=== PATIENT | male | born 1940 | race Caucasian/White ===

== ENCOUNTER → 2018-01-02 12:02 | Outpatient (CLI) | payer MEDICARE, SELFPAY ==
[2018-01-05 14:07] LABS: PROELU- Albumin, Urine 28.1 % (.); PROELU- Alpha-1-Globulin,Ur 6.3 % (.); PROELU- Alpha-2-Globulin,Ur 13.9 % (.); PROELU- Beta Globulin, Ur 27.5 % (.); PROELU- Gamma Globulin, Ur 24.2 % (.); Total Protein, Ur 9.2 mg/dL (Not Estab.)
== END ==
PROVIDERS: Visit Provider Family Medicine Geriatric Medicine
DX: E83.52 Hypercalcemia (principal)
CPT/HCPCS: 84166

== ENCOUNTER → 2018-02-15 07:05 | Outpatient (CLI) | payer MEDICARE, SELFPAY ==
[2016-12-22 06:14] VITALS: BMI 24.5
--- NOTE | 2018-02-15 07:27 | US_ITS ---
STUDY: RENAL ULTRASOUND - COMPLETE REASON FOR EXAM: Male, 77 years old. Stage III chronic kidney disease TECHNIQUE: Ultrasound evaluation of the kidneys was performed with real-time and static bergamn-scale imaging. COMPARISON: None. FINDINGS: RIGHT KIDNEY: Normal location of the right kidney, which is normal in size. The right kidney measures 9.2 x 4.8 x 1.4 cm. There is diffuse thinning of the renal cortex. The renal cortex measures 1.1 cm. There are multiple anechoic cysts of the right kidney measure up to 2.2 cm. There are no right renal calculi. There is no right hydronephrosis. DISTAL RIGHT URETER: There is non-visualization of the distal right ureter. There is no demonstrated right ureterovesical junction calculus. There is a visualized right ureteral jet. LEFT KIDNEY: Normal location of the left kidney, which is normal in size. The left kidney measures 9.8 x 5.1 x 5.0 cm. There is diffuse thinning of the renal cortex. The renal cortex measures 1.4 cm. There are multiple anechoic renal cysts measuring up to 2.7 cm. There are no left renal calculi. There is no left hydronephrosis. DISTAL LEFT URETER: There is non-visualization of the distal left ureter. There is no demonstrated left ureterovesical junction calculus. There is no demonstrated left ureteral jet. BLADDER: The distended urinary bladder has a volume of 121 ml. There is a normal wall thickness of the distended urinary bladder. There is no demonstrated mass within the urinary bladder. There are no demonstrated bladder calculi. US/Kidney and Bladder IMPRESSION: 1. Bilateral renal cortical atrophy compatible with history provided of chronic medical renal disease. 2. Simple bilateral renal cysts. Electronically Signed: Alon Mackay MD at 11:04 EST , Service support ,
[2018-02-15 08:18] LABS: Hematocrit 47.2 % (40-54); Hemoglobin 15.7 g/dl (13.0-16.5); Mean Corp Hgb Conc 33.3 g/gl (32-36); Mean Corpuscular Hgb 31.2 pg (27.0-32.0); Mean Corpuscular Volume 93.8 fL (80-94); Mean Platelet Vol. 11.6 fl (6.2-12.0); Platelet Count 269 K/mm3 (150-450); RBC Distribution Width CV 13.6 % (11.6-14.6); RBC Distribution Width SD 45.1 fl (35.1-43.9); Red Blood Count 5.03 M/mm3 (4.6-6.2); White Blood Count 9.2 K/mm3 (4.4-11.0)
[2018-02-15 08:21] LABS: Scan Indicated on CBC? Y/N NO
[2018-02-15 08:43] LABS: BUN 43 mg/dL (7-18); BUN/Creat Ratio 17.3 RATIO (10-20); Calcium,Total 10.3 mg/dL (8.5-10.1); Chloride 106 mmol/L (98-107); Creatinine, Serum 2.49 mg/dL (0.70-1.30); EST Glomerular Filtration Rate 27 mL/min (>60); Est Glom Filt Rate - Afr Amer 32 mL/min (>60); Glucose 109 mg/dL (74-106); Phosphorus 2.7 mg/dL (2.5-4.9); Sodium Level 141 mmol/L (136-145)
[2018-02-15 09:03] LABS: Vitamin D,25 Hydroxy 19.2 ng/mL (29.95-100.01)
[2018-02-15 09:06] LABS: PTHIN 34.3 pg/mL (18.4-80.1)
[2018-02-18 03:04] LABS: Immunoglobulin A 488 mg/dL (61-437); Immunoglobulin G 999 mg/dL (700-1600); PROEL- A/G Ratio 0.9 (0.7-1.7); PROEL- Albumin 3.6 g/dL (2.9-4.4); PROEL- Alpha-1 Globulin 0.3 g/dL (0.0-0.4); PROEL- Alpha-2 Globulin 1.1 g/dL (0.4-1.0); PROEL- Beta Globulin 1.6 g/dL (0.7-1.3); PROEL- Globulin, Total 3.9 g/dL (2.2-3.9); PROEL- TOTAL PROTEIN 7.5 g/dL (6.0-8.5)
[2018-02-19 08:18] LABS: Immunoglobulin E 450 IU/mL (0-100); Immunoglobulin M 24 mg/dL (15-143)
[2018-02-21 11:14] LABS: Vitamin D 1,25-Dihydroxy <5.0 pg/mL (19.9-79.3)
== END ==
PROVIDERS: Family Provider Family Medicine; PCP Family Medicine; Referring Provider Internal Medicine Nephrology; Visit Provider Internal Medicine Nephrology
DX: N18.3 Chronic kidney disease, stage 3 (moderate) (principal); E83.52 Hypercalcemia
CPT/HCPCS: 36415; 76770; 80069; 82306; 82652; 82784; 82785; 83970; 84165; 85027

== ENCOUNTER 2022-05-31 17:28 | Inpatient (IN) | payer MEDICARE, SELFPAY ==
[2022-05-31] VITALS (11 sets, daily range): BP systolic 77–202; BP diastolic 56–179; PULSE 81–143; RESP 20–30; TEMP 35.5–37.2; O2SAT 84–100; BMI 21.2; BMI 19.4
--- NOTE | 2022-05-31 17:39 | CT_ITS ---
STUDY: CT BRAIN WITHOUT CONTRAST REASON FOR EXAM: Male, 82 years old. AMS RADIATION DOSAGE (If Supplied By Facility): CTDIvol = ( 44.99 ) mGy, DLP = ( 796.11 ) mGycm TECHNIQUE: Transaxial CT imaging of the brain was performed without administration of intravenous contrast material. Individualized dose optimization techniques were used for this CT. COMPARISON: No relevant priors. FINDINGS: Normal soft tissue structures. Normal calvarium. Calcific plaquing of the cavernous carotids Moderate atrophy and periventricular white matter ischemic changes.. Normal basal ganglia and thalami. Normal brainstem. Normal cerebellum. There is no intracranial hemorrhage. There are no findings of an acute ischemic infarction. Postsurgical changes of the orbits Mild mucosal thickening left maxillary and bilateral ethmoid sinuses. CT/Brain/Head without Contrast IMPRESSION: Atrophy and moderate periventricular white matter ischemic changes. No evidence for acute intracranial bleed.. Electronically Signed: Rodney Staples MD at 18:34 EDT ,
--- NOTE | 2022-05-31 17:40 | EKG12_ITS ---
Test Reason : TACHY Blood Pressure : / mmHG Vent. Rate : 087 BPM Atrial Rate : 087 BPM P-R Int : 158 ms QRS Dur : 098 ms QT Int : 368 ms P-R-T Axes : 055 -64 072 degrees QTc Int : 442 ms Normal sinus rhythm Left axis deviation Abnormal ECG When compared with ECG of 31-MAY-2022 17:45, MANUAL COMPARISON REQUIRED, DATA IS UNCONFIRMED Confirmed by GILMER HAYWOOD, GLORIA ([id number]), editor greeting card LALA MURRAY ([id number]) on 06/06/2022 1:50:29 PM Referred By: Confirmed By:GLORIA SCHERER MD
--- NOTE | 2022-05-31 17:45 | EX.ED.DYSGE1 ---
HPI History of Present Illness Chief Complaint: Confusion Informant: patient Narrative Narrative: Patient is an 82-year-old male with history of hypertension and hyperlipidemia presenting via EMS from home. Apparently patient was found on the ground by his landlord. Patient states he had fallen to the ground and could not get himself back up. He was able to try to crawl around. He thinks he was on the ground for couple hours. Patient does seem slightly confused and smells of urine. The landlord stated last time he saw him was about a week ago when he was driving and the landlord at that time and asked him if he had a stroke and if he was okay. The patient said he was fine. Patient has no complaints at this time. Cannot really tell me what day or how he fell. [facility] Medical History (Updated 05/31/22 @ 19:[address] Yusra Sadler, DO) BPH (benign prostatic hyperplasia) Chronic bronchitis CKD (chronic kidney disease), stage III Former tobacco use HLD (hyperlipidemia) HTN (hypertension) Hx of urethral stricture Home Medications Prinzide 10 mg PO DAILY 11/12/12 [History Last Taken 11/30/12 06:30 10 MG] albuterol sulfate 90 mcg/actuation aerosol inhaler (ProAir HFA) 1 - 2 puff inhalation Q4H PRN PRN Asthma 11/12/12 [History Last Taken 11/30/12 06:30 1 - 2 PUFF] amlodipine 10 mg tablet 10 mg PO DAILY 11/12/12 [History Last Taken 11/30/12 06:30 10 MG] aspirin 81 mg chewable tablet 81 mg PO DAILY@0800 11/12/12 [History Last Taken 11/30/12 06:30 81 MG] pravastatin 20 mg tablet 20 mg PO QHS 11/12/12 [History Last Taken 11/30/12 06:30 20 MG] hydrocodone 5 mg-acetaminophen 300 mg tablet (Vicodin) 1 tab PO Q4H PRN PRN Pain #10 tabs 11/30/12 [Rx Last Taken Unknown] lisinopril 10 mg-hydrochlorothiazide 12.5 mg tablet (Zestoretic) 1 tab PO DAILY 12/22/16 [History Last Taken Unknown] Allergy/AdvReac Type Severity Reaction Status Date / Time No Known Allergies Allergy Verified 05/31/22 17:29 Family History (Updated 05/31/22 @ 19:[address] Brianna Felix MD) Sister Cancer Surgical History (Updated 05/31/22 @ 19:[address] Brianna Felix MD) H/O cystoscopy S/P colonoscopic polypectomy S/P partial colectomy Social History (Updated 05/31/22 @ 19:[address] Brianna Felix MD) household members: none Smoking Status: Former smoker quit date: 07/17/09 pack-years: 60 alcohol intake: current alcohol intake frequency: 0-2 drinks per day details: Per prior records max 1 drink daily. substance use type: does not use ROS ROS ED Review of Systems ROS Unobtainable: due to mental status EXAM Physical Exam Const Vital Signs: 05/31/22 17:29 05/31/22 17:40 05/31/22 17:43 Temperature 96 F L Temperature Source Temporal Pulse Rate 140 H 143 H Respiratory Rate 28 H 30 H Respiratory Effort Short of Breath Labored Respiratory Pattern Tachypnea Blood Pressure 139/115 H Blood Pressure Mean 123 Pulse Ox 84 96 Oxygen Delivery Method Room Air Nasal Cannula Oxygen Flow Rate (L/min) 2 05/31/22 19:00 Temperature Temperature Source Pulse Rate 81 Respiratory Rate 22 H Respiratory Effort Respiratory Pattern Blood Pressure 202/179 H Blood Pressure Mean 186 Pulse Ox 99 Oxygen Delivery Method Nasal Cannula Oxygen Flow Rate (L/min) 2 Constitutional Narrative: Well-developed, toxic-appearing HEENT Reports TM's clear and dry mucous membranes HEENT Narrative: No signs of facial trauma Negative for trauma Tympanic Membrane ED: Yes TM's clear Mouth ED: Yes dry mucous membranes Mouth: dry mucous membranes Eyes PERRL and EOMs intact bilaterally Neck supple General: Negative for tenderness Chest Wall inspection of chest normal and palpation of chest normal Resp Resp Narrative: Tachypneic Auscultation: Negative for rales, rhonchi or wheezes Cardio no murmurs Rate: tachycardic GI normal to inspection, nondistended, normoactive bowel sounds Narrative: Normal external genitalia Extremity normal to inspection General Extremety ED: Negative for edema or tenderness General Extremity: Negative for edema Neuro oriented x3 Neuro Narrative: Patient does seem slightly confused and is a poor historian. Slight left facial droop however this is chronic per family members that are at the bedside. They state he has had prior injuries/trauma and surgery to that side of his face. No focal deficits appreciated. No drift of the extremities. Sensorium / Orientation: alert Motor Exam: general weakness Psych mental status grossly normal Skin no rashes or lesions noted and no wounds Skin Narrative: Tenting of the skin MDM MDM MDM Narrative Medical decision making narrative: Patient is evaluated for generalized weakness and concern for prolonged downtime on the floor. He is very weak and clinically appears dehydrated with significant tachycardia and tachypnea which I suspect is from her underlying metabolic process. No obvious signs of trauma. CT of the brain obtained does not show any acute intracranial process. He is not have any focal neurologic deficits. Patient is bolused IV fluids with improvement of his mentation and heart rate. ABG shows compensated metabolic acidosis. Patient has significant elevation of his BUN and creatinine however his potassium is normal. I do not think he requires emergent dialysis. His anion gap is normal. His bicarb is 13 which is again consistent with significant dehydration. Patient does have an elevation of his CK and I suspect the uptrend. I suspect this is early rhabdomyolysis. There is no obvious source of infection at this time however he does have a leukocytosis with a white blood cell count of 13. Patient's lactate is elevated at 5.0. Cultures are sent. There is no obvious source of infection we will refrain from antibiotics at this time and I suspect his lactic acidosis is due to dehydration. Case is discussed with admitting physician, Dr. Felix, who accepts him to the PCU. Patient's mentation does improve slightly while in the emergency room. History & Record Review Discussion w/independent historian: EMS personnel and Patient Lab Data Attestation: I reviewed the patient's lab results. Labs: Laboratory Results - last 24 hr 05/31/22 05/31/22 05/31/22 17:48 17:49 17:49 WBC RBC Hgb Hct MCV MCH MCHC RDW Std Deviation RDW Coeff of Fidelia Plt Count MPV Immature Gran % (Auto) Neut % (Auto) Lymph % (Auto) [place] % (Auto) Eos % (Auto) Baso % (Auto) Absolute Neuts (auto) Absolute Lymphs (auto) Nucleated RBC % Differential Comment PT INR APTT Sodium 144 Potassium 3.9 Chloride 118 H Carbon Dioxide 13.0 L Anion Gap 13 BUN 154 H* Creatinine 6.37 H Estim Creat Clear Calc 8.00 Est GFR (MDRD) Af Amer 11 L Est GFR (MDRD) Non-Af 9 L BUN/Creatinine Ratio 24.2 H Glucose 225 H Lactic Acid Calcium 8.6 Magnesium 2.2 Total Bilirubin 0.40 AST 22 ALT 21 Alkaline Phosphatase 59 Total Creatine Kinase 317 H Troponin I High Sens 24 Total Protein 5.7 L Albumin 2.1 L Globulin 3.6 Albumin/Globulin Ratio 0.6 L Urine Color Yellow Urine Clarity Clear Urine pH 5.0 Ur Specific Wolsey 1.020 Urine Protein 15 H Urine Glucose (UA) Normal Urine Ketones 5 H Urine Occult Blood Negative Urine Nitrite Negative Urine Bilirubin 1 H Urine Urobilinogen Normal Ur Leukocyte Esterase 25 H Urine RBC 0 SEEN Urine WBC 0-5 SEEN Ur Squamous Epith Cells 0 SEEN Urine Bacteria 0 SEEN Urine Mucus 0 SEEN POC Glucose 183 H 05/31/22 05/31/22 05/31/22 17:55 17:55 17:57 WBC 13.0 H RBC 4.59 L Hgb 14.2 Hct 44.0 MCV 95.9 H MCH 30.9 MCHC 32.3 RDW Std Deviation 49.1 H RDW Coeff of Fidelia 13.8 Plt Count 223 MPV 11.8 Immature Gran % (Auto) 2.500 H Neut % (Auto) 83.9 H Lymph % (Auto) 6.5 L [place] % (Auto) 6.5 Eos % (Auto) 0.5 Baso % (Auto) 0.1 Absolute Neuts (auto) 10.9 H Absolute Lymphs (auto) 0.85 Nucleated RBC % 0 Differential Comment SCANNED PT 16.7 H INR 1.4 APTT 26.0 Sodium Potassium Chloride Carbon Dioxide Anion Gap BUN Creatinine Estim Creat Clear Calc Est GFR (MDRD) Af Amer Est GFR (MDRD) Non-Af BUN/Creatinine Ratio Glucose Lactic Acid 5.0 H* Calcium Magnesium Total Bilirubin AST ALT Alkaline Phosphatase Total Creatine Kinase Troponin I High Sens Total Protein Albumin Globulin Albumin/Globulin Ratio Urine Color Urine Clarity Urine pH Ur Specific Wolsey Urine Protein Urine Glucose (UA) Urine Ketones Urine Occult Blood Urine Nitrite Urine Bilirubin Urine Urobilinogen Ur Leukocyte Esterase Urine RBC Urine WBC Ur Squamous Epith Cells Urine Bacteria Urine Mucus POC Glucose ABG Data ABG results: ABG 05/31/22 18:01 Specimen Type ART Sample Site L Radial pH 7.35 Bicarbonate Actual 12.0 L Total CO2 13 Base Excess -14 L O2 Saturation 98 ABG pCO2 21.9 L ABG pO2 114 H Geo Test Positive O2 Delivery Device Cannula Liter Flow 2.0 Radiography Chest X-Ray - ED: 1 View, Read by ED Physician and No Acute Disease Diagnostic Testing: Clinical Impression(s) from Imaging Studies Brain CT 05/31/22 17:39 IMPRESSION: Atrophy and moderate periventricular white matter ischemic changes. No evidence for acute intracranial bleed.. Electronically Signed: Rodney Staples MD at 18:34 EDT , Cervical Spine CT 05/31/22 17:47 IMPRESSION: Moderate to severe degenerative change. No acute fracture or subluxation. Electronically Signed: Rodney Staples MD at 18:37 EDT , Chest X-Ray 05/31/22 18:20 IMPRESSION: COPD. No acute cardiopulmonary pathology Electronically Signed: Rodney Staples MD at 18:39 EDT , Rhythm Strip Rhythm Strip: Sinus Tach Rate: 150 Ectopy: None EKG Initial EKG: Attestation: I personally reviewed and interpreted this EKG as follows: Interpretation: Sinus Tachycardia Comments: Sinus tachycardia rate of [address] changes, likely strain related Poor baseline so difficult to interpret Compared to prior EKG, patient is now tachycardic with new strain pattern Discharge Plan Triage Chief Complaint: Confusion Other Complaint: Fall General Illness ED Provider: Yusra Sadler Dx/Rx/DC Orders Clinical Impression: YUE (acute kidney injury), Rhabdomyolysis, SIRS (systemic inflammatory response syndrome), Hypoxia Prescriptions: No Action amlodipine 10 MG tablet 10 mg PO DAILY aspirin 81 MG tablet,chewable 81 mg PO DAILY@0800 pravastatin 20 MG tablet 20 mg PO QHS albuterol sulfate [ProAir HFA] 1 PUFF inhaler 1 - 2 puff inhalation Q4H PRN PRN (Reason: Asthma) Prinzide 10 mg PO DAILY Label Comments: PRINZIDE 10/12.5 hydrocodone-acetaminophen [Vicodin] 1 EACH tablet 1 tab PO Q4H PRN PRN (Reason: Pain) Qty: 10 0RF lisinopril-hydrochlorothiazide [Zestoretic] 1 TABLET tablet 1 tab PO DAILY Primary Care Provider: Rodney Shah Referrals: Rodney Shah MD [Primary Care Provider] - Disposition Disposition: Acute Care Hospital [facility]
--- NOTE | 2022-05-31 17:47 | CT_ITS ---
STUDY: CT CERVICAL SPINE WITHOUT CONTRAST REASON FOR EXAM: Male, 82 years old. trauma RADIATION DOSAGE (If Supplied By Facility): CTDIvol = ( 18.41 ) mGy, DLP = ( 355.12 ) mGycm TECHNIQUE: High resolution transaxial imaging was performed without contrast material. Sagittal and coronal images were reconstructed. Individualized dose optimization techniques were used for this CT. COMPARISON: None FINDINGS: Normal craniovertebral junction. Normal anterior atlantoaxial articulation. Normal odontoid process. Decreased cervical lordosis. Normal vertebral bodies and posterior osseous elements. C2-3: Normal endplates. Normal disc height and morphology. Normal central canal and intervertebral neuroforamina. C3-4: Grade 1 spondylolisthesis Normal endplates. Normal disc height and minor bulging disc osteophyte complex.. Normal central canal and intervertebral neuroforamina. C4-5: Narrowed disc space and mild endplate spurring.. Normal central canal and intervertebral neuroforamina. C5-6: Narrowed disc space and mild endplate spurring.. Normal central canal. Severe bilateral neural foraminal stenosis secondary to bony encroachment C6-7: Narrowed disc space and endplate spurring.. Normal central canal. Severe bilateral neural foraminal stenosis C7-T1: Grade 1 spondylolisthesis Normal endplates. Normal disc height and minor bulging disc osteophyte complex. Normal central canal and intervertebral neuroforamina. Normal visualized soft tissue structures. CT/Spine Cervical without Contras IMPRESSION: Moderate to severe degenerative change. No acute fracture or subluxation. Electronically Signed: Rodney Staples MD at 18:37 EDT ,
[2022-05-31] MEDS: 0.9% Normal Saline 1,000 ML 1000 ML IV (17:48)
[2022-05-31 17:57] LABS: Bacteria 0 SEEN /hpf (None Seen); Mucous, Urine 0 SEEN /hpf (<or=2+); Red Blood Cells-Urine 0 SEEN /hpf (0-5); Squamous Epithelial Cells - UA 0 SEEN /hpf (0-5)
[2022-05-31] MEDS: 0.9% Normal Saline 1,000 ML 150 ML IV (18:02)
[2022-05-31 18:10] LABS: Allen Test Positive; Base Excess -14 mmol/L (-2 to +2); Blood Gas Specimen Type ART; O2 Delivery Device Cannula; PO2 114 mmHG (75-100); SITE L Radial; SO2 98 % (95-99); Total Carbon Dioxide 13 mmol/L; pCO2 21.9 mmHg (35-45); pH 7.35 (7.35-7.45)
[2022-05-31 18:12] LABS: Absolute Lymphocyte Count 0.85 X10^3/uL (0.83-4.51); Absolute Neutrophil Count 10.9 X10^3/uL (2.0-7.7); Basophil# 0.01 X10^3/uL; Basophil% 0.1 % (0-1); Eosinophil# 0.06 X10^3/uL; Eosinophils% 0.5 % (0-5); Hemoglobin 14.2 g/dL (13.0-16.5); Lymphocyte # 0.85 X10^3/ul (0.83-4.51); Lymphocyte % 6.5 % (19-41); Mean Corp Hgb Conc 32.3 g/dL (32-36); Mean Corpuscular Hgb 30.9 pg (27.0-32.0); Mean Corpuscular Volume 95.9 fL (80-94); Mean Platelet Vol. 11.8 fl (6.2-12.0); Monocyte# 0.85 X10^3/uL; Monocyte% 6.5 % (0-10); NRBC Flagged by Analyzer 0 % (0-5); Neutrophil # 10.94 X10^3/uL (2.7-7.7); Neutrophil % 83.9 % (47-70); POSITIVE MORPHOLOGY YES; Platelet Count 223 K/mm3 (150-450); RBC Distribution Width CV 13.8 % (11.6-14.6); RBC Distribution Width SD 49.1 fl (35.1-43.9); Red Blood Count 4.59 M/mm3 (4.6-6.2)
[2022-05-31 18:17] LABS: Color, Urine Yellow (Yellow); Glucose, Dipstick Normal (Normal); Ketone-Dipstick 5 mg/dl (Negative); Leukocyte Esterase-Dipstick 25 /ul (Negative); Nitrite-Dipstick Negative (Negative); Occult Blood-Urine Negative /ul (Negative); Protein-Dipstick 15 mg/dl (Negative); Urine Clarity Clear (Clear); Urine Urobilinogen Normal (Normal)
[2022-05-31 18:19] LABS: Differential Indicated SCAN CRITERIA MET
--- NOTE | 2022-05-31 18:20 | RAD_ITS ---
STUDY: X-RAY CHEST REASON FOR EXAM: Male, 82 years old. weakness TECHNIQUE: AP portable COMPARISON: November 15, 2012 FINDINGS: Lungs are hyperinflated.. There is no demonstrated pleural abnormality. Normal size heart. Normal mediastinum and balbir. Normal visualized pulmonary arteries. Mildly calcified and tortuous aortic arch and descending thoracic aorta. Normal visualized thoracic spine. Normal visualized, clavicles, and shoulders. Old healed left rib fractures There is no demonstrated abnormality of the visualized soft tissue structures of the upper abdomen. RAD/Chest 1 View (Portable) IMPRESSION: COPD. No acute cardiopulmonary pathology Electronically Signed: Rodney Staples MD at 18:39 EDT ,
[2022-05-31 18:23] LABS: International Normalized Ratio 1.4; Prothrombin Time (Protime)PT. 16.7 SECONDS (11.7-14.9)
[2022-05-31 18:37] LABS: Urine Bilirubin Dipstick 1 mg/dL (Negative)
[2022-05-31 18:41] LABS: Differential Comment SCANNED
[2022-05-31 18:43] LABS: White Blood Cells 0-5 SEEN /hpf (0-5)
[2022-05-31 18:59] LABS: ALB/GLOB Ratio 0.6 RATIO (0.9-2.4); AST(SGOT) 22 U/L (15-37); Alanine Aminotransfer ALT/SGPT 21 U/L (16-61); Albumin, Serum 2.1 g/dL (3.2-5.0); Alkaline Phosphatase 59 U/L (45-117); Anion Gap 13 (5-15); BUN 154 mg/dL (7-18); BUN/Creat Ratio 24.2 RATIO (10-20); CPK Total, Creatine Kinase 317 U/L (39-308); Calcium,Total 8.6 mg/dL (8.5-10.1); Chloride 118 mmol/L (98-107); Creatinine, Serum 6.37 mg/dL (0.70-1.30); EST Glomerular Filtration Rate 9 mL/min (>60); Est Glom Filt Rate - Afr Amer 11 mL/min (>60); Globulin 3.6 g/dL (2.2-4.2); Glucose 225 mg/dL (74-106); Magnesium 2.2 mg/dL (1.6-2.6); Potassium 3.9 mmol/L (3.5-5.1); Protein, Total 5.7 g/dL (6.4-8.2); Sodium Level 144 mmol/L (136-145); Troponin-I HS 24 pg/mL (3.0-78.0)
--- NOTE | 2022-05-31 19:36 | PCM.HP.STD ---
HPI - General General Date of Admission: 05/31/22 Date of Service: 05/31/22 Chief Complaint: Confusion, fall, found on the ground. HPI Narrative The patient is an 82 y/o M w/ PMHx: HTN, HLD, BPH w/ Hx UTI/strictures, Chronic bronchitis, CKD stage III unclear subtype, Former tobacco use who presents to the [facility] ED on 05/31/22 found by his landlord on the ground reportedly fallen and could not get himself back up attempting to crawl potentially for hours however patient was disheveled, smells of urine and was confused with last known well approximately 1 week prior per the landlord and at that time patient was appropriate, driving without issue however given his confusion although the patient did report to the landlord he was fine prompted transition to the ED per EMS. In the emergency room patient does have some improvement following interventions and is able to identify month, place and president but gives the wrong year. He did advise his family member his niece in the room without issue. In the ED upon his evaluation he appears ill with tachypnea, occultly with upper airway secretion management and significantly tight on pulmonary examination work-up in the ED included T96, heart rate initially 140 with most recent repeat 81, BP 139/115, respiratory rate initially 28 noted to be 84% on room air with improvement to respiratory rate 22, 99% on 2 L nasal cannula, CBC with WC 13, hemoglobin 14.2, platelet 223 with left shift, coags with INR 1.4, PT 16.7, PTT 26, ABG with pH 7.35, bicarb 12, PCO2 21.9, PO2 114 on 2 L nasal cannula, CMP with chloride 118, carbon oxide 13, anion gap 13, BUN/creatinine 154/6.37, glucose 225, lactic acid 5.0, magnesium 2.2, total creatinine kinase 317, troponin 24, urinalysis with evidence of dehydration but no obvious UTI, blood culture x2 pending per ED, CT of the brain with atrophy and moderate periventricular white matter ischemic changes with no acute evidence of intracranial bleed, CT cervical spine with moderate to severe degenerative changes with no acute fracture or subluxation, chest x-ray with COPD type changes with no acute cardiopulmonary findings otherwise, EKG with significant tachycardia, difficult to significant movement, poor EKG. In the ED patient ministered 2 L normal saline in addition to maintenance IV fluid continued. [facility] Medical History (Updated 05/31/22 @ 19:[address] Yusra Sadler, DO) BPH (benign prostatic hyperplasia) Chronic bronchitis CKD (chronic kidney disease), stage III Former tobacco use HLD (hyperlipidemia) HTN (hypertension) Hx of urethral stricture Home Medications Prinzide 10 mg PO DAILY 11/12/12 [History Last Taken 11/30/12 06:30 10 MG] albuterol sulfate 90 mcg/actuation aerosol inhaler (ProAir HFA) 1 - 2 puff inhalation Q4H PRN PRN Asthma 11/12/12 [History Last Taken 11/30/12 06:30 1 - 2 PUFF] amlodipine 10 mg tablet 10 mg PO DAILY 11/12/12 [History Last Taken 11/30/12 06:30 10 MG] aspirin 81 mg chewable tablet 81 mg PO DAILY@0800 11/12/12 [History Last Taken 11/30/12 06:30 81 MG] pravastatin 20 mg tablet 20 mg PO QHS 11/12/12 [History Last Taken 11/30/12 06:30 20 MG] hydrocodone 5 mg-acetaminophen 300 mg tablet (Vicodin) 1 tab PO Q4H PRN PRN Pain #10 tabs 11/30/12 [Rx Last Taken Unknown] lisinopril 10 mg-hydrochlorothiazide 12.5 mg tablet (Zestoretic) 1 tab PO DAILY 12/22/16 [History Last Taken Unknown] Allergy/AdvReac Type Severity Reaction Status Date / Time No Known Allergies Allergy Verified 05/31/22 17:29 Family History (Updated 05/31/22 @ 20:[address] Brianna Felix MD) Sister Cancer Mother Heart disease Diabetes Hypertension Father Heart disease Diabetes Hypertension Other COPD (chronic obstructive pulmonary disease) Surgical History (Updated 05/31/22 @ 19:[address] Brianna Felix MD) H/O cystoscopy S/P colonoscopic polypectomy S/P partial colectomy Social History (Updated 05/31/22 @ 19:[address] Brianna Felix MD) household members: none Smoking Status: Former smoker quit date: 07/17/09 pack-years: 60 alcohol intake: current alcohol intake frequency: 0-2 drinks per day details: Per prior records max 1 drink daily. substance use type: does not use ROS Review of Systems ROS Unobtainable: due to encephalopathy Vital Signs Vital Signs Vital Signs: 05/31/22 17:29 05/31/22 17:40 05/31/22 17:43 Temperature 96 F L Temperature Source Temporal Pulse Rate 140 H 143 H Respiratory Rate 28 H 30 H Respiratory Effort Short of Breath Labored Respiratory Pattern Tachypnea Blood Pressure 139/115 H Blood Pressure Mean 123 Pulse Ox 84 96 Oxygen Delivery Method Room Air Nasal Cannula Oxygen Flow Rate (L/min) 2 05/31/22 19:00 Temperature Temperature Source Pulse Rate 81 Respiratory Rate 22 H Respiratory Effort Respiratory Pattern Blood Pressure Blood Pressure Mean Pulse Ox 99 Oxygen Delivery Method Nasal Cannula Oxygen Flow Rate (L/min) 2 Weight Weight: 139 lb 8.842 oz Body Mass Index (BMI) 21.2 Physical Exam Narrative Physical Examination: General: Awake, alert, oriented to niece present, place, president, initially gives wrong month but corrects himself very quickly, unfortunately gives her all year but this is improved since initial ED presentation per ED physician and also family present, angela cooperative, seated upright in the ED bed, fatigued, ill-appearing, increased respiratory rate with accessory muscle usage is evident. Skin: Normal color, normal turgor, no icterus, no cyanosis. HEENT: AT/NC, EOMI, PERRLA, dry MM, no carotid bruits or JVD noted, some difficulty managing his upper airway secretions. Lungs: Significantly diminished, tight, increased respiratory rate with some accessory muscle usage, no rales, rhonchi or wheezing but again very minimal movement. Heart: Improved but remains tachycardic with regular rhythm; no gallop, rub audible. Abdomen: Soft, NTTP, ND, distant normal BS, no HSM. Extremities: No cyanosis, clubbing, or edema. Neurological: Patient awake, alert, oriented as noted, cognitive function improving, still not baseline intact; pupils equally reactive to light and accommodation, cranial nerves grossly normal, moving all 4 extremities, no focal deficits, strength severely global decrease secondary to acute presentation. Psychiatric: Affect appears flat, fatigued, ill-appearing, evidence of increased respiratory effort, no acute evidence of depressive or anxiety feelings. Results Lab / Micro Data Result Diagrams: 05/31/22 17:57 05/31/22 17:49 Labs: Laboratory Results - last 24 hr 05/31/22 17:49: Sodium 144, Potassium 3.9, Chloride 118 H, Carbon Dioxide 13.0 L, Anion Gap 13, BUN 154 H*, Creatinine 6.37 H, Estim Creat Clear Calc 8.00, Est GFR (MDRD) Af Amer 11 L, Est GFR (MDRD) Non-Af 9 L, BUN/Creatinine Ratio 24.2 H, Glucose 225 H, Calcium 8.6, Magnesium 2.2, Total Bilirubin 0.40, AST 22, ALT 21, Alkaline Phosphatase 59, Total Creatine Kinase 317 H, Troponin I High Sens 24, Total Protein 5.7 L, Albumin 2.1 L, Globulin 3.6, Albumin/Globulin Ratio 0.6 L 05/31/22 17:49: Urine Color Yellow, Urine Clarity Clear, Urine pH 5.0, Ur Specific Saxton 1.020, Urine Protein 15 H, Urine Glucose (UA) Normal, Urine Ketones 5 H, Urine Occult Blood Negative, Urine Nitrite Negative, Urine Bilirubin 1 H, Urine Urobilinogen Normal, Ur Leukocyte Esterase 25 H, Urine RBC 0 SEEN, Urine WBC 0-5 SEEN, Ur Squamous Epith Cells 0 SEEN, Urine Bacteria 0 SEEN, Urine Mucus 0 SEEN 05/31/22 17:55: PT 16.7 H, INR 1.4, APTT 26.0 05/31/22 17:55: Lactic Acid 5.0 H* 05/31/22 17:57: WBC 13.0 H, RBC 4.59 L, Hgb 14.2, Hct 44.0, MCV 95.9 H, MCH 30.9, MCHC 32.3, RDW Std Deviation 49.1 H, RDW Coeff of Fidelia 13.8, Plt Count 223, MPV 11.8, Immature Gran % (Auto) 2.500 H, Neut % (Auto) 83.9 H, Lymph % (Auto) 6.5 L, Emery % (Auto) 6.5, Eos % (Auto) 0.5, Baso % (Auto) 0.1, Absolute Neuts (auto) 10.9 H, Absolute Lymphs (auto) 0.85, Nucleated RBC % 0, Differential Comment SCANNED ABG Data ABG results: ABG 05/31/22 18:01 Specimen Type ART Sample Site L Radial pH 7.35 Bicarbonate Actual 12.0 L Total CO2 13 Base Excess -14 L O2 Saturation 98 ABG pCO2 21.9 L ABG pO2 114 H Geo Test Positive O2 Delivery Device Cannula Liter Flow 2.[address] 05/31/22 17:39 IMPRESSION: Atrophy and moderate periventricular white matter ischemic changes. No evidence for acute intracranial bleed.. Electronically Signed: Rodney Staples MD at 18:34 EDT , Cervical Spine CT 05/31/22 17:47 IMPRESSION: Moderate to severe degenerative change. No acute fracture or subluxation. Electronically Signed: Rodney Staples MD at 18:37 EDT , Chest X-Ray 05/31/22 18:20 IMPRESSION: COPD. No acute cardiopulmonary pathology Electronically Signed: Rodney Staples MD at 18:39 EDT , Assessment & Plan Assessment/Plan (1) SIRS (systemic inflammatory response syndrome): (2) Hypoxia: (3) YUE (acute kidney injury): (4) Rhabdomyolysis: PLAN: Plan The patient is an 82 y/o M w/ PMHx: HTN, HLD, BPH w/ Hx UTI/strictures, Chronic bronchitis, CKD stage III unclear subtype, Former tobacco use who presents to the [facility] ED on 05/31/22 found by his landlord on the ground reportedly fallen and could not get himself back up attempting to crawl potentially for hours however patient was disheveled, smells of urine and was confused with last known well approximately 1 week prior per the landlord and at that time patient was appropriate, driving without issue however given his confusion although the patient did report to the landlord he was fine prompted transition to the ED per EMS. #1. Acute Encephalopathy secondary to Acute SIRS with Acute Hypoxia with Lactic Acidosis, Unclear Exact Etiology but concerning for Clinical Pneumonia complicated by prior noted history of chronic bronchitis with also suspected Acute on Chronic COPD Exacerbation: Admission initially with significant tachycardia now improved, oxygen requirement, acute kidney injury and lactic acidosis with evidence of mild rhabdomyolysis with fall and although chest x-rays not marked appearing patient was significantly hypoxic upon presentation, will admit to PCU, maintain on oxygen with wean as tolerated to room air, continue ATC duonebs, PRN albuterol, initiate and maintain on IV solumedrol, initiate and maintain on IV Rocephin and Azithromycin, HOB, IS parameters w/ pending sputum cultures, full respiratory panel, procalcitonin and urine antigens. Bld cx x 2 obtained in the ED. PT/OT/case management consultation for discharge planning. Repeat CXR in AM following overnight hydration. #2. Acute kidney injury on CKD stage III unclear subtype: Secondary to acute presentation #1. Admission BUN/Cr 154/6.37, prior baseline creatinine noted to be primarily 1.4-1.6 however this is in 2012 in the last noted prior to this 02/15/2018 creatinine 2.49 thus unclear exact. Will hydrate, hold nephrotoxic medications and repeat chemistry in AM, additionally will obtain renal ultrasound and FeNa assessment given significant YUE presentation. #3. Hyperglycemia without diabetic history: Admission glucose 225, possibly stress response given acute presentation, will obtain hemoglobin C in the interim we will also maintain on ADA diet with Accu-Cheks with insulin sliding scale pending A1c and if consistent with prediabetes or diabetes we will request nutrition consultation for also education and teaching. Anion gap of note is 13. Urine of note also only with 5 ketones and normal glucose. #4. Lactic acidosis: Admission lactic acid 5.0, likely secondary to #1 and also #2 with associated hypoxia concurrently, continue judicious hydration, trend lactic acid per facility protocol #5. Mild acute rhabdomyolysis: Admission total creatinine kinase 317, continue judicious IV fluids as noted, trend CK and monitor urine output. #6. Hypertension: We will cautiously continue amlodipine, holding other nephrotoxic regimen given presentation, resume once appropriate, low threshold to hold given presentation,. IV hydralazine in interim. #7. Hyperlipidemia: We will continue patient on statin therapy. #8. Former tobacco use: Encourage continued tobacco cessation. #9. BPH with history frequent UTI/strictures: Previous cystoscopy with stricture with dilation, per current list not on regimen, clarify and if appropriate add. #10. DVT prophylaxis: Heparin. #11. CODE status: Patient HCPOA are his neice and nephews, niece present for discussions and living will is currently in place. Discussed CODE status at length including difference between FULL code, DNR-CCA and DNR-CC status. Following discussions about the differences in these status, requested DNR-CCA, no intubation at this time. He had not discussed these items prior with his HCPOAs but following review confirmed several times with patient and HCPOA present given his encephalopathy although improving. Advanced Care Planning Face to Face Time: 17 minutes. Admission Evaluation Time spent evaluating chart, patient history, patient evaluation, care planning and discussion with specialists: 76 minutes. Charges/Coding Visit Charges Inpatient E&M: 32576 Init Hosp L3 Procedures Hospitalists Procedures: 88823 Advncd Care Plan 30 Min
[2022-05-31] MEDS: 0.9% Normal Saline 1,000 ML 999 ML IV ×2 (19:43→23:00)
[2022-05-31 19:46] LABS: Bedside Glucose 183 mg/dL (74-106)
[2022-05-31 20:22] LABS: Urine Sodium 12 mmol/L (Not Establ.)
[2022-05-31 20:34] LABS: Procalcitonin 32.88 ng/mL (0.00-0.09)
[2022-05-31] MEDS: Ceftriaxone 1 GM/50 ML BAG IV (21:36)
[2022-05-31] MEDS: 0.9% Normal Saline 1,000 ML 125 ML IV (21:38)
[2022-05-31] MEDS: MethylPREDNISolone 125 MG/2 ML Vial IV (21:42)
[2022-05-31] MEDS: Ipratropium/Albuterol Sulfate 3 ML AMPUL.NEB INHALATION (21:45)
[2022-05-31 21:58] LABS: Reflex Lactate? Y
[2022-05-31 22:07] LABS: Troponin-I HS 29 pg/mL (3.0-78.0)
[2022-05-31] MEDS: Heparin Injection (Vial) 5,000 UNIT/ML VIAL 5000 UNIT SC (22:13)
[2022-05-31] MEDS: Pravastatin 20 MG Tablet PO (22:13)
[2022-05-31 22:36] LABS: Lactic Acid 2.5 mmol/L (0.4-1.9)
[2022-05-31 22:55] LABS: Bedside Glucose 122 mg/dL (74-106)
[2022-06-01] VITALS (21 sets, daily range): BP systolic 77–111; BP diastolic 58–81; PULSE 76–149; RESP 15–22; TEMP 36.6–37.3; O2SAT 76–100; BMI 19.4
[2022-06-01 00:47] LABS: Troponin-I HS 31 pg/mL (3.0-78.0)
--- NOTE | 2022-06-01 03:49 | NURSING ---
Weaned patient off oxygen Spo2 92% on RA while monitoring oxygen in room patient destat to 89% on RA applied 2L patient at 92%
[2022-06-01] MEDS: 0.9% Normal Saline 1,000 ML 125 ML IV ×2 (05:45→16:13)
[2022-06-01 05:51] LABS: Absolute Lymphocyte Count 0.24 X10^3/uL (0.83-4.51); Absolute Neutrophil Count 7.8 X10^3/uL (2.0-7.7); Basophil# 0.08 X10^3/uL; Hematocrit 45.5 % (40-54); Hemoglobin 14.3 g/dL (13.0-16.5); Lymphocyte # 0.24 X10^3/ul (0.83-4.51); Lymphocyte % 2.9 % (19-41); Mean Corp Hgb Conc 31.4 g/dL (32-36); Mean Corpuscular Hgb 30.8 pg (27.0-32.0); Mean Corpuscular Volume 98.1 fL (80-94); Mean Platelet Vol. 11.6 fl (6.2-12.0); Monocyte# 0.11 X10^3/uL; Monocyte% 1.3 % (0-10); NRBC Flagged by Analyzer 0 % (0-5); POSITIVE DIFFERENTIAL YES; POSITIVE MORPHOLOGY YES; Platelet Count 177 K/mm3 (150-450); RBC Distribution Width CV 13.8 % (11.6-14.6); RBC Distribution Width SD 50.7 fl (35.1-43.9); Red Blood Count 4.64 M/mm3 (4.6-6.2); White Blood Count 8.4 K/mm3 (4.4-11.0)
--- NOTE | 2022-06-01 05:55 | US_ITS ---
STUDY: RENAL ULTRASOUND - COMPLETE REASON FOR EXAM: Male, 82 years old. YUE on CKD TECHNIQUE: Ultrasound evaluation of the kidneys was performed with real-time and static bergman-scale imaging. COMPARISON: Comparison is made with prior examination dated February 15, 2018. FINDINGS: RIGHT KIDNEY: Normal location of the right kidney, which is normal in size. The right kidney measures 9.1 cm x 4.9 cm x 4.7 cm. There is a normal cortex of the right kidney. The renal cortex measures 1.4 cm. Multiple renal cysts are seen. The largest measures 3.8 cm x 3 cm x 2.3 cm. A septation is seen within it. There are no right renal calculi. There is no right hydronephrosis. DISTAL RIGHT URETER: There is non-visualization of the distal right ureter. There is no demonstrated right ureterovesical junction calculus. There is a visualized right ureteral jet. LEFT KIDNEY: Normal location of the left kidney, which is normal in size. The left kidney measures 9.2 cm x 5.1 cm x 4.8 cm. There is a normal cortex of the left kidney. The renal cortex measures 1.9 cm. Multiple cysts are seen. The largest cyst measures 4.4 cm x 2.87 x 2.8 cm. A single septation is seen within. There are no left renal calculi. There is no left hydronephrosis. DISTAL LEFT URETER: There is non-visualization of the distal left ureter. There is no demonstrated left ureterovesical junction calculus. There is a visualized left ureteral jet. BLADDER: A Rodrigues catheter is seen within the empty urinary bladder. US/Kidney and Bladder IMPRESSION: Multiple bilateral renal cysts. Electronically Signed: Jaden Melgar MD at 15:22 EDT ,
--- NOTE | 2022-06-01 05:55 | RAD_ITS ---
STUDY: X-RAY CHEST REASON FOR EXAM: Male, 82 years old patient with dyspnea and cough. TECHNIQUE: Single AP portable view of the chest. COMPARISON: May 31, 2022. FINDINGS: Cardiac monitoring leads are present. Lungs are hyperexpanded. There is patchy multifocal left-sided groundglass attenuation that may represent pneumonia. There is no demonstrated pleural abnormality. There is borderline cardiomegaly. Normal mediastinum and balbir. There is prominence of the pulmonary hilar arteries with peripheral pulmonary vascular congestion. There is atherosclerotic calcification of the aortic arch with tortuosity. Normal visualized thoracic spine. There is deformity of the left-sided seventh rib that may represent an old fracture. There is no demonstrated abnormality of the visualized soft tissue structures of the upper abdomen. RAD/Chest 1 View (Portable) IMPRESSION: Findings suggest multifocal left-sided airspace disease. This could represent pneumonia. Electronically Signed: Denise Garcia MD at 5:30 EDT ,
[2022-06-01 05:56] LABS: Differential Indicated SCAN CRITERIA MET
[2022-06-01 06:10] LABS: Bedside Glucose 140 mg/dL (74-106)
[2022-06-01] MEDS: Ipratropium/Albuterol Sulfate 3 ML AMPUL.NEB INHALATION ×3 (06:50→19:29)
[2022-06-01 06:58] LABS: ALB/GLOB Ratio 0.6 RATIO (0.9-2.4); AST(SGOT) 31 U/L (15-37); Alanine Aminotransfer ALT/SGPT 24 U/L (16-61); Albumin, Serum 2.1 g/dL (3.2-5.0); Alkaline Phosphatase 69 U/L (45-117); Anion Gap 10 (5-15); BUN 134 mg/dL (7-18); BUN/Creat Ratio 26.5 RATIO (10-20); CPK Total, Creatine Kinase 396 U/L (39-308); Calcium,Total 8.4 mg/dL (8.5-10.1); Chloride 118 mmol/L (98-107); Creatinine, Serum 5.06 mg/dL (0.70-1.30); EST Glomerular Filtration Rate 12 mL/min (>60); Est Glom Filt Rate - Afr Amer 14 mL/min (>60); Estimated Creatinine Clearance 9.52 ml/min; Globulin 3.7 g/dL (2.2-4.2); Glucose 149 mg/dL (74-106); Potassium 4.2 mmol/L (3.5-5.1); Protein, Total 5.8 g/dL (6.4-8.2); Sodium Level 141 mmol/L (136-145)
[2022-06-01] MEDS: Aspirin 81 MG TAB.CHEW PO (08:16)
[2022-06-01] MEDS: Menthol/Lanolin/Calamine/Znox 113 GM Tube 1 APPLIC TOPICAL ×2 (08:16→22:57)
[2022-06-01] MEDS: Heparin Injection (Vial) 5,000 UNIT/ML VIAL 5000 UNIT SC ×2 (08:17→22:56)
[2022-06-01 08:40] LABS: Hemoglobin A1c 6.1 % (3.8-5.6)
[2022-06-01] MEDS: Ceftriaxone 1 GM/50 ML BAG IV (09:54)
--- NOTE | 2022-06-01 10:31 | PN_ITS ---
Subjective Subjective Patient seen and examined. He said he felt much better today. He denied any fever, chills, cough, chest pain, palpitations, dizziness, nausea, vomiting or diarrhea. Review of systems is otherwise negative. Cr has trended down slightly to 5 from 6.37 on admission. He is making urine. He has remained hemodynamically stable. Objective Data Objective Data Vital Signs: Vital Signs Temp Pulse Resp BP Pulse Ox O2 Del Method O2 Flow Rate 97.8 F 76 16 100/61 100 Nasal Cannula 1 06/01/22 07:20 06/01/22 07:20 06/01/22 07:20 06/01/22 07:20 06/01/22 10:01 06/01/22 10:01 06/01/22 10:01 Oxygen Flow Rate (L/min) 1 Oxygen Delivery Method Nasal Cannula Weight: 131 lb 13.383 oz Body Mass Index (BMI) 19.4 Intake & Output: Intake and Output for Last 24 Hours 05/30/22 05/31/22 06/01/22 23:59 23:59 23:59 Intake Total 2842.35 / 2842.35 1999 / 1999 Output Total 350 / 350 Balance 2842.35 / 2842.35 1650 / 1650 Lab / Micro Data Result Diagrams: 06/01/22 05:32 06/01/22 05:32 Labs: Laboratory Results - last 24 hr 05/31/22 17:48: POC Glucose 183 H 05/31/22 17:49: Sodium 144, Potassium 3.9, Chloride 118 H, Carbon Dioxide 13.0 L , Anion Gap 13, BUN 154 H*, Creatinine 6.37 H, Estim Creat Clear Calc 8.00, Est GFR (MDRD) Af Amer 11 L, Est GFR (MDRD) Non-Af 9 L, BUN/Creatinine Ratio 24.2 H, Glucose 225 H, Calcium 8.6, Magnesium 2.2, Total Bilirubin 0.40, AST 22, ALT 21, Alkaline Phosphatase 59, Total Creatine Kinase 317 H, Troponin I High Sens 24, Total Protein 5.7 L, Albumin 2.1 L, Globulin 3.6, Albumin/Globulin Ratio 0.6 L 05/31/22 17:49: Urine Color Yellow, Urine Clarity Clear, Urine pH 5.0, Ur Specific [place]ebulon 1.020, Urine Protein 15 H, Urine Glucose (UA) Normal, Urine Ketones 5 H, Urine Occult Blood Negative, Urine Nitrite Negative, Urine Bilirubin 1 H, Urine Urobilinogen Normal, Ur Leukocyte Esterase 25 H, Urine RBC 0 SEEN, Urine WBC 0-5 SEEN, Ur Squamous Epith Cells 0 SEEN, Urine Bacteria 0 SEEN, Urine Mucus 0 SEEN 05/31/22 17:49: Procalcitonin 32.88 H 05/31/22 17:49: Ur Random Sodium 12, Urine Creatinine 187.00 05/31/22 17:55: PT 16.7 H, INR 1.4, APTT 26.0 05/31/22 17:55: Lactic Acid 5.0 H* 05/31/22 17:57: WBC 13.0 H, RBC 4.59 L, Hgb 14.2, Hct 44.0, MCV 95.9 H, MCH 30.9, MCHC 32.3, RDW Std Deviation 49.1 H, RDW Coeff of Fidelia 13.8, Plt Count 223, MPV 11.8, Immature Gran % (Auto) 2.500 H, Neut % (Auto) 83.9 H, Lymph % (Auto) 6.5 L, King % (Auto) 6.5, Eos % (Auto) 0.5, Baso % (Auto) 0.1, Absolute Neuts (auto) 10.9 H, Absolute Lymphs (auto) 0.85, Nucleated RBC % 0, Differential Comment SCANNED 05/31/22 21:40: COVID-19 (DIMITRI) Not Detected 05/31/22 21:42: Troponin I High Sens 29 05/31/22 21:42: Lactic Acid 2.5 H* 05/31/22 22:14: POC Glucose 122 H 06/01/22 00:23: Troponin I High Sens 31 06/01/22 05:32: WBC 8.4, RBC 4.64, Hgb 14.3, Hct 45.5, MCV 98.1 H, MCH 30.8, MCHC 31.4 L, RDW Std Deviation 50.7 H, RDW Coeff of Fidelia 13.8, Plt Count 177, MPV 11.6, Immature Gran % (Auto) 1.800 H, Neut % (Auto) 93.0 H, Lymph % (Auto) 2.9 L , King % (Auto) 1.3, Eos % (Auto) 0.0, Baso % (Auto) 1.0, Absolute Neuts (auto) 7.8 H, Absolute Lymphs (auto) 0.24 L, Nucleated RBC % 0 06/01/22 05:32: Sodium 141, Potassium 4.2, Chloride 118 H, Carbon Dioxide 13.0 L , Anion Gap 10, BUN 134 H*, Creatinine 5.06 H, Estim Creat Clear Calc 9.52, Est GFR (MDRD) Af Amer 14 L, Est GFR (MDRD) Non-Af 12 L, BUN/Creatinine Ratio 26.5 H , Glucose 149 H, Calcium 8.4 L, Total Bilirubin 0.40, AST 31, ALT 24, Alkaline Phosphatase 69, Total Creatine Kinase 396 H, Total Protein 5.8 L, Albumin 2.1 L, Globulin 3.7, Albumin/Globulin Ratio 0.6 L 06/01/22 05:32: Hemoglobin A1c 6.1 H 06/01/22 05:43: POC Glucose 140 H Micro: Microbiology 05/31/22 21:40 Mucosa - Nasopharyngeal Respiratory Panel (PCR) - Final 05/31/22 17:49 Urine, Random Legionella Antigen - Final 05/31/22 17:49 Urine, Random Streptococcus pneumoniae Antigen (M - Final ABG Data ABG results: ABG 05/31/22 18:01 Specimen Type ART Sample Site L Radial pH 7.35 Bicarbonate Actual 12.0 L Total CO2 13 Base Excess -14 L O2 Saturation 98 ABG pCO2 21.9 L ABG pO2 114 H Geo Test Positive O2 Delivery Device Cannula Liter Flow 2.0 Radiography Diagnostic Testing: Radiology Impression Brain CT 05/31/22 17:39 IMPRESSION: Atrophy and moderate periventricular white matter ischemic changes. No evidence for acute intracranial bleed.. Electronically Signed: Rodney Staples MD at 18:34 EDT , Cervical Spine CT 05/31/22 17:47 IMPRESSION: Moderate to severe degenerative change. No acute fracture or subluxation. Electronically Signed: Rodney Staples MD at 18:37 EDT , Chest X-Ray 05/31/22 18:20 IMPRESSION: COPD. No acute cardiopulmonary pathology Electronically Signed: Rodney Staples MD at 18:39 EDT Reading Location ID and State: [facility] / [place] , Service support , Chest X-Ray 06/01/22 05:55 IMPRESSION: Findings suggest multifocal left-sided airspace disease. This could represent pneumonia. Electronically Signed: Denise Garcia MD at 5:30 EDT Reading Location ID and State: [facility] / [place] , Service support , Rhythm Strip Rhythm Strip: Sinus Tach Rate: 150 Ectopy: None Physical Exam Const alert, oriented x3 and no apparent distress General Appearance: cooperative HEENT normocephalic, head/scalp atraumatic, moist oral mucous membranes and oropharynx normal Eyes PERRL and EOMs intact bilaterally Neck no lymphadenopathy, supple and no JVD Lymph Lymphatic: no lymphadenopathy noted and no lymphedema noted Resp Resp Narrative: mildly diminished breath sounds bibasally, no wheezes or crackles. On 1L of oxygen Cardio regular rate, regular rhythm, S1 normal heart sound, S2 normal heart sound and no murmurs GI normal to inspection, nondistended, normoactive bowel sounds, soft to palpation, non-tender and non-distended Extremity normal capillary refill and no clubbing, cyanosis or edema General Extremity: no tenderness to palpation of joints or extremities Skin General Skin Exam: no breakdown Neuro CN's II-XII intact bilaterally, no focal motor deficits and no sensory deficits noted Coordination / Balance: [id number] test normal Psych thought process normal, cooperative and affect normal Appearance: appropriate Assessment & Plan Assessment/Plan (1) YUE (acute kidney injury): (2) Rhabdomyolysis: (3) Hypoxia: PLAN: Plan #Yue on CKD 3 * Cr was >6 on admission, now down to 5.06 today * renal USG ordered * likely pre-renal due to decreased intake * continue hydration with iVF * nephrology consulted. * continue trending Cr * #SIRS criteria * was tachypneic, tachycardic and had elevated lactic acid. * was also hypoxic. * CXR showed no acute cardiopulmonary process * he was started on treatment for presumptive pneumonia with ceftriaxone and azithromycin * sputum and blood cultures pending. Urinalysis showed no evidence of UTI * on 1L of oxygen. Titrate to maintain sats >90% * procalcitonin is markedly elevated at 32.88 * urine for strep and legionella are negative * #Hyperglycemia: Not a known diabetic. A1c was 6.1. Insulin sliding scale. Based on A1c, meets the criteria for impaired glucose tolerance. consult nutrition to travel counselor [employer] about diet. #Non-anion gap metabolic acidosis: * Likely due to YUE on CKD. Lactic acidosis may also have played a role. Bicarb remains 13. * nephrology consulted. Will benefit from bicarb * #Hypertension; on amlodipine. Other BP meds held due to concerns about nephrotoxicity #BPH: s/p cystoscopy in the past with dilation of strictures. DVT prophylaxis; heparin * * Total time spent on evaluation and management of patient, reviewing chart, discussing plan with patient, discussion with nursing and ancillary staff as well as documentation: 45 mins Charges/Coding Visit Charges Inpatient E&M: 43896 Subs Hosp L2
--- NOTE | 2022-06-01 11:09 | PCM.CONS.R ---
Assessment & Plan Assessment/Plan (1) YUE (acute kidney injury): (2) Fall: PLAN: Plan This is a pleasant 82-year-old male who was brought to the emergency room after he was found laying on the floor in his apartment by his landlord. Nephrology consulted for acute kidney injury. Yesterday in the emergency room patient's creatinine was 6.37 and today his creatinine is 5.06. Lactic acid was 5.0 and improved to 2.5. Total creatinine kinase 317 on admission. Blood pressures have been marginally low since admission. Quite possibly YUE from volume depletion and hypotension leading to ischemic ATN. Renal function has improved today. Patient is nonoliguric. He does appear to be mildly hypovolemic and recommend to continue with IV fluids for volume expansion. Baseline creatinine is unknown. Patient did have lab work on February 15, 2018 creatinine 2.49 mg/dL then. In 2012 baseline creatinine ranging around 1.4 to 1.6 mg/dL. Baseline Creatinine unknown as there is a gap in lab work from 2019 to present time. We will obtain renal ultrasound. UA showed 15 of protein, negative for occult blood or RBCs, leukocyte Estrace 25. Urine sodium was 12. Patient is on IV antibiotics for presumed pneumonia. Blood pressures are low and we will stop amlodipine. At this time there is no acute indication for [employer], potassium and volume status acceptable. We will start oral sodium bicarbonate. Metabolic acidosis possibly from YUE. Patient denies any recent diarrhea. Reviewed patient's home medication list which includes lisinopril/hydrochlorothiazide, recommend continue holding this medication for now. Lab work ordered for the morning including CPK. Further orders forthcoming as hospitalization evolves, thank you for allowing us to participate in the care of Mr. Pham. HPI Consult Data Date of Consult: 06/01/22 HPI Narrative HPI Narrative: AVRIL PHAM, is a 82 M with past medical history significant for pretension, BPH with history of UTI and strictures, hyperlipidemia, who was brought to the emergency room after patient's landlord had found him lying on the floor in his apartment. Work-up in the emergency room included CT of brain which did not show any acute intracranial bleed, CT spine which did not show any acute fracture, chest x-ray concerning for COPD with no acute cardiopulmonary findings, serum creatinine 6.37, total creatinine kinase 317. Patient was started on IV fluids and admitted for further evaluation and treatment. Nephrology consulted for acute kidney injury. 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 Patient reports he thinks he was lying on the floor in his apartment for about 3 days. He denies any nausea or vomiting before falling. Denies any recent diarrhea. Patient denies NSAID use. States he feels thirsty and he is hungry. Denies any nausea or vomiting in the hospital. Denies any recent hematuria or dysuria. [facility] Medical History (Updated 06/01/22 @ 11:15 by Jael Meyers NP-C) BPH (benign prostatic hyperplasia) Chronic bronchitis CKD (chronic kidney disease), stage III Former tobacco use HLD (hyperlipidemia) HTN (hypertension) Hx of urethral stricture Home Medications Prinzide 10 mg PO DAILY 11/12/12 [History Last Taken 11/30/12 06:30 10 MG] albuterol sulfate 90 mcg/actuation aerosol inhaler (ProAir HFA) 1 - 2 puff inhalation Q4H PRN PRN Asthma 11/12/12 [History Last Taken 11/30/12 06:30 1 - 2 PUFF] amlodipine 10 mg tablet 10 mg PO DAILY high blood pressure 11/12/12 [History Last Taken 11/30/12 06:30 10 MG] aspirin 81 mg chewable tablet 81 mg PO DAILY@0800 heart health 11/12/12 [History Last Taken 11/30/12 06:30 81 MG] pravastatin 20 mg tablet 20 mg PO QHS high cholesterol 11/12/12 [History Last Taken 11/30/12 06:30 20 MG] lisinopril 10 mg-hydrochlorothiazide 12.5 mg tablet (Zestoretic) 1 tab PO DAILY high blood pressure 12/22/16 [History Last Taken Unknown] cholecalciferol (vitamin D3) 50 mcg (2,000 unit) tablet (Vitamin D3) 50 mcg PO DAILY general health 05/31/22 [History Last Taken Unknown] ergocalciferol (vitamin D2) 1,000 unit capsule 1,000 unit PO DAILY health 05/31/22 [History Last Taken Unknown] Allergy/AdvReac Type Severity Reaction Status Date / Time No Known Allergies Allergy Verified 05/31/22 17:29 Family History (Updated 05/31/22 @ 20:[address] Brianna Felix MD) Sister Cancer Mother Heart disease Diabetes Hypertension Father Heart disease Diabetes Hypertension Other COPD (chronic obstructive pulmonary disease) Surgical History (Updated 05/31/22 @ 19:[address] Brianna Felix MD) H/O cystoscopy S/P colonoscopic polypectomy S/P partial colectomy Social History (Updated 05/31/22 @ 19:[address] Brianna Felix MD) household members: none Smoking Status: Former smoker quit date: 07/17/09 pack-years: 60 alcohol intake: current alcohol intake frequency: 0-2 drinks per day details: Per prior records max 1 drink daily. substance use type: does not use ROS ROS Narrative As in HPI Physical Exam Narrative Alert and oriented x3, no apparent distress S1, S2, RRR Lung sounds clear anteriorly, no rhonchi or rales noted. No expiratory wheezing noted Abdomen soft, nontender, positive bowel sounds No edema Indwelling Rodrigues catheter with clear yellow urine in bag Lab / Micro Data Result Diagrams: 06/01/22 05:32 06/01/22 05:32 Labs: Laboratory Results - last 24 hr 05/31/22 17:48: POC Glucose 183 H 05/31/22 17:49: Sodium 144, Potassium 3.9, Chloride 118 H, Carbon Dioxide 13.0 L, Anion Gap 13, BUN 154 H*, Creatinine 6.37 H, Estim Creat Clear Calc 8.00, Est GFR (MDRD) Af Amer 11 L, Est GFR (MDRD) Non-Af 9 L, BUN/Creatinine Ratio 24.2 H, Glucose 225 H, Calcium 8.6, Magnesium 2.2, Total Bilirubin 0.40, AST 22, ALT 21, Alkaline Phosphatase 59, Total Creatine Kinase 317 H, Troponin I High Sens 24, Total Protein 5.7 L, Albumin 2.1 L, Globulin 3.6, Albumin/Globulin Ratio 0.6 L 05/31/22 17:49: Urine Color Yellow, Urine Clarity Clear, Urine pH 5.0, Ur Specific Belcher 1.020, Urine Protein 15 H, Urine Glucose (UA) Normal, Urine Ketones 5 H, Urine Occult Blood Negative, Urine Nitrite Negative, Urine Bilirubin 1 H, Urine Urobilinogen Normal, Ur Leukocyte Esterase 25 H, Urine RBC 0 SEEN, Urine WBC 0-5 SEEN, Ur Squamous Epith Cells 0 SEEN, Urine Bacteria 0 SEEN, Urine Mucus 0 SEEN 05/31/22 17:49: Procalcitonin 32.88 H 05/31/22 17:49: Ur Random Sodium 12, Urine Creatinine 187.00 05/31/22 17:55: PT 16.7 H, INR 1.4, APTT 26.0 05/31/22 17:55: Lactic Acid 5.0 H* 05/31/22 17:57: WBC 13.0 H, RBC 4.59 L, Hgb 14.2, Hct 44.0, MCV 95.9 H, MCH 30.9, MCHC 32.3, RDW Std Deviation 49.1 H, RDW Coeff of Fidelia 13.8, Plt Count 223, MPV 11.8, Immature Gran % (Auto) 2.500 H, Neut % (Auto) 83.9 H, Lymph % (Auto) 6.5 L, [place] % (Auto) 6.5, Eos % (Auto) 0.5, Baso % (Auto) 0.1, Absolute Neuts (auto) 10.9 H, Absolute Lymphs (auto) 0.85, Nucleated RBC % 0, Differential Comment SCANNED 05/31/22 21:40: COVID-19 (DIMITRI) Not Detected 05/31/22 21:42: Troponin I High Sens 29 05/31/22 21:42: Lactic Acid 2.5 H* 05/31/22 22:14: POC Glucose 122 H 06/01/22 00:23: Troponin I High Sens 31 06/01/22 05:32: WBC 8.4, RBC 4.64, Hgb 14.3, Hct 45.5, MCV 98.1 H, MCH 30.8, MCHC 31.4 L, RDW Std Deviation 50.7 H, RDW Coeff of Fidelia 13.8, Plt Count 177, MPV 11.6, Immature Gran % (Auto) 1.800 H, Neut % (Auto) 93.0 H, Lymph % (Auto) 2.9 L, [place] % (Auto) 1.3, Eos % (Auto) 0.0, Baso % (Auto) 1.0, Absolute Neuts (auto) 7.8 H, Absolute Lymphs (auto) 0.24 L, Nucleated RBC % 0 06/01/22 05:32: Sodium 141, Potassium 4.2, Chloride 118 H, Carbon Dioxide 13.0 L, Anion Gap 10, BUN 134 H*, Creatinine 5.06 H, Estim Creat Clear Calc 9.52, Est GFR (MDRD) Af Amer 14 L, Est GFR (MDRD) Non-Af 12 L, BUN/Creatinine Ratio 26.5 H, Glucose 149 H, Calcium 8.4 L, Total Bilirubin 0.40, AST 31, ALT 24, Alkaline Phosphatase 69, Total Creatine Kinase 396 H, Total Protein 5.8 L, Albumin 2.1 L, Globulin 3.7, Albumin/Globulin Ratio 0.6 L 06/01/22 05:32: Hemoglobin A1c 6.1 H 06/01/22 05:43: POC Glucose 140 H Micro: Microbiology 05/31/22 21:40 Mucosa - Nasopharyngeal Respiratory Panel (PCR) - Final 05/31/22 17:49 Urine, Random Legionella Antigen - Final 05/31/22 17:49 Urine, Random Streptococcus pneumoniae Antigen (M - Final ABG Data ABG results: ABG 05/31/22 18:01 Specimen Type ART Sample Site L Radial pH 7.35 Bicarbonate Actual 12.0 L Total CO2 13 Base Excess -14 L O2 Saturation 98 ABG pCO2 21.9 L ABG pO2 114 H Geo Test Positive O2 Delivery Device Cannula Liter Flow 2.0 Rhythm Strip Rhythm Strip: Sinus Tach Rate: 150 Ectopy: None Radiology Impression Brain CT 05/31/22 17:39 IMPRESSION: Atrophy and moderate periventricular white matter ischemic changes. No evidence for acute intracranial bleed.. Electronically Signed: Rodney Staples MD at 18:34 EDT , Cervical Spine CT 05/31/22 17:47 IMPRESSION: Moderate to severe degenerative change. No acute fracture or subluxation. Electronically Signed: Rodney Staples MD at 18:37 EDT , Chest X-Ray 05/31/22 18:20 IMPRESSION: COPD. No acute cardiopulmonary pathology Electronically Signed: Rodney Staples MD at 18:39 EDT , Chest X-Ray 06/01/22 05:55 IMPRESSION: Findings suggest multifocal left-sided airspace disease. This could represent pneumonia. Electronically Signed: Denise Garcia MD at 5:30 EDT ,
--- NOTE | 2022-06-01 11:11 | ECHOD_ITS ---
Reason For Study: Arrhythmia Procedure This was a 2D Doppler, Color Flow transthoracic echocardiogram. Exam performed portable in patient room. Left Ventricle Normal left ventricle. Hyperdynamic left ventricle. Right Ventricle Normal right ventricle. Normal systolic function. Atria Normal left atrium. Normal right atrium. Mitral Valve The mitral valve is structurally normal. No prolapse or stenosis seen. Tricuspid Valve The tricuspid valve is not well visualized. Aortic Valve Moderate focal aortic valve calcification. Pulmonic Valve The pulmonic valve is not well visualized. Great Vessels Normal aortic root. Pericardium/Pleural No pericardial effusion. MMode/2D Measurements & Calculations LVIDd: 3.5 cm IVSd: 0.93 cm Ao root diam: 3.1 cm LVIDs: 2.7 cm LVPWd: 0.85 cm RVDd: 2.4 cm FS: 21.7 % LAV(MOD-bp): 22.4 ml LA A4 area: 10.7 cm2 LA dimension(2D): 3.0 cm LAV(MOD-bp) Indexed: 13.0 ml/m2 LAV(MOD-sp2): 22.2 ml LAV(MOD-sp4): 20.5 ml RA A4 area: 10.0 cm2 Time Measurements MV dec time: 0.09 sec Doppler Measurements & Calculations MV E max jessee: 82.3 cm/sec Lat Peak E' [place]: 16.7 cm/sec Med Peak E' [place]: 6.3 cm/sec MV A max j[place]: 91.6 cm/sec E/E' lat: 4.9 E/E' med: 13.2 MV E/A: 0.90 MV dec slope: 958.5 cm/sec2 Ao V2 max: 151.8 cm/sec LV V1 max: 120.7 cm/sec Ao max P.2 mmHg LV V1 max P.8 mmHg Ao V2 mean: 98.0 cm/sec Ao mean P.3 mmHg Ao V2 VTI: 14.0 cm PA V2 max: 76.5 cm/sec TR max j[place]: 313.6 cm/sec TR max P.3 mmHg ECHO/Echo Complete Interpretation Summary Limited study Hyperdynamic left ventricle Focal aortic valve calcification. With trivial AI No prior study to compare Ordering Physician: Tonja Vu Referring Physician: Rodney Shah Performed By: Lara Robles, DALTONCS, RVT
--- NOTE | 2022-06-01 11:24 | NURSING ---
Updated CM of concerns regarding patient's safety at home expressed by patient's niece, Yara. CM to speak with Yara, patient's niece.
--- NOTE | 2022-06-01 11:31 | EKG12_ITS ---
Test Reason : GENERAL Blood Pressure : / mmHG Vent. Rate : 150 BPM Atrial Rate : 039 BPM P-R Int : 136 ms QRS Dur : 074 ms QT Int : 284 ms P-R-T Axes : 000 -88 088 degrees QTc Int : 448 ms Poor data quality, interpretation may be adversely affected Atrial fibrillation Confirmed by GILMER HAYWOOD, GLORIA ([id number]), brands editor LALA MURRAY ([id number]) on 06/06/2022 9:53:56 AM Referred By: ROSSI Confirmed By:GLORIA SCHERER MD
[2022-06-01 11:33] LABS: Magnesium 2.1 mg/dL (1.6-2.6)
[2022-06-01] MEDS: 0.9% Saline Lock 10 ML Syringe IV ×2 (11:45→16:22)
--- NOTE | 2022-06-01 11:45 | CASEMGMT ---
RN CM Face to Face with patient for initial transition planning/care coordination assessment. RN CM introduced self and role at [facility]. Patient lying in bed, alert and oriented, niece at bedside. Patient willing to participate in assessment and is able to answer all questions appropriately. Care providers, pharmacy, and demographics verified. Patient wishes to discharge home, but is willing to go to SNF at discharge if recommended. Patient states he has no further needs or concerns at this time. SW updated regarding potential SNF referral pending progress with therapy. CM to follow for discharge planning needs that may arise. PCP: Pablo Specialists: Brittany nephfatou [facility]erred [facility]acy: [facility] Insurance: [employer] Prescription Benefit: yes Living Will/HPOA: yes, niece Yara Kwong LNOK: niece, nephew Living Arrangements: Patient lives alone in a 1.5 story home with bed and bath on first floor, no steps to enter. Patient states he is independent at home but has been slipping and lowering himself to the ground more frequently. Transportation: self, niece DME/HHC: Patient denies DME In the home. No previous HHC or SNF. Disposition Plan: TBD, anticipate SNF at discharge for additional therapy. Karlene ACOSTA, RN, CM
--- NOTE | 2022-06-01 14:04 | PCM.CONS.C ---
Documented by User: Shae DAVILA PA 06/01/22 16:15 Assessment & Plan Assessment/Plan (1) Rhabdomyolysis: (2) YUE (acute kidney injury): (3) SVT (supraventricular tachycardia): PLAN: Plan Pt is having periods of SVT, this could be related to his metabolic acidosis. There is a possibility that this is related to his fall. His most recent episode of SVT seems to be longer lasting. Will give him 5mg IV lopressor. Will then start on Metoprolol 25 mg BID. Hesitant to start on Cardizem d/t his low BP readings. Considered adenosine, but his previous episodes have note lasted long and he is no symptomatic. Echocardiogram is pending. HPI Consult Data Date of Consult: 06/01/22 HPI Narrative HPI Narrative: AVRIL POLO, is a 82 M who presented to the ER with confusion. He was found by his landlord, Patient had noted that he had fallen to the ground and could not get himself back up. Patient was noted to have a significantly elevated BUN and creatinine. He was admitted for acute encephalopathy secondary to systemic inflammatory response syndrome with acute hypoxic and lactic acidosis, acute kidney injury, mild acute rhabdomyolysis. He does have a history of hypertension, hyperlipidemia, chronic kidney disease. We were consulted for concerns over SVT that was noted this morning on his on his quality assurance monitor. This was following a breathing treatment. He then had a breathing treatment again after lunch and had some further SVT. While patient was undergoing his echocardiogram he again had SVT. His baseline heart rate seem to be about 80 bpm. During his SVT can go as high as 170. Patient does not seem to be aware of this arrhythmia. He is somewhat alert but not able to answer all of questions appropriately. [facility] Medical History (Updated 06/01/22 @ 16:07 by Shae DAVILA PA) BPH (benign prostatic hyperplasia) Chronic bronchitis CKD (chronic kidney disease), stage III Former tobacco use HLD (hyperlipidemia) HTN (hypertension) Hx of urethral stricture SVT (supraventricular tachycardia) Home Medications Prinzide 10 mg PO DAILY 11/12/12 [History Last Taken 11/30/12 06:30 10 MG] albuterol sulfate 90 mcg/actuation aerosol inhaler (ProAir HFA) 1 - 2 puff inhalation Q4H PRN PRN Asthma 11/12/12 [History Last Taken 11/30/12 06:30 1 - 2 PUFF] amlodipine 10 mg tablet 10 mg PO DAILY high blood pressure 11/12/12 [History Last Taken 11/30/12 06:30 10 MG] aspirin 81 mg chewable tablet 81 mg PO DAILY@0800 heart health 11/12/12 [History Last Taken 11/30/12 06:30 81 MG] pravastatin 20 mg tablet 20 mg PO QHS high cholesterol 11/12/12 [History Last Taken 11/30/12 06:30 20 MG] lisinopril 10 mg-hydrochlorothiazide 12.5 mg tablet (Zestoretic) 1 tab PO DAILY high blood pressure 12/22/16 [History Last Taken Unknown] cholecalciferol (vitamin D3) 50 mcg (2,000 unit) tablet (Vitamin D3) 50 mcg PO DAILY general health 05/31/22 [History Last Taken Unknown] ergocalciferol (vitamin D2) 1,000 unit capsule 1,000 unit PO DAILY health 05/31/22 [History Last Taken Unknown] Allergy/AdvReac Type Severity Reaction Status Date / Time No Known Allergies Allergy Verified 05/31/22 17:29 Family History (Updated 05/31/22 @ 20:[address] Brianna eFlix MD) Sister Cancer Mother Heart disease Diabetes Hypertension Father Heart disease Diabetes Hypertension Other COPD (chronic obstructive pulmonary disease) Surgical History (Updated 05/31/22 @ 19:[address] Brianna Felix MD) H/O cystoscopy S/P colonoscopic polypectomy S/P partial colectomy Social History (Updated 05/31/22 @ 19:[address] Brianna Felix MD) household members: none Smoking Status: Former smoker quit date: 07/17/09 pack-years: 60 alcohol intake: current alcohol intake frequency: 0-2 drinks per day details: Per prior records max 1 drink daily. substance use type: does not use Physical Exam Const alert and no apparent distress General Appearance: frail Orientation / Consciousness: oriented to person and oriented to place HEENT normocephalic, head/scalp atraumatic, hearing grossly normal bilaterally, external ears normal, external nose normal and moist oral mucous membranes Eyes PERRL, EOMs intact bilaterally, conjunctivae normal and no scleral icterus Neck no lymphadenopathy, supple and no JVD Resp Auscultation: diminished lung sounds bilateral Cardio Rate: tachycardic Rhythm: regular rhythm Heart Sounds: S1 normal and S2 normal; Negative for click, gallop, murmur or rub GI normal to inspection, nondistended, normoactive bowel sounds, soft to palpation, non-tender and non-distended Extremity normal to inspection, normal capillary refill, no clubbing, cyanosis or edema and no pedal edema Neuro oriented x3, CN's II-XII intact bilaterally, moves all extremities and no focal motor deficits Psych cooperative and affect normal Risk Stratification Risk Stratification Applicable: Yes Age >/= 65: Yes >/= 3 CAD Risk Factors (HTN, HLD, DM, family hx of CAD, or current smoker): Yes Aspirin Use in the Past 7 Days: No Severe Angina (>/= episodes in 24 hours): No EKG ST Changes >/= 0.5mm: No Positive Cardiac Marker: No YOLANDA Risk Stratification Score: 2 YOLANDA % Risk: 8% Risk Charges/Coding Visit Charges Office Visits / Consults: 19694 IP Consult L3 Objective Data Vital Signs: Vital Signs Temp Pulse Resp BP Pulse Ox O2 Del Method O2 Flow Rate 97.8 F 88 18 100/61 76 Room Air 4 06/01/22 07:20 06/01/22 11:02 06/01/22 11:02 06/01/22 07:20 06/01/22 11:55 06/01/22 11:02 06/01/22 11:55 Oxygen Flow Rate (L/min) 4 Oxygen Delivery Method Room Air Weight: 131 lb 13.383 oz Body Mass Index (BMI) 19.4 Intake & Output: Intake and Output for Last 24 Hours 05/30/22 05/31/22 06/01/22 23:59 23:59 23:59 Intake Total 2842.35 / 2842.35 2795 / 2795 Output Total 700 / 700 Balance 2842.35 / 2842.35 2095 / 2095 Lab / Micro Data Result Diagrams: 06/01/22 05:32 06/01/22 05:32 Labs: Laboratory Results - last 24 hr 05/31/22 17:48: POC Glucose 183 H 05/31/22 17:49: Sodium 144, Potassium 3.9, Chloride 118 H, Carbon Dioxide 13.0 L, Anion Gap 13, BUN 154 H*, Creatinine 6.37 H, Estim Creat Clear Calc 8.00, Est GFR (MDRD) Af Amer 11 L, Est GFR (MDRD) Non-Af 9 L, BUN/Creatinine Ratio 24.2 H, Glucose 225 H, Calcium 8.6, Magnesium 2.2, Total Bilirubin 0.40, AST 22, ALT 21, Alkaline Phosphatase 59, Total Creatine Kinase 317 H, Troponin I High Sens 24, Total Protein 5.7 L, Albumin 2.1 L, Globulin 3.6, Albumin/Globulin Ratio 0.6 L 05/31/22 17:49: Urine Color Yellow, Urine Clarity Clear, Urine pH 5.0, Ur Specific [facility] 1.020, Urine Protein 15 H, Urine Glucose (UA) Normal, Urine Ketones 5 H, Urine Occult Blood Negative, Urine Nitrite Negative, Urine Bilirubin 1 H, Urine Urobilinogen Normal, Ur Leukocyte Esterase 25 H, Urine RBC 0 SEEN, Urine WBC 0-5 SEEN, Ur Squamous Epith Cells 0 SEEN, Urine Bacteria 0 SEEN, Urine Mucus 0 SEEN 05/31/22 17:49: Procalcitonin 32.88 H 05/31/22 17:49: Ur Random Sodium 12, Urine Creatinine 187.00 05/31/22 17:55: PT 16.7 H, INR 1.4, APTT 26.0 05/31/22 17:55: Lactic Acid 5.0 H* 05/31/22 17:57: WBC 13.0 H, RBC 4.59 L, Hgb 14.2, Hct 44.0, MCV 95.9 H, MCH 30.9, MCHC 32.3, RDW Std Deviation 49.1 H, RDW Coeff of Fidelia 13.8, Plt Count 223, MPV 11.8, Immature Gran % (Auto) 2.500 H, Neut % (Auto) 83.9 H, Lymph % (Auto) 6.5 L, Hughes % (Auto) 6.5, Eos % (Auto) 0.5, Baso % (Auto) 0.1, Absolute Neuts (auto) 10.9 H, Absolute Lymphs (auto) 0.85, Nucleated RBC % 0, Differential Comment SCANNED 05/31/22 21:40: COVID-19 (DIMITRI) Not Detected 05/31/22 21:42: Troponin I High Sens 29 05/31/22 21:42: Lactic Acid 2.5 H* 05/31/22 22:14: POC Glucose 122 H 06/01/22 00:23: Troponin I High Sens 31 06/01/22 00:23: Magnesium 2.1 06/01/22 05:32: WBC 8.4, RBC 4.64, Hgb 14.3, Hct 45.5, MCV 98.1 H, MCH 30.8, MCHC 31.4 L, RDW Std Deviation 50.7 H, RDW Coeff of Fidelia 13.8, Plt Count 177, MPV 11.6, Immature Gran % (Auto) 1.800 H, Neut % (Auto) 93.0 H, Lymph % (Auto) 2.9 L, Hughes % (Auto) 1.3, Eos % (Auto) 0.0, Baso % (Auto) 1.0, Absolute Neuts (auto) 7.8 H, Absolute Lymphs (auto) 0.24 L, Nucleated RBC % 0 06/01/22 05:32: Sodium 141, Potassium 4.2, Chloride 118 H, Carbon Dioxide 13.0 L, Anion Gap 10, BUN 134 H*, Creatinine 5.06 H, Estim Creat Clear Calc 9.52, Est GFR (MDRD) Af Amer 14 L, Est GFR (MDRD) Non-Af 12 L, BUN/Creatinine Ratio 26.5 H, Glucose 149 H, Calcium 8.4 L, Total Bilirubin 0.40, AST 31, ALT 24, Alkaline Phosphatase 69, Total Creatine Kinase 396 H, Total Protein 5.8 L, Albumin 2.1 L, Globulin 3.7, Albumin/Globulin Ratio 0.6 L 06/01/22 05:32: Hemoglobin A1c 6.1 H 06/01/22 05:43: POC Glucose 140 H Micro: Microbiology 05/31/22 21:40 Mucosa - Nasopharyngeal Respiratory Panel (PCR) - Final 05/31/22 17:49 Urine, Random Legionella Antigen - Final 05/31/22 17:49 Urine, Random Streptococcus pneumoniae Antigen (M - Final ABG Data ABG results: ABG 05/31/22 18:01 Specimen Type ART Sample Site L Radial pH 7.35 Bicarbonate Actual 12.0 L Total CO2 13 Base Excess -14 L O2 Saturation 98 ABG pCO2 21.9 L ABG pO2 114 H Geo Test Positive O2 Delivery Device Cannula Liter Flow 2.0 Rhythm Strip Rhythm Strip: Sinus Tach Rate: 150 Ectopy: None Cardiology Labs/Tests 05/31/22 17:49: Sodium 144, Potassium 3.9, Chloride 118 H, Carbon Dioxide 13.0 L, Anion Gap 13, BUN 154 H*, Creatinine 6.37 H, Est GFR (MDRD) Af Amer 11 L, Est GFR (MDRD) Non-Af 9 L, BUN/Creatinine Ratio 24.2 H, Glucose 225 H, Calcium 8.6, Magnesium 2.2, Total Bilirubin 0.40 05/31/22 17:49: Urine Color Yellow, Urine Clarity Clear, Urine pH 5.0, Ur Specific [facility] 1.020, Urine Protein 15 H, Urine Glucose (UA) Normal, Urine Ketones 5 H, Urine Occult Blood Negative, Urine Nitrite Negative, Urine Bilirubin 1 H, Urine Urobilinogen Normal, Ur Leukocyte Esterase 25 H, Urine RBC 0 SEEN, Urine WBC 0-5 SEEN 05/31/22 17:55: PT 16.7 H, INR 1.4, APTT 26.0 05/31/22 17:55: Lactic Acid 5.0 H* 05/31/22 17:57: WBC 13.0 H, RBC 4.59 L, Hgb 14.2, Hct 44.0, MCV 95.9 H, MCH 30.9, MCHC 32.3, Plt Count 223, MPV 11.8, Immature Gran % (Auto) 2.500 H, Neut % (Auto) 83.9 H, Lymph % (Auto) 6.5 L, Hughes % (Auto) 6.5, Eos % (Auto) 0.5, Baso % (Auto) 0.1, Absolute Neuts (auto) 10.9 H, Nucleated RBC % 0 05/31/22 18:01: pH 7.35, Bicarbonate Actual 12.0 L, Base Excess -14 L, O2 Saturation 98, ABG pCO2 21.9 L, ABG pO2 114 H, Geo Test Positive 05/31/22 21:42: Lactic Acid 2.5 H* 06/01/22 00:23: Magnesium 2.1 06/01/22 05:32: WBC 8.4, RBC 4.64, Hgb 14.3, Hct 45.5, MCV 98.1 H, MCH 30.8, MCHC 31.4 L, Plt Count 177, MPV 11.6, Immature Gran % (Auto) 1.800 H, Neut % (Auto) 93.0 H, Lymph % (Auto) 2.9 L, Hughes % (Auto) 1.3, Eos % (Auto) 0.0, Baso % (Auto) 1.0, Absolute Neuts (auto) 7.8 H, Nucleated RBC % 0 06/01/22 05:32: Sodium 141, Potassium 4.2, Chloride 118 H, Carbon Dioxide 13.0 L, Anion Gap 10, BUN 134 H*, Creatinine 5.06 H, Est GFR (MDRD) Af Amer 14 L, Est GFR (MDRD) Non-Af 12 L, BUN/Creatinine Ratio 26.5 H, Glucose 149 H, Calcium 8.4 L, Total Bilirubin 0.40 06/01/22 05:32: Hemoglobin A1c 6.1 H Rhythm: periods of SVT ECHO: pending Radiography Diagnostic Testing: Radiology Impression Brain CT 05/31/22 17:39 IMPRESSION: Atrophy and moderate periventricular white matter ischemic changes. No evidence for acute intracranial bleed.. Electronically Signed: Rodney Staples MD at 18:34 EDT , Cervical Spine CT 05/31/22 17:47 IMPRESSION: Moderate to severe degenerative change. No acute fracture or subluxation. Electronically Signed: Rodney Staples MD at 18:37 EDT , Chest X-Ray 05/31/22 18:20 IMPRESSION: COPD. No acute cardiopulmonary pathology Electronically Signed: Rodney Staples MD at 18:39 EDT , Chest X-Ray 06/01/22 05:55 IMPRESSION: Findings suggest multifocal left-sided airspace disease. This could represent pneumonia. Electronically Signed: Denise Garcia MD at 5:30 EDT , Documented by User: Dr. Lin Villanueva MD 06/01/22 17:54 Assessment & Plan Assessment/Plan (1) Rhabdomyolysis: (2) YUE (acute kidney injury): (3) SVT (supraventricular tachycardia): PLAN: Plan Pt is having periods of SVT, this could be related to his metabolic acidosis. There is a possibility that this is related to his fall. His most recent episode of SVT seems to be longer lasting. Will give him 5mg IV lopressor. Will then start on Metoprolol 25 mg BID. Hesitant to start on Cardizem d/t his low BP readings. Considered adenosine, but his previous episodes have note lasted long and he is no symptomatic. I reviewed the echocardiogram which showed LV function is preserved RV size and RV systolic function is within normal. We will continue medical treatment beta-kristina to current treatment. HPI Consult Data Date of Consult: 06/01/22 [facility] Medical History (Updated 06/01/22 @ 16:07 by Shae DAVILA, PA) BPH (benign prostatic hyperplasia) Chronic bronchitis CKD (chronic kidney disease), stage III Former tobacco use HLD (hyperlipidemia) HTN (hypertension) Hx of urethral stricture SVT (supraventricular tachycardia) Home Medications Prinzide 10 mg PO DAILY 11/12/12 [History Last Taken 11/30/12 06:30 10 MG] albuterol sulfate 90 mcg/actuation aerosol inhaler (ProAir HFA) 1 - 2 puff inhalation Q4H PRN PRN Asthma 11/12/12 [History Last Taken 11/30/12 06:30 1 - 2 PUFF] amlodipine 10 mg tablet 10 mg PO DAILY high blood pressure 11/12/12 [History Last Taken 11/30/12 06:30 10 MG] aspirin 81 mg chewable tablet 81 mg PO DAILY@0800 heart health 11/12/12 [History Last Taken 11/30/12 06:30 81 MG] pravastatin 20 mg tablet 20 mg PO QHS high cholesterol 11/12/12 [History Last Taken 11/30/12 06:30 20 MG] lisinopril 10 mg-hydrochlorothiazide 12.5 mg tablet (Zestoretic) 1 tab PO DAILY high blood pressure 12/22/16 [History Last Taken Unknown] cholecalciferol (vitamin D3) 50 mcg (2,000 unit) tablet (Vitamin D3) 50 mcg PO DAILY general health 05/31/22 [History Last Taken Unknown] ergocalciferol (vitamin D2) 1,000 unit capsule 1,000 unit PO DAILY health 05/31/22 [History Last Taken Unknown] Allergy/AdvReac Type Severity Reaction Status Date / Time No Known Allergies Allergy Verified 05/31/22 17:29 Family History (Updated 05/31/22 @ 20:[address] Brianna Felix MD) Sister Cancer Mother Heart disease Diabetes Hypertension Father Heart disease Diabetes Hypertension Other COPD (chronic obstructive pulmonary disease) Surgical History (Updated 05/31/22 @ 19:[address] Brianna Felix MD) H/O cystoscopy S/P colonoscopic polypectomy S/P partial colectomy Social History (Updated 05/31/22 @ 19:[address] Brianna Felix MD) household members: none Smoking Status: Former smoker quit date: 07/17/09 pack-years: 60 alcohol intake: current alcohol intake frequency: 0-2 drinks per day details: Per prior records max 1 drink daily. substance use type: does not use Risk Stratification Age >/= 65: Yes YOLANDA Risk Stratification Score: 2 YOLANDA % Risk: 8% Risk Lab / Micro Data Result Diagrams: 06/01/22 05:32 06/01/22 05:32
[2022-06-01 14:11] LABS: Bedside Glucose 168 mg/dL (74-106)
--- NOTE | 2022-06-01 14:34 | CASEMGMT ---
Therapy is recommending patient go somewhere for rehab at discharge. SW met with patient and his niece Yara. SW explained therapy is recommending patient go somewhere for rehab. SW provided patient and his niece with a list of assisted facility providers including quality and resource use data and consistent with patient?s preferred geographic region, medical needs, and insurance network were provided from the [facility] Guide. SW asked that they pick 2-3 facilities and SW will make the referrals. Rain ABAD
--- NOTE | 2022-06-01 14:40 | CASEMGMT ---
Patient's niece Yara told [facility] patient's two choices are [facility] and [facility]. SW will work on referrals. Rain ABAD
--- NOTE | 2022-06-01 14:48 | CASEMGMT ---
[facility] sent referrals to [facility] and [facility] Rain Steen [employer]
[2022-06-01] MEDS: Glucerna Shake 120 ML LIQUID PO (16:04)
[2022-06-01] MEDS: Sodium Bicarbonate 650 MG Tablet 1300 MG PO ×2 (16:05→22:56)
[2022-06-01] MEDS: Metoprolol Tartrate 5 MG/5 ML Vial IV (16:15)
[2022-06-01] MEDS: Ensure Plus High Protein 120 ML LIQUID PO (18:32)
[2022-06-01 18:50] LABS: Bedside Glucose 141 mg/dL (74-106)
[2022-06-01] MEDS: Metoprolol Tartrate 25 MG Tablet PO (22:56)
[2022-06-01] MEDS: Pravastatin 20 MG Tablet PO (22:56)
[2022-06-01] MEDS: Insulin Lispro 100 UNIT/ML INSULN.PEN SC (23:00)
[2022-06-01 23:36] LABS: Bedside Glucose 181 mg/dL (74-106)
[2022-06-02] VITALS (12 sets, daily range): BP systolic 98–119; BP diastolic 73–87; PULSE 81–160; RESP 18–20; TEMP 36.3–37.2; O2SAT 93–98; BMI 20.2
[2022-06-02] MEDS: 0.9% Normal Saline 1,000 ML 125 ML IV (04:57)
[2022-06-02] MEDS: 0.9% Saline Lock 10 ML Syringe IV (04:58)
[2022-06-02] MEDS: Sodium Bicarbonate 650 MG Tablet 1300 MG PO ×3 (04:58→20:30)
[2022-06-02] MEDS: Insulin Lispro 100 UNIT/ML INSULN.PEN SC ×4 (06:50→20:28)
[2022-06-02 07:10] LABS: Bedside Glucose 166 mg/dL (74-106)
[2022-06-02 07:14] LABS: ALB/GLOB Ratio 0.7 RATIO (0.9-2.4); AST(SGOT) 43 U/L (15-37); Alanine Aminotransfer ALT/SGPT 34 U/L (16-61); Albumin, Serum 2.2 g/dL (3.2-5.0); Alkaline Phosphatase 73 U/L (45-117); Anion Gap 8 (5-15); BUN 125 mg/dL (7-18); BUN/Creat Ratio 31.7 RATIO (10-20); CPK Total, Creatine Kinase 291 U/L (39-308); Calcium,Total 8.4 mg/dL (8.5-10.1); Chloride 117 mmol/L (98-107); Creatinine, Serum 3.94 mg/dL (0.70-1.30); EST Glomerular Filtration Rate 16 mL/min (>60); Est Glom Filt Rate - Afr Amer 19 mL/min (>60); Estimated Creatinine Clearance 12.74 ml/min; Globulin 3.3 g/dL (2.2-4.2); Glucose 165 mg/dL (74-106); Protein, Total 5.5 g/dL (6.4-8.2); Sodium Level 143 mmol/L (136-145)
[2022-06-02] MEDS: Aspirin 81 MG TAB.CHEW PO (09:22)
[2022-06-02] MEDS: Metoprolol Tartrate 25 MG Tablet PO ×2 (09:22→19:56)
[2022-06-02] MEDS: Heparin Injection (Vial) 5,000 UNIT/ML VIAL 5000 UNIT SC ×2 (09:23→20:23)
[2022-06-02] MEDS: Menthol/Lanolin/Calamine/Znox 113 GM Tube 1 APPLIC TOPICAL ×2 (09:24→20:24)
[2022-06-02] MEDS: Ceftriaxone 1 GM/50 ML BAG IV (09:28)
[2022-06-02] MEDS: Ensure Plus High Protein 120 ML LIQUID PO ×4 (09:40→20:23)
--- NOTE | 2022-06-02 10:33 | PCM.PN.REN ---
Subjective Subjective Sitting up in bed. Niece at bedside. No overnight events. Denies any complaints today. Objective Data Objective Data Vital Signs: Vital Signs Temp Pulse Resp BP Pulse Ox O2 Del Method O2 Flow Rate 97.9 F 82 18 115/76 95 Room Air 2 06/02/22 10:00 06/02/22 10:00 06/02/22 10:00 06/02/22 10:00 06/02/22 10:00 06/02/22 10:00 06/01/22 14:40 Oxygen Flow Rate (L/min) 2 Oxygen Delivery Method Room Air Weight: 62.3 kg Body Mass Index (BMI) 20.2 Intake & Output: Intake and Output for Last 24 Hours 05/31/22 06/01/22 06/02/22 23:59 23:59 23:59 Intake Total 2842.35 / 2842.35 4285 / 4285 1050 / 1050 Output Total 1100 / 1500 400 / 400 Balance 2842.35 / 2842.35 3185 / 2785 650 / 650 Medical Nutrition Assessment Dietitian: Malnutrition Criteria Met Start: 06/01/22 16:15 Freq: Status: Active Protocol: Document 06/01/22 16:16 AG (Rec: 06/01/22 16:16 [id number]) Nutrition Malnutrition Evidence of Malnutrition Exists Yes Malnutrition (moderate): Chronic Evidenced By Suboptimal Energy Intake ( Moderate),Weight Loss (Severe) ,Physical Changes (Moderate) Clinical Problem Chronic Disease or Condition Related Malnutrition Etiology chronic, moderate malnutrition related to inadequate oral intake Signs/Symptoms as evidenced by moderate muscle wasting/fat loss evident per physical exam in orbital, clavicle, acromion, and temporal areas; estimated PO intake meeting <75% of estimated energy needs > 1 month; reported wt loss of 28. 2#/18% x 3 months; BMI 19.5 Status Active Problem Recommendation Dietitian Recommendations/Changes will adjust diet to regular/no added salt given evidence of malnutrition; will adjust ONS to Ensure Plus High Protein 120mL 4x/day w/ medpass given malnutrition, need for increased protein. Will monitor labs, PO intake and adjust diet/ONS as indicated. Lab / Micro Data Result Diagrams: 06/01/22 05:32 06/02/22 06:30 Labs: Laboratory Results - last 24 hr 06/01/22 00:23: Magnesium 2.1 06/01/22 11:37: POC Glucose 168 H 06/01/22 16:20: POC Glucose 141 H 06/01/22 23:00: POC Glucose 181 H 06/02/22 06:30: Sodium 143, Potassium 4.0, Chloride 117 H, Carbon Dioxide 18.0 L, Anion Gap 8, BUN 125 H*, Creatinine 3.94 H, Estim Creat Clear Calc 12.74, Est GFR (MDRD) Af Amer 19 L, Est GFR (MDRD) Non-Af 16 L, BUN/Creatinine Ratio 31.7 H, Glucose 165 H, Calcium 8.4 L, Total Bilirubin 0.30, AST 43 H, ALT 34, Alkaline Phosphatase 73, Total Creatine Kinase 291, Total Protein 5.5 L, Albumin 2.2 L, Globulin 3.3, Albumin/Globulin Ratio 0.7 L 06/02/22 06:48: POC Glucose 166 H Micro: Microbiology 05/31/22 18:00 Blood Culture (Wb) - Anticubital Right Blood Culture - Preliminary 05/31/22 21:40 Mucosa - Nasopharyngeal Respiratory Panel (PCR) - Final 05/31/22 17:49 Urine, Random Legionella Antigen - Final 05/31/22 17:49 Urine, Random Streptococcus pneumoniae Antigen (M - Final Radiography Diagnostic Testing: Radiology Impression Renal Ultrasound 06/01/22 05:55 IMPRESSION: Multiple bilateral renal cysts. Electronically Signed: Jaden Melgar MD at 15:22 EDT Reading Location ID and State: [address] [place] [address] , Service support , Echocardiogram 06/01/22 11:11 Interpretation Summary Limited study Hyperdynamic left ventricle Focal aortic valve calcification. With trivial AI No prior study to compare Ordering Physician: Tonja Vu Referring Physician: Rodney Shah Performed By: Lara Robles, RDCS, RVT Rhythm Strip Rhythm Strip: Sinus Tach Rate: 150 Ectopy: None Physical Exam Narrative Alert and oriented x3, no apparent distress S1, S2, RRR Lung sounds clear anteriorly, no rhonchi or rales noted. No expiratory wheezing noted Abdomen soft, nontender, positive bowel sounds No edema Indwelling Rodrigues catheter with clear yellow urine in bag Assessment & Plan Assessment/Plan (1) YUE (acute kidney injury): (2) Fall: PLAN: Plan This is a pleasant 82-year-old male who was brought to the emergency room after he was found laying on the floor in his apartment by his landlord. Nephrology consulted for acute kidney injury. -YUE superimposed on CKD stage IV. YUE likely secondary to volume depletion and hypotension leading to ischemic ATN. In the emergency room patient's creatinine was 6.37 --> 5.06--> today serum creatinine 3.94. Overall renal function is improving. Patient is nonoliguric, potassium and bicarb acceptable. 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 Patient is mildly hypovolemic and is on IV fluids. Continue IV fluids for volume expansion but will decrease rate today. Lactic acid was 5.0 and improved to 2.5. Total creatinine kinase 317 on admission and today 291. UA showed 15 of protein, negative for occult blood or RBCs, leukocyte Estrace 25. Urine sodium was 12. Renal ultrasound no hydronephrosis. - CKD stage 4 with minimal proteinuria, baseline creatinine around 2.7 to 3 mg/dL; followed by Dr. Soto. Last seen in April 2022. - Metabolic acidosis from YUE on CKD, improving on oral sodium bicarbonate. - Blood pressures had been marginally low since admission therefore we stopped amlodipine. Patient had a run of SVT, cardiology consulted and now is on metoprolol. - on IV antibiotics for presumed pneumonia.
[2022-06-02] MEDS: Ipratropium/Albuterol Sulfate 3 ML AMPUL.NEB INHALATION ×2 (10:41→15:10)
[2022-06-02 11:46] LABS: Bedside Glucose 257 mg/dL (74-106)
--- NOTE | 2022-06-02 13:02 | PN_ITS ---
Subjective Subjective Patient seen and examined. His niece was by his bedside today. Patient had no active complaints and had an uneventful night. He did appear to be a bit confused today, though he was answering questions. Review of systems is otherwise negative. He has remained hemodynamically stable. BLood cultures are growing gram positive cocci in clusters Objective Data Objective Data Vital Signs: Vital Signs Temp Pulse Resp BP Pulse Ox O2 Del Method O2 Flow Rate 97.9 F 85 20 H 115/76 95 Room Air 2 06/02/22 10:00 06/02/22 10:41 06/02/22 10:41 06/02/22 10:00 06/02/22 10:00 06/02/22 10:00 06/01/22 14:40 Oxygen Flow Rate (L/min) 2 Oxygen Delivery Method Room Air Weight: 137 lb 5.568 oz Body Mass Index (BMI) 20.2 Intake & Output: Intake and Output for Last 24 Hours 05/31/22 06/01/22 06/02/22 23:59 23:59 23:59 Intake Total 2842.35 / 2842.35 4285 / 4285 2587.08 / 2587.08 Output Total 1100 / 1500 550 / 550 Balance 2842.35 / 2842.35 3185 / 2785 2037.08 / 2037.08 Medical Nutrition Assessment Dietitian: Malnutrition Criteria Met Start: 06/01/22 16:15 Freq: Status: Active Protocol: Document 06/01/22 16:16 (Rec: 06/01/22 16:16 [id number]) Nutrition Malnutrition Evidence of Malnutrition Exists Yes Malnutrition (moderate): Chronic Evidenced By Suboptimal Energy Intake ( Moderate),Weight Loss (Severe) ,Physical Changes (Moderate) Clinical Problem Chronic Disease or Condition Related Malnutrition Etiology chronic, moderate malnutrition related to inadequate oral intake Signs/Symptoms as evidenced by moderate muscle wasting/fat loss evident per physical exam in orbital, clavicle, acromion, and temporal areas; estimated PO intake meeting <75% of estimated energy needs > 1 month; reported wt loss of 28. 2#/18% x 3 months; BMI 19.5 Status Active Problem Recommendation Dietitian Recommendations/Changes will adjust diet to regular/no added salt given evidence of malnutrition; will adjust ONS to Ensure Plus High Protein 120mL 4x/day w/ medpass given malnutrition, need for increased protein. Will monitor labs, PO intake and adjust diet/ONS as indicated. Lab / Micro Data Result Diagrams: 06/01/22 05:32 06/02/22 06:30 Labs: Laboratory Results - last 24 hr 06/01/22 11:37: POC Glucose 168 H 06/01/22 16:20: POC Glucose 141 H 06/01/22 23:00: POC Glucose 181 H 06/02/22 06:30: Sodium 143, Potassium 4.0, Chloride 117 H, Carbon Dioxide 18.0 L , Anion Gap 8, BUN 125 H*, Creatinine 3.94 H, Estim Creat Clear Calc 12.74, Est GFR (MDRD) Af Amer 19 L, Est GFR (MDRD) Non-Af 16 L, BUN/Creatinine Ratio 31.7 H , Glucose 165 H, Calcium 8.4 L, Total Bilirubin 0.30, AST 43 H, ALT 34, Alkaline Phosphatase 73, Total Creatine Kinase 291, Total Protein 5.5 L, Albumin 2.2 L, Globulin 3.3, Albumin/Globulin Ratio 0.7 L 06/02/22 06:48: POC Glucose 166 H 06/02/22 11:20: POC Glucose 257 H Micro: Microbiology 05/31/22 18:00 Blood Culture (Wb) - Anticubital Right Blood Culture - Preliminary 05/31/22 21:40 Mucosa - Nasopharyngeal Respiratory Panel (PCR) - Final 05/31/22 17:49 Urine, Random Legionella Antigen - Final 05/31/22 17:49 Urine, Random Streptococcus pneumoniae Antigen (M - Final Radiography Diagnostic Testing: Radiology Impression Renal Ultrasound 06/01/22 05:55 IMPRESSION: Multiple bilateral renal cysts. Electronically Signed: Jaden Melgar MD at 15:22 EDT , Echocardiogram 06/01/22 11:11 Interpretation Summary Limited study Hyperdynamic left ventricle Focal aortic valve calcification. With trivial AI No prior study to compare Ordering Physician: Tonja Vu Referring Physician: Rodney Shah Performed By: Lara Robles, ALTON, RVT Rhythm Strip Rhythm Strip: Sinus Tach Rate: 150 Ectopy: None Physical Exam Const alert and no apparent distress Constitutional Narrative: confused General Appearance: cooperative HEENT normocephalic, head/scalp atraumatic, moist oral mucous membranes and oropharynx normal Eyes PERRL and EOMs intact bilaterally Neck no lymphadenopathy, supple and no JVD Lymph Lymphatic: no lymphadenopathy noted and no lymphedema noted Resp Resp Narrative: mildly diminished breath sounds bibasally, no wheezes or crackles. On 1L of oxygen Cardio regular rate, regular rhythm, S1 normal heart sound, S2 normal heart sound and no murmurs GI normal to inspection, nondistended, normoactive bowel sounds, soft to palpation, non-tender and non-distended Extremity normal capillary refill and no clubbing, cyanosis or edema General Extremity: no tenderness to palpation of joints or extremities Skin General Skin Exam: no breakdown Neuro CN's II-XII intact bilaterally, no focal motor deficits and no sensory deficits noted Coordination / Balance: [id number] test normal Psych Psych Narrative: episodic confusion Assessment & Plan Assessment/Plan (1) YUE (acute kidney injury): (2) Rhabdomyolysis: (3) Hypoxia: PLAN: Plan #Yue on CKD 3 * Cr was >6 on admission, now down to 5.06 today * likely pre-renal due to decreased intake * continue hydration with iVF * Cr now down to 3.94 * nephro on board * renal USG showed bilateral renal cysts * continue gentle hydration with IVF * #Bacteremia * was tachypneic, tachycardic and had elevated lactic acid on admission * was also hypoxic. * CXR showed no acute cardiopulmonary process * he was started on treatment for presumptive pneumonia with ceftriaxone and azithromycin * sputum and blood cultures pending. Urinalysis showed no evidence of UTI * on 1L of oxygen. Titrate to maintain sats >90% * procalcitonin is markedly elevated at 32.88 * urine for strep and legionella are negative * blood cultures growing gram positive cocci in chains * consult ID * on IV ceftriaxone and azithromycin for presumptive pneumonia. Will continue * #Hyperglycemia: Not a known diabetic. A1c was 6.1. Insulin sliding scale. Based on A1c, meets the criteria for impaired glucose tolerance. consult [place] to mortgage loan counselor about diet. #Non-anion gap metabolic acidosis: * Likely due to YUE on CKD. Lactic acidosis may also have played a role. Bicarb remains 13. * nephrology consulted. Will benefit from bicarb * #Hypertension; on amlodipine. Other BP meds held due to concerns about nephrotoxicity #BPH: s/p cystoscopy in the past with dilation of strictures. DVT prophylaxis; heparin * * Total time spent on evaluation and management of patient, reviewing chart, discussing plan with patient, discussion with nursing and ancillary staff as well as documentation: 40 mins Charges/Coding Visit Charges Inpatient E&M: 89174 Subs Hosp L2
[2022-06-02] MEDS: 0.9% Normal Saline 1,000 ML 100 ML IV ×2 (13:22→23:46)
[2022-06-02] MEDS: Mag Hydrox/Al Hydrox/Simeth 30 ML UDC PO (17:03)
[2022-06-02 17:06] LABS: Bedside Glucose 150 mg/dL (74-106)
--- NOTE | 2022-06-02 20:04 | PCM.HOSP.N ---
Hospitalist Note Patient with recurrent tachycardia, rate 160s, suspected recurrent SVT, administering IV lopressor and overlap with evening BB therapy.
[2022-06-02] MEDS: Metoprolol Tartrate 5 MG/5 ML Vial IV (20:21)
[2022-06-02] MEDS: Pravastatin 20 MG Tablet PO (20:23)
--- NOTE | 2022-06-02 21:06 | EKG12_ITS ---
Test Reason : ARRYTHMIA Blood Pressure : / mmHG Vent. Rate : 075 BPM Atrial Rate : 075 BPM P-R Int : 160 ms QRS Dur : 104 ms QT Int : 374 ms P-R-T Axes : 075 -68 065 degrees QTc Int : 417 ms Normal sinus rhythm Left axis deviation Abnormal ECG When compared with ECG of 02-JUN-2022 19:54, MANUAL COMPARISON REQUIRED, DATA IS UNCONFIRMED Confirmed by GILMER HAYWOOD, GLORIA ([id number]), visual effects editor LALA MURRAY ([id number]) on 06/07/2022 10:33:23 AM Referred By: DIANA Confirmed By:GLORIA SCHERER MD
[2022-06-02 21:20] LABS: Bedside Glucose 242 mg/dL (74-106)
[2022-06-03] VITALS (27 sets, daily range): BP systolic 94–139; BP diastolic 59–97; PULSE 61–140; RESP 16–24; TEMP 36.4–37.1; O2SAT 91–100; BMI 20.8
[2022-06-03] MEDS: Metoprolol Tartrate 5 MG/5 ML Vial IV (00:46)
[2022-06-03] MEDS: Insulin Lispro 100 UNIT/ML INSULN.PEN SC ×3 (06:12→22:03)
[2022-06-03] MEDS: Sodium Bicarbonate 650 MG Tablet 1300 MG PO (06:12)
[2022-06-03 06:27] LABS: Absolute Lymphocyte Count 0.21 X10^3/uL (0.83-4.51); Absolute Neutrophil Count 7.1 X10^3/uL (2.0-7.7); Basophil# 0.03 X10^3/uL; Basophil% 0.4 % (0-1); Hematocrit 34.9 % (40-54); Hemoglobin 11.6 g/dL (13.0-16.5); Lymphocyte # 0.21 X10^3/ul (0.83-4.51); Lymphocyte % 2.7 % (19-41); Mean Corp Hgb Conc 33.2 g/dL (32-36); Mean Corpuscular Hgb 31.5 pg (27.0-32.0); Mean Corpuscular Volume 94.8 fL (80-94); Mean Platelet Vol. 11.5 fl (6.2-12.0); Monocyte# 0.27 X10^3/uL; Monocyte% 3.5 % (0-10); NRBC Flagged by Analyzer 0 % (0-5); Neutrophil # 7.11 X10^3/uL (2.7-7.7); Neutrophil % 91.6 % (47-70); POSITIVE DIFFERENTIAL YES; Platelet Count 144 K/mm3 (150-450); RBC Distribution Width CV 13.5 % (11.6-14.6); RBC Distribution Width SD 47.3 fl (35.1-43.9); Red Blood Count 3.68 M/mm3 (4.6-6.2); White Blood Count 7.8 K/mm3 (4.4-11.0)
[2022-06-03 06:36] LABS: Differential Indicated SCAN CRITERIA MET
[2022-06-03 07:00] LABS: Platelet Estimate SLT DEC (ADEQ)
[2022-06-03 07:25] LABS: Anion Gap 3 (5-15); BUN 106 mg/dL (7-18); BUN/Creat Ratio 37.6 RATIO (10-20); Chloride 118 mmol/L (98-107); Creatinine, Serum 2.82 mg/dL (0.70-1.30); EST Glomerular Filtration Rate 23 mL/min (>60); Est Glom Filt Rate - Afr Amer 28 mL/min (>60); Estimated Creatinine Clearance 18.31 ml/min; Glucose 185 mg/dL (74-106); Potassium 3.8 mmol/L (3.5-5.1); Sodium Level 143 mmol/L (136-145)
[2022-06-03 07:25] LABS: Bedside Glucose 165 mg/dL (74-106)
--- NOTE | 2022-06-03 09:09 | CASEMGMT ---
SW sent updates to [facility]. Rain Steen RN [employer]
--- NOTE | 2022-06-03 09:36 | PCM.PN.REN ---
Subjective Subjective Patient is resting in bed. No overnight events. Alert to name and place but with some confused conversation. Objective Data Objective Data Vital Signs: Vital Signs Temp Pulse Resp BP Pulse Ox O2 Del Method O2 Flow Rate 98.5 F 113 H 18 116/66 94 Room Air 2 06/03/22 06:00 06/03/22 06:00 06/03/22 06:00 06/03/22 06:00 06/03/22 06:40 06/03/22 06:40 06/01/22 14:40 Oxygen Flow Rate (L/min) 2 Oxygen Delivery Method Room Air Weight: 64.1 kg Body Mass Index (BMI) 20.8 Intake & Output: Intake and Output for Last 24 Hours 06/01/22 06/02/22 06/03/22 23:59 23:59 23:59 Intake Total 4285 / 4285 4665.00 / 4665.00 Output Total 1100 / 1500 1575 / 1575 200 / 200 Balance 3185 / 2785 3090.00 / 3090.00 -200 / -200 Medical Nutrition Assessment Dietitian: Malnutrition Criteria Met Start: 06/01/22 16:15 Freq: Status: Active Protocol: Document 06/01/22 16:16 AG (Rec: 06/01/22 16:16 AG [id number]) Nutrition Malnutrition Evidence of Malnutrition Exists Yes Malnutrition (moderate): Chronic Evidenced By Suboptimal Energy Intake ( Moderate),Weight Loss (Severe) ,Physical Changes (Moderate) Clinical Problem Chronic Disease or Condition Related Malnutrition Etiology chronic, moderate malnutrition related to inadequate oral intake Signs/Symptoms as evidenced by moderate muscle wasting/fat loss evident per physical exam in orbital, clavicle, acromion, and temporal areas; estimated PO intake meeting <75% of estimated energy needs > 1 month; reported wt loss of 28. 2#/18% x 3 months; BMI 19.5 Status Active Problem Recommendation Dietitian Recommendations/Changes will adjust diet to regular/no added salt given evidence of malnutrition; will adjust ONS to Ensure Plus High Protein 120mL 4x/day w/ medpass given malnutrition, need for increased protein. Will monitor labs, PO intake and adjust diet/ONS as indicated. Lab / Micro Data Result Diagrams: 06/03/22 06:08 06/03/22 06:08 Labs: Laboratory Results - last 24 hr 06/02/22 11:20: POC Glucose 257 H 06/02/22 16:34: POC Glucose 150 H 06/02/22 20:28: POC Glucose 242 H 06/03/22 06:08: Sodium 143, Potassium 3.8, Chloride 118 H, Carbon Dioxide 22.0, Anion Gap 3 L, BUN 106 H*, Creatinine 2.82 H, Estim Creat Clear Calc 18.31, Est GFR (MDRD) Af Amer 28 L, Est GFR (MDRD) Non-Af 23 L, BUN/Creatinine Ratio 37.6 H, Glucose 185 H, Calcium 8.0 L 06/03/22 06:08: WBC 7.8, RBC 3.68 L, Hgb 11.6 L, Hct 34.9 L, MCV 94.8 H, MCH 31.5, MCHC 33.2 D, RDW Std Deviation 47.3 H, RDW Coeff of Fidelia 13.5, Plt Count 144 L, MPV 11.5, Immature Gran % (Auto) 1.800 H, Neut % (Auto) 91.6 H, Lymph % (Auto) 2.7 L, [place] % (Auto) 3.5, Eos % (Auto) 0.0, Baso % (Auto) 0.4, Absolute Neuts (auto) 7.1, Absolute Lymphs (auto) 0.21 L, Nucleated RBC % 0, Platelet Estimate SLT 06/03/22 06:17: POC Glucose 165 H Micro: Microbiology 05/31/22 17:35 Blood Culture (Wb) - Anticubital Right Blood Culture - Preliminary No growth in 48 hours. 05/31/22 18:00 Blood Culture (Wb) - Anticubital Right Bacteria Detection (PCR) - Final Coag Negative Staph 05/31/22 18:00 Blood Culture (Wb) - Anticubital Right Blood Culture - Preliminary 05/31/22 21:40 Mucosa - Nasopharyngeal Respiratory Panel (PCR) - Final 05/31/22 17:49 Urine, Random Legionella Antigen - Final 05/31/22 17:49 Urine, Random Streptococcus pneumoniae Antigen (M - Final Rhythm Strip Rhythm Strip: Sinus Tach Rate: 150 Ectopy: None Physical Exam Narrative Alert and oriented x3, no apparent distress S1, S2, RRR Lung sounds clear anteriorly, no rhonchi or rales noted. No expiratory wheezing noted Abdomen soft, nontender, positive bowel sounds No edema Indwelling Rodrigues catheter with clear yellow urine in bag Assessment & Plan Assessment/Plan (1) YUE (acute kidney injury): (2) Fall: PLAN: Plan This is a pleasant 82-year-old male who was brought to the emergency room after he was found laying on the floor in his apartment by his landlord. Nephrology consulted for acute kidney injury. -YUE superimposed on CKD stage IV. YUE likely secondary to volume depletion and hypotension leading to ischemic ATN. In the emergency room patient's creatinine was 6.37 --> 5.06--> today serum creatinine 2.82; BUN is also trending down with peak 154-->106 (hemoglobin normal on admission). Overall renal function is improving. Patient is nonoliguric, potassium and bicarb acceptable. 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 Patient is mildly hypovolemic and is on IV fluids. Continue IV fluids for volume expansion but will decrease rate again today. Lactic acid was 5.0 and improved to 2.5. Total creatinine kinase 317 on admission and today 291. UA showed 15 of protein, negative for occult blood or RBCs, leukocyte Estrace 25. Urine sodium was 12. Renal ultrasound no hydronephrosis. - CKD stage 4 with minimal proteinuria, baseline creatinine around 2.7 to 3 mg/dL; followed by Dr. Soto. Last seen in April 2022. - Metabolic acidosis from YUE on CKD, improving on oral sodium bicarbonate, decrease dose - Blood pressures had been marginally low since admission therefore we stopped amlodipine. Patient had a run of SVT, cardiology consulted and now is on metoprolol. Echo: limited study, Normal left ventricular, hyperdynamic left ventricle, normal systolic function, focal aortic valve calcification with trivial AI. - on IV antibiotics, azithromycin and ceftriaxone for presumed pneumonia. - disposition: to go to [facility] for therapy.
[2022-06-03] MEDS: 0.9% Normal Saline 1,000 ML 100 ML IV (10:15)
[2022-06-03] MEDS: Ensure Plus High Protein 120 ML LIQUID PO ×4 (10:26→21:43)
[2022-06-03] MEDS: Heparin Injection (Vial) 5,000 UNIT/ML VIAL 5000 UNIT SC ×2 (10:27→21:48)
[2022-06-03] MEDS: Metoprolol Tartrate 25 MG Tablet PO ×2 (10:27→21:43)
[2022-06-03] MEDS: Menthol/Lanolin/Calamine/Znox 113 GM Tube 1 APPLIC TOPICAL ×2 (10:27→21:42)
[2022-06-03] MEDS: Aspirin 81 MG TAB.CHEW PO (10:27)
--- NOTE | 2022-06-03 10:28 | PN_ITS ---
Subjective Subjective Patient seen and examined. He appeared confused today, and said he couldnt sleep last night because he could hear people outside his house. When reminded that he was in the hospital, he said he is in the hospital now, but was at home last night; he was in the hospital last night. He has remained hemodynamically sta ble. Cr continues to trend downwards. Objective Data Objective Data Vital Signs: Vital Signs Temp Pulse Resp BP Pulse Ox O2 Del Method O2 Flow Rate 97.6 F L 80 17 121/85 H 95 Room Air 2 06/03/22 10:16 06/03/22 10:16 06/03/22 10:16 06/03/22 10:16 06/03/22 10:16 06/03/22 10:16 06/01/22 14:40 Oxygen Flow Rate (L/min) 2 Oxygen Delivery Method Room Air Weight: 141 lb 5.061 oz Body Mass Index (BMI) 20.8 Intake & Output: Intake and Output for Last 24 Hours 06/01/22 06/02/22 06/03/22 23:59 23:59 23:59 Intake Total 4285 / 4285 4665.00 / 4665.00 1000 / 1000 Output Total 1100 / 1500 1575 / 1575 200 / 200 Balance 3185 / 2785 3090.00 / 3090.00 800 / 800 Medical Nutrition Assessment Dietitian: Malnutrition Criteria Met Start: 06/01/22 16:15 Freq: Status: Active Protocol: Document 06/01/22 16:16 (Rec: 06/01/22 16:16 [id number]) Nutrition Malnutrition Evidence of Malnutrition Exists Yes Malnutrition (moderate): Chronic Evidenced By Suboptimal Energy Intake ( Moderate),Weight Loss (Severe) ,Physical Changes (Moderate) Clinical Problem Chronic Disease or Condition Related Malnutrition Etiology chronic, moderate malnutrition related to inadequate oral intake Signs/Symptoms as evidenced by moderate muscle wasting/fat loss evident per physical exam in orbital, clavicle, acromion, and temporal areas; estimated PO intake meeting <75% of estimated energy needs > 1 month; reported wt loss of 28. 2#/18% x 3 months; BMI 19.5 Status Active Problem Recommendation Dietitian Recommendations/Changes will adjust diet to regular/no added salt given evidence of malnutrition; will adjust ONS to Ensure Plus High Protein 120mL 4x/day w/ medpass given malnutrition, need for increased protein. Will monitor labs, PO intake and adjust diet/ONS as indicated. Lab / Micro Data Result Diagrams: 06/03/22 06:08 06/03/22 06:08 Labs: Laboratory Results - last 24 hr 06/02/22 11:20: POC Glucose 257 H 06/02/22 16:34: POC Glucose 150 H 06/02/22 20:28: POC Glucose 242 H 06/03/22 06:08: Sodium 143, Potassium 3.8, Chloride 118 H, Carbon Dioxide 22.0, Anion Gap 3 L, BUN 106 H*, Creatinine 2.82 H, Estim Creat Clear Calc 18.31, Est GFR (MDRD) Af Amer 28 L, Est GFR (MDRD) Non-Af 23 L, BUN/Creatinine Ratio 37.6 H , Glucose 185 H, Calcium 8.0 L 06/03/22 06:08: WBC 7.8, RBC 3.68 L, Hgb 11.6 L, Hct 34.9 L, MCV 94.8 H, MCH 31.5, MCHC 33.2 D, RDW Std Deviation 47.3 H, RDW Coeff of Fidelia 13.5, Plt Count 144 L, MPV 11.5, Immature Gran % (Auto) 1.800 H, Neut % (Auto) 91.6 H, Lymph % (Auto) 2.7 L, [place] % (Auto) 3.5, Eos % (Auto) 0.0, Baso % (Auto) 0.4, Absolute Neuts (auto) 7.1, Absolute Lymphs (auto) 0.21 L, Nucleated RBC % 0, Platelet Estimate SLT 06/03/22 06:17: POC Glucose 165 H Micro: Microbiology 05/31/22 17:35 Blood Culture (Wb) - Anticubital Right Blood Culture - Preliminary No growth in 48 hours. 05/31/22 18:00 Blood Culture (Wb) - Anticubital Right Bacteria Detection (PCR) - Final Coag Negative Staph 05/31/22 18:00 Blood Culture (Wb) - Anticubital Right Blood Culture - Preliminary 05/31/22 21:40 Mucosa - Nasopharyngeal Respiratory Panel (PCR) - Final 05/31/22 17:49 Urine, Random Legionella Antigen - Final 05/31/22 17:49 Urine, Random Streptococcus pneumoniae Antigen (M - Final Rhythm Strip Rhythm Strip: Sinus Tach Rate: 150 Ectopy: None Physical Exam Const alert, oriented x3 and no apparent distress Constitutional Narrative: confused General Appearance: cooperative HEENT normocephalic, head/scalp atraumatic, moist oral mucous membranes and oropharynx normal Eyes PERRL and EOMs intact bilaterally Neck no lymphadenopathy, supple and no JVD Lymph Lymphatic: no lymphadenopathy noted and no lymphedema noted Resp Resp Narrative: mildly diminished breath sounds bibasally, no wheezes or crackles. On room air Cardio regular rate, regular rhythm, S1 normal heart sound, S2 normal heart sound and no murmurs Cardio Narrative: has been tachycardic today GI normal to inspection, nondistended, normoactive bowel sounds, soft to palpation, non-tender and non-distended Extremity normal capillary refill and no clubbing, cyanosis or edema General Extremity: no tenderness to palpation of joints or extremities Skin General Skin Exam: no breakdown Neuro CN's II-XII intact bilaterally, no focal motor deficits and no sensory deficits noted Coordination / Balance: [id number] test normal Psych cooperative and affect normal Psych Narrative: confused Appearance: appropriate Assessment & Plan Assessment/Plan (1) JANUARY (acute kidney injury): (2) Rhabdomyolysis: (3) Hypoxia: PLAN: Plan #January on CKD 3 * Cr was >6 on admission, now down to 2.82 today * likely pre-renal due to decreased intake * nephro on board * renal USG showed bilateral renal cysts * continue gentle hydration with IVF * #Bacteremia * was tachypneic, tachycardic and had elevated lactic acid on admission * was also hypoxic. * CXR showed no acute cardiopulmonary process * he was started on treatment for presumptive pneumonia with ceftriaxone and azithromycin * sputum and blood cultures pending. Urinalysis showed no evidence of UTI * Now on room air. Titrate to maintain sats >90% * procalcitonin is markedly elevated at 32.88 * urine for strep and legionella are negative * blood cultures growing gram positive cocci in chains * consult ID * on IV ceftriaxone and azithromycin for presumptive pneumonia. * #Hyperglycemia: Not a known diabetic. A1c was 6.1. Insulin sliding scale. Based on A1c, meets the criteria for impaired glucose tolerance. consult nutrition to cancer genetic counselor about diet. #Non-anion gap metabolic acidosis: * resolved * #Hypertension; on amlodipine. Other BP meds held due to concerns about nephrotoxicity #BPH: s/p cystoscopy in the past with dilation of strictures. DVT prophylaxis; heparin * * Total time spent on evaluation and management of patient, reviewing chart, discussing plan with patient, discussion with nursing and ancillary staff as well as documentation: 42 mins Charges/Coding Visit Charges Inpatient E&M: 82297 Subs Hosp L2
[2022-06-03] MEDS: Ceftriaxone 1 GM/50 ML BAG IV (10:35)
--- NOTE | 2022-06-03 11:00 | NURSING ---
This RN is taking over care at this time.
--- NOTE | 2022-06-03 11:25 | EKG12_ITS ---
Test Reason : TACHY Blood Pressure : / mmHG Vent. Rate : 159 BPM Atrial Rate : 000 BPM P-R Int : 000 ms QRS Dur : 114 ms QT Int : 258 ms P-R-T Axes : 000 -83 091 degrees QTc Int : 419 ms Supraventricular tachycardia Left axis deviation Nonspecific ST and T wave abnormality Abnormal ECG When compared with ECG of 01-JUN-2022 11:33, MANUAL COMPARISON REQUIRED, DATA IS UNCONFIRMED Confirmed by GILMER HAYWOOD, GLORIA ([id number]), city editor LALA MURRAY ([id number]) on 06/07/2022 10:37:25 AM Referred By: MICHOACANO Confirmed By:GLORIA SCHERER MD
[2022-06-03] MEDS: Ipratropium 0.5 MG/2.5 ML SOLUTION INHALATION ×2 (11:46→19:17)
--- NOTE | 2022-06-03 12:24 | CASEMGMT ---
SW sent PT note from today to [facility] via [facility]. Rain Steen INSULATION ENGINEMAN [employer]
[2022-06-03 12:30] LABS: Bedside Glucose 303 mg/dL (74-106)
--- NOTE | 2022-06-03 12:34 | PCM.PN.CARD ---
Documented by User: GIOVANNI Sousa 06/03/22 12:38 Subjective Subjective Patient seen and examined today. Patient denies any chest pain or shortness of breath. He is not aware of his irregular rhythm. However feel that he is still answering questions inappropriately. Objective Data Vital Signs: Vital Signs Temp Pulse Resp BP Pulse Ox O2 Del Method O2 Flow Rate 97.9 F 77 22 H 96/63 95 Room Air 2 06/03/22 11:16 06/03/22 11:46 06/03/22 11:46 06/03/22 11:16 06/03/22 11:16 06/03/22 11:16 06/01/22 14:40 Oxygen Flow Rate (L/min) 2 Oxygen Delivery Method Room Air Weight: 141 lb 5.061 oz Body Mass Index (BMI) 20.8 Intake & Output: Intake and Output for Last 24 Hours 06/01/22 06/02/22 06/03/22 23:59 23:59 23:59 Intake Total 4285 / 4285 4665.00 / 4665.00 1085 / 1085 Output Total 1100 / 1500 1575 / 1575 200 / 200 Balance 3185 / 2785 3090.00 / 3090.00 885 / 885 Lab / Micro Data Result Diagrams: 06/03/22 06:08 06/03/22 06:08 Labs: Laboratory Results - last 24 hr 06/02/22 16:34: POC Glucose 150 H 06/02/22 20:28: POC Glucose 242 H 06/03/22 06:08: Sodium 143, Potassium 3.8, Chloride 118 H, Carbon Dioxide 22.0, Anion Gap 3 L, BUN 106 H*, Creatinine 2.82 H, Estim Creat Clear Calc 18.31, Est GFR (MDRD) Af Amer 28 L, Est GFR (MDRD) Non-Af 23 L, BUN/Creatinine Ratio 37.6 H, Glucose 185 H, Calcium 8.0 L 06/03/22 06:08: WBC 7.8, RBC 3.68 L, Hgb 11.6 L, Hct 34.9 L, MCV 94.8 H, MCH 31.5, MCHC 33.2 D, RDW Std Deviation 47.3 H, RDW Coeff of Fidelia 13.5, Plt Count 144 L, MPV 11.5, Immature Gran % (Auto) 1.800 H, Neut % (Auto) 91.6 H, Lymph % (Auto) 2.7 L, [place] % (Auto) 3.5, Eos % (Auto) 0.0, Baso % (Auto) 0.4, Absolute Neuts (auto) 7.1, Absolute Lymphs (auto) 0.21 L, Nucleated RBC % 0, Platelet Estimate SLT 06/03/22 06:17: POC Glucose 165 H 06/03/22 12:04: POC Glucose 303 H Micro: Microbiology 05/31/22 17:35 Blood Culture (Wb) - Anticubital Right Blood Culture - Preliminary No growth in 48 hours. 05/31/22 18:00 Blood Culture (Wb) - Anticubital Right Bacteria Detection (PCR) - Final Coag Negative Staph 05/31/22 18:00 Blood Culture (Wb) - Anticubital Right Blood Culture - Preliminary Rhythm Strip Rhythm Strip: Sinus Tach Rate: 150 Ectopy: None Cardiology Labs/Tests 06/03/22 06:08: Sodium 143, Potassium 3.8, Chloride 118 H, Carbon Dioxide 22.0, Anion Gap 3 L, BUN 106 H*, Creatinine 2.82 H, Est GFR (MDRD) Af Amer 28 L, Est GFR (MDRD) Non-Af 23 L, BUN/Creatinine Ratio 37.6 H, Glucose 185 H, Calcium 8.0 L 06/03/22 06:08: WBC 7.8, RBC 3.68 L, Hgb 11.6 L, Hct 34.9 L, MCV 94.8 H, MCH 31.5, MCHC 33.2 D, Plt Count 144 L, MPV 11.5, Immature Gran % (Auto) 1.800 H, Neut % (Auto) 91.6 H, Lymph % (Auto) 2.7 L, [place] % (Auto) 3.5, Eos % (Auto) 0.0, Baso % (Auto) 0.4, Absolute Neuts (auto) 7.1, Nucleated RBC % 0 Rhythm: Physical Exam Const alert and no apparent distress General Appearance: frail Orientation / Consciousness: oriented to person and oriented to place HEENT normocephalic, head/scalp atraumatic, hearing grossly normal bilaterally, external ears normal, external nose normal and moist oral mucous membranes Eyes PERRL, EOMs intact bilaterally, conjunctivae normal and no scleral icterus Neck no lymphadenopathy, supple and no JVD Resp Auscultation: diminished lung sounds bilateral Cardio Rate: tachycardic Rhythm: regular rhythm Heart Sounds: S1 normal and S2 normal; Negative for click, gallop, murmur or rub GI normal to inspection, nondistended, normoactive bowel sounds, soft to palpation, non-tender and non-distended Extremity normal to inspection, normal capillary refill, no clubbing, cyanosis or edema and no pedal edema Neuro oriented x3, CN's II-XII intact bilaterally, moves all extremities and no focal motor deficits Psych cooperative and affect normal Assessment & Plan Assessment/Plan (1) Rhabdomyolysis: (2) YUE (acute kidney injury): (3) SVT (supraventricular tachycardia): PLAN: Plan Pt is having periods of SVT, this could be related to his metabolic acidosis. There is a possibility that this is related to his fall. He was treated with metoprolol 25 mg twice a day. Yesterday during the day his heart rate was still controlled however last evening he did start with runs of SVT his heart rate has not now been almost consistent with rates of close to 150. His blood pressure is improved. Would like to start IV diltiazem to see if this helps. If improved we will then switch over to p.o. diltiazem tomorrow. However will need to monitor his blood pressure closely as we were unable to start this previously with his low blood pressure readings. Charges/Coding Visit Charges Inpatient E&M: 56727 Subs Hosp L3 Documented by User: Dr. Lin Villanueva MD 06/03/22 20:38 Lab / Micro Data Result Diagrams: 06/03/22 06:08 06/03/22 06:08 Assessment & Plan Assessment/Plan (1) Rhabdomyolysis: (2) YUE (acute kidney injury): (3) SVT (supraventricular tachycardia): PLAN: Plan Pt is having periods of SVT, this could be related to his metabolic acidosis. There is a possibility that this is related to his fall. He was treated with metoprolol 25 mg twice a day. Yesterday during the day his heart rate was still controlled however last evening he did start with runs of SVT his heart rate has not now been almost consistent with rates of close to 150. His blood pressure is improved. Would like to start IV diltiazem to see if this helps. If improved we will then switch over to p.o. diltiazem tomorrow. However will need to monitor his blood pressure closely as we were unable to start this previously with his low blood pressure readings. I independently examined this patient review all the current medication imaging studies, cardiac monitors current medication I concur with the midlevel documentation and I formulated cardiac care plan We will continue to monitor and follow-up this patient clinically.
--- NOTE | 2022-06-03 13:43 | PCM.CONS.GEN ---
Assessment & Plan Assessment/Plan (1) Fall: (2) YUE (acute kidney injury): (3) CAP (community acquired pneumonia): PLAN: UAg neg. 1 of 2 bcx with CoNS, consistent with contaminant at this point. YUE improving. UA neg for wbc. Wbc back to normal. On ceftriaxone/azithro. Plan on 5-6 days total abx, can change to po at discharge. Will follow, thank you HPI Consult Data Date of Consult: 06/03/22 HPI Narrative Reason for Consultation: (+) bcx HPI Narrative: AVRIL POLO, is a 82 M with h/o htn, BPH, CKD, bronchitis, presented 05/31 after being found down at home, confused and soaked in urine. Reports frequent falls over past few weeks, was down for half the day this episode. No fever, no cough, no dyspnea, no abd pain, no dysuria. Admitted here on azithro/ceftriaxone, now feeling much better. Full ROS performed and neg except as noted above. [facility] Medical History BPH (benign prostatic hyperplasia) Chronic bronchitis CKD (chronic kidney disease), stage III Former tobacco use HLD (hyperlipidemia) HTN (hypertension) Hx of urethral stricture SVT (supraventricular tachycardia) Home Medications Prinzide 10 mg PO DAILY 11/12/12 [History Last Taken 11/30/12 06:30 10 MG] albuterol sulfate 90 mcg/actuation aerosol inhaler (ProAir HFA) 1 - 2 puff inhalation Q4H PRN PRN Asthma 11/12/12 [History Last Taken 11/30/12 06:30 1 - 2 PUFF] amlodipine 10 mg tablet 10 mg PO DAILY high blood pressure 11/12/12 [History Last Taken 11/30/12 06:30 10 MG] aspirin 81 mg chewable tablet 81 mg PO DAILY@0800 heart health 11/12/12 [History Last Taken 11/30/12 06:30 81 MG] pravastatin 20 mg tablet 20 mg PO QHS high cholesterol 11/12/12 [History Last Taken 11/30/12 06:30 20 MG] lisinopril 10 mg-hydrochlorothiazide 12.5 mg tablet (Zestoretic) 1 tab PO DAILY high blood pressure 12/22/16 [History Last Taken Unknown] cholecalciferol (vitamin D3) 50 mcg (2,000 unit) tablet (Vitamin D3) 50 mcg PO DAILY general health 05/31/22 [History Last Taken Unknown] ergocalciferol (vitamin D2) 1,000 unit capsule 1,000 unit PO DAILY health 05/31/22 [History Last Taken Unknown] Allergy/AdvReac Type Severity Reaction Status Date / Time No Known Allergies Allergy Verified 05/31/22 17:29 Family History (Updated 05/31/22 @ 20:[address] Brianna Felix MD) Sister Cancer Mother Heart disease Diabetes Hypertension Father Heart disease Diabetes Hypertension Other COPD (chronic obstructive pulmonary disease) Surgical History (Updated 05/31/22 @ 19:[address] Brianna Felix MD) H/O cystoscopy S/P colonoscopic polypectomy S/P partial colectomy Social History (Updated 05/31/22 @ 19:[address] Brianna Felix MD) household members: none Smoking Status: Former smoker quit date: 07/17/09 pack-years: 60 alcohol intake: current alcohol intake frequency: 0-2 drinks per day details: Per prior records max 1 drink daily. substance use type: does not use Physical Exam Const alert and no apparent distress General Appearance: cooperative HEENT normocephalic and head/scalp atraumatic Neck supple and No nodes Resp Auscultation: wheezes Cardio regular rate and regular rhythm GI soft to palpation, non-tender and non-distended Extremity General Extremity: Negative for edema Skin no rashes or lesions noted Neuro CN's II-XII intact bilaterally Medical Records Data Medical Nutrition Assessment Dietitian: Malnutrition Criteria Met Start: 06/01/22 16:15 Freq: Status: Active Protocol: Document 06/01/22 16:16 (Rec: 06/01/22 16:16 [id number]) Nutrition Malnutrition Evidence of Malnutrition Exists Yes Malnutrition (moderate): Chronic Evidenced By Suboptimal Energy Intake ( Moderate),Weight Loss (Severe) ,Physical Changes (Moderate) Clinical Problem Chronic Disease or Condition Related Malnutrition Etiology chronic, moderate malnutrition related to inadequate oral intake Signs/Symptoms as evidenced by moderate muscle wasting/fat loss evident per physical exam in orbital, clavicle, acromion, and temporal areas; estimated PO intake meeting <75% of estimated energy needs > 1 month; reported wt loss of 28. 2#/18% x 3 months; BMI 19.5 Status Active Problem Recommendation Dietitian Recommendations/Changes will adjust diet to regular/no added salt given evidence of malnutrition; will adjust ONS to Ensure Plus High Protein 120mL 4x/day w/ medpass given malnutrition, need for increased protein. Will monitor labs, PO intake and adjust diet/ONS as indicated. Lab / Micro Data Attestation: I reviewed the patient's lab results. Result Diagrams: 06/03/22 06:08 06/03/22 06:08 Labs: Laboratory Results - last 24 hr 06/02/22 16:34: POC Glucose 150 H 06/02/22 20:28: POC Glucose 242 H 06/03/22 06:08: Sodium 143, Potassium 3.8, Chloride 118 H, Carbon Dioxide 22.0, Anion Gap 3 L, BUN 106 H*, Creatinine 2.82 H, Estim Creat Clear Calc 18.31, Est GFR (MDRD) Af Amer 28 L, Est GFR (MDRD) Non-Af 23 L, BUN/Creatinine Ratio 37.6 H, Glucose 185 H, Calcium 8.0 L 06/03/22 06:08: WBC 7.8, RBC 3.68 L, Hgb 11.6 L, Hct 34.9 L, MCV 94.8 H, MCH 31.5, MCHC 33.2 D, RDW Std Deviation 47.3 H, RDW Coeff of Fidelia 13.5, Plt Count 144 L, MPV 11.5, Immature Gran % (Auto) 1.800 H, Neut % (Auto) 91.6 H, Lymph % (Auto) 2.7 L, [place] % (Auto) 3.5, Eos % (Auto) 0.0, Baso % (Auto) 0.4, Absolute Neuts (auto) 7.1, Absolute Lymphs (auto) 0.21 L, Nucleated RBC % 0, Platelet Estimate SLT 06/03/22 06:17: POC Glucose 165 H 06/03/22 12:04: POC Glucose 303 H Micro: Microbiology 05/31/22 17:35 Blood Culture (Wb) - Anticubital Right Blood Culture - Preliminary No growth in 48 hours. 05/31/22 18:00 Blood Culture (Wb) - Anticubital Right Bacteria Detection (PCR) - Final Coag Negative Staph 05/31/22 18:00 Blood Culture (Wb) - Anticubital Right Blood Culture - Preliminary Rhythm Strip Rhythm Strip: Sinus Tach Rate: 150 Ectopy: None
[2022-06-03] MEDS: Sodium Bicarbonate 650 MG Tablet PO ×2 (15:20→21:43)
[2022-06-03 17:36] LABS: Bedside Glucose 149 mg/dL (74-106)
[2022-06-03] MEDS: Acetaminophen 325 MG Tablet 650 MG PO (21:43)
[2022-06-03] MEDS: Pravastatin 20 MG Tablet PO (21:44)
[2022-06-03] MEDS: 0.9% Saline Lock 10 ML Syringe IV (21:51)
[2022-06-03 22:30] LABS: Bedside Glucose 243 mg/dL (74-106)
[2022-06-04] VITALS (18 sets, daily range): BP systolic 94–125; BP diastolic 66–91; PULSE 56–74; RESP 14–23; TEMP 36.1–36.7; O2SAT 91–98; BMI 22.0
[2022-06-04] MEDS: 0.9% Normal Saline 1,000 ML 75 ML IV ×2 (01:43→17:33)
[2022-06-04] MEDS: Sodium Bicarbonate 650 MG Tablet PO ×3 (05:33→21:41)
[2022-06-04 06:18] LABS: Absolute Lymphocyte Count 0.25 X10^3/uL (0.83-4.51); Absolute Neutrophil Count 8.8 X10^3/uL (2.0-7.7); Basophil# 0.02 X10^3/uL; Basophil% 0.2 % (0-1); Hematocrit 34.5 % (40-54); Hemoglobin 11.3 g/dL (13.0-16.5); Lymphocyte # 0.25 X10^3/ul (0.83-4.51); Lymphocyte % 2.6 % (19-41); Mean Corp Hgb Conc 32.8 g/dL (32-36); Mean Corpuscular Hgb 30.7 pg (27.0-32.0); Mean Corpuscular Volume 93.8 fL (80-94); Mean Platelet Vol. 12.2 fl (6.2-12.0); Monocyte# 0.21 X10^3/uL; Monocyte% 2.2 % (0-10); NRBC Flagged by Analyzer 0 % (0-5); Neutrophil # 8.82 X10^3/uL (2.7-7.7); Neutrophil % 93.4 % (47-70); POSITIVE DIFFERENTIAL YES; Platelet Count 167 K/mm3 (150-450); RBC Distribution Width CV 13.4 % (11.6-14.6); Red Blood Count 3.68 M/mm3 (4.6-6.2); White Blood Count 9.5 K/mm3 (4.4-11.0)
[2022-06-04] MEDS: Insulin Lispro 100 UNIT/ML INSULN.PEN SC ×4 (06:55→21:41)
[2022-06-04 06:59] LABS: Anion Gap 4 (5-15); BUN 85 mg/dL (7-18); BUN/Creat Ratio 40.3 RATIO (10-20); Calcium,Total 7.7 mg/dL (8.5-10.1); Chloride 114 mmol/L (98-107); Creatinine, Serum 2.11 mg/dL (0.70-1.30); EST Glomerular Filtration Rate 32 mL/min (>60); Est Glom Filt Rate - Afr Amer 39 mL/min (>60); Estimated Creatinine Clearance 25.85 ml/min; Glucose 161 mg/dL (74-106); Potassium 3.7 mmol/L (3.5-5.1); Sodium Level 141 mmol/L (136-145)
[2022-06-04 07:11] LABS: Differential Indicated SCAN CRITERIA MET
[2022-06-04 07:20] LABS: Bedside Glucose 162 mg/dL (74-106)
[2022-06-04] MEDS: Ipratropium 0.5 MG/2.5 ML SOLUTION INHALATION ×3 (07:50→19:55)
[2022-06-04] MEDS: Ensure Plus High Protein 120 ML LIQUID PO ×2 (08:40→21:42)
[2022-06-04] MEDS: Aspirin 81 MG TAB.CHEW PO (08:41)
[2022-06-04] MEDS: Menthol/Lanolin/Calamine/Znox 113 GM Tube 1 APPLIC TOPICAL (08:42)
[2022-06-04] MEDS: Ceftriaxone 1 GM/50 ML BAG IV (09:32)
[2022-06-04] MEDS: Heparin Injection (Vial) 5,000 UNIT/ML VIAL 5000 UNIT SC ×2 (09:34→21:42)
[2022-06-04 09:42] LABS: Differential Comment SCANNED
[2022-06-04] MEDS: Metoprolol Tartrate 25 MG Tablet PO ×2 (10:13→21:41)
--- NOTE | 2022-06-04 12:08 | PN_ITS ---
Subjective Subjective Patient seen and examined. He had no major medical complaints. He denied any pain, fever chills, nausea vomiting or any other symptoms. Review of systems otherwise negative. He has remained hemodynamically stable. Objective Data Objective Data Vital Signs: Vital Signs Temp Pulse Resp BP Pulse Ox O2 Del Method O2 Flow Rate 97.0 F L 61 23 H 102/67 93 Room Air 2 06/04/22 08:00 06/04/22 11:00 06/04/22 11:00 06/04/22 11:00 06/04/22 11:00 06/04/22 11:00 06/01/22 14:40 Oxygen Flow Rate (L/min) 2 Oxygen Delivery Method Room Air Weight: 149 lb 4.047 oz Body Mass Index (BMI) 22.0 Intake & Output: Intake and Output for Last 24 Hours 06/02/22 06/03/22 06/04/22 23:59 23:59 23:59 Intake Total 4665.00 / 4665.00 2478.67 / 2483.67 1903.75 / 1903.75 Output Total 1575 / 1575 1550 / 1550 1700 / 1700 Balance 3090.00 / 3090.00 928.67 / 933.67 203.75 / 203.75 Medical Nutrition Assessment Dietitian: Malnutrition Criteria Met Start: 06/01/22 16:15 Freq: Status: Active Protocol: Document 06/01/22 16:16 (Rec: 06/01/22 16:16 AG [id number]) Nutrition Malnutrition Evidence of Malnutrition Exists Yes Malnutrition (moderate): Chronic Evidenced By Suboptimal Energy Intake ( Moderate),Weight Loss (Severe) ,Physical Changes (Moderate) Clinical Problem Chronic Disease or Condition Related Malnutrition Etiology chronic, moderate malnutrition related to inadequate oral intake Signs/Symptoms as evidenced by moderate muscle wasting/fat loss evident per physical exam in orbital, clavicle, acromion, and temporal areas; estimated PO intake meeting <75% of estimated energy needs > 1 month; reported wt loss of 28. 2#/18% x 3 months; BMI 19.5 Status Active Problem Recommendation Dietitian Recommendations/Changes will adjust diet to regular/no added salt given evidence of malnutrition; will adjust ONS to Ensure Plus High Protein 120mL 4x/day w/ medpass given malnutrition, need for increased protein. Will monitor labs, PO intake and adjust diet/ONS as indicated. Lab / Micro Data Result Diagrams: 06/04/22 05:09 06/04/22 05:09 Labs: Laboratory Results - last 24 hr 06/03/22 12:04: POC Glucose 303 H 06/03/22 17:14: POC Glucose 149 H 06/03/22 21:54: POC Glucose 243 H 06/04/22 05:09: WBC 9.5, RBC 3.68 L, Hgb 11.3 L, Hct 34.5 L, MCV 93.8, MCH 30.7, MCHC 32.8, RDW Std Deviation 46.0 H, RDW Coeff of Fidelia 13.4, Plt Count 167, MPV 12.2 H, Immature Gran % (Auto) 1.600 H, Neut % (Auto) 93.4 H, Lymph % (Auto) 2.6 L, [place] % (Auto) 2.2, Eos % (Auto) 0.0, Baso % (Auto) 0.2, Absolute Neuts (auto) 8.8 H, Absolute Lymphs (auto) 0.25 L, Nucleated RBC % 0, Differential Comment SCANNED 06/04/22 05:09: Sodium 141, Potassium 3.7, Chloride 114 H, Carbon Dioxide 23.0, Anion Gap 4 L, BUN 85 H, Creatinine 2.11 H, Estim Creat Clear Calc 25.85, Est GFR (MDRD) Af Amer 39 L, Est GFR (MDRD) Non-Af 32 L, BUN/Creatinine Ratio 40.3 H , Glucose 161 H, Calcium 7.7 L 06/04/22 06:54: POC Glucose 162 H Micro: Microbiology 05/31/22 17:35 Blood Culture (Wb) - Anticubital Right Blood Culture - Preliminary No growth in 48 hours. 05/31/22 18:00 Blood Culture (Wb) - Anticubital Right Bacteria Detection (PCR) - Final Coag Negative Staph 05/31/22 18:00 Blood Culture (Wb) - Anticubital Right Blood Culture - Preliminary 05/31/22 21:40 Mucosa - Nasopharyngeal Respiratory Panel (PCR) - Final 05/31/22 17:49 Urine, Random Legionella Antigen - Final 05/31/22 17:49 Urine, Random Streptococcus pneumoniae Antigen (M - Final Rhythm Strip Rhythm Strip: Sinus Tach Rate: 150 Ectopy: None Physical Exam Const alert, oriented x3 and no apparent distress Constitutional Narrative: confused General Appearance: cooperative HEENT normocephalic, head/scalp atraumatic, moist oral mucous membranes and oropharynx normal Eyes PERRL and EOMs intact bilaterally Neck no lymphadenopathy, supple and no JVD Lymph Lymphatic: no lymphadenopathy noted and no lymphedema noted Resp Resp Narrative: mildly diminished breath sounds bibasally, no wheezes or crackles. On room air Cardio regular rate, regular rhythm, S1 normal heart sound, S2 normal heart sound and no murmurs GI normal to inspection, nondistended, normoactive bowel sounds, soft to palpation, non-tender and non-distended Extremity normal capillary refill and no clubbing, cyanosis or edema General Extremity: no tenderness to palpation of joints or extremities Skin General Skin Exam: no breakdown Neuro CN's II-XII intact bilaterally, no focal motor deficits and no sensory deficits noted Coordination / Balance: [id number] test normal Psych thought process normal, cooperative and affect normal Psych Narrative: confused Appearance: appropriate Assessment & Plan Assessment/Plan (1) JANUARY (acute kidney injury): (2) Rhabdomyolysis: (3) Hypoxia: PLAN: Plan #January on CKD 3 * continues to improve * Cr was >6 on admission, now down to 2.11 today * likely pre-renal due to decreased intake * nephro on board * renal USG showed bilateral renal cysts * continue gentle hydration with IVF * #Bacteremia * was tachypneic, tachycardic and had elevated lactic acid on admission * was also hypoxic. * CXR showed no acute cardiopulmonary process * he was started on treatment for presumptive pneumonia with ceftriaxone and azithromycin * sputum and blood cultures pending. Urinalysis showed no evidence of UTI * Now on room air. Titrate to maintain sats >90% * procalcitonin is markedly elevated at 32.88 * urine for strep and legionella are negative * blood cultures growing gram positive cocci in chains * ID consulted o/a ov bacteremia. Per ID, 1 out of 2 blood cultures with coagulase-negative staph is consistent with contaminant. Recommends 5 to 6 days total of antibiotics. Today is day 5, so will stop after today's dose of antibiotics * on IV ceftriaxone and azithromycin for presumptive pneumonia. * #Hyperglycemia: Not a known diabetic. A1c was 6.1. Insulin sliding scale. Based on A1c, meets the criteria for impaired glucose tolerance. consult nutrition to behavioral health counselor about diet. #Non-anion gap metabolic acidosis: * resolved * #Hypertension; on amlodipine. Other BP meds held due to concerns about nephrotoxicity #BPH: s/p cystoscopy in the past with dilation of strictures. DVT prophylaxis; heparin * * Total time spent on evaluation and management of patient, reviewing chart, discussing plan with patient, discussion with nursing and ancillary staff as well as documentation: 40 mins Disposition: for dc to SNF when medically stable. Awaiting precert at SNF Charges/Coding Visit Charges Inpatient E&M: 87604 Subs Hosp L2
[2022-06-04 12:15] LABS: Bedside Glucose 233 mg/dL (74-106)
[2022-06-04] MEDS: Mag Hydrox/Al Hydrox/Simeth 30 ML UDC PO (17:35)
[2022-06-04 18:20] LABS: Bedside Glucose 155 mg/dL (74-106)
[2022-06-04] MEDS: Pravastatin 20 MG Tablet PO (21:41)
[2022-06-04 23:11] LABS: Bedside Glucose 224 mg/dL (74-106)
[2022-06-05] VITALS (11 sets, daily range): BP systolic 102–146; BP diastolic 77–85; PULSE 50–62; RESP 16–24; TEMP 36.4–36.6; O2SAT 90–96; BMI 22.0
[2022-06-05] MEDS: 0.9% Normal Saline 1,000 ML 75 ML IV ×2 (04:06→18:22)
[2022-06-05 04:18] LABS: Absolute Lymphocyte Count 0.26 X10^3/uL (0.83-4.51); Absolute Neutrophil Count 12.2 X10^3/uL (2.0-7.7); Basophil# 0.03 X10^3/uL; Basophil% 0.2 % (0-1); Hematocrit 34.1 % (40-54); Hemoglobin 11.1 g/dL (13.0-16.5); Lymphocyte # 0.26 X10^3/ul (0.83-4.51); Mean Corp Hgb Conc 32.6 g/dL (32-36); Mean Corpuscular Hgb 31.1 pg (27.0-32.0); Mean Corpuscular Volume 95.5 fL (80-94); Mean Platelet Vol. 11.9 fl (6.2-12.0); Monocyte% 2.3 % (0-10); NRBC Flagged by Analyzer 0 % (0-5); Neutrophil # 12.17 X10^3/uL (2.7-7.7); Neutrophil % 94.1 % (47-70); POSITIVE DIFFERENTIAL YES; Platelet Count 174 K/mm3 (150-450); RBC Distribution Width CV 13.3 % (11.6-14.6); RBC Distribution Width SD 46.9 fl (35.1-43.9); Red Blood Count 3.57 M/mm3 (4.6-6.2); White Blood Count 12.9 K/mm3 (4.4-11.0)
[2022-06-05 04:32] LABS: Differential Indicated SCAN CRITERIA MET
[2022-06-05 06:11] LABS: Differential Comment SCANNED
[2022-06-05] MEDS: 0.9% Saline Lock 10 ML Syringe IV ×3 (06:41→21:00)
[2022-06-05 07:05] LABS: Bedside Glucose 165 mg/dL (74-106)
[2022-06-05] MEDS: Ipratropium 0.5 MG/2.5 ML SOLUTION INHALATION ×3 (07:44→20:20)
[2022-06-05 08:30] LABS: Anion Gap 8 (5-15); BUN 79 mg/dL (7-18); BUN/Creat Ratio 40.9 RATIO (10-20); Calcium,Total 7.5 mg/dL (8.5-10.1); Chloride 111 mmol/L (98-107); Creatinine, Serum 1.93 mg/dL (0.70-1.30); EST Glomerular Filtration Rate 36 mL/min (>60); Est Glom Filt Rate - Afr Amer 43 mL/min (>60); Estimated Creatinine Clearance 28.26 ml/min; Glucose 165 mg/dL (74-106); Potassium 3.9 mmol/L (3.5-5.1); Sodium Level 143 mmol/L (136-145)
[2022-06-05] MEDS: Ceftriaxone 1 GM/50 ML BAG IV (10:28)
[2022-06-05] MEDS: Menthol/Lanolin/Calamine/Znox 113 GM Tube 1 APPLIC TOPICAL (10:29)
[2022-06-05] MEDS: Metoprolol Tartrate 25 MG Tablet PO ×2 (10:29→21:01)
[2022-06-05] MEDS: Aspirin 81 MG TAB.CHEW PO (10:29)
[2022-06-05] MEDS: dilTIAZem CD 120 MG Capsule PO (10:29)
[2022-06-05] MEDS: Heparin Injection (Vial) 5,000 UNIT/ML VIAL 5000 UNIT SC ×2 (10:30→21:01)
[2022-06-05] MEDS: Ensure Plus High Protein 120 ML LIQUID PO ×2 (10:30→21:00)
[2022-06-05] MEDS: Mag Hydrox/Al Hydrox/Simeth 30 ML UDC PO ×2 (10:40→19:34)
--- NOTE | 2022-06-05 10:52 | PN_ITS ---
Subjective Subjective Patient seen and examined. He had no complaints and had an uneventful night. Review of systems is otherwise negative. He has remained hemodynamically stable. On room air. Objective Data Objective Data Vital Signs: Vital Signs Temp Pulse Resp BP Pulse Ox O2 Del Method O2 Flow Rate 97.5 F L 62 16 124/78 H 96 Room Air 2 06/05/22 10:06/05/22 10:29 06/05/22 10:06/05/22 10:06/05/22 10:06/05/22 10:06/01/22 14:40 Oxygen Flow Rate (L/min) 2 Oxygen Delivery Method Room Air Weight: 149 lb 4.047 oz Body Mass Index (BMI) 22.0 Intake & Output: Intake and Output for Last 24 Hours 06/03/22 06/04/22 06/05/22 23:59 23:59 23:59 Intake Total 2478.67 / 2483.67 2939.67 / 3179.67 1031.25 / 1031.25 Output Total 1550 / 1550 2150 / 2700 1500 / 1500 Balance 928.67 / 933.67 789.67 / 479.67 -468.75 / -468.75 Medical Nutrition Assessment Dietitian: Malnutrition Criteria Met Start: 06/01/22 16:15 Freq: Status: Active Protocol: Document 06/01/22 16:16 AG (Rec: 06/01/22 16:16 AG [id number]) Nutrition Malnutrition Evidence of Malnutrition Exists Yes Malnutrition (moderate): Chronic Evidenced By Suboptimal Energy Intake ( Moderate),Weight Loss (Severe) ,Physical Changes (Moderate) Clinical Problem Chronic Disease or Condition Related Malnutrition Etiology chronic, moderate malnutrition related to inadequate oral intake Signs/Symptoms as evidenced by moderate muscle wasting/fat loss evident per physical exam in orbital, clavicle, acromion, and temporal areas; estimated PO intake meeting <75% of estimated energy needs > 1 month; reported wt loss of 28. 2#/18% x 3 months; BMI 19.5 Status Active Problem Recommendation Dietitian Recommendations/Changes will adjust diet to regular/no added salt given evidence of malnutrition; will adjust ONS to Ensure Plus High Protein 120mL 4x/day w/ medpass given malnutrition, need for increased protein. Will monitor labs, PO intake and adjust diet/ONS as indicated. Lab / Micro Data Result Diagrams: 06/05/22 04:10 06/05/22 04:10 Labs: Laboratory Results - last 24 hr 06/04/22 11:51: POC Glucose 233 H 06/04/22 17:38: POC Glucose 155 H 06/04/22 21:38: POC Glucose 224 H 06/05/22 04:10: WBC 12.9 H, RBC 3.57 L, Hgb 11.1 L, Hct 34.1 L, MCV 95.5 H, MCH 31.1, MCHC 32.6, RDW Std Deviation 46.9 H, RDW Coeff of Fidelia 13.3, Plt Count 174, MPV 11.9, Immature Gran % (Auto) 1.400 H, Neut % (Auto) 94.1 H, Lymph % (Auto) 2.0 L, [place] % (Auto) 2.3, Eos % (Auto) 0.0, Baso % (Auto) 0.2, Absolute Neuts (auto) 12.2 H, Absolute Lymphs (auto) 0.26 L, Nucleated RBC % 0, Differential Comment SCANNED 06/05/22 04:10: Sodium 143, Potassium 3.9, Chloride 111 H, Carbon Dioxide 24.0, Anion Gap 8, BUN 79 H, Creatinine 1.93 H, Estim Creat Clear Calc 28.26, Est GFR (MDRD) Af Amer 43 L, Est GFR (MDRD) Non-Af 36 L, BUN/Creatinine Ratio 40.9 H, Glucose 165 H, Calcium 7.5 L 06/05/22 06:39: POC Glucose 165 H Micro: Microbiology 05/31/22 18:00 Blood Culture (Wb) - Anticubital Right Bacteria Detection (PCR) - Final Coag Negative Staph 05/31/22 18:00 Blood Culture (Wb) - Anticubital Right Blood Culture - Preliminary Facklamia hominis 05/31/22 17:35 Blood Culture (Wb) - Anticubital Right Blood Culture - Preliminary No growth in 48 hours. 05/31/22 21:40 Mucosa - Nasopharyngeal Respiratory Panel (PCR) - Final 05/31/22 17:49 Urine, Random Legionella Antigen - Final 05/31/22 17:49 Urine, Random Streptococcus pneumoniae Antigen (M - Final Rhythm Strip Rhythm Strip: Sinus Tach Rate: 150 Ectopy: None Physical Exam Const alert, oriented x3 and no apparent distress General Appearance: cooperative HEENT normocephalic, head/scalp atraumatic, moist oral mucous membranes and oropharynx normal Eyes PERRL and EOMs intact bilaterally Neck no lymphadenopathy, supple and no JVD Lymph Lymphatic: no lymphadenopathy noted and no lymphedema noted Resp Resp Narrative: mildly diminished breath sounds bibasally, no wheezes or crackles. On room air Cardio regular rate, regular rhythm, S1 normal heart sound, S2 normal heart sound and no murmurs GI normal to inspection, nondistended, normoactive bowel sounds, soft to palpation, non-tender and non-distended Extremity normal capillary refill and no clubbing, cyanosis or edema Skin General Skin Exam: no breakdown Neuro CN's II-XII intact bilaterally, no focal motor deficits and no sensory deficits noted Coordination / Balance: [id number] test normal Psych thought process normal, cooperative and affect normal Appearance: appropriate Assessment & Plan Assessment/Plan (1) JANUARY (acute kidney injury): (2) Rhabdomyolysis: (3) Hypoxia: PLAN: Plan #January on CKD 3 * continues to improve * Cr was >6 on admission, now down to 1.93 today * likely pre-renal due to decreased intake * nephro on board * renal USG showed bilateral renal cysts * continue gentle hydration with IVF * #Bacteremia * was tachypneic, tachycardic and had elevated lactic acid on admission * was also hypoxic. * CXR showed no acute cardiopulmonary process * he was started on treatment for presumptive pneumonia with ceftriaxone and azithromycin * Now on room air. Titrate to maintain sats >90% * procalcitonin is markedly elevated at 32.88 * urine for strep and legionella are negative * blood cultures growing gram positive cocci in chains * ID consulted o/a o=f bacteremia. Per ID, 1 out of 2 blood cultures with coagulase-negative staph is consistent with contaminant. Recommends 5 to 6 days total of antibiotics. Today is day 5, so will stop after today's dose of antibiotics * #Hyperglycemia: Not a known diabetic. A1c was 6.1. Insulin sliding scale. Based on A1c, meets the criteria for impaired glucose tolerance. consult nutrition to patient financial counselor about diet. #Non-anion gap metabolic acidosis: * resolved * #Hypertension; on amlodipine. Other BP meds held due to concerns about nephrotoxicity #BPH: s/p cystoscopy in the past with dilation of strictures. DVT prophylaxis; heparin * * Total time spent on evaluation and management of patient, reviewing chart, discussing plan with patient, discussion with nursing and ancillary staff as well as documentation: 40 mins Disposition: for dc to SNF when medically stable. Awaiting precert at SNF Charges/Coding Visit Charges Inpatient E&M: 30813 Subs Hosp L2
[2022-06-05] MEDS: Insulin Lispro 100 UNIT/ML INSULN.PEN SC ×3 (11:53→21:05)
[2022-06-05 12:31] LABS: Bedside Glucose 205 mg/dL (74-106)
[2022-06-05] MEDS: Sodium Bicarbonate 650 MG Tablet PO ×2 (14:32→21:01)
[2022-06-05 17:40] LABS: Bedside Glucose 179 mg/dL (74-106)
[2022-06-05] MEDS: Pravastatin 20 MG Tablet PO (21:01)
[2022-06-05 22:30] LABS: Bedside Glucose 218 mg/dL (74-106)
[2022-06-06] VITALS (26 sets, daily range): BP systolic 90–117; BP diastolic 66–84; PULSE 56–91; RESP 14–24; TEMP 36.2–37.2; O2SAT 88–98; BMI 22.5
--- NOTE | 2022-06-06 00:30 | NURSING ---
RN came in room to check on patient noted blood underneath patient. Patient having huge blood clots in stool. Patient denies any abdomen pain or dizziness.
--- NOTE | 2022-06-06 00:44 | PN.HOSP_ITS ---
Hospitalist Note Patient with onset BRBPR w/ clots. No abdominal pain, lightheadedness or dizziness. HH stat requested as well as T+S, will continue to cycle HH fo llowing, transition NPO status and will add PPI IV in interim. Will request GI consultation. Given this presentation will hold IV solumedrol.
[2022-06-06] MEDS: Ipratropium/Albuterol Sulfate 3 ML AMPUL.NEB INHALATION (00:58)
[2022-06-06] MEDS: Protamine Sulfate 50 MG/5 ML Vial IV (01:09)
[2022-06-06 01:10] LABS: Hematocrit 36.2 % (40-54); Hemoglobin 11.4 g/dL (13.0-16.5)
--- NOTE | 2022-06-06 01:36 | NURSING ---
Dr Felix in room assessing patient, updated about having to place patient on oxygen-increase work of breathing.
[2022-06-06 02:32] LABS: Partial Thromboplast Time 22.3 Seconds (24.1-36.2)
[2022-06-06 04:31] LABS: Absolute Lymphocyte Count 0.34 X10^3/uL (0.83-4.51); Absolute Neutrophil Count 26.2 X10^3/uL (2.0-7.7); Basophil# 0.06 X10^3/uL; Basophil% 0.2 % (0-1); Eosinophil# 0.02 X10^3/uL; Eosinophils% 0.1 % (0-5); Hematocrit 31.6 % (40-54); Hemoglobin 10.3 g/dL (13.0-16.5); Lymphocyte # 0.34 X10^3/ul (0.83-4.51); Lymphocyte % 1.2 % (19-41); Mean Corp Hgb Conc 32.6 g/dL (32-36); Mean Corpuscular Hgb 31.5 pg (27.0-32.0); Mean Corpuscular Volume 96.6 fL (80-94); Mean Platelet Vol. 12.5 fl (6.2-12.0); Monocyte# 1.27 X10^3/uL; Monocyte% 4.5 % (0-10); NRBC Flagged by Analyzer 0 % (0-5); Neutrophil # 26.15 X10^3/uL (2.7-7.7); Neutrophil % 92.7 % (47-70); POSITIVE DIFFERENTIAL YES; Platelet Count 189 K/mm3 (150-450); RBC Distribution Width CV 13.3 % (11.6-14.6); RBC Distribution Width SD 47.4 fl (35.1-43.9); Red Blood Count 3.27 M/mm3 (4.6-6.2); White Blood Count 28.2 K/mm3 (4.4-11.0)
[2022-06-06 04:49] LABS: Anion Gap 5 (5-15); BUN 74 mg/dL (7-18); BUN/Creat Ratio 39.6 RATIO (10-20); Calcium,Total 7.5 mg/dL (8.5-10.1); Chloride 110 mmol/L (98-107); Creatinine, Serum 1.87 mg/dL (0.70-1.30); EST Glomerular Filtration Rate 37 mL/min (>60); Est Glom Filt Rate - Afr Amer 45 mL/min (>60); Estimated Creatinine Clearance 29.16 ml/min; Glucose 218 mg/dL (74-106); Potassium 4.3 mmol/L (3.5-5.1); Sodium Level 139 mmol/L (136-145)
[2022-06-06 04:54] LABS: Differential Indicated SCAN CRITERIA MET
[2022-06-06 05:18] LABS: Differential Comment SCANNED
--- NOTE | 2022-06-06 05:40 | RAD_ITS ---
INDICATION: Dyspnea EXAMINATION/TECHNIQUE: X-RAY - XR Chest 1 View COMPARISON: 06/01/2022. FINDINGS: LINES/DEVICES: None. LUNGS: No consolidation or evidence of an effusion. No evidence of edema or a pneumothorax. MEDIASTINUM AND CARDIOVASCULAR STRUCTURES: Cardiac silhouette is normal in size and contour. Mediastinum is unremarkable. BONES AND SOFT TISSUES: No acute abnormality. RAD/Chest 1 View (Portable) IMPRESSION: No evidence of acute cardiopulmonary disease. Electronically Signed: Rodney Kan DO at 5:54 EDT ,
[2022-06-06] MEDS: 0.9% Normal Saline 1,000 ML 75 ML IV (06:14)
[2022-06-06 06:18] LABS: Mucous, Urine 0 SEEN /hpf (<or=2+); Squamous Epithelial Cells - UA 0 SEEN /hpf (0-5); White Blood Cells 0 SEEN /hpf (0-5)
[2022-06-06 06:22] LABS: Color, Urine Yellow (Yellow); Glucose, Dipstick 250 mg/dl (Normal); Ketone-Dipstick Negative (Negative); Leukocyte Esterase-Dipstick Negative /ul (Negative); Nitrite-Dipstick Negative (Negative); Occult Blood-Urine 25 /ul (Negative); Protein-Dipstick 15 mg/dl (Negative); Urine Bilirubin Dipstick Negative (Negative); Urine Clarity Clear (Clear); Urine Urobilinogen Normal (Normal)
[2022-06-06 06:28] LABS: Red Blood Cells-Urine 0-5 SEEN /hpf (0-5)
[2022-06-06 06:29] LABS: Bacteria RARE /hpf (None Seen); Hyaline Cast 0-5 SEEN /lpf (0-5)
[2022-06-06 06:45] LABS: Lactic Acid 2.1 mmol/L (0.4-1.9)
[2022-06-06] MEDS: Ipratropium 0.5 MG/2.5 ML SOLUTION INHALATION ×3 (07:43→19:07)
[2022-06-06 08:09] LABS: Hematocrit 34.4 % (40-54); Hemoglobin 10.9 g/dL (13.0-16.5)
--- NOTE | 2022-06-06 08:39 | PCM.RX.CS ---
Consult Pharmacy has been consulted to manage selected antiobiotic: Vancomycin Type of Consult: New start Suspected Infection: Skin/Soft tissue Prior Doses of Antibiotics Received/Current Regimen: 1750MG given 06/06/22 @ 0642 Labs: Sodium 139 mmol/L (136-145) 06/06/22 03:55 Potassium 4.3 mmol/L (3.5-5.1) 06/06/22 03:55 Chloride 110 mmol/L (98-107) H 06/06/22 03:55 Carbon Dioxide 24.0 mmol/L (21.0-32.0) 06/06/22 03:55 Anion Gap 5 (5-15) 06/06/22 03:55 BUN 74 mg/dL (7-18) H 06/06/22 03:55 Creatinine 1.87 mg/dL (0.70-1.30) H 06/06/22 03:55 Est GFR (MDRD) Af Amer 45 mL/min (>60) L 06/06/22 03:55 Est GFR (MDRD) Non-Af 37 mL/min (>60) L 06/06/22 03:55 BUN/Creatinine Ratio 39.6 RATIO (10-20) H 06/06/22 03:55 Glucose 218 mg/dL (74-106) H 06/06/22 03:55 Microbiology: Microbiology 05/31/22 17:35 Blood Culture (Wb) - Anticubital Right Blood Culture - Final No growth in 5 days. 05/31/22 18:00 Blood Culture (Wb) - Anticubital Right Bacteria Detection (PCR) - Final Coag Negative Staph 05/31/22 18:00 Blood Culture (Wb) - Anticubital Right Blood Culture - Final Facklamia hominis 05/31/22 21:40 Mucosa - Nasopharyngeal Respiratory Panel (PCR) - Final 05/31/22 17:49 Urine, Random Legionella Antigen - Final 05/31/22 17:49 Urine, Random Streptococcus pneumoniae Antigen (M - Final Weight used for dosin kg Estimated Creatinine Clearance: 29 Goal Trough: 15-20 mcg/mL Pharmacy Plan for Drug Dosing: Give 750mg every 24 hours starting 06/07/22 @ 0630 Pharmacy Service will continue to monitor and adjust dosing as required. Follow-Up Labs: Trough Vancomycin Labs to be done on [date and time ordered]: 06/08/22 @ 0600
[2022-06-06] MEDS: Menthol/Lanolin/Calamine/Znox 113 GM Tube 1 APPLIC TOPICAL ×2 (09:13→20:59)
[2022-06-06] MEDS: dilTIAZem CD 120 MG Capsule PO (09:16)
[2022-06-06] MEDS: Metoprolol Tartrate 25 MG Tablet PO ×2 (09:16→21:00)
[2022-06-06] MEDS: 0.9% Saline Lock 10 ML Syringe IV (09:18)
--- NOTE | 2022-06-06 09:52 | CASEMGMT ---
[facility] accepted patient. SW sent updates to [facility] via [employer]. Plan: [facility] when patient is medically ready and insurance approval Rain ABAD
[2022-06-06 10:00] LABS: Reflex Lactate? Y
[2022-06-06 10:52] LABS: Lactic Acid 2.1 mmol/L (0.4-1.9)
[2022-06-06 11:55] LABS: Bedside Glucose 161 mg/dL (74-106)
[2022-06-06 12:23] LABS: Hematocrit 33.4 % (40-54); Hemoglobin 10.7 g/dL (13.0-16.5)
--- NOTE | 2022-06-06 14:00 | PCM.PN.ID ---
Physical Exam Narrative Feeling much better, no fever, less dyspnea Const alert and no apparent distress General Appearance: cooperative Resp clear to auscultation bilaterally Auscultation: diminished lung sounds Cardio regular rate and regular rhythm GI soft to palpation, non-tender and non-distended Skin no rashes or lesions noted ID ID: Route of nutrition/ use of supplements: [] Nutritional Intake: [] IV Site: [] Rodrigues Catheter: [] Assessment & Plan Assessment/Plan (1) Fall: (2) YUE (acute kidney injury): (3) CAP (community acquired pneumonia): PLAN: UAg neg. 1 of 2 bcx with CoNS, consistent with contaminant at this point. YUE improving. UA neg for wbc. Wbc much higher but has been on iv steroids from 06/01-06/05. Will check procal in AM. Primary team broadened abx to vanc/zosyn. Will follow
--- NOTE | 2022-06-06 14:08 | CON.PCM.GI_ITS ---
HPI Consult Data Date of Consult: 06/06/22 HPI Narrative Reason for Consultation: GI bleeding HPI Narrative: AVRIL POLO, is a 82 M who presents via EMS from home.? Apparently patient was found on the ground by his landlord.? Patient states he had fallen to the ground and could not get himself back up.? He was able to try to crawl around.? He thinks he was on the ground for couple hours.? Patient does seem slightly confused and smells of urine.? The landlord stated last time he saw him was about a week ago when he was driving and the landlord at that time and asked him if he had a stroke and if he was okay.? In the ED his laboratory analysis displayed:?CBC with WC 13, hemoglobin 14.2, platelet 223 with left shift, coags with INR 1.4, PT 16.7, PTT 26, ABG with pH 7.35, bicarb 12, PCO2 21.9, PO2 114 on 2 L nasal cannula, CMP with chloride 118, carbon oxide 13, anion gap 13, BUN/creatinine 154/6.37, glucose 225, lactic acid 5.0, magnesium 2.2, total creatinine kinase 317, troponin 24, urinalysis with evidence of dehydration but no obvious UTI, blood culture x2. Later in the course he was determined to have rhabdomyolysis with acute kidney injury, SVT secondary to dehydration, systemic inflammatory response syndrome an d a GI bleed. I was consulted for the GI. He takes prednisone outpatient and then on anticoagulation for DVT prophylaxis. His hemoglobin is dropped down to 9.6. He did admit to some blood clots per rectum and some melanotic stools. [facility] Medical History BPH (benign prostatic hyperplasia) Chronic bronchitis CKD (chronic kidney disease), stage III Former tobacco use HLD (hyperlipidemia) HTN (hypertension) Hx of urethral stricture SVT (supraventricular tachycardia) Home Medications Prinzide 10 mg PO DAILY 11/12/12 [History Last Taken 11/30/12 06:30 10 MG] albuterol sulfate 90 mcg/actuation aerosol inhaler (ProAir HFA) 1 - 2 puff inhalation Q4H PRN PRN Asthma 11/12/12 [History Last Taken 10/18/13 06:30 1 - 2 PUFF] amlodipine 10 mg tablet 10 mg PO DAILY high blood pressure 11/12/12 [History Last Taken 11/30/12 06:30 10 MG] aspirin 81 mg chewable tablet 81 mg PO DAILY@0800 heart health 11/12/12 [History Last Taken 11/30/12 06:30 81 MG] pravastatin 20 mg tablet 20 mg PO QHS high cholesterol 11/12/12 [History Last Taken 11/30/12 06:30 20 MG] lisinopril 10 mg-hydrochlorothiazide 12.5 mg tablet (Zestoretic) 1 tab PO DAILY high blood pressure 12/22/16 [History Last Taken Unknown] cholecalciferol (vitamin D3) 50 mcg (2,000 unit) tablet (Vitamin D3) 50 mcg PO DAILY general health 05/31/22 [History Last Taken Unknown] ergocalciferol (vitamin D2) 1,000 unit capsule 1,000 unit PO DAILY health 05/31/22 [History Last Taken Unknown] Allergy/AdvReac Type Severity Reaction Status Date / Time No Known Allergies Allergy Verified 05/31/22 17:29 Family History (Updated 05/31/22 @ 20:[address] Brianna Felix MD) Sister Cancer Mother Heart disease Diabetes Hypertension Father Heart disease Diabetes Hypertension Other COPD (chronic obstructive pulmonary disease) Surgical History (Updated 05/31/22 @ 19:[address] Brianna Felix MD) H/O cystoscopy S/P colonoscopic polypectomy S/P partial colectomy Social History (Updated 05/31/22 @ 19:[address] Brianna Felix MD) household members: none Smoking Status: Former smoker quit date: 07/17/09 pack-years: 60 alcohol intake: current alcohol intake frequency: 0-2 drinks per day details: Per prior records max 1 drink daily. substance use type: does not use ROS ROS Narrative As in HPI Physical Exam Narrative Feeling well, no fever, denies cough or dyspnea. Const alert and no apparent distress General Appearance: cooperative Resp normal air movement and clear to auscultation bilaterally Cardio regular rate and regular rhythm GI soft to palpation, non-tender and non-distended Skin no rashes or lesions noted Medical Records Data Medical Nutrition Assessment Dietitian: Malnutrition Criteria Met Start: 06/01/22 16:15 Freq: Status: Active Protocol: Document 06/06/22 11:26 RMA (Rec: 06/06/22 11:26 RMA [id number]) Nutrition Malnutrition Evidence of Malnutrition Exists Yes Malnutrition (moderate): Chronic Evidenced By Suboptimal Energy Intake ( Moderate),Weight Loss (Severe) ,Physical Changes (Moderate) Clinical Problem Chronic Disease or Condition Related Malnutrition Etiology chronic, moderate malnutrition related to inadequate oral intake Signs/Symptoms as evidenced by moderate muscle wasting/fat loss evident per physical exam in orbital, clavicle, acromion, and temporal areas; estimated PO intake meeting <75% of estimated energy needs > 1 month; reported wt loss of 28. 2#/18% x 3 months; BMI 19.5 Status Active Problem Recommendation Dietitian Recommendations/Changes Resume regular/no added salt diet as tolerated. Continue Ensure Plus High Protein 120mL 4x/day w/ medpass given malnutrition, need for increased protein. Parenteral nutrition support as needed if PO diet contraindicated; GI consult noted. Will monitor labs, PO intake and adjust diet/ONS as indicated. Lab / Micro Data Result Diagrams: 06/07/22 05:32 06/07/22 05:32 Labs: Laboratory Results - last 24 hr 06/06/22 15:50: Hgb 10.3 L, Hct 32.2 L 06/06/22 16:21: POC Glucose 160 H 06/06/22 19:40: Hgb 10.2 L, Hct 32.4 L 06/06/22 20:56: POC Glucose 191 H 06/07/22 05:32: WBC 15.8 H, RBC 3.09 L, Hgb 9.6 L, Hct 30.5 L, MCV 98.7 H, MCH 31.1, MCHC 31.5 L, RDW Std Deviation 48.2 H, RDW Coeff of Fidelia 13.5, Plt Count 233, MPV 12.4 H, Immature Gran % (Auto) 1.100 H, Neut % (Auto) 88.8 H, Lymph % (Auto) 3.1 L, [place] % (Auto) 6.8, Eos % (Auto) 0.1, Baso % (Auto) 0.1, Absolute Neuts (auto) 14.0 H, Absolute Lymphs (auto) 0.49 L, Nucleated RBC % 0, Differential Comment SCANNED 06/07/22 05:32: Procalcitonin 0.49 H 06/07/22 05:32: Sodium 140, Potassium 4.4, Chloride 111 H, Carbon Dioxide 28.0, Anion Gap 1 L, BUN 62 H, Creatinine 1.93 H, Estim Creat Clear Calc 29.18, Est GFR (MDRD) Af Amer 43 L, Est GFR (MDRD) Non-Af 36 L, BUN/Creatinine Ratio 32.1 H , Glucose 116 H, Calcium 7.6 L, Phosphorus 2.0 L, Magnesium 2.0 06/07/22 06:41: POC Glucose 107 H 06/07/22 12:11: POC Glucose 100 Micro: Microbiology 06/06/22 06:10 Urine Catheter - Catheter Urine Culture - Preliminary Culture exhibits no growth. Rhythm Strip Rhythm Strip: Sinus Tach Rate: 150 Ectopy: None Assessment & Plan Assessment/Plan (1) Acute GI bleeding: PLAN: The differential diagnosis includes stress gastritis from being found down, peptic ulcer disease, angiodysplasia, telangiectasia Leeann-Spencer tear, stress gastritis. He will undergo an upper endoscopy to evaluate his upper GI tract. He was explained alternatives, risk, benefits include not withstanding bleeding, infection, sepsis, perforation, need for emergent surgery . He will have an ASA of 3. Charges/Coding Visit Charges Inpatient E&M: 24695 Init Hosp L2
[2022-06-06] MEDS: Sodium Bicarbonate 650 MG Tablet PO ×2 (14:20→21:00)
--- NOTE | 2022-06-06 14:42 | CHAPLAIN ---
Type of Pastoral Visit _x__ Initial Visit ___ Follow-up Visit ___ On-call Visit ___ General Patient Visit ___ Spiritual Assessment ___ Family Conference ___ Bereavement ___ Rapid Response ___ Code Blue ___ Other (describe below) Pastoral Care Referral From _x__ Patient ___ Family ___ Nurse ___ Physician ___ Armature Tester ___ Mitten Sewer ___ Other (describe below) Sacrament/Intervention _x__ Active listening ___ Anointing ___ Druze ___ Bereavement ___ Communion ___ Mary exploration ___ ___ Life review ___ Prayer ___ Reconciliation ___ Sacrament of Sick _x__ Supportive presence ___ Wedding ___ Other (describe below) Pastoral Comments patient is pleasant and welcoming; pt declined spiritual care but was fine with casual conversation an offer of support
[2022-06-06 16:16] LABS: Hematocrit 32.2 % (40-54); Hemoglobin 10.3 g/dL (13.0-16.5)
[2022-06-06 16:55] LABS: Bedside Glucose 160 mg/dL (74-106)
--- NOTE | 2022-06-06 18:55 | PCM.PN.HOSP ---
Reason for Visit Reason for Visit: Confusion Subjective Subjective Mr. Pham is an 82-year-old white male who presented to the emergency department on 05/31/2022 after being found by his landlord on the ground. He evidently had fallen and could not get himself back up and attempted to crawl. He was disheveled and smelled of urine on presentation and was confused. His last known well was approximately 1 week prior to presentation. At that point he was appropriate and driving. His landlord called the EMS to be brought to the emergency department with his status change. His mental status seems to be somewhat improved on presentation to the emergency department after some intervention. Work-up in the ED included T96, heart rate initially 140 with most recent repeat 81, BP 139/115, respiratory rate initially 28 noted to be 84% on room air with improvement to respiratory rate 22, 99% on 2 L nasal cannula, CBC with WC 13, hemoglobin 14.2, platelet 223 with left shift, coags with INR 1.4, PT 16.7, PTT 26, ABG with pH 7.35, bicarb 12, PCO2 21.9, PO2 114 on 2 L nasal cannula, CMP with chloride 118, carbon oxide 13, anion gap 13, BUN/creatinine 154/6.37, glucose 225, lactic acid 5.0, magnesium 2.2, total creatinine kinase 317, troponin 24, urinalysis with evidence of dehydration but no obvious UTI, blood culture x2 pending per ED, CT of the brain with atrophy and moderate periventricular white matter ischemic changes with no acute evidence of intracranial bleed, CT cervical spine with moderate to severe degenerative changes with no acute fracture or subluxation, chest x-ray with COPD type changes with no acute cardiopulmonary findings otherwise, EKG with significant tachycardia. He was admitted and an echocardiogram was obtained however the study was limited but did show normal EF with a hyperdynamic LV and focal aortic valve calcifications with trivial AI. Cardiology was consulted for his SVT and nephrology was consulted for YUE. His peak serum creatinine was 6.37 but is slowly improving and is currently 1.87 which appears to be closer to his baseline. Heart rates are much improved with the addition of Cardizem and metoprolol. Patient did have a metabolic acidosis related to his renal dysfunction and was placed on sodium bicarb and his sodium bicarb is improving with his current bicarb at 24. 1 of 2 blood cultures were found to be positive for coag negative staph and infectious disease was consulted and they feel that this is likely related to contaminant. White count is higher but he had been on IV steroids which were stopped yesterday. He is on vancomycin and Zosyn at this time for community-acquired pneumonia and this will be continued at this point per infectious disease. Overnight he developed acute onset bright red blood per rectum with clots. Patient had no abdominal pain, lightheadedness or dizziness. He had a slight drop in his initial CBC but this has since stabilized. He is on a Protonix drip and GI consultation is pending. IV Solu-Medrol was discontinued. Heparin was discontinued and he was given 50 mg of IV protamine x1 last evening. Patient also developed worsening shortness of breath and increasing oxygen requirements. He was placed on BiPAP but since has been weaned to nasal cannula and currently is at 4 L. Chest x-ray this morning was unremarkable. Objective Data Objective Data Vital Signs: Vital Signs Temp Pulse Resp BP Pulse Ox O2 Del Method O2 Flow Rate 98.5 F 68 18 116/77 92 Nasal Cannula 4 06/06/22 18:00 06/06/22 18:00 06/06/22 18:00 06/06/22 18:00 06/06/22 18:13 06/06/22 18:13 06/06/22 18:13 FiO2 30 06/06/22 10:00 Oxygen Flow Rate (L/min) 4 Oxygen Delivery Method Nasal Cannula Weight: 69.3 kg Body Mass Index (BMI) 22.5 Intake & Output: Intake and Output for Last 24 Hours 06/04/22 06/05/22 06/06/22 23:59 23:59 23:59 Intake Total 2939.67 / 3179.67 4016.25 / 4016.25 2681.25 / 2681.25 Output Total 2150 / 2700 3350 / 3350 675 / 675 Balance 789.67 / 479.67 666.25 / 666.25 / Medical Nutrition Assessment Dietitian: Malnutrition Criteria Met Start: 06/01/22 16:15 Freq: Status: Active Protocol: Document 06/06/22 11:26 RMA (Rec: 06/06/22 11:26 RMA [id number]) Nutrition Malnutrition Evidence of Malnutrition Exists Yes Malnutrition (moderate): Chronic Evidenced By Suboptimal Energy Intake ( Moderate),Weight Loss (Severe) ,Physical Changes (Moderate) Clinical Problem Chronic Disease or Condition Related Malnutrition Etiology chronic, moderate malnutrition related to inadequate oral intake Signs/Symptoms as evidenced by moderate muscle wasting/fat loss evident per physical exam in orbital, clavicle, acromion, and temporal areas; estimated PO intake meeting <75% of estimated energy needs > 1 month; reported wt loss of 28. 2#/18% x 3 months; BMI 19.5 Status Active Problem Recommendation Dietitian Recommendations/Changes Resume regular/no added salt diet as tolerated. Continue Ensure Plus High Protein 120mL 4x/day w/ medpass given malnutrition, need for increased protein. Parenteral nutrition support as needed if PO diet contraindicated; GI consult noted. Will monitor labs, PO intake and adjust diet/ONS as indicated. Lab / Micro Data Result Diagrams: 06/06/22 15:50 06/06/22 03:55 Labs: Laboratory Results - last 24 hr 06/05/22 21:05: POC Glucose 218 H 06/06/22 00:35: Hgb 11.4 L, Hct 36.2 L 06/06/22 00:39: Blood Type TNP, Antibody Screen NEGATIVE 06/06/22 00:39: Blood Type A NEGATIVE 06/06/22 02:15: APTT 22.3 L 06/06/22 03:55: WBC 28.2 H, RBC 3.27 L, Hgb 10.3 L, Hct 31.6 L, MCV 96.6 H, MCH 31.5, MCHC 32.6, RDW Std Deviation 47.4 H, RDW Coeff of Fidelia 13.3, Plt Count 189, MPV 12.5 H, Immature Gran % (Auto) 1.300 H, Neut % (Auto) 92.7 H, Lymph % (Auto) 1.2 L, Mcminn % (Auto) 4.5, Eos % (Auto) 0.1, Baso % (Auto) 0.2, Absolute Neuts (auto) 26.2 H, Absolute Lymphs (auto) 0.34 L, Nucleated RBC % 0, Differential Comment SCANNED 06/06/22 03:55: Sodium 139, Potassium 4.3, Chloride 110 H, Carbon Dioxide 24.0, Anion Gap 5, BUN 74 H, Creatinine 1.87 H, Estim Creat Clear Calc 29.16, Est GFR (MDRD) Af Amer 45 L, Est GFR (MDRD) Non-Af 37 L, BUN/Creatinine Ratio 39.6 H, Glucose 218 H, Calcium 7.5 L 06/06/22 05:56: Lactic Acid 2.1 H* 06/06/22 06:10: Urine Color Yellow, Urine Clarity Clear, Urine pH 5.0, Ur Specific [place] 1.020, Urine Protein 15 H, Urine Glucose (UA) 250 H, Urine Ketones Negative, Urine Occult Blood 25 H, Urine Nitrite Negative, Urine Bilirubin Negative, Urine Urobilinogen Normal, Ur Leukocyte Esterase Negative, Urine RBC 0-5 SEEN, Urine WBC 0 SEEN, Ur Squamous Epith Cells 0 SEEN, Urine Bacteria RARE, Hyaline Casts 0-5 SEEN, Urine Mucus 0 SEEN 06/06/22 08:00: Hgb 10.9 L, Hct 34.4 L 06/06/22 10:19: Lactic Acid 2.1 H* 06/06/22 11:05: POC Glucose 161 H 06/06/22 12:15: Hgb 10.7 L, Hct 33.4 L 06/06/22 15:50: Hgb 10.3 L, Hct 32.2 L 06/06/22 16:21: POC Glucose 160 H Micro: Microbiology 05/31/22 17:35 Blood Culture (Wb) - Anticubital Right Blood Culture - Final No growth in 5 days. 05/31/22 18:00 Blood Culture (Wb) - Anticubital Right Bacteria Detection (PCR) - Final Coag Negative Staph 05/31/22 18:00 Blood Culture (Wb) - Anticubital Right Blood Culture - Final Facklamia hominis 05/31/22 21:40 Mucosa - Nasopharyngeal Respiratory Panel (PCR) - Final 05/31/22 17:49 Urine, Random Legionella Antigen - Final 05/31/22 17:49 Urine, Random Streptococcus pneumoniae Antigen (M - Final Radiography Diagnostic Testing: Radiology Impression Chest X-Ray 06/06/22 05:40 IMPRESSION: No evidence of acute cardiopulmonary disease. Electronically Signed: Rodney Kan DO at 5:54 EDT , Rhythm Strip Rhythm Strip: Sinus Tach Rate: 150 Ectopy: None Physical Exam Const alert, oriented x3 and no apparent distress Constitutional Narrative: Elderly white male who appears chronically ill, sitting up in bed, appears comfortable nontoxic, currently on 4 L supplemental nasal cannula HEENT head/scalp atraumatic HEENT Narrative: A dentulous, Mallampati 2, no thrush Head and Scalp: normocephalic Eyes PERRL, EOMs intact bilaterally and conjunctivae normal Neck no lymphadenopathy, supple and no JVD Resp normal respiratory effort, no retractions and no use of accessory muscles Resp Narrative: Diffusely diminished without any adventitious sounds, currently on 4 L nasal cannula Auscultation: Negative for rales, rhonchi or wheezes Cardio regular rate, regular rhythm, S1 normal heart sound, S2 normal heart sound, no murmurs, no rub, no gallops and no clicks GI normal to inspection, nondistended, normoactive bowel sounds, soft to palpation and non-tender Extremity no clubbing, cyanosis or edema Extremity Narrative: 1+ pedal pulses with 2+ cap refill Neuro oriented x3, CN's II-XII intact bilaterally, moves all extremities and no focal motor deficits Neuro Narrative: Lysed weakness noted Speech: speech normal Psych affect normal Psych Narrative: Pleasant, appropriately interactive Assessment & Plan Assessment/Plan (1) CAP (community acquired pneumonia): (2) SVT (supraventricular tachycardia): (3) Fall: (4) Rhabdomyolysis: (5) YUE (acute kidney injury): (6) Hypoxia: (7) Leukocytosis: (8) Anemia: (9) Acute GI bleeding: (10) Moderate malnutrition: PLAN: Plan YUE on CKD stage III-multifactorial -Baseline serum creatinine appears to be between 1.5 and 1.7 -Current serum creatinine is close to baseline -Continue to monitor -Renal ultrasound showed only bilateral renal cyst -We will discontinue IV fluids at this time -Nephrology is following-appreciate input Coag negative staph bacteremia -1 of 2 blood cultures positive -Suspect contaminant -No current work-up required Acute hypoxia -Was on room air until last evening -Chest x-ray is unremarkable -Currently requiring 4 L -Procalcitonin is pending -Continue antibiotics -If remains hypoxic and renal function is stable without a positive chest x-ray consider VQ scan tomorrow to rule out DVT -Continue nebulizers -Steroids on hold secondary to bleeding Community-acquired pneumonia -Continue vancomycin and Zosyn -Infectious diseases following -Procalcitonin in a.m. -Appreciate ID input Metabolic acidosis secondary to renal dysfunction -Continue oral sodium bicarb for now -Continue to follow BMP -May be able to discontinue bicarb soon if renal function continues to stabilize and serum bicarb continues to trend up Acute rhabdomyolysis -Resolved Acute GI bleed -Hemoglobin has appears to stabilize -Protonix drip added -Full liquid diet tonight and n.p.o. after midnight -Hold subcu heparin -GI consult is -Anticipate EGD/colonoscopy within the next 24 hours Impaired glucose tolerance -Hemoglobin A1c was 6.1 on admission -Continue sliding scale SVT -Cardiology has been following -Echocardiogram shows no marked abnormalities -Continue diltiazem and metoprolol Hypertension/HPL -Continue amlodipine -Continue diltiazem -Continue metoprolol -Continue home pravastatin -Hold lisinopril/HCTZ BPH -Patient with history of cystoscopy and dilation of strictures previously -No current issues -Continue to monitor Debility -PT and OT following -Patient will need placement upon discharge -Pre-CERT is pending Moderate malnutrition -Supplements added -Dietitian is following DVT prophylaxis -SCDs -Heparin subcu discontinued secondary to rectal bleeding CODE STATUS -DNR CCA with no intubation Charges/Coding Visit Charges Inpatient E&M: 8[address]10 [facility] Hosp L3
[2022-06-06 19:53] LABS: Hematocrit 32.4 % (40-54); Hemoglobin 10.2 g/dL (13.0-16.5)
[2022-06-06] MEDS: Pravastatin 20 MG Tablet PO (21:00)
[2022-06-06] MEDS: Insulin Lispro 100 UNIT/ML INSULN.PEN SC (21:00)
[2022-06-07] VITALS (21 sets, daily range): BP systolic 81–118; BP diastolic 59–76; PULSE 55–63; RESP 12–20; TEMP 36.4–36.7; O2SAT 88–100; BMI 22.7
[2022-06-07 00:11] LABS: Bedside Glucose 191 mg/dL (74-106)
[2022-06-07] MEDS: Sodium Bicarbonate 650 MG Tablet PO ×3 (05:39→21:58)
[2022-06-07 05:52] LABS: Absolute Lymphocyte Count 0.49 X10^3/uL (0.83-4.51); Basophil# 0.02 X10^3/uL; Basophil% 0.1 % (0-1); Eosinophil# 0.01 X10^3/uL; Eosinophils% 0.1 % (0-5); Hematocrit 30.5 % (40-54); Hemoglobin 9.6 g/dL (13.0-16.5); Lymphocyte # 0.49 X10^3/ul (0.83-4.51); Lymphocyte % 3.1 % (19-41); Mean Corp Hgb Conc 31.5 g/dL (32-36); Mean Corpuscular Hgb 31.1 pg (27.0-32.0); Mean Corpuscular Volume 98.7 fL (80-94); Mean Platelet Vol. 12.4 fl (6.2-12.0); Monocyte# 1.08 X10^3/uL; Monocyte% 6.8 % (0-10); NRBC Flagged by Analyzer 0 % (0-5); Neutrophil # 14.02 X10^3/uL (2.7-7.7); Neutrophil % 88.8 % (47-70); POSITIVE DIFFERENTIAL YES; Platelet Count 233 K/mm3 (150-450); RBC Distribution Width CV 13.5 % (11.6-14.6); RBC Distribution Width SD 48.2 fl (35.1-43.9); Red Blood Count 3.09 M/mm3 (4.6-6.2); White Blood Count 15.8 K/mm3 (4.4-11.0)
[2022-06-07 06:20] LABS: Differential Indicated SCAN CRITERIA MET
[2022-06-07 06:28] LABS: Differential Comment SCANNED
[2022-06-07 06:42] LABS: Anion Gap 1 (5-15); BUN 62 mg/dL (7-18); BUN/Creat Ratio 32.1 RATIO (10-20); Calcium,Total 7.6 mg/dL (8.5-10.1); Chloride 111 mmol/L (98-107); Creatinine, Serum 1.93 mg/dL (0.70-1.30); EST Glomerular Filtration Rate 36 mL/min (>60); Est Glom Filt Rate - Afr Amer 43 mL/min (>60); Estimated Creatinine Clearance 29.18 ml/min; Glucose 116 mg/dL (74-106); Potassium 4.4 mmol/L (3.5-5.1); Sodium Level 140 mmol/L (136-145)
[2022-06-07 07:00] LABS: Bedside Glucose 107 mg/dL (74-106)
[2022-06-07] MEDS: Ipratropium 0.5 MG/2.5 ML SOLUTION INHALATION ×2 (07:22→20:07)
[2022-06-07 08:18] LABS: Procalcitonin 0.49 ng/mL (0.00-0.09)
[2022-06-07] MEDS: Menthol/Lanolin/Calamine/Znox 113 GM Tube 1 APPLIC TOPICAL ×2 (09:22→22:00)
--- NOTE | 2022-06-07 10:07 | PN.RENAL_ITS ---
Subjective Subjective Sitting in chair. No complaints. No overnight events Objective Data Objective Data Vital Signs: Vital Signs Temp Pulse Resp BP Pulse Ox O2 Del Method O2 Flow Rate 97.7 F L 55 L 20 H 112/67 96 Nasal Cannula 2 06/07/22 09:15 06/07/22 09:23 06/07/22 09:15 06/07/22 09:15 06/07/22 09:15 06/07/22 09:15 06/07/22 09:15 FiO2 30 06/06/22 10:00 Oxygen Flow Rate (L/min) 2 Oxygen Delivery Method Nasal Cannula Weight: 69.9 kg Body Mass Index (BMI) 22.7 Intake & Output: Intake and Output for Last 24 Hours 06/05/22 06/06/22 06/07/22 23:59 23:59 23:59 Intake Total 4016.25 / 4016.25 2818.58 / 3058.58 649 / 649 Output Total 3350 / 3350 675 / 1025 1300 / 1300 Balance 666.25 / 666.25 2143.58 / 2033.58 -651 / -651 Medical Nutrition Assessment Dietitian: Malnutrition Criteria Met Start: 06/01/22 16:15 Freq: Status: Active Protocol: Document 06/06/22 11:26 RMA (Rec: 06/06/22 11:26 RMA [id number]) Nutrition Malnutrition Evidence of Malnutrition Exists Yes Malnutrition (moderate): Chronic Evidenced By Suboptimal Energy Intake ( Moderate),Weight Loss (Severe) ,Physical Changes (Moderate) Clinical Problem Chronic Disease or Condition Related Malnutrition Etiology chronic, moderate malnutrition related to inadequate oral intake Signs/Symptoms as evidenced by moderate muscle wasting/fat loss evident per physical exam in orbital, clavicle, acromion, and temporal areas; estimated PO intake meeting <75% of estimated energy needs > 1 month; reported wt loss of 28. 2#/18% x 3 months; BMI 19.5 Status Active Problem Recommendation Dietitian Recommendations/Changes Resume regular/no added salt diet as tolerated. Continue Ensure Plus High Protein 120mL 4x/day w/ medpass given malnutrition, need for increased protein. Parenteral nutrition support as needed if PO diet contraindicated; GI consult noted. Will monitor labs, PO intake and adjust diet/ONS as indicated. Lab / Micro Data Result Diagrams: 06/07/22 05:32 06/07/22 05:32 Labs: Laboratory Results - last 24 hr 06/06/22 10:19: Lactic Acid 2.1 H* 06/06/22 11:05: POC Glucose 161 H 06/06/22 12:15: Hgb 10.7 L, Hct 33.4 L 06/06/22 15:50: Hgb 10.3 L, Hct 32.2 L 06/06/22 16:21: POC Glucose 160 H 06/06/22 19:40: Hgb 10.2 L, Hct 32.4 L 06/06/22 20:56: POC Glucose 191 H 06/07/22 05:32: WBC 15.8 H, RBC 3.09 L, Hgb 9.6 L, Hct 30.5 L, MCV 98.7 H, MCH 31.1, MCHC 31.5 L, RDW Std Deviation 48.2 H, RDW Coeff of Fidelia 13.5, Plt Count 233, MPV 12.4 H, Immature Gran % (Auto) 1.100 H, Neut % (Auto) 88.8 H, Lymph % (Auto) 3.1 L, Glenn % (Auto) 6.8, Eos % (Auto) 0.1, Baso % (Auto) 0.1, Absolute Neuts (auto) 14.0 H, Absolute Lymphs (auto) 0.49 L, Nucleated RBC % 0, Differential Comment SCANNED 06/07/22 05:32: Procalcitonin 0.49 H 06/07/22 05:32: Sodium 140, Potassium 4.4, Chloride 111 H, Carbon Dioxide 28.0, Anion Gap 1 L, BUN 62 H, Creatinine 1.93 H, Estim Creat Clear Calc 29.18, Est GFR (MDRD) Af Amer 43 L, Est GFR (MDRD) Non-Af 36 L, BUN/Creatinine Ratio 32.1 H , Glucose 116 H, Calcium 7.6 L, Phosphorus 2.0 L, Magnesium 2.0 06/07/22 06:41: POC Glucose 107 H Micro: Microbiology 05/31/22 17:35 Blood Culture (Wb) - Anticubital Right Blood Culture - Final No growth in 5 days. 05/31/22 18:00 Blood Culture (Wb) - Anticubital Right Bacteria Detection (PCR) - Final Coag Negative Staph 05/31/22 18:00 Blood Culture (Wb) - Anticubital Right Blood Culture - Final Raymond delgadillo 05/31/22 21:40 Mucosa - Nasopharyngeal Respiratory Panel (PCR) - Final 05/31/22 17:49 Urine, Random Legionella Antigen - Final 05/31/22 17:49 Urine, Random Streptococcus pneumoniae Antigen (M - Final Rhythm Strip Rhythm Strip: Sinus Tach Rate: 150 Ectopy: None Physical Exam Narrative Alert and oriented x3, no apparent distress S1, S2, RRR Lung sounds clear anteriorly, no rhonchi or rales noted. No expiratory wheezing noted Abdomen soft, nontender, positive bowel sounds No edema Assessment & Plan Assessment/Plan (1) YUE (acute kidney injury): (2) Fall: PLAN: Plan This is a pleasant 82-year-old male who was brought to the emergency room after he was found laying on the floor in his apartment by his landlord. Nephrology consulted for acute kidney injury. -YUE superimposed on CKD stage IV. YUE likely secondary to volume depletion and hypotension leading to ischemic ATN. In the emergency room patient's creatinine was 6.37 --> 5.06--> today serum creatinine 1.93; BUN is also trending down with peak 154-->62 (hemoglobin normal on admission). Overall renal function improved, he was on IVF. Patient is nonoliguric, potassium and bicarb acceptable. 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 Lactic acid was 5.0 and improved to 2.5. Total creatinine kinase 317 on admission-->291. UA showed 15 of protein, negative for occult blood or RBCs, leukocyte Estrace 25. Urine sodium was 12. Renal ultrasound no hydronephrosis. - CKD stage 4 with minimal proteinuria, baseline creatinine around 2.7 to 3 mg/dL; followed by Dr. Soto. Last seen in April 2022. In hospital current serum creatinine better than baseline. - Metabolic acidosis from YUE on CKD, improved on oral sodium bicarbonate, decreased dose last week and will stop altogether for now. Bicarb is 28 today - Blood pressures had been marginally low on admission therefore we stopped amlodipine. Patient had a run of SVT, cardiology consulted and now is on metoprolol and cardizem. Echo: limited study, Normal left ventricular, hyperdynamic left ventricle, normal systolic function, focal aortic valve calcification with trivial AI. - on IV antibiotics, for presumed pneumonia. - acute GI bleed, awaiting GI consult. On protonix gtt. hgb 9.6. - disposition: to go to [facility].
--- NOTE | 2022-06-07 10:13 | PCM.PN.ID ---
Physical Exam Narrative Feeling well, no fever, denies cough or dyspnea. Const alert and no apparent distress General Appearance: cooperative Resp normal air movement and clear to auscultation bilaterally Cardio regular rate and regular rhythm GI soft to palpation, non-tender and non-distended Skin no rashes or lesions noted ID ID: Route of nutrition/ use of supplements: [] Nutritional Intake: [] IV Site: [] Rodrigues Catheter: [] Assessment & Plan Assessment/Plan (1) Fall: (2) YUE (acute kidney injury): (3) CAP (community acquired pneumonia): PLAN: UAg neg. 1 of 2 bcx with CoNS, consistent with contaminant at this point. YUE improving. UA neg for wbc. Wbc became much higher but has been on iv steroids from 06/01-06/05. Primary team broadened abx to vanc/zosyn. Wbc better today and procal nearly back to normal. Will stop vanc. Plan on stopping zosyn tomorrow and being ok for discharge if continues to do well. Will follow
--- NOTE | 2022-06-07 10:40 | CASEMGMT ---
KEYSHAWN notified patient's niece that [facility] has accepted patient. She was pleased and thanked KEYSHAWN. Rain Steen SCIENTIFIC WRITER [employer]CH[employer]STRATIONS MAP INKER
[2022-06-07] MEDS: dilTIAZem CD 120 MG Capsule PO (11:02)
--- NOTE | 2022-06-07 11:09 | CASEMGMT ---
Discharge Planning Updates sent to [facility]. Asked to begin pre-cert. Angie Arango
[2022-06-07] MEDS: Metoprolol Tartrate 25 MG Tablet PO ×2 (12:15→21:58)
[2022-06-07 12:35] LABS: Bedside Glucose 100 mg/dL (74-106)
[2022-06-07] MEDS: Ipratropium/Albuterol Sulfate 3 ML AMPUL.NEB INHALATION (13:35)
[2022-06-07] MEDS: Lactated Ringers 1,000 ML 15 ML IV (13:35)
--- NOTE | 2022-06-07 14:19 | OP.EGD_ITS ---
Patient Name: Chiki Pham Procedure Date: 06/07/2022 1:42 PM Date of : 1940 Age: 82 Procedure: Upper GI endoscopy Indications: Iron deficiency anemia, Melena Providers: Min Sesay DO Medicines: Monitored Anesthesia Care Patient Profile: This is an 82 year old male. Refer to note in patient chart for documentation of history and physical. Patient has symptoms of acute epigastric abdominal pain, acute dyspepsia and acute nausea. Complications: No immediate complications. Procedure: Pre-Anesthesia Assessment: - Prior to the procedure, a History and Physical was performed, and patient medications and allergies were reviewed. The risks and benefits of the procedure and the sedation options and risks were discussed with the patient. All questions were answered and informed consent was obtained. Patient identification and proposed procedure were verified by the physician in the pre-procedure area. Mental Status Examination: alert and oriented. Airway Examination: normal oropharyngeal airway and neck mobility. Respiratory Examination: clear to auscultation. CV Examination: normal. Prophylactic Antibiotics: The patient does not require prophylactic antibiotics. Prior Anticoagulants: The patient has taken no previous anticoagulant or antiplatelet agents. ASA Grade Assessment: III - A patient with severe systemic disease. After reviewing the risks and benefits, the patient was deemed in satisfactory condition to undergo the procedure. The anesthesia plan was to use monitored anesthesia care (MAC). Immediately prior to administration of medications, the patient was re-assessed for adequacy to receive sedatives. The heart rate, respiratory rate, oxygen saturations, blood pressure, adequacy of pulmonary ventilation, and response to care were monitored throughout the procedure. The physical status of the patient was re-assessed after the procedure. After obtaining informed consent, the endoscope was passed under direct vision. Throughout the procedure, the patient's blood pressure, pulse, and oxygen saturations were monitored continuously. The gastroscope was introduced through the mouth, and advanced to the second part of duodenum. The upper GI endoscopy was accomplished without difficulty. The patient tolerated the procedure well. Scope In: 1:58:08 PM Scope Out: 2:06:47 PM Total Procedure Duration Time 0 hours 8 minutes 39 seconds Findings: Severe esophagitis with bleeding was found 34 to 40 cm from the incisors. Biopsies were taken with a cold forceps for histology. Verification of patient identification for the specimen was done. Coagulation for hemostasis using heater probe was successful. Estimated blood loss was minimal. Three non-bleeding cratered gastric ulcers with no stigmata of bleeding were found in the gastric body. The largest lesion was 6 mm in largest dimension. Biopsies were taken with a cold forceps for histology. Verification of patient identification for the specimen was done. Estimated blood loss was minimal. Five oozing cratered duodenal ulcers with pigmented material were found in the duodenal bulb, in the first portion of the duodenum, in the second portion of the duodenum and in the fourth portion of the duodenum. The largest lesion was 6 mm in largest dimension. Area was successfully injected with 5 mL of a 1:10,000 solution of epinephrine for drug delivery. Coagulation for hemostasis using heater probe was successful. Estimated blood loss was minimal. Impression: - Severe erosive esophagitis. Biopsied. Treated with a heater probe. - Non-bleeding gastric ulcers with no stigmata of bleeding. Biopsied. - Multiple oozing duodenal ulcers with pigmented material. Injected. Treated with a heater probe. Recommendation: - Full liquid diet [Duration]. - Continue present medications. - Await pathology results. - Repeat upper endoscopy in 4 months for surveillance. Procedure Code(s): --- Professional --- 42967, 59, Esophagogastroduodenoscopy, flexible, transoral; with control of bleeding, any method 92772, 59, Esophagogastroduodenoscopy, flexible, transoral; with directed submucosal injection(s), any substance 25752, Esophagogastroduodenoscopy, flexible, transoral; with biopsy, single or multiple CPT copyright 2017 [employer]. All rights reserved. The codes documented in this report are preliminary and upon livestock handler review may be revised to meet current compliance requirements. Min Sesay DO 06/07/2022 2:19:43 PM This report has been signed electronically. Number of Addenda: 0 Note Initiated On: 06/07/2022 1:42 PM
--- NOTE | 2022-06-07 14:20 | OP.CCLET_ITS ---
06/07/2022 Rodney Shah MD Re : Upper GI endoscopy procedure for Chiki Pham Dear Dr. Shah This procedure was performed on Tuesday, June 07, 2022. My impressions and recommendations are as follows: Impressions : - Severe erosive esophagitis. Biopsied. Treated with a heater probe. - Non-bleeding gastric ulcers with no stigmata of bleeding. Biopsied. - Multiple oozing duodenal ulcers with pigmented material. Injected. Treated with a heater probe. Recommendations : - Full liquid diet [Duration]. - Continue present medications. - Await pathology results. - Repeat upper endoscopy in 4 months for surveillance. My findings are described in the full procedure note, which is enclosed. If I can be of further assistance, please feel free to contact me at . Sincerely, Min Sesay, 06/07/2022 2:19:43 PM This report has been signed electronically.
--- NOTE | 2022-06-07 15:15 | EGD_PTH ---
PATIENT: AVRIL POLO LOC: [facility] U#:[id number] AGE/SX: 82/M ROOM: [facility] RE05/31/[address]: Dr. Xavier Lenz MD : 1940 BED: 1 DIS: 06/08/2022 SPEC #: [id number] RECD: 06/07/22 16:05 STATUS: LATRICIA DUBON #: [id number] HECTOR: 06/07/22 15:[address]: Min Sesay DEPT: SURGICAL PATHOLOGY RECD BY: Braulio Padilla ENTERED: 06/08/22 08:12 SP TYPE: EGD BIOPSY OTHR DR: MD Dr. Lin Castro MD Dr. Jeffrey Burkey, MD Dr. Kathryn Lee, DO Dr. Nana Yaa Koram, MD Dr. Nicholas F Kotsonis, MD Dr. Natthavat Tanphaichitr, MD Dr. Robert Leininger, MD Tissues: A - Duodenum, NOS B - Gastric mucous membrane C - Esophagus, NOS Procedures: Special Stain Group I Surgery Specimen Level IV GMS Stain (control) HEADER OPERATION: EGD (MAC) PRE-OP DIAGNOSIS: GI bleed TISSUE SUBMITTED: A ? Duodenum biopsy, B ? Gastric body biopsy, C ? Random esophagus biopsy MICROSCOPIC DIAGNOSIS A. 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 See comment. B. Gastric body, biopsy: Chronic gastritis. Fibrinopurulent material with polarizable material. No evidence of fungal organisms. See comment. C. Esophagus, random biopsy: Glandular and squamous mucosa with ulceration with associated acute and chronic inflammation, granulation and fibrinopurulent material. Fungal organisms consistent with Gem species. See comment. AM:chris 06/09/2022 COMMENT A. GMS stain with matched control was used in the evaluation of this case. B. The results of immunohistochemistry for Helicobacter pylori will be reported separately ([id number]). GMS stain with matched control was used in the evaluation of this case. C. GMS stain with matched control was used in the evaluation of this case. MICROSCOPIC DESCRIPTION Slides are reviewed. GROSS DESCRIPTION A - Received in fixative is one container labeled with the patient's name and designated duodenum biopsy. The specimen consists of one irregular fragment of light cheng soft tissue that measures 1.0 x 0.5 x 0.1 cm. The specimen is totally submitted in one cassette. B - Received in fixative is one container labeled with the patient's name and designated gastric body biopsy. The specimen consists of multiple irregular fragments of light cheng soft tissue that in aggregate measure 1.0 x 0.5 x 0.1 cm. The specimen is totally submitted in one cassette. C - Received in fixative is one container labeled with the patient's name and designated random esophagus biopsy. The specimen consists of two irregular fragments of light cheng soft tissue that in aggregate measure 0.6 x 0.5 x 0.1 cm. The specimen is totally submitted in one cassette. / AM:chris 06/08/2022 TC:[address] [facility]: [id number] x3, [id number] x3
--- NOTE | 2022-06-07 15:15 | IMM_PTH ---
PATIENT: AVRIL POLO LOC: [facility] U#:[id number] AGE/SX: 82/M ROOM: [facility] RE05/31/[address]: Dr. Xavier Lenz MD : 1940 BED: 1 DIS: 06/08/2022 SPEC #: [id number] RECD: 06/08/22 09:19 STATUS: LATRICIA REChula #: [id number] HECTOR: 06/07/22 15:[address]: Min Sesay DEPT: IMMUNOHISTOCHEMISTRY RECD BY: Lala Walker ENTERED: 06/08/22 09:20 SP TYPE: IMMUNO OTHR DR: MD Dr. Lin Castro MD Dr. Jeffrey Burkey, MD Dr. Kathryn Lee, DO Dr. Nana Yaa Koram, MD Dr. Nicholas F Kotsonis, MD Dr. Natthavat Tanphaichitr, MD Dr. Robert Leininger, MD Tissues: B - Stomach, NOS Procedures: H Pylori (initial) PHYSICIAN & [place] [address] SPECIMEN INFORMATION: Tissue Source: B ? Gastric body biopsy Clinical Info: GI bleed Specimen Number: [id number] CPT code: 03242 METHODOLOGY: Deparaffinized sections of prefer/formalin-fixed tissue or PAP/DQ stained slides are incubated with monoclonal/polyclonal antibodies/oligonucleotide probes. Localization is made via biotin free immunoperoxidase method. Appropriate controls are performed and reacted as expected. Results on target cell population are indicated in the following table: RESULTS: ANTIBODY / CLONE RESULT Block B H Pylori (polyclonal) negative These tests were developed and their performance characteristics determined by [facility]. They may not have been cleared or approved by the U.S. Food and Drug Administration. The FDA has determined that such clearance or approval is not necessary. The above immunohistochemical/dualISH markers are ordered and reviewed by the Pathologist. INTERPRETATION: B. Gastric body, biopsy: Negative for Helicobacter pylori organisms. AM:chris 06/09/2022
--- NOTE | 2022-06-07 15:24 | PCM.PN.HOSP ---
Reason for Visit Reason for Visit: Confusion Subjective Subjective No further bleeding overnight per patient report. Remains on 2 L nasal cannula with no respiratory issues at this time. I do suspect he likely needs oxygen at home at baseline and just has not been treated. Patient is anxious to eat but I am waiting for EGD to be performed. Objective Data Objective Data Vital Signs: Vital Signs Temp Pulse Resp BP Pulse Ox O2 Del Method O2 Flow Rate 98.1 F 60 20 H 111/74 94 Nasal Cannula 2 06/07/22 15:10 06/07/22 15:10 06/07/22 15:10 06/07/22 15:10 06/07/22 15:10 06/07/22 15:10 06/07/22 15:10 FiO2 30 06/06/22 10:00 Oxygen Flow Rate (L/min) 2 Oxygen Delivery Method Nasal Cannula Weight: 69.9 kg Body Mass Index (BMI) 22.7 Intake & Output: Intake and Output for Last 24 Hours 06/05/22 06/06/22 06/07/22 23:59 23:59 23:59 Intake Total 4016.25 / 4016.25 2818.58 / 3058.58 775 / 775 Output Total 3350 / 3350 675 / 1025 1500 / 1500 Balance 666.25 / 666.25 2143.58 / 2033.58 -725 / -725 Medical Nutrition Assessment Dietitian: Malnutrition Criteria Met Start: 06/01/22 16:15 Freq: Status: Active Protocol: Document 06/06/22 11:26 RMA (Rec: 06/06/22 11:26 RMA [id number]) Nutrition Malnutrition Evidence of Malnutrition Exists Yes Malnutrition (moderate): Chronic Evidenced By Suboptimal Energy Intake ( Moderate),Weight Loss (Severe) ,Physical Changes (Moderate) Clinical Problem Chronic Disease or Condition Related Malnutrition Etiology chronic, moderate malnutrition related to inadequate oral intake Signs/Symptoms as evidenced by moderate muscle wasting/fat loss evident per physical exam in orbital, clavicle, acromion, and temporal areas; estimated PO intake meeting <75% of estimated energy needs > 1 month; reported wt loss of 28. 2#/18% x 3 months; BMI 19.5 Status Active Problem Recommendation Dietitian Recommendations/Changes Resume regular/no added salt diet as tolerated. Continue Ensure Plus High Protein 120mL 4x/day w/ medpass given malnutrition, need for increased protein. Parenteral nutrition support as needed if PO diet contraindicated; GI consult noted. Will monitor labs, PO intake and adjust diet/ONS as indicated. Lab / Micro Data Result Diagrams: 06/07/22 05:32 06/07/22 05:32 Labs: Laboratory Results - last 24 hr 06/06/22 15:50: Hgb 10.3 L, Hct 32.2 L 06/06/22 16:21: POC Glucose 160 H 06/06/22 19:40: Hgb 10.2 L, Hct 32.4 L 06/06/22 20:56: POC Glucose 191 H 06/07/22 05:32: WBC 15.8 H, RBC 3.09 L, Hgb 9.6 L, Hct 30.5 L, MCV 98.7 H, MCH 31.1, MCHC 31.5 L, RDW Std Deviation 48.2 H, RDW Coeff of Fidelia 13.5, Plt Count 233, MPV 12.4 H, Immature Gran % (Auto) 1.100 H, Neut % (Auto) 88.8 H, Lymph % (Auto) 3.1 L, [place] % (Auto) 6.8, Eos % (Auto) 0.1, Baso % (Auto) 0.1, Absolute Neuts (auto) 14.0 H, Absolute Lymphs (auto) 0.49 L, Nucleated RBC % 0, Differential Comment SCANNED 06/07/22 05:32: Procalcitonin 0.49 H 06/07/22 05:32: Sodium 140, Potassium 4.4, Chloride 111 H, Carbon Dioxide 28.0, Anion Gap 1 L, BUN 62 H, Creatinine 1.93 H, Estim Creat Clear Calc 29.18, Est GFR (MDRD) Af Amer 43 L, Est GFR (MDRD) Non-Af 36 L, BUN/Creatinine Ratio 32.1 H, Glucose 116 H, Calcium 7.6 L, Phosphorus 2.0 L, Magnesium 2.0 06/07/22 06:41: POC Glucose 107 H 06/07/22 12:11: POC Glucose 100 Micro: Microbiology 06/06/22 06:10 Urine Catheter - Catheter Urine Culture - Preliminary Culture exhibits no growth. 05/31/22 17:35 Blood Culture (Wb) - Anticubital Right Blood Culture - Final No growth in 5 days. 05/31/22 18:00 Blood Culture (Wb) - Anticubital Right Bacteria Detection (PCR) - Final Coag Negative Staph 05/31/22 18:00 Blood Culture (Wb) - Anticubital Right Blood Culture - Final Facwaldoamia hominis 05/31/22 21:40 Mucosa - Nasopharyngeal Respiratory Panel (PCR) - Final 05/31/22 17:49 Urine, Random Legionella Antigen - Final 05/31/22 17:49 Urine, Random Streptococcus pneumoniae Antigen (M - Final Rhythm Strip Rhythm Strip: Sinus Tach Rate: 150 Ectopy: None Physical Exam Const alert, oriented x3 and no apparent distress Constitutional Narrative: Elderly white male who appears chronically ill, sitting up in a chair at the bedside, watching television, appears comfortable and nontoxic, currently on 2 L supplemental nasal cannula General Appearance: cooperative HEENT normocephalic, head/scalp atraumatic, moist oral mucous membranes and oropharynx normal Resp normal respiratory effort, no retractions and no use of accessory muscles Resp Narrative: Diffusely diminished without any adventitious sounds, currently on 2 L nasal cannula Auscultation: Negative for rales, rhonchi or wheezes Cardio regular rate, regular rhythm, S1 normal heart sound, S2 normal heart sound, no murmurs, no rub, no gallops and no clicks GI normal to inspection, nondistended, normoactive bowel sounds, soft to palpation, non-tender and non-distended Extremity normal capillary refill and no clubbing, cyanosis or edema Extremity Narrative: 1+ pedal pulses with 2+ cap refill General Extremity: no tenderness to palpation of joints or extremities Neuro oriented x3, moves all extremities and no focal motor deficits Neuro Narrative: Generalized weakness noted Speech: speech normal Psych affect normal Psych Narrative: Pleasant but slightly agitated that he is not allowed to eat, appropriately interactive Appearance: appropriate Assessment & Plan Assessment/Plan (1) CAP (community acquired pneumonia): (2) SVT (supraventricular tachycardia): (3) Fall: (4) Rhabdomyolysis: (5) YUE (acute kidney injury): (6) Hypoxia: (7) Leukocytosis: (8) Anemia: (9) Acute GI bleeding: (10) Moderate malnutrition: (11) Esophagitis: (12) Peptic ulcer disease: (13) Acute blood loss anemia: PLAN: Plan YUE on CKD stage III-multifactorial -Baseline serum creatinine appears to be between 2.7 -Current serum creatinine is 1.93 -Continue to monitor -Renal ultrasound showed only bilateral renal cyst -Nephrology is following-appreciate input Coag negative staph bacteremia -1 of 2 blood cultures positive -Suspect contaminant -No current work-up required Hypophosphatemia -Phos bolus and repeat lab in a.m. Acute hypoxia -Patient down to 2 L nasal cannula -Do suspect that he may need some chronic oxygen at baseline -Chest x-ray is unremarkable -Procalcitonin with slight elevation at 0.49 -Continue antibiotics per ID recommendations -Continue nebulizers -Steroids on hold secondary to bleeding Community-acquired pneumonia -Continue vancomycin and Zosyn -Infectious diseases following -Procalcitonin in a.m. -Appreciate ID input Metabolic acidosis secondary to renal dysfunction -Sodium bicarb discontinued as serum bicarb is up to 28 -Continue to follow BMP -May be able to discontinue bicarb soon if renal function continues to stabilize and serum bicarb continues to trend up Acute rhabdomyolysis -Resolved Acute GI bleed secondary to severe esophagitis and peptic ulcer disease -Hemoglobin has appears to stabilize -Continue Protonix drip -Add Carafate -Full liquid diet and advance per GI recommendations -Continue to hold subcu heparin -EGD performed on 06/07/2022 and demonstrated severe erosive esophagitis that was biopsied and treated with heater probe, nonbleeding gastric ulcers with no stigmata of bleeding which were biopsied, and multiple oozing duodenal ulcers with pigmented material these were injected and he did with hospital account manager probe. -GI following-appreciate input -Will need outpatient follow-up for biopsy results -Gastrin level ordered and pending Acute blood loss anemia on chronic anemia -Acute issues due to the above -It appears that his hemoglobin is somewhat stabilizing -EGD performed with above results -Repeat CBC in a.m. Impaired glucose tolerance -Hemoglobin A1c was 6.1 on admission -Continue sliding scale SVT -Cardiology has been following -Echocardiogram shows no marked abnormalities -Continue diltiazem and metoprolol--> heart rate stable with this addition Hypertension/HPL -Continue diltiazem -Continue metoprolol -Continue home pravastatin -Hold lisinopril/HCTZ--> may be able to hold indefinitely BPH -Patient with history of cystoscopy and dilation of strictures previously -No current issues -Continue to monitor Debility -PT and OT following -Patient will need placement upon discharge -Pre-CERT is pending Moderate malnutrition -Supplements added -Dietitian is following DVT prophylaxis -SCDs -Heparin subcu discontinued secondary to rectal bleeding CODE STATUS -DNR CCA with no intubation Charges/Coding Visit Charges Inpatient E&M: 61132 Subs Hosp L2
[2022-06-07] MEDS: Ensure Plus High Protein 120 ML LIQUID PO (16:23)
[2022-06-07] MEDS: Sucralfate 1 GM Tablet PO ×2 (16:44→21:57)
[2022-06-07 16:55] LABS: Bedside Glucose 103 mg/dL (74-106)
[2022-06-07] MEDS: Ondansetron 4 MG/2 ML Vial IV (18:06)
[2022-06-07] MEDS: Pravastatin 20 MG Tablet PO (21:58)
[2022-06-07 22:40] LABS: Bedside Glucose 145 mg/dL (74-106)
[2022-06-08] VITALS (10 sets, daily range): BP systolic 82–110; BP diastolic 60–67; PULSE 60–88; RESP 18; TEMP 36.6–36.7; O2SAT 93–96; BMI 22.8
[2022-06-08 05:19] LABS: Absolute Lymphocyte Count 0.52 X10^3/uL (0.83-4.51); Absolute Neutrophil Count 11.9 X10^3/uL (2.0-7.7); Basophil# 0.02 X10^3/uL; Basophil% 0.1 % (0-1); Eosinophil# 0.52 X10^3/uL; Eosinophils% 3.8 % (0-5); Hematocrit 28.7 % (40-54); Hemoglobin 9.3 g/dL (13.0-16.5); Lymphocyte # 0.52 X10^3/ul (0.83-4.51); Lymphocyte % 3.8 % (19-41); Mean Corp Hgb Conc 32.4 g/dL (32-36); Mean Corpuscular Hgb 32.1 pg (27.0-32.0); Mean Platelet Vol. 12.2 fl (6.2-12.0); Monocyte# 0.77 X10^3/uL; Monocyte% 5.6 % (0-10); NRBC Flagged by Analyzer 0 % (0-5); Neutrophil # 11.94 X10^3/uL (2.7-7.7); Neutrophil % 86.1 % (47-70); POSITIVE DIFFERENTIAL YES; Platelet Count 245 K/mm3 (150-450); RBC Distribution Width CV 13.8 % (11.6-14.6); RBC Distribution Width SD 50.3 fl (35.1-43.9); White Blood Count 13.9 K/mm3 (4.4-11.0)
[2022-06-08 05:24] LABS: Differential Indicated SCAN CRITERIA MET
[2022-06-08 05:40] LABS: Anion Gap 3 (5-15); BUN 47 mg/dL (7-18); BUN/Creat Ratio 25.1 RATIO (10-20); Calcium,Total 7.6 mg/dL (8.5-10.1); Chloride 112 mmol/L (98-107); Creatinine, Serum 1.87 mg/dL (0.70-1.30); EST Glomerular Filtration Rate 37 mL/min (>60); Est Glom Filt Rate - Afr Amer 45 mL/min (>60); Estimated Creatinine Clearance 30.28 ml/min; Glucose 118 mg/dL (74-106); Potassium 4.1 mmol/L (3.5-5.1); Sodium Level 141 mmol/L (136-145)
[2022-06-08 05:49] LABS: Phosphorus 3.3 mg/dL (2.5-4.9)
[2022-06-08 06:05] LABS: Differential Comment SCANNED
[2022-06-08] MEDS: Sodium Bicarbonate 650 MG Tablet PO ×3 (06:42→20:49)
[2022-06-08] MEDS: Sucralfate 1 GM Tablet PO ×3 (06:42→20:49)
[2022-06-08 07:05] LABS: Bedside Glucose 92 mg/dL (74-106)
[2022-06-08] MEDS: Menthol/Lanolin/Calamine/Znox 113 GM Tube 1 APPLIC TOPICAL ×2 (08:46→20:49)
[2022-06-08] MEDS: Metoprolol Tartrate 25 MG Tablet PO (08:46)
[2022-06-08] MEDS: Ensure Plus High Protein 120 ML LIQUID PO (08:46)
[2022-06-08] MEDS: dilTIAZem CD 120 MG Capsule PO (08:46)
--- NOTE | 2022-06-08 09:43 | CASEMGMT ---
Patient was approved to go to [place]. SW will let physician know. Rain Steen ROTATING EQUIPMENT ENGINEER POLLO
[2022-06-08] MEDS: Insulin Lispro 100 UNIT/ML INSULN.PEN SC (11:01)
[2022-06-08 12:15] LABS: Bedside Glucose 166 mg/dL (74-106)
--- NOTE | 2022-06-08 13:55 | PN.RENAL_ITS ---
Subjective Subjective no new events Objective Data Objective Data Vital Signs: Vital Signs Temp Pulse Resp BP Pulse Ox O2 Del Method O2 Flow Rate 98.0 F 63 18 82/66 L 95 Nasal Cannula 2 06/08/22 13:31 06/08/22 13:31 06/08/22 13:31 06/08/22 13:31 06/08/22 13:31 06/08/22 13:31 06/08/22 13:31 FiO2 30 06/06/22 10:00 Oxygen Flow Rate (L/min) 2 Oxygen Delivery Method Nasal Cannula Weight: 70.3 kg Body Mass Index (BMI) 22.8 Intake & Output: Intake and Output for Last 24 Hours 06/06/22 06/07/22 06/08/22 23:59 23:59 23:59 Intake Total 2818.58 / 3058.58 1802 / 2042 1420 / 1420 Output Total 675 / 1025 1900 / 2750 1525 / 1525 Balance 2143.58 / 2033.58 -98 / -708 -105 / -105 Medical Nutrition Assessment Dietitian: Malnutrition Criteria Met Start: 06/01/22 16:15 Freq: Status: Active Protocol: Document 06/06/22 11:26 RMA (Rec: 06/06/22 11:26 RMA [id number]) Nutrition Malnutrition Evidence of Malnutrition Exists Yes Malnutrition (moderate): Chronic Evidenced By Suboptimal Energy Intake ( Moderate),Weight Loss (Severe) ,Physical Changes (Moderate) Clinical Problem Chronic Disease or Condition Related Malnutrition Etiology chronic, moderate malnutrition related to inadequate oral intake Signs/Symptoms as evidenced by moderate muscle wasting/fat loss evident per physical exam in orbital, clavicle, acromion, and temporal areas; estimated PO intake meeting <75% of estimated energy needs > 1 month; reported wt loss of 28. 2#/18% x 3 months; BMI 19.5 Status Active Problem Recommendation Dietitian Recommendations/Changes Resume regular/no added salt diet as tolerated. Continue Ensure Plus High Protein 120mL 4x/day w/ medpass given malnutrition, need for increased protein. Parenteral nutrition support as needed if PO diet contraindicated; GI consult noted. Will monitor labs, PO intake and adjust diet/ONS as indicated. Lab / Micro Data Result Diagrams: 06/08/22 05:01 06/08/22 05:01 Labs: Laboratory Results - last 24 hr 06/07/22 16:19: POC Glucose 103 06/07/22 21:55: POC Glucose 145 H 06/08/22 05:01: WBC 13.9 H, RBC 2.90 L, Hgb 9.3 L, Hct 28.7 L, MCV 99.0 H, MCH 32.1 H, MCHC 32.4, RDW Std Deviation 50.3 H, RDW Coeff of Fidelia 13.8, Plt Count 245, MPV 12.2 H, Immature Gran % (Auto) 0.600, Neut % (Auto) 86.1 H, Lymph % (Auto) 3.8 L, [place] % (Auto) 5.6, Eos % (Auto) 3.8, Baso % (Auto) 0.1, Absolute Neuts (auto) 11.9 H, Absolute Lymphs (auto) 0.52 L, Nucleated RBC % 0, Differential Comment SCANNED 06/08/22 05:01: Sodium 141, Potassium 4.1, Chloride 112 H, Carbon Dioxide 26.0, Anion Gap 3 L, BUN 47 H, Creatinine 1.87 H, Estim Creat Clear Calc 30.28, Est GFR (MDRD) Af Amer 45 L, Est GFR (MDRD) Non-Af 37 L, BUN/Creatinine Ratio 25.1 H , Glucose 118 H, Calcium 7.6 L 06/08/22 05:01: Phosphorus 3.3 06/08/22 06:41: POC Glucose 92 06/08/22 11:00: POC Glucose 166 H Micro: Microbiology 06/06/22 05:50 Blood Culture (Wb) - Right Hand Blood Culture - Preliminary No growth in 48 hours. 06/06/22 05:56 Blood Culture (Wb) - Anticubital Left Blood Culture - Preliminary No growth in 48 hours. 06/06/22 06:10 Urine Catheter - Catheter Urine Culture - Final Culture exhibits no growth. 05/31/22 18:00 Blood Culture (Wb) - Anticubital Right Bacteria Detection (PCR) - Final Coag Negative Staph 05/31/22 18:00 Blood Culture (Wb) - Anticubital Right Blood Culture - Final Facklamia hominis 05/31/22 17:35 Blood Culture (Wb) - Anticubital Right Blood Culture - Final No growth in 5 days. 05/31/22 21:40 Mucosa - Nasopharyngeal Respiratory Panel (PCR) - Final 05/31/22 17:49 Urine, Random Legionella Antigen - Final 05/31/22 17:49 Urine, Random Streptococcus pneumoniae Antigen (M - Final Rhythm Strip Rhythm Strip: Sinus Tach Rate: 150 Ectopy: None Physical Exam Narrative Alert and oriented x3, no apparent distress S1, S2, RRR Lung sounds clear anteriorly, no rhonchi or rales noted. No expiratory wheezing noted Abdomen soft, nontender, positive bowel sounds No edema Assessment & Plan Assessment/Plan (1) YUE (acute kidney injury): (2) Fall: PLAN: Plan This is a pleasant 82-year-old male who was brought to the emergency room after he was found laying on the floor in his apartment by his landlord. Nephrology consulted for acute kidney injury. -YUE superimposed on CKD stage IV. YUE likely secondary to volume depletion and hypotension leading to ischemic ATN. In the emergency room patient's creatinine was 6.37 --> 5.06--> today serum creatinine 1.8 GI note reviewed electrolytes are ok BP is ok
--- NOTE | 2022-06-08 15:05 | PCM.TXEXTCAR ---
Diet Diet Order/Speech Therapy: 06/07/22 15:57 Diet: Full Liquid Is pt able to select menu?: No Routine Orders/Code Status Routine Lab Work: CBC and BMP Code Status: DNRCC-A Wound(s) left side of head/left elbow: Wound Type: scab Therapies Physical Therapy: Eval and Treat Occupational Therapy: Eval and Treat Problem/Diagnosis (1) YUE (acute kidney injury): Status: Acute Code(s): N17.9 - Acute kidney failure, unspecified (2) Fall: Status: Acute Code(s): W19.XXXA - Unspecified fall, initial encounter Allergies/Procedures Done in Hospital Allergies No Known Allergies Allergy (Verified 05/31/22 17:29) Procedures: 2-D Echocardiogram and EGD Type of Care/Length of Stay Estimated LOS: Convalescent Care Less Than 30 days Type of Care Needed: Skilled Rehab Potential: Fair Prognosis: Fair Additional Orders/Day of Discharge Day of Discharge: 06/08/22 Dietary and Speech Recommendations Dietitian Recommendations/Changes: Resume regular/no added salt diet as tolerated. Continue Ensure Plus High Protein 120mL 4x/day w/ medpass given malnutrition, need for increased protein. Parenteral nutrition support as needed if PO diet contraindicated; GI consult noted. Will monitor labs, PO intake and adjust diet/ONS as indicated. Discharge Plan Admission Admit Date/Time: 05/31/22 19:37 Attending Provider: Xaiver Lenz Primary Care Provider: Rodney Shah Consulting Providers: Brianna Felix ; Gabrielle Mancini ; Lin Villanueva ; Jack Adler ; Tonja Vu ; Sarah Glasgow Discharge Orders/Prescriptions Prescriptions: New sodium bicarbonate 650 mg Tablet 650 mg PO TID Qty: 0 0RF diltiazem HCl 120 mg Capsule,Extended Release 24hr 120 mg PO DAILY Qty: 0 0RF metoprolol tartrate 25 mg Tablet 25 mg PO BID Qty: 0 0RF sucralfate 1 gram Tablet 1 g PO 1HR_ACHS Qty: 0 0RF pantoprazole [Protonix] 40 mg tablet,delayed release (DR/EC) 40 mg PO BID Qty: 1 0RF Continued aspirin 81 MG tablet,chewable 81 mg PO DAILY@0800 pravastatin 20 MG tablet 20 mg PO QHS albuterol sulfate [ProAir HFA] 1 PUFF inhaler 1 - 2 puff inhalation Q4H PRN PRN (Reason: Asthma) Prinzide 10 mg PO DAILY Label Comments: PRINZIDE 11/24.5 ergocalciferol (vitamin D2) 1,000 unit Capsule 1,000 unit PO DAILY cholecalciferol (vitamin D3) [Vitamin D3] 50 mcg (2,000 unit) Tablet 50 mcg PO DAILY Discontinued amlodipine 10 MG tablet 10 mg PO DAILY lisinopril-hydrochlorothiazide [Zestoretic] 1 TABLET tablet 1 tab PO DAILY Referrals / Follow Up: Rodney Shah MD [Primary Care Provider] - Disposition Disposition (needs filled in before D/C Order can be placed): [facility]
--- NOTE | 2022-06-08 15:49 | CASEMGMT ---
Transport was arranged with Physicians for a 9p pickling grader via cot. (this was the earliest time the had available) Orders, pickling grader time and COVID [facility] SW called patient's niece and left her a voice mail letting her know about pickling grader time. SW notified church secretary. SW completed a convalescent in [facility]. Plan: d/c to [facility] under skilled level of care on a convalescent stay. Physicians transported via cot. Rain ABAD
--- NOTE | 2022-06-08 16:15 | PCM.PROGNOTE ---
Subjective Subjective Patient underwent an Upper endoscopy patient was discovered to have multiple gastric ulcers and duodenal ulcers. Objective Data Objective Data Vital Signs: Vital Signs Temp Pulse Resp BP Pulse Ox O2 Del Method O2 Flow Rate 98.0 F 62 18 97/62 96 Nasal Cannula 2 06/08/22 15:50 06/08/22 15:50 06/08/22 15:50 06/08/22 15:50 06/08/22 15:50 06/08/22 15:50 06/08/22 15:50 FiO2 30 06/06/22 10:00 Oxygen Flow Rate (L/min) 2 Oxygen Delivery Method Nasal Cannula Weight: 154 lb 15.759 oz Body Mass Index (BMI) 22.8 Intake & Output: Intake and Output for Last 24 Hours 06/06/22 06/07/22 06/08/22 23:59 23:59 23:59 Intake Total 2818.58 / 3058.58 1802 / 2042 1420 / 1420 Output Total 675 / 1025 1900 / 2750 1525 / 1525 Balance 2143.58 / 2033.58 -98 / -708 -105 / -105 Medical Nutrition Assessment Dietitian: Malnutrition Criteria Met Start: 06/01/22 16:15 Freq: Status: Active Protocol: Document 06/06/22 11:26 RMA (Rec: 06/06/22 11:26 RMA [id number]) Nutrition Malnutrition Evidence of Malnutrition Exists Yes Malnutrition (moderate): Chronic Evidenced By Suboptimal Energy Intake ( Moderate),Weight Loss (Severe) ,Physical Changes (Moderate) Clinical Problem Chronic Disease or Condition Related Malnutrition Etiology chronic, moderate malnutrition related to inadequate oral intake Signs/Symptoms as evidenced by moderate muscle wasting/fat loss evident per physical exam in orbital, clavicle, acromion, and temporal areas; estimated PO intake meeting <75% of estimated energy needs > 1 month; reported wt loss of 28. 2#/18% x 3 months; BMI 19.5 Status Active Problem Recommendation Dietitian Recommendations/Changes Resume regular/no added salt diet as tolerated. Continue Ensure Plus High Protein 120mL 4x/day w/ medpass given malnutrition, need for increased protein. Parenteral nutrition support as needed if PO diet contraindicated; GI consult noted. Will monitor labs, PO intake and adjust diet/ONS as indicated. Lab / Micro Data Result Diagrams: 06/08/22 05:01 06/08/22 05:01 Labs: Laboratory Results - last 24 hr 06/07/22 16:19: POC Glucose 103 06/07/22 21:55: POC Glucose 145 H 06/08/22 05:01: WBC 13.9 H, RBC 2.90 L, Hgb 9.3 L, Hct 28.7 L, MCV 99.0 H, MCH 32.1 H, MCHC 32.4, RDW Std Deviation 50.3 H, RDW Coeff of Fidelia 13.8, Plt Count 245, MPV 12.2 H, Immature Gran % (Auto) 0.600, Neut % (Auto) 86.1 H, Lymph % (Auto) 3.8 L, [place] % (Auto) 5.6, Eos % (Auto) 3.8, Baso % (Auto) 0.1, Absolute Neuts (auto) 11.9 H, Absolute Lymphs (auto) 0.52 L, Nucleated RBC % 0, Differential Comment SCANNED 06/08/22 05:01: Sodium 141, Potassium 4.1, Chloride 112 H, Carbon Dioxide 26.0, Anion Gap 3 L, BUN 47 H, Creatinine 1.87 H, Estim Creat Clear Calc 30.28, Est GFR (MDRD) Af Amer 45 L, Est GFR (MDRD) Non-Af 37 L, BUN/Creatinine Ratio 25.1 H, Glucose 118 H, Calcium 7.6 L 06/08/22 05:01: Phosphorus 3.3 06/08/22 06:41: POC Glucose 92 06/08/22 11:00: POC Glucose 166 H Micro: Microbiology 06/08/22 13:25 Nasal Secretion SARS-CoV-2 Antigen (Rapid) - Final 06/06/22 05:50 Blood Culture (Wb) - Right Hand Blood Culture - Preliminary No growth in 48 hours. 06/06/22 05:56 Blood Culture (Wb) - Anticubital Left Blood Culture - Preliminary No growth in 48 hours. 06/06/22 06:10 Urine Catheter - Catheter Urine Culture - Final Culture exhibits no growth. 05/31/22 18:00 Blood Culture (Wb) - Anticubital Right Bacteria Detection (PCR) - Final Coag Negative Staph 05/31/22 18:00 Blood Culture (Wb) - Anticubital Right Blood Culture - Final Facklamia hominis 05/31/22 17:35 Blood Culture (Wb) - Anticubital Right Blood Culture - Final No growth in 5 days. 05/31/22 21:40 Mucosa - Nasopharyngeal Respiratory Panel (PCR) - Final 05/31/22 17:49 Urine, Random Legionella Antigen - Final 05/31/22 17:49 Urine, Random Streptococcus pneumoniae Antigen (M - Final Rhythm Strip Rhythm Strip: Sinus Tach Rate: 150 Ectopy: None Physical Exam Narrative Alert and oriented x3, no apparent distress S1, S2, RRR Lung sounds clear anteriorly, no rhonchi or rales noted. No expiratory wheezing noted Abdomen soft, nontender, positive bowel sounds No edema Assessment & Plan Assessment/Plan (1) CAP (community acquired pneumonia): (2) SVT (supraventricular tachycardia): (3) Fall: (4) Rhabdomyolysis: (5) YUE (acute kidney injury): (6) Hypoxia: (7) Leukocytosis: (8) Anemia: (9) Acute GI bleeding: (10) Moderate malnutrition: (11) Esophagitis: (12) Peptic ulcer disease: (13) Acute blood loss anemia: PLAN: Plan Acute rhabdomyolysis -Resolved Acute GI bleed secondary to severe esophagitis and peptic ulcer disease -Hemoglobin has appears to stabilize -Continue Protonix drip -Add Carafate -Full liquid diet and advance per GI recommendations -Continue to hold subcu heparin -EGD performed on 06/07/2022 and demonstrated severe erosive esophagitis that was biopsied and treated with heater probe, nonbleeding gastric ulcers with no stigmata of bleeding which were biopsied, and multiple oozing duodenal ulcers with pigmented material these were injected and he did with it architecture consultant probe. -GI following-appreciate input -Will need outpatient follow-up for biopsy results -Gastrin level ordered and pending Acute blood loss anemia on chronic anemia -Acute issues due to the above -It appears that his hemoglobin is somewhat stabilizing -EGD performed with above results -Repeat CBC in a.m. Charges/Coding Visit Charges Inpatient E&M: 12122 Subs Hosp L3
[2022-06-08 16:21] LABS: Bedside Glucose 128 mg/dL (74-106)
[2022-06-08] MEDS: Ondansetron 4 MG/2 ML Vial IV (17:57)
--- NOTE | 2022-06-08 18:07 | PCM.DC.SUM ---
Providers Date of Admission: 05/31/22 Primary Care Physician: Dr. Rodney Shah MD Consultations 06/01/22 10:24 Consult: Nephrology Routine Consulting Provider: Gabrielle Mancini Reason for Consult: YUE on CKD; non anion gap metabolic acidosis EMERGENT Consult: No Notified: Yes Date Notified: 06/01/22 Time Notified: 10:24 Method of Notification: Text 06/01/22 11:28 Consult: Cardiology Routine Consulting Provider: Lin Villanueva Reason for Consult: SVT EMERGENT Consult: No Notified: Yes Date Notified: 06/01/22 Time Notified: 11:28 Method of Notification: paged 06/02/22 13:23 Consult: Infectious Disease Routine Consulting Provider: Jack Adler Reason for Consult: bacteremia EMERGENT Consult: No Notified: Yes Date Notified: 06/02/22 Time Notified: 15:00 Method of Notification: Answering Service 06/06/22 00:42 Consult: Gastroenterology Routine Consulting Provider: [facility] Reason for Consult: GI bleed EMERGENT Consult: No Notified: Yes Date Notified: 06/06/22 Time Notified: 00:42 Method of Notification: Text Reason For Visit: SIRS,HYPOXIA,?CLINICAL PNA, YUE, HYPERGLYCEMIA Diagnosis Discharge Diagnosis (1) CAP (community acquired pneumonia): Status: Acute Code(s): J18.9 - Pneumonia, unspecified organism (2) SVT (supraventricular tachycardia): Status: Acute Code(s): I47.1 - Supraventricular tachycardia (3) Fall: Status: Acute Code(s): W19.XXXA - Unspecified fall, initial encounter (4) Rhabdomyolysis: Status: Acute Code(s): M62.82 - Rhabdomyolysis (5) YUE (acute kidney injury): Status: Acute Code(s): N17.9 - Acute kidney failure, unspecified (6) Hypoxia: Status: Acute Code(s): R09.02 - Hypoxemia (7) Leukocytosis: Status: Acute Code(s): D72.829 - Elevated white blood cell count, unspecified (8) Anemia: Status: Acute Code(s): D64.9 - Anemia, unspecified (9) Acute GI bleeding: Status: Acute Code(s): K92.2 - Gastrointestinal hemorrhage, unspecified (10) Moderate malnutrition: Status: Acute Code(s): E44.0 - Moderate protein-calorie malnutrition (11) Esophagitis: Status: Acute Code(s): K20.90 - Esophagitis, unspecified without bleeding (12) Peptic ulcer disease: Status: Acute Code(s): K27.9 - Peptic ulcer, site unspecified, unspecified as acute or chronic, without hemorrhage or perforation (13) Acute blood loss anemia: Status: Acute Code(s): D62 - Acute posthemorrhagic anemia Medications at Discharge Home Medications Prinzide 10 mg PO DAILY 11/12/12 albuterol sulfate 90 mcg/actuation aerosol inhaler (ProAir HFA) 1 - 2 puff inhalation Q4H PRN PRN Asthma 11/12/12 aspirin 81 mg chewable tablet 81 mg PO DAILY@0800 heart health 11/12/12 pravastatin 20 mg tablet 20 mg PO QHS high cholesterol 11/12/12 cholecalciferol (vitamin D3) 50 mcg (2,000 unit) tablet (Vitamin D3) 50 mcg PO DAILY general health 05/31/22 ergocalciferol (vitamin D2) 1,000 unit capsule 1,000 unit PO DAILY health 05/31/22 diltiazem HCl 120 mg capsule,extended release 24 hr 120 mg PO DAILY #0 caps 06/08/22 metoprolol tartrate 25 mg tablet 25 mg PO BID #0 tabs 06/08/22 pantoprazole 40 mg tablet,delayed release (Protonix) 40 mg PO BID #1 TAB 06/08/22 sodium bicarbonate 650 mg tablet 650 mg PO TID #0 tabs 06/08/22 sucralfate 1 gram tablet 1 g PO 1HR_ACHS #0 tabs 06/08/22 Hospital Course Operations None Procedures 2-D Echocardiogram and EGD Summary of Care Provided Minutes Spent on Discharge: 39 Hospital Course: Per HPI: The patient is an 82 y/o M w/ PMHx: HTN, HLD, BPH w/ Hx UTI/strictures, Chronic bronchitis, CKD stage III unclear subtype, Former tobacco use who presents to the [facility] ED on 05/31/22 found by his landlord on the ground reportedly fallen and could not get himself back up attempting to crawl potentially for hours however patient was disheveled, smells of urine and was confused with last known well approximately 1 week prior per the landlord and at that time patient was appropriate, driving without issue however given his confusion although the patient did report to the landlord he was fine prompted transition to the ED per EMS.? In the emergency room patient does have some improvement following interventions and is able to identify month, place and president but gives the wrong year.? He did advise his family member his niece in the room without issue.? In the ED upon his evaluation he appears ill with tachypnea, occultly with upper airway secretion management and significantly tight on pulmonary examination work-up in the ED included T96, heart rate initially 140 with most recent repeat 81, BP 139/115, respiratory rate initially 28 noted to be 84% on room air with improvement to respiratory rate 22, 99% on 2 L nasal cannula, CBC with WC 13, hemoglobin 14.2, platelet 223 with left shift, coags with INR 1.4, PT 16.7, PTT 26, ABG with pH 7.35, bicarb 12, PCO2 21.9, PO2 114 on 2 L nasal cannula, CMP with chloride 118, carbon oxide 13, anion gap 13, BUN/creatinine 154/6.37, glucose 225, lactic acid 5.0, magnesium 2.2, total creatinine kinase 317, troponin 24, urinalysis with evidence of dehydration but no obvious UTI, blood culture x2 pending per ED, CT of the brain with atrophy and moderate periventricular white matter ischemic changes with no acute evidence of intracranial bleed, CT cervical spine with moderate to severe degenerative changes with no acute fracture or subluxation, chest x-ray with COPD type changes with no acute cardiopulmonary findings otherwise, EKG with significant tachycardia, difficult to significant movement, poor EKG.? In the ED patient ministered 2 L normal saline in addition to maintenance IV fluid continued. Hospital Course: 1. Acute blood loss anemia secondary to an upper GI bleed from severe esophagitis and peptic ulcer disease with metabolic acidosis secondary to renal disc and with an YUE on CKD 3/debility/moderate malnutrition?82-year-old male was found on the ground by his landlord, he did have some rhabdomyolysis which resolved. EGD on 06/07/2022 demonstrated severe erosive esophagitis that was biopsied and treated with a heater probe as well as nonbleeding gastric ulcers. We will continue with twice daily PPI as well as Carafate. Nephrology assisted with his YUE, he did have acidosis and was started on bicarb tablets which we will continue on discharge, I do recommend outpatient monitoring of his lab work while at the SNF. Renal function is down to 1.87 from a peak of 6.3. On discharge his hemoglobin is stable at 9.3 2. Community-acquired pneumonia with acute hypoxia?there is a likelihood of needing chronic oxygen at baseline as he does require rescue periodically with BiPAP. He was started on antibiotics which were ultimately discontinued by infectious disease yesterday as he had completed an appropriate course. He did have a coag negative staph bacteremia which was in only 1 out of 4 bottles consistent with a skin contaminant. We will continue to recommend weaning oxygen as able, he currently is able to maintain at times his oxygen level at 2 L nasal cannula 3. SVT?cardiology was consulted and changed his Norvasc to Cardizem and started him on metoprolol which he has tolerated. He he has had temporary hypotension in the afternoon a few hours after receiving his blood pressure medications which resolved on its own. I do anticipate a continued trend like this at the senior care as well. 4. Hypertension, hyperlipidemia, BPH are all chronic medical conditions which complicate his care. His home med's were continued where appropriate Physical Exam Narrative General: Alert, Oriented x3, Cooperative, No apparent distress HEENT: Atraumatic, PERRLA, EOMI, Normocephalic Oral: Moist Mucosa Neck: Supple, No JVD Lungs: Diminished, Normal air movement, No rhonchi, No wheeze, No rales Cardiovascular: Regular rate, Regular Rhythm, Normal S1, Normal S2, No murmurs Abdomen: Soft, Non Tender, Non-Distended, No Hepato-splenomegaly Extremities: No edema, Capillary Refill Less than 3 Seconds Skin: No rashes, No breakdown Musculoskeletal: No Tenderness to Palpation of Joints or Extremities Neurological: Cranial nerves II-XII grossly intact, Motor Exam 5/5 strength throughout, Sensory exam intact to light touch and pain Psych/Mental Status: Normal Affect, Appropriate Medical Records Data Medical Nutrition Assessment Dietitian: Malnutrition Criteria Met Start: 06/01/22 16:15 Freq: Status: Active Protocol: Document 06/06/22 11:26 RMA (Rec: 06/06/22 11:26 RMA [id number]) Nutrition Malnutrition Evidence of Malnutrition Exists Yes Malnutrition (moderate): Chronic Evidenced By Suboptimal Energy Intake ( Moderate),Weight Loss (Severe) ,Physical Changes (Moderate) Clinical Problem Chronic Disease or Condition Related Malnutrition Etiology chronic, moderate malnutrition related to inadequate oral intake Signs/Symptoms as evidenced by moderate muscle wasting/fat loss evident per physical exam in orbital, clavicle, acromion, and temporal areas; estimated PO intake meeting <75% of estimated energy needs > 1 month; reported wt loss of 28. 2#/18% x 3 months; BMI 19.5 Status Active Problem Recommendation Dietitian Recommendations/Changes Resume regular/no added salt diet as tolerated. Continue Ensure Plus High Protein 120mL 4x/day w/ medpass given malnutrition, need for increased protein. Parenteral nutrition support as needed if PO diet contraindicated; GI consult noted. Will monitor labs, PO intake and adjust diet/ONS as indicated. Weight / BMI Weight Weight: 154 lb 15.759 oz Body Mass Index (BMI) 22.8 ABG / Lab / Microbiology Data Result Diagrams: 06/08/22 05:01 06/08/22 05:01 Laboratory: Laboratory Results - last 24 hr 06/07/22 21:55: POC Glucose 145 H 06/08/22 05:01: WBC 13.9 H, RBC 2.90 L, Hgb 9.3 L, Hct 28.7 L, MCV 99.0 H, MCH 32.1 H, MCHC 32.4, RDW Std Deviation 50.3 H, RDW Coeff of Fidelia 13.8, Plt Count 245, MPV 12.2 H, Immature Gran % (Auto) 0.600, Neut % (Auto) 86.1 H, Lymph % (Auto) 3.8 L, [place] % (Auto) 5.6, Eos % (Auto) 3.8, Baso % (Auto) 0.1, Absolute Neuts (auto) 11.9 H, Absolute Lymphs (auto) 0.52 L, Nucleated RBC % 0, Differential Comment SCANNED 06/08/22 05:01: Sodium 141, Potassium 4.1, Chloride 112 H, Carbon Dioxide 26.0, Anion Gap 3 L, BUN 47 H, Creatinine 1.87 H, Estim Creat Clear Calc 30.28, Est GFR (MDRD) Af Amer 45 L, Est GFR (MDRD) Non-Af 37 L, BUN/Creatinine Ratio 25.1 H, Glucose 118 H, Calcium 7.6 L 06/08/22 05:01: Phosphorus 3.3 06/08/22 06:41: POC Glucose 92 06/08/22 11:00: POC Glucose 166 H 06/08/22 16:00: POC Glucose 128 H Microbiology: Microbiology 06/08/22 13:25 Nasal Secretion SARS-CoV-2 Antigen (Rapid) - Final 06/06/22 05:50 Blood Culture (Wb) - Right Hand Blood Culture - Preliminary No growth in 48 hours. 06/06/22 05:56 Blood Culture (Wb) - Anticubital Left Blood Culture - Preliminary No growth in 48 hours. 06/06/22 06:10 Urine Catheter - Catheter Urine Culture - Final Culture exhibits no growth. 05/31/22 18:00 Blood Culture (Wb) - Anticubital Right Bacteria Detection (PCR) - Final Coag Negative Staph 05/31/22 18:00 Blood Culture (Wb) - Anticubital Right Blood Culture - Final Facklamia hominis 05/31/22 17:35 Blood Culture (Wb) - Anticubital Right Blood Culture - Final No growth in 5 days. 05/31/22 21:40 Mucosa - Nasopharyngeal Respiratory Panel (PCR) - Final 05/31/22 17:49 Urine, Random Legionella Antigen - Final 05/31/22 17:49 Urine, Random Streptococcus pneumoniae Antigen (M - Final Meaningful Use Info Meaningful Use Diagnoses (Choose all that apply): None applicable Discharge Plan Admission Admit Date/Time: 05/31/22 19:37 Attending Provider: Xavier Lenz Primary Care Provider: Rodney Shah Consulting Providers: Brianna Felix ; Gabrielle Mancini ; Lin Villanueva ; Jack Adler ; Tonja Vu ; Sarah Glasgow Discharge Orders/Prescriptions Prescriptions: New sodium bicarbonate 650 mg Tablet 650 mg PO TID Qty: 0 0RF diltiazem HCl 120 mg Capsule,Extended Release 24hr 120 mg PO DAILY Qty: 0 0RF metoprolol tartrate 25 mg Tablet 25 mg PO BID Qty: 0 0RF sucralfate 1 gram Tablet 1 g PO 1HR_ACHS Qty: 0 0RF pantoprazole [Protonix] 40 mg tablet,delayed release (DR/EC) 40 mg PO BID Qty: 1 0RF Continued aspirin 81 MG tablet,chewable 81 mg PO DAILY@0800 pravastatin 20 MG tablet 20 mg PO QHS albuterol sulfate [ProAir HFA] 1 PUFF inhaler 1 - 2 puff inhalation Q4H PRN PRN (Reason: Asthma) Prinzide 10 mg PO DAILY Label Comments: PRINZIDE 11/24.5 ergocalciferol (vitamin D2) 1,000 unit Capsule 1,000 unit PO DAILY cholecalciferol (vitamin D3) [Vitamin D3] 50 mcg (2,000 unit) Tablet 50 mcg PO DAILY Discontinued amlodipine 10 MG tablet 10 mg PO DAILY lisinopril-hydrochlorothiazide [Zestoretic] 1 TABLET tablet 1 tab PO DAILY Referrals / Follow Up: Rodney Shah MD [Primary Care Provider] - Disposition Disposition (needs filled in before D/C Order can be placed): [facility] Charges/Coding Visit Charges Inpatient E&M: 57843 Disch Hosp >30min
[2022-06-08] MEDS: Pravastatin 20 MG Tablet PO (20:48)
[2022-06-08] MEDS: proCHLORPERazine 10 MG/2 ML Vial 5 MG IV (21:20)
[2022-06-08 21:45] LABS: Bedside Glucose 140 mg/dL (74-106)
[2022-06-09 15:08] LABS: Gastrin, Serum 153 pg/mL (0-115)
[2022-06-09 15:08] LABS: Gastrin, Serum 72 pg/mL (0-115)
== END 2022-06-08 22:25 | disposition skilled nursing facility (03) | DRG 682 ==
LOC: ED 19:57 → PCU 20:17
PROVIDERS: Internal Medicine; Internal Medicine Gastroenterology; Internal Medicine Infectious Disease; Nurse Practitioner Adult Health; Student in an Organized Health Care Education/Training Program; Admitting Provider Family Medicine; Emergency Provider Emergency Medicine; PCP Family Medicine; Visit Provider Family Medicine
PROC: 0DJ08ZZ Inspection of Upper Intestinal Tract, Via Natural or Artificial Opening Endoscopic (ICD-10-PCS; CPT 43235; principal; 2022-06-07 15:10)
DX: N17.9 Acute kidney failure, unspecified (principal); J18.9 Pneumonia, unspecified organism; K22.11 Ulcer of esophagus with bleeding; K26.4 Chronic or unspecified duodenal ulcer with hemorrhage; G93.40 Encephalopathy, unspecified; E44.0 Moderate protein-calorie malnutrition; E87.20 Acidosis, unspecified; I47.1 Supraventricular tachycardia; M62.82 Rhabdomyolysis; D62 Acute posthemorrhagic anemia; Z68.1 Body mass index [BMI] 19.9 or less, adult; N18.4 Chronic kidney disease, stage 4 (severe); E11.22 Type 2 diabetes mellitus with diabetic chronic kidney disease; I70.0 Atherosclerosis of aorta; J42 Unspecified chronic bronchitis; E11.65 Type 2 diabetes mellitus with hyperglycemia; I12.9 Hypertensive chronic kidney disease with stage 1 through stage 4 chronic kidney disease, or unspecified chronic kidney disease; E78.5 Hyperlipidemia, unspecified; D50.9 Iron deficiency anemia, unspecified; E86.0 Dehydration; Z87.891 Personal history of nicotine dependence; R09.02 Hypoxemia; Z66 Do not resuscitate; Z79.82 Long term (current) use of aspirin; N28.1 Cyst of kidney, acquired; N25.89 Other disorders resulting from impaired renal tubular function; N40.0 Benign prostatic hyperplasia without lower urinary tract symptoms; K25.9 Gastric ulcer, unspecified as acute or chronic, without hemorrhage or perforation
CPT/HCPCS: 36415; 36600; 51702; 70450; 71045; 72125; 76770; 80048; 80053; 81001; 82550; 82570; 82803; 82941; 82962; 83036; 83605; 83735; 84100; 84145; 84300; 84484; 85014; 85018; 85025; 85610; 85730; 86850; 86900; 86901; 87040; 87077; 87086; 87149; 87426; 87449; 87633; 87635; 88305; 88312; 88342; 93005; 93306; 94002; 94640; 94668; 94762; 97110; 97162; 97166; 97530; 97535; 97802; 99285; J7030; J7040; J7050; J7120; A4216; J2405; U0003; U0005

== ENCOUNTER 2022-06-16 11:39 | Inpatient (IN) | payer MEDICARE, SELFPAY ==
[2022-06-16] VITALS (37 sets, daily range): BP systolic 64–149; BP diastolic 50–108; PULSE 81–110; RESP 18–27; TEMP 36.8–37.6; O2SAT 92–98; BMI 25.8; BMI 22.4
--- NOTE | 2022-06-16 11:59 | CT_ITS ---
STUDY: CT BRAIN WITHOUT CONTRAST REASON FOR EXAM: Male, 82 years old. Trauma RADIATION DOSAGE (If Supplied By Facility): CTDIvol = ( 44.99 ) mGy, DLP = ( 812.98 ) mGycm TECHNIQUE: Transaxial CT imaging of the brain was performed without administration of intravenous contrast material. Individualized dose optimization techniques were used for this CT. COMPARISON: Comparison is made with prior study dated May 31, 2002. FINDINGS: Normal soft tissue structures. Normal calvarium. There is mild cerebral atrophy with widening of the extra-axial spaces and ventricular dilatation. There are areas of decreased attenuation within the white matter tracts of the supratentorial brain, consistent with microvascular disease changes. Normal basal ganglia and thalami. Normal brainstem. Normal cerebellum. There is no intracranial hemorrhage. There are no findings of an acute ischemic infarction. Atherosclerotic calcific plaques of the cavernous portions of the internal carotid arteries bilaterally. Partial opacification of the left maxillary sinus. CT/Brain/Head without Contrast IMPRESSION: Chronic involutional changes of the brain. Electronically Signed: Jaden Melgar MD at 13:30 EDT ,
--- NOTE | 2022-06-16 11:59 | CT_ITS ---
STUDY: CT ABDOMEN AND PELVIS WITH CONTRAST REASON FOR EXAM: Male, 82 years old. History of trauma. Frequent falls. Chronic kidney disease. Partial colectomy. RADIATION DOSAGE (If Supplied By Facility): CTDIvol = ( 16.05 ) mGy, DLP = ( 940.26 ) mGycm TECHNIQUE: Transaxial images were obtained from the dome of the diaphragm to the symphysis pubis without oral contrast. IV 100mL Isovue-300 was administered. Sagittal and coronal images were reconstructed. Individualized dose optimization techniques were used for this CT. COMPARISON: None. FINDINGS: Small bilateral pleural effusions and mild bibasilar atelectasis. Questionable filling defects in the lower lobe pulmonary arteries. Coronary artery calcification. Normal liver. Normal gallbladder and extrahepatic biliary system. Normal spleen. There are pancreatic calcifications in the distribution of the ducts consistent with chronic pancreatitis. Cystic changes are seen in the head of the pancreas most likely secondary to chronic otitis and ductal dilatation. Normal bilateral adrenal glands. Bilateral renal cysts. 3 mm nonobstructive calculus in the lower pole calyx of the right kidney. There is a moderate-sized hiatal hernia. Gaseous distention of the stomach. Fluid is also seen within the stomach. Diverticulum is seen in the second portion of the duodenum. Surgical anastomosis seen in the rectosigmoid junction. The appendix is visualized and appears normal. There is diffuse atherosclerotic calcification of the abdominal aorta, without a demonstrated aneurysm. Normal inferior vena cava. Normal retroperitoneum. Abnormal appearance of the urinary bladder. An air-fluid level is seen. Mural thickening of the anterior aspect of the urinary bladder with air bubbles within the wall of the urinary bladder. This most likely secondary to prior Rodrigues catheter placement. There are prostatic calcifications. Normal abdominal wall. There are diffuse degenerative changes of the visualized lumbar spine. CT/Abdomen/Pelvis W IV Cont ONLY IMPRESSION: Small bilateral pleural effusions. Findings suggestive of a filling defects in the visualized branches of the lower lobe pulmonary arteries. Correlation with CTA is recommended. Distention of the stomach. Findings suggestive of chronic pancreatitis. Abdominal appearance of the urinary bladder as described. Electronically Signed: Jaden Melgar MD at 13:10 EDT ,
--- NOTE | 2022-06-16 11:59 | EKG12_ITS ---
Test Reason : SOB Blood Pressure : / mmHG Vent. Rate : 103 BPM Atrial Rate : 103 BPM P-R Int : 168 ms QRS Dur : 086 ms QT Int : 390 ms P-R-T Axes : 067 -29 048 degrees QTc Int : 510 ms Sinus tachycardia with occasional Premature ventricular complexes and Fusion complexes Junctional ST depression, probably normal Borderline ECG Confirmed by OLI HAYWOOD, KENYON ([id number]), index editor LALA MURRAY ([id number]) on 06/20/2022 2:29:40 PM Referred By: ANGELIKA Confirmed By:KENJI BAIRD MD
--- NOTE | 2022-06-16 12:24 | EX.ED.DYSGE1 ---
HPI History of Present Illness Chief Complaint: Fall Informant: patient Narrative Narrative: Patient states he came in because his breathing has been a little bit hard. This has been going on a few days. He denied fever but he seems a little alarmed here and his first temperature was slightly above baseline at 99.7. He is coughing but denies bringing up sputum. He did vomit once but that was after coughing. He did not see blood or black material. He denies blood or black in his stool. He also has had frequent falls. He thinks he dislocated or broke his right index fingers and both wrists hurt since his fall. He also has some bruising at the lower abdomen mostly on the right. Dr. Harris and also called and discussed the case with this. They have outpatient blood work that shows his hemoglobin is 6.7. He did have a recent cauterization of vessels in the esophagus stomach and duodenum with his recent admission. They report a slightly higher temperature of 100.4. Blood pressure has been a little bit low. His activity has been less. His intake has been less. They are concerned because he seems to be getting weaker not better the last few days. Patient states he did fall a few days ago. He only hurt his wrist. He states nothing else hurts. [facility] Medical History BPH (benign prostatic hyperplasia) Chronic bronchitis CKD (chronic kidney disease), stage III Former tobacco use HLD (hyperlipidemia) HTN (hypertension) Hx of urethral stricture SVT (supraventricular tachycardia) Home Medications Prinzide 10 mg PO DAILY 11/12/12 [History Last Taken 11/30/12 06:30 10 MG] albuterol sulfate 90 mcg/actuation aerosol inhaler (ProAir HFA) 1 - 2 puff inhalation Q4H PRN PRN Asthma 11/12/12 [History Last Taken 11/30/12 06:30 1 - 2 PUFF] aspirin 81 mg chewable tablet 81 mg PO DAILY@0800 heart health 11/12/12 [History Last Taken 11/30/12 06:30 81 MG] pravastatin 20 mg tablet 20 mg PO QHS high cholesterol 11/12/12 [History Last Taken 11/30/12 06:30 20 MG] cholecalciferol (vitamin D3) 50 mcg (2,000 unit) tablet (Vitamin D3) 50 mcg PO DAILY general health 05/31/22 [History Last Taken Unknown] ergocalciferol (vitamin D2) 1,000 unit capsule 1,000 unit PO DAILY health 05/31/22 [History Last Taken Unknown] diltiazem HCl 120 mg capsule,extended release 24 hr 120 mg PO DAILY #0 caps 06/08/22 [Rx Last Taken Unknown] metoprolol tartrate 25 mg tablet 25 mg PO BID #0 tabs 06/08/22 [Rx Last Taken Unknown] pantoprazole 40 mg tablet,delayed release (Protonix) 40 mg PO BID #1 TAB 06/08/22 [Rx Last Taken Unknown] sodium bicarbonate 650 mg tablet 650 mg PO TID #0 tabs 06/08/22 [Rx Last Taken Unknown] sucralfate 1 gram tablet 1 g PO 1HR_ACHS #0 tabs 06/08/22 [Rx Last Taken Unknown] Allergy/AdvReac Type Severity Reaction Status Date / Time No Known Allergies Allergy Verified 06/16/22 11:42 Family History Sister Cancer Mother Heart disease Diabetes Hypertension Father Heart disease Diabetes Hypertension Other COPD (chronic obstructive pulmonary disease) Surgical History H/O cystoscopy S/P colonoscopic polypectomy S/P partial colectomy Social History household members: none Smoking Status: Former smoker quit date: 07/17/09 pack-years: 60 alcohol intake: current alcohol intake frequency: 0-2 drinks per day details: Per prior records max 1 drink daily. substance use type: does not use ROS ROS ED ROS Narrative A complete review of systems was performed and is negative except as documented in the history of present illness. Some specific details below. Constitutional: Patient has had temperature of at least 100.4 at his rehab facility. He does admit to generalized weakness. EYE: No discharge, visual complaints, or pain. ENT: No difficulty swallowing. No swelling. No pain. No reflux symptoms. He vomited once but after coughing. He denies seeing any blood. CV: He denies any chest pain or palpitations. Respiratory: See history of present illness. He does admit to coughing and being a little bit more dyspneic than baseline. But he is on his baseline oxygen which is supposedly 4 L. But he is saturating great at 3 L here. GI: No abdominal pain. No nausea vomiting except that one episode and patient denies diarrhea. No blood in stool. No melena. : No frequency dysuria or hematuria. Musculoskeletal: See history of present illness. He has bilateral wrist pain and right index finger pain. Skin: No rash. Nondiaphoretic. Denies excessive bruising but he does have some bruising down at the right lower abdomen. Neuro: No focal weakness or numbness. He does admit to some generalized weakness. Endocrine: No polyuria or polydipsia. EXAM Physical Exam Narrative Exam Narrative: CONSTITUTIONAL: Patient is nontoxic in appearance. Over, he does look chronically ill. The patient looks comfortable. Work of breathing looks slightly increased. HEENT: No notable trauma. Mucous membranes a bit dry. No sinus tenderness. No indication of pain with swallowing. EYES: No conjunctival injection. No proptosis. He does have mild to moderate pallor. NECK:No JVD. No stridor. CARDIOVASCULAR: Borderline tachycardic rate. Regular rhythm. No notable murmur. No JVD. However, he does have wheezing and is little hard to hear subtleties of a murmur. RESPIRATORY: No respiratory distress. Breathing is slightly labored. He does have some expiratory wheezes and decreased sounds throughout likely from poor air motion. No rhonchi. No rales. No pain with a deep breath. No chest wall tenderness. GASTROINTESTINAL: Not distended. Bowel sounds are normal. No tenderness. No guarding. No rebound. He does have bruising down the right lower quadrant above the iliac crest. But is not really tender there. It is not swollen. GENITOURINARY: No tenderness over the bladder. MUSCULOSKELETAL: Patient has bilateral wrist pain. He has a little swelling on the right. He has deformity of the distal tuft of his right index finger. It appears to be ulnar deviated and slight mallet finger deformity. NEUROLOGICAL: Patient is alert and appropriate. No focal deficit noted. He knows where he is, that he was in the hospital recently, the year, the vice [employer]. He is very alert. He is not at all sleepy or lethargic. SKIN: No noted rashes. No diaphoresis. PSYCHIATRIC: Patient is calm. Mood is appropriate. Const Vital Signs: 06/16/22 11:42 06/16/22 11:45 06/16/22 11:48 Temperature 99.7 F H 99.7 F H Temperature Source Temporal Temporal Pulse Rate 110 H 106 H Respiratory Rate 25 H 24 H Respiratory Effort Short of Breath Respiratory Depth Shallow Respiratory Pattern Tachypnea Blood Pressure 149/108 H 149/108 H Blood Pressure Mean 121 121 Pulse Ox 96 95 Oxygen Delivery Method Nasal Cannula Nasal Cannula Nasal Cannula Oxygen Flow Rate (L/min) 3 3 3 06/16/22 11:53 06/16/22 12:18 06/16/22 12:20 Temperature 98.4 F Temperature Source Oral Pulse Rate 99 97 93 Respiratory Rate 24 H 23 H 20 H Respiratory Effort Respiratory Depth Respiratory Pattern Blood Pressure 93/57 L Blood Pressure Mean 69 Pulse Ox 97 98 98 Oxygen Delivery Method Nasal Cannula Oxygen Flow Rate (L/min) 3 06/16/22 12:53 06/16/22 12:30 06/16/22 12:30 Temperature 99.6 F H Temperature Source Temporal Pulse Rate 95 98 98 Respiratory Rate 24 H 27 H 27 H Respiratory Effort Respiratory Depth Respiratory Pattern Blood Pressure 91/58 L 64/50 L Blood Pressure Mean 69 56 Pulse Ox 92 Oxygen Delivery Method Nasal Cannula Oxygen Flow Rate (L/min) 3 06/16/22 13:00 06/16/22 13:00 06/16/22 13:55 Temperature Temperature Source Pulse Rate 97 97 96 Respiratory Rate 25 H 25 H 24 H Respiratory Effort Respiratory Depth Respiratory Pattern Blood Pressure 91/58 L 87/65 L Blood Pressure Mean 70 72 Pulse Ox 93 93 94 Oxygen Delivery Method Oxygen Flow Rate (L/min) 06/16/22 13:10 06/16/22 13:15 06/16/22 13:20 Temperature Temperature Source Pulse Rate 92 91 94 Respiratory Rate 25 H 22 H 22 H Respiratory Effort Respiratory Depth Respiratory Pattern Blood Pressure 104/68 Blood Pressure Mean 77 Pulse Ox 93 94 Oxygen Delivery Method Oxygen Flow Rate (L/min) 06/16/22 13:30 06/16/22 13:30 06/16/22 13:40 Temperature Temperature Source Pulse Rate 95 95 88 Respiratory Rate 22 H 22 H 24 H Respiratory Effort Respiratory Depth Respiratory Pattern Blood Pressure 99/64 Blood Pressure Mean 75 Pulse Ox 98 Oxygen Delivery Method Oxygen Flow Rate (L/min) 06/16/22 13:45 06/16/22 13:50 06/16/22 14:00 Temperature Temperature Source Pulse Rate 89 88 87 Respiratory Rate 21 H 21 H 23 H Respiratory Effort Respiratory Depth Respiratory Pattern Blood Pressure 87/66 L 83/63 L Blood Pressure Mean 75 72 Pulse Ox 98 98 97 Oxygen Delivery Method Oxygen Flow Rate (L/min) 06/16/22 14:00 06/16/22 14:10 06/16/22 14:15 Temperature Temperature Source Pulse Rate 87 97 91 Respiratory Rate 23 H 25 H 22 H Respiratory Effort Respiratory Depth Respiratory Pattern Blood Pressure 104/78 Blood Pressure Mean 86 Pulse Ox 97 95 95 Oxygen Delivery Method Oxygen Flow Rate (L/min) 06/16/22 14:20 06/16/22 14:30 06/16/22 14:30 Temperature Temperature Source Pulse Rate 89 97 97 Respiratory Rate 18 24 H 24 H Respiratory Effort Respiratory Depth Respiratory Pattern Blood Pressure 102/72 Blood Pressure Mean 82 Pulse Ox 97 94 94 Oxygen Delivery Method Oxygen Flow Rate (L/min) 06/16/22 14:40 06/16/22 14:45 06/16/22 14:50 Temperature Temperature Source Pulse Rate 91 93 89 Respiratory Rate 18 25 H 27 H Respiratory Effort Respiratory Depth Respiratory Pattern Blood Pressure 93/62 Blood Pressure Mean 73 Pulse Ox 97 97 97 Oxygen Delivery Method Oxygen Flow Rate (L/min) 06/16/22 15:00 06/16/22 15:10 06/16/22 15:15 Temperature Temperature Source Pulse Rate 90 89 90 Respiratory Rate 24 H 22 H 23 H Respiratory Effort Respiratory Depth Respiratory Pattern Blood Pressure 92/61 Blood Pressure Mean 72 Pulse Ox Oxygen Delivery Method Oxygen Flow Rate (L/min) 06/16/22 15:20 06/16/22 15:30 06/16/22 15:30 Temperature Temperature Source Pulse Rate 90 86 86 Respiratory Rate 22 H 25 H 25 H Respiratory Effort Respiratory Depth Respiratory Pattern Blood Pressure 87/60 L Blood Pressure Mean 69 Pulse Ox Oxygen Delivery Method Oxygen Flow Rate (L/min) 06/16/22 15:40 06/16/22 15:45 06/16/22 15:50 Temperature Temperature Source Pulse Rate 87 86 87 Respiratory Rate 20 H 19 H 19 H Respiratory Effort Respiratory Depth Respiratory Pattern Blood Pressure 84/63 L Blood Pressure Mean 72 Pulse Ox 98 Oxygen Delivery Method Oxygen Flow Rate (L/min) 06/16/22 16:00 Temperature Temperature Source Pulse Rate 95 Respiratory Rate 20 H Respiratory Effort Respiratory Depth Respiratory Pattern Blood Pressure Blood Pressure Mean Pulse Ox Oxygen Delivery Method Oxygen Flow Rate (L/min) MDM MDM MDM Narrative Medical decision making narrative: Patient's hemoglobin is low at 7.7. But it looks like was trending down in the hospital also. There is no report from patient or [facility] of any black or bloody stools. White count is normal. Platelets are normal. Electrolytes show elevated glucose. Creatinine is up a little bit. Lactic acid was high at 3.3. Patient is given 30 cc/kg of IV fluids. He was not given IV the antibiotics because he has a positive influenza B that explains his cough and pulmonary symptoms. His urine does not look infected. Cultures are sent off. Liver function test showed some mild elevation of ALT and AST which she has had before. He has mild alkaline phosphatase elevation. My independent interpretation the CT scan of the abdomen shows no acute process and no sign of retroperitoneal bleeding. Final reading did note that there is a possibility of decreased flow and some of the pulmonary arteries which bring into question possibility of pulmonary embolus. This patient has complex intersecting illnesses. He has pulmonary symptoms but is not dropping his saturations even on less than his normal oxygen. He is normally on 4 L what I am told. But he is saturating 97 to 100% on [address] of the abdomen hence that there could be pulmonary embolus. But I cannot give him another dye load due to his renal function. I am also reluctant to heavily anticoagulate him with his recent GI bleed and sclerosing. I discussed the case with vascular surgery, Dr. Hanley. He felt that it is reasonable to hydrate him and possibly redo the CT scan tomorrow. If concern we could start low-dose heparin such at 5 cc/h. But the CT finding may not be accurate. This was a incidental finding and not expected on the imaging. His respiratory symptoms are explained by his influenza. Patient's blood pressure has been low here but his mean is always above 65. Currently his mean is about 78. He is awake he is alert he is appropriate and mentating. I do not think he needs to be on pressors at this time. If he has further blood pressure issues, I think blood transfusion would be more appropriate. I have hospitalist on page to discuss complex patient. Lab Data Attestation: I reviewed the patient's lab results. Labs: Laboratory Results - last 24 hr 06/16/22 06/16/22 06/16/22 12:15 12:15 12:15 WBC 8.9 RBC 2.48 L Hgb 7.7 L Hct 24.6 L MCV 99.2 H MCH 31.0 MCHC 31.3 L RDW Std Deviation 50.1 H RDW Coeff of Fidelia 13.9 Plt Count 303 MPV 11.2 Immature Gran % (Auto) 0.600 Neut % (Auto) 84.0 H Lymph % (Auto) 6.9 L [place] % (Auto) 5.9 Eos % (Auto) 2.0 Baso % (Auto) 0.6 Absolute Neuts (auto) 7.5 Absolute Lymphs (auto) 0.61 L Nucleated RBC % 0 Differential Comment SCANNED Sodium 140 Potassium 4.1 Chloride 105 Carbon Dioxide 26.0 Anion Gap 9 BUN 23 H Creatinine 1.92 H Estim Creat Clear Calc 29.66 Est GFR (MDRD) Af Amer 43 L Est GFR (MDRD) Non-Af 36 L BUN/Creatinine Ratio 12.0 Glucose 181 H Lactic Acid 3.3 H* Calcium 8.5 Total Bilirubin 0.30 AST 91 H ALT 63 H Alkaline Phosphatase 159 H Total Protein 5.5 L Albumin 1.4 L Globulin 4.1 Albumin/Globulin Ratio 0.3 L Urine Color Urine Clarity Urine pH Ur Specific [place] Urine Protein Urine Glucose (UA) Urine Ketones Urine Occult Blood Urine Nitrite Urine Bilirubin Urine Urobilinogen Ur Leukocyte Esterase Urine RBC Urine WBC Ur Squamous Epith Cells Calcium Oxalate Crystal Amorphous Sediment Urine Bacteria Fine Granular Casts Urine Mucus Urine Yeast Blood Type Antibody Screen 06/16/22 06/16/22 12:15 14:37 WBC RBC Hgb Hct MCV MCH MCHC RDW Std Deviation RDW Coeff of Fidelia Plt Count MPV Immature Gran % (Auto) Neut % (Auto) Lymph % (Auto) [place] % (Auto) Eos % (Auto) Baso % (Auto) Absolute Neuts (auto) Absolute Lymphs (auto) Nucleated RBC % Differential Comment Sodium Potassium Chloride Carbon Dioxide Anion Gap BUN Creatinine Estim Creat Clear Calc Est GFR (MDRD) Af Amer Est GFR (MDRD) Non-Af BUN/Creatinine Ratio Glucose Lactic Acid Calcium Total Bilirubin AST ALT Alkaline Phosphatase Total Protein Albumin Globulin Albumin/Globulin Ratio Urine Color Yellow Urine Clarity Sl. Cloudy Urine pH 5.0 Ur Specific [place] 1.015 Urine Protein 30 H Urine Glucose (UA) Normal Urine Ketones Negative Urine Occult Blood 10 H Urine Nitrite Negative Urine Bilirubin Negative Urine Urobilinogen Normal Ur Leukocyte Esterase 100 H Urine RBC 0 SEEN Urine WBC 5-10 SEEN Ur Squamous Epith Cells 0 SEEN Calcium Oxalate Crystal 1+ Amorphous Sediment 1+ Urine Bacteria 0 SEEN Fine Granular Casts 0-5 SEEN Urine Mucus 0 SEEN Urine Yeast 2+ Blood Type A NEGATIVE Antibody Screen NEGATIVE Radiography Diagnostic Testing: Clinical Impression(s) from Imaging Studies Abdomen/Pelvis CT 06/16/22 11:59 IMPRESSION: Small bilateral pleural effusions. Findings suggestive of a filling defects in the visualized branches of the lower lobe pulmonary arteries. Correlation with CTA is recommended. Distention of the stomach. Findings suggestive of chronic pancreatitis. Abdominal appearance of the urinary bladder as described. Electronically Signed: Jaden Melgar MD at 13:10 EDT , Brain CT 06/16/22 11:59 IMPRESSION: Chronic involutional changes of the brain. Electronically Signed: Jaden Melgar MD at 13:30 EDT , Hand X-Ray 06/16/22 12:50 IMPRESSION: Degenerative changes of the distal interphalangeal joint of the index finger with erosive changes and soft tissue swelling. No fracture is seen. Electronically Signed: Jaden Melgar MD at 13:32 EDT , Wrist X-Ray 06/16/22 12:50 IMPRESSION: Normal x-ray examination of the wrist. Electronically Signed: Jaden Melgar MD at 13:33 EDT , Wrist X-Ray 06/16/22 12:50 IMPRESSION: Soft tissue swelling. Electronically Signed: Jaden Melgar MD at 13:33 EDT , Chest X-Ray 06/16/22 12:55 IMPRESSION: Hyperinflation. The lungs are clear. Electronically Signed: Jaden Melgar MD at 13:31 EDT , EKG Initial EKG: Comments: EKG was done for falls generalized weakness. Of note it was very difficult to get EKG. I was in there with the tech. It was hard to get the patient to stay still long enough to get a good reading. She did the absolute best result that we can get. I looked at multiple of these on the screen before we printed out the best. This shows sinus rhythm with tachycardic rate at 103. There is an occasional PVC. No notable ST elevation or depression. ME interval and QRS duration are normal. QTc was a bit long at 510 ms. Discharge Plan Triage Chief Complaint: Fall Other Complaint: Shortness of Breath ED Provider: Nicko Le Dx/Rx/DC Orders Clinical Impression: Influenza B, Generalized weakness, Mallet deformity of right index finger Primary Care Provider: Rodney Shah Disposition Disposition: Acute Care Hospital [facility]
[2022-06-16 12:28] LABS: Absolute Lymphocyte Count 0.61 X10^3/uL (0.83-4.51); Absolute Neutrophil Count 7.5 X10^3/uL (2.0-7.7); Basophil# 0.05 X10^3/uL; Basophil% 0.6 % (0-1); Eosinophil# 0.18 X10^3/uL; Hematocrit 24.6 % (40-54); Hemoglobin 7.7 g/dL (13.0-16.5); Lymphocyte # 0.61 X10^3/ul (0.83-4.51); Lymphocyte % 6.9 % (19-41); Mean Corp Hgb Conc 31.3 g/dL (32-36); Mean Corpuscular Volume 99.2 fL (80-94); Mean Platelet Vol. 11.2 fl (6.2-12.0); Monocyte# 0.52 X10^3/uL; Monocyte% 5.9 % (0-10); NRBC Flagged by Analyzer 0 % (0-5); Neutrophil # 7.45 X10^3/uL (2.7-7.7); POSITIVE MORPHOLOGY YES; Platelet Count 303 K/mm3 (150-450); RBC Distribution Width CV 13.9 % (11.6-14.6); RBC Distribution Width SD 50.1 fl (35.1-43.9); Red Blood Count 2.48 M/mm3 (4.6-6.2); White Blood Count 8.9 K/mm3 (4.4-11.0)
[2022-06-16 12:31] LABS: Differential Indicated SCAN CRITERIA MET
[2022-06-16 12:46] LABS: ALB/GLOB Ratio 0.3 RATIO (0.9-2.4); AST(SGOT) 91 U/L (15-37); Alanine Aminotransfer ALT/SGPT 63 U/L (16-61); Albumin, Serum 1.4 g/dL (3.2-5.0); Alkaline Phosphatase 159 U/L (45-117); Anion Gap 9 (5-15); BUN 23 mg/dL (7-18); Calcium,Total 8.5 mg/dL (8.5-10.1); Chloride 105 mmol/L (98-107); Creatinine, Serum 1.92 mg/dL (0.70-1.30); Differential Comment SCANNED; EST Glomerular Filtration Rate 36 mL/min (>60); Est Glom Filt Rate - Afr Amer 43 mL/min (>60); Estimated Creatinine Clearance 29.66 ml/min; Globulin 4.1 g/dL (2.2-4.2); Glucose 181 mg/dL (74-106); Potassium 4.1 mmol/L (3.5-5.1); Protein, Total 5.5 g/dL (6.4-8.2); Sodium Level 140 mmol/L (136-145)
--- NOTE | 2022-06-16 12:50 | RAD_ITS ---
STUDY: X-RAY - RIGHT HAND REASON FOR EXAM: Male, 82 years old. Right hand pain and wrist pain following a fall. TECHNIQUE: 3 view(s) of the hand. COMPARISON: None. FINDINGS: Normal radiocarpal articulation. Normal distal radioulnar joint. Normal visualized carpal bones. Normal carpal articulations Normal carpometacarpal articulation of the thumb. Normal second through fifth carpometacarpal joints. Normal metacarpi. Normal metacarpophalangeal joint of the thumb. Normal interphalangeal joint of the thumb. Normal proximal and distal phalanges of the thumb. Normal metacarpophalangeal joints of the second through fifth fingers. Joint space narrowing and articular erosive changes are seen at the distal interphalangeal joint of the index finger. Normal phalanges of the second through fifth fingers. Soft tissue swelling. RAD/Hand Min 3 Views IMPRESSION: Degenerative changes of the distal interphalangeal joint of the index finger with erosive changes and soft tissue swelling. No fracture is seen. Electronically Signed: Jaden Melgar MD at 13:32 EDT ,
--- NOTE | 2022-06-16 12:50 | RAD_ITS ---
STUDY: X-RAY - LEFT WRIST REASON FOR EXAM: Male, 82 years old. Pain following a fall. TECHNIQUE: 3 view(s) of the wrist were obtained. COMPARISON: None. FINDINGS: Normal visualized distal radius and ulna. Normal radiocarpal articulation. Normal distal radioulnar articulation. Normal carpal bones. Normal carpal articulations. Normal carpometacarpal articulation of the thumb. Normal second through fifth carpometacarpal articulations. Normal visualized metacarpal bones. Soft tissue swelling. RAD/Wrist min 3 Views IMPRESSION: Soft tissue swelling. Electronically Signed: Jaden Melgar MD at 13:33 EDT ,
--- NOTE | 2022-06-16 12:50 | RAD_ITS ---
STUDY: X-RAY - RIGHT WRIST REASON FOR EXAM: Male, 82 years old. Wrist pain following a fall. TECHNIQUE: 3 view(s) of the wrist were obtained. COMPARISON: None. FINDINGS: Normal visualized distal radius and ulna. Normal radiocarpal articulation. Normal distal radioulnar articulation. Normal carpal bones. Normal carpal articulations. Normal carpometacarpal articulation of the thumb. Normal second through fifth carpometacarpal articulations. Normal visualized metacarpal bones. The soft tissue structures are unremarkable. RAD/Wrist min 3 Views IMPRESSION: Normal x-ray examination of the wrist. Electronically Signed: Jaden Melgar MD at 13:33 EDT ,
[2022-06-16 12:53] LABS: Lactic Acid 3.3 mmol/L (0.4-1.9)
--- NOTE | 2022-06-16 12:55 | RAD_ITS ---
STUDY: X-RAY CHEST REASON FOR EXAM: Male, 82 years old. Trauma TECHNIQUE: Single AP portable view of the chest. COMPARISON: Comparison is made with prior study June 06, 2022. FINDINGS: EKG electrodes are seen. Hyperinflation. Scattered calcified granulomas. There is no demonstrated pleural abnormality. Normal size heart. Normal mediastinum and balbir. Normal visualized pulmonary arteries. There is atherosclerotic calcification of the aortic arch with tortuosity. Normal visualized thoracic spine. Normal visualized ribs, clavicles, and shoulders. There is no demonstrated abnormality of the visualized soft tissue structures of the upper abdomen. RAD/Chest 1 View (Portable) IMPRESSION: Hyperinflation. The lungs are clear. Electronically Signed: Jaden Melgar MD at 13:31 EDT ,
[2022-06-16] MEDS: 0.9% Normal Saline 1,000 ML 999 ML IV (13:13)
[2022-06-16] MEDS: Ondansetron 4 MG/2 ML Vial IV (13:34)
[2022-06-16 14:42] LABS: Bacteria 0 SEEN /hpf (None Seen); Mucous, Urine 0 SEEN /hpf (<or=2+); Red Blood Cells-Urine 0 SEEN /hpf (0-5); Squamous Epithelial Cells - UA 0 SEEN /hpf (0-5)
[2022-06-16 14:46] LABS: Color, Urine Yellow (Yellow); Glucose, Dipstick Normal (Normal); Ketone-Dipstick Negative (Negative); Leukocyte Esterase-Dipstick 100 /ul (Negative); Nitrite-Dipstick Negative (Negative); Occult Blood-Urine 10 /ul (Negative); Protein-Dipstick 30 mg/dl (Negative); Specific Gravity, Urine 1.015 (1.002-1.030); Urine Bilirubin Dipstick Negative (Negative); Urine Clarity Sl. Cloudy (Clear); Urine Urobilinogen Normal (Normal)
[2022-06-16 14:51] LABS: Calcium Oxalate Crystals Ur 1+ /hpf (<or=2+); White Blood Cells 5-10 SEEN /hpf (0-5)
[2022-06-16 14:52] LABS: Amorphous Sediment 1+; Fine Granular Cast- Urine 0-5 SEEN /lpf (0-5); Yeast-Urine 2+ /hpf (None Seen)
--- NOTE | 2022-06-16 16:09 | HP.PCM.HOS_ITS ---
[facility] - [facility] Date of Service: 06/16/22 Chief Complaint: malaise [facility] Narrative AVRIL POLO, is a 82 M who presents with feeling tired for the past 2 days. Patient had fallen today and sustained an injury to his right index finger. Patient was sent to the emergency room for evaluation. Patient underwent a battery of tests and imaging. Patient was found to have lactic acid of 3.3, creatinine 1.92. Patient as outpatient was noted to have hemoglobin 6.7 but in the emergency room was noted to be 7.7. Chest x-ray was unremarkable. Patient had a hand x-ray that showed degenerative changes of the distal interphalangeal joint of the index finger on the right with erosive changes and soft tissue swelling. Head CT was unremarkable. Patient had ecchymosis on his abdomen and there is concern that there could be some intra-abdominal process. And it was a CAT scan with IV contrast and there was concern about filling defects of the visualized branches of the lower lobes of the pulmonary arteries. Dr. Le, reached out to Dr. Hanley, vascular surgery who recommended CTA after the patient has been hydrated given his chronic kidney disease. Patient denies any history of pulmonary embolism nor DVT. Patient tells me with his fall today that he developed a finger injury where his right DIP is deviated radially. Additionally patient was found to be positive for influenza B Patient was discharged on June 08 where he was found down, had acute loss anemia secondary to GI bleed from severe esophagitis and peptic ulcer disease as well as metabolic acidosis secondary to chronic kidney disease. Additionally had a community-acquired pneumonia and had SVT and was started on diltiazem at that time. [facility] Medical History BPH (benign prostatic hyperplasia) Chronic bronchitis CKD (chronic kidney disease), stage III Former tobacco use HLD (hyperlipidemia) HTN (hypertension) Hx of urethral stricture SVT (supraventricular tachycardia) Home Medications Prinzide 10 mg PO DAILY 11/12/12 [History Last Taken 11/30/12 06:30 10 MG] albuterol sulfate 90 mcg/actuation aerosol inhaler (ProAir HFA) 1 - 2 puff inhalation Q4H PRN PRN Asthma 11/12/12 [History Last Taken 11/30/12 06:30 1 - 2 PUFF] aspirin 81 mg chewable tablet 81 mg PO DAILY@0800 heart health 11/12/12 [History Last Taken 11/30/12 06:30 81 MG] pravastatin 20 mg tablet 20 mg PO QHS high cholesterol 11/12/12 [History Last Taken 11/30/12 06:30 20 MG] cholecalciferol (vitamin D3) 50 mcg (2,000 unit) tablet (Vitamin D3) 50 mcg PO DAILY general health 05/31/22 [History Last Taken Unknown] ergocalciferol (vitamin D2) 1,000 unit capsule 1,000 unit PO DAILY health 05/31/22 [History Last Taken Unknown] diltiazem HCl 120 mg capsule,extended release 24 hr 120 mg PO DAILY #0 caps 06/08/22 [Rx Last Taken Unknown] metoprolol tartrate 25 mg tablet 25 mg PO BID #0 tabs 06/08/22 [Rx Last Taken Unknown] pantoprazole 40 mg tablet,delayed release (Protonix) 40 mg PO BID #1 TAB 06/08/22 [Rx Last Taken Unknown] sodium bicarbonate 650 mg tablet 650 mg PO TID #0 tabs 06/08/22 [Rx Last Taken Unknown] sucralfate 1 gram tablet 1 g PO 1HR_ACHS #0 tabs 06/08/22 [Rx Last Taken Unknown] Allergy/AdvReac Type Severity Reaction Status Date / Time No Known Allergies Allergy Verified 06/16/22 11:42 Family History Sister Cancer Mother Heart disease Diabetes Hypertension Father Heart disease Diabetes Hypertension Other COPD (chronic obstructive pulmonary disease) Surgical History H/O cystoscopy S/P colonoscopic polypectomy S/P partial colectomy Social History household members: none Smoking Status: Former smoker quit date: 07/17/09 pack-years: 60 alcohol intake: current alcohol intake frequency: 0-2 drinks per day details: Per prior records max 1 drink daily. substance use type: does not use ROS ROS Narrative Cough with some production, color is unknown. No sinus congestion, no sore throat no fever or chills. All review of systems were negative except as mentioned above in the history of present illness and the other review of systems. Vital Signs Vital Signs Vital Signs: 06/16/22 11:42 06/16/22 11:45 06/16/22 11:48 Temperature 37.6 C H 37.6 C H Temperature Source Temporal Temporal Pulse Rate 110 H 106 H Respiratory Rate 25 H 24 H Respiratory Effort Short of Breath Respiratory Depth Shallow Respiratory Pattern Tachypnea Blood Pressure 149/108 H 149/108 H Blood Pressure Mean 121 121 Pulse Ox 96 95 Oxygen Delivery Method Nasal Cannula Nasal Cannula Nasal Cannula Oxygen Flow Rate (L/min) 3 3 3 06/16/22 11:53 06/16/22 12:18 06/16/22 12:20 Temperature 36.9 C Temperature Source Oral Pulse Rate 99 97 93 Respiratory Rate 24 H 23 H 20 H Respiratory Effort Respiratory Depth Respiratory Pattern Blood Pressure 93/57 L Blood Pressure Mean 69 Pulse Ox 97 98 98 Oxygen Delivery Method Nasal Cannula Oxygen Flow Rate (L/min) 3 06/16/22 12:53 06/16/22 12:30 06/16/22 12:30 Temperature 37.6 C H Temperature Source Temporal Pulse Rate 95 98 98 Respiratory Rate 24 H 27 H 27 H Respiratory Effort Respiratory Depth Respiratory Pattern Blood Pressure 91/58 L 64/50 L Blood Pressure Mean 69 56 Pulse Ox 92 Oxygen Delivery Method Nasal Cannula Oxygen Flow Rate (L/min) 3 06/16/22 13:00 06/16/22 13:00 06/16/22 13:55 Temperature Temperature Source Pulse Rate 97 97 96 Respiratory Rate 25 H 25 H 24 H Respiratory Effort Respiratory Depth Respiratory Pattern Blood Pressure 91/58 L 87/65 L Blood Pressure Mean 70 72 Pulse Ox 93 93 94 Oxygen Delivery Method Oxygen Flow Rate (L/min) 06/16/22 13:10 06/16/22 13:15 06/16/22 13:20 Temperature Temperature Source Pulse Rate 92 91 94 Respiratory Rate 25 H 22 H 22 H Respiratory Effort Respiratory Depth Respiratory Pattern Blood Pressure 104/68 Blood Pressure Mean 77 Pulse Ox 93 94 Oxygen Delivery Method Oxygen Flow Rate (L/min) 06/16/22 13:30 06/16/22 13:30 06/16/22 13:40 Temperature Temperature Source Pulse Rate 95 95 88 Respiratory Rate 22 H 22 H 24 H Respiratory Effort Respiratory Depth Respiratory Pattern Blood Pressure 99/64 Blood Pressure Mean 75 Pulse Ox 98 Oxygen Delivery Method Oxygen Flow Rate (L/min) 06/16/22 13:45 06/16/22 13:50 06/16/22 14:00 Temperature Temperature Source Pulse Rate 89 88 87 Respiratory Rate 21 H 21 H 23 H Respiratory Effort Respiratory Depth Respiratory Pattern Blood Pressure 87/66 L 83/63 L Blood Pressure Mean 75 72 Pulse Ox 98 98 97 Oxygen Delivery Method Oxygen Flow Rate (L/min) 06/16/22 14:00 06/16/22 14:10 06/16/22 14:15 Temperature Temperature Source Pulse Rate 87 97 91 Respiratory Rate 23 H 25 H 22 H Respiratory Effort Respiratory Depth Respiratory Pattern Blood Pressure 104/78 Blood Pressure Mean 86 Pulse Ox 97 95 95 Oxygen Delivery Method Oxygen Flow Rate (L/min) 06/16/22 14:20 06/16/22 14:30 06/16/22 14:30 Temperature Temperature Source Pulse Rate 89 97 97 Respiratory Rate 18 24 H 24 H Respiratory Effort Respiratory Depth Respiratory Pattern Blood Pressure 102/72 Blood Pressure Mean 82 Pulse Ox 97 94 94 Oxygen Delivery Method Oxygen Flow Rate (L/min) 06/16/22 14:40 06/16/22 14:45 06/16/22 14:50 Temperature Temperature Source Pulse Rate 91 93 89 Respiratory Rate 18 25 H 27 H Respiratory Effort Respiratory Depth Respiratory Pattern Blood Pressure 93/62 Blood Pressure Mean 73 Pulse Ox 97 97 97 Oxygen Delivery Method Oxygen Flow Rate (L/min) 06/16/22 15:00 06/16/22 15:10 06/16/22 15:15 Temperature Temperature Source Pulse Rate 90 89 90 Respiratory Rate 24 H 22 H 23 H Respiratory Effort Respiratory Depth Respiratory Pattern Blood Pressure 92/61 Blood Pressure Mean 72 Pulse Ox Oxygen Delivery Method Oxygen Flow Rate (L/min) 06/16/22 15:20 06/16/22 15:30 06/16/22 15:30 Temperature Temperature Source Pulse Rate 90 86 86 Respiratory Rate 22 H 25 H 25 H Respiratory Effort Respiratory Depth Respiratory Pattern Blood Pressure 87/60 L Blood Pressure Mean 69 Pulse Ox Oxygen Delivery Method Oxygen Flow Rate (L/min) 06/16/22 15:40 06/16/22 15:45 06/16/22 15:50 Temperature Temperature Source Pulse Rate 87 86 87 Respiratory Rate 20 H 19 H 19 H Respiratory Effort Respiratory Depth Respiratory Pattern Blood Pressure 84/63 L Blood Pressure Mean 72 Pulse Ox 98 Oxygen Delivery Method Oxygen Flow Rate (L/min) 06/16/22 16:00 Temperature Temperature Source Pulse Rate 95 Respiratory Rate 20 H Respiratory Effort Respiratory Depth Respiratory Pattern Blood Pressure Blood Pressure Mean Pulse Ox Oxygen Delivery Method Oxygen Flow Rate (L/min) Weight Weight: 79.3 kg Body Mass Index (BMI) 25.8 Physical Exam Const alert and no apparent distress Constitutional Narrative: Slightly hard of hearing. Nontoxic. HEENT normocephalic, head/scalp atraumatic and moist oral mucous membranes Eyes Eyes Narrative: No icterus Neck no lymphadenopathy Neck Narrative: No thyromegaly Resp normal respiratory effort, no retractions, no use of accessory muscles and clear to auscultation bilaterally Cardio regular rate, regular rhythm, S1 normal heart sound and S2 normal heart sound GI normal to inspection, nondistended, normoactive bowel sounds, soft to palpation, non-tender and non-distended GI Narrative: Ecchymosis on the lower abdomen. Extremity Extremity Narrative: Right index finger is deviated radially with some erythema at the DIP. Minimally tender to palpation. Neuro oriented x3 and moves all extremities Sensorium / Orientation: awake and alert Speech: speech normal Psych affect normal Results Lab / Micro Data Attestation: I reviewed the patient's lab results. Result Diagrams: 06/16/22 12:15 06/16/22 12:15 Labs: Laboratory Results - last 24 hr 06/16/22 12:15: WBC 8.9, RBC 2.48 L, Hgb 7.7 L, Hct 24.6 L, MCV 99.2 H, MCH 31.0, MCHC 31.3 L, RDW Std Deviation 50.1 H, RDW Coeff of Fidelia 13.9, Plt Count 303, MPV 11.2, Immature Gran % (Auto) 0.600, Neut % (Auto) 84.0 H, Lymph % (Auto) 6.9 L, [place] % (Auto) 5.9, Eos % (Auto) 2.0, Baso % (Auto) 0.6, Absolute Neuts (auto) 7.5, Absolute Lymphs (auto) 0.61 L, Nucleated RBC % 0, Differential Comment SCANNED 06/16/22 12:15: Sodium 140, Potassium 4.1, Chloride 105, Carbon Dioxide 26.0, Anion Gap 9, BUN 23 H, Creatinine 1.92 H, Estim Creat Clear Calc 29.66, Est GFR (MDRD) Af Amer 43 L, Est GFR (MDRD) Non-Af 36 L, BUN/Creatinine Ratio 12.0, Glucose 181 H, Calcium 8.5, Total Bilirubin 0.30, AST 91 H, ALT 63 H, Alkaline Phosphatase 159 H, Total Protein 5.5 L, Albumin 1.4 L, Globulin 4.1, Albumin/Globulin Ratio 0.3 L 06/16/22 12:15: Lactic Acid 3.3 H* 06/16/22 12:15: Blood Type A NEGATIVE, Antibody Screen NEGATIVE 06/16/22 14:37: Urine Color Yellow, Urine Clarity Sl. Cloudy, Urine pH 5.0, Ur Specific Lovely 1.015, Urine Protein 30 H, Urine Glucose (UA) Normal, Urine Ketones Negative, Urine Occult Blood 10 H, Urine Nitrite Negative, Urine Bilirubin Negative, Urine Urobilinogen Normal, Ur Leukocyte Esterase 100 H, Urine RBC 0 SEEN, Urine WBC 5-10 SEEN, Ur Squamous Epith Cells 0 SEEN, Calcium Oxalate Crystal 1+, Amorphous Sediment 1+, Urine Bacteria 0 SEEN, Fine Granular Casts 0-5 SEEN, Urine Mucus 0 SEEN, Urine Yeast 2+ Micro: Microbiology 06/16/22 12:19 Nasal Secretion SARS-CoV-2 & FLU Antigen (Rapid) - Final Influenzae B EKG Initial EKG: Attestation: I personally reviewed and interpreted this EKG as follows: Prior EKG tracings: available for review EKG Rhythm Intrepretation: Sinus Rhythm Radiology Impression Abdomen/Pelvis CT 06/16/22 11:59 IMPRESSION: Small bilateral pleural effusions. Findings suggestive of a filling defects in the visualized branches of the lower lobe pulmonary arteries. Correlation with CTA is recommended. Distention of the stomach. Findings suggestive of chronic pancreatitis. Abdominal appearance of the urinary bladder as described. Electronically Signed: Jaden Melgar MD at 13:10 EDT , Brain CT 06/16/22 11:59 IMPRESSION: Chronic involutional changes of the brain. Electronically Signed: Jaden Melgar MD at 13:30 EDT , Hand X-Ray 06/16/22 12:50 IMPRESSION: Degenerative changes of the distal interphalangeal joint of the index finger with erosive changes and soft tissue swelling. No fracture is seen. Electronically Signed: Jaden Melgar MD at 13:32 EDT , Wrist X-Ray 06/16/22 12:50 IMPRESSION: Normal x-ray examination of the wrist. Electronically Signed: Jaden Melgar MD at 13:33 EDT , Wrist X-Ray 06/16/22 12:50 IMPRESSION: Soft tissue swelling. Electronically Signed: Jaden Melgar MD at 13:33 EDT , Chest X-Ray 06/16/22 12:55 IMPRESSION: Hyperinflation. The lungs are clear. Electronically Signed: Jaden Melgar MD at 13:31 EDT , Assessment & Plan Assessment/Plan (1) Influenza B: PLAN: Onset was likely 2 days ago as patient is a he is been having malaise for the past couple days. We will start Tamiflu Supportive treatment Patient states that he was not vaccinated this year. I advised patient to get vaccinated for influenza in the fall. (2) Lactic acidosis: PLAN: Clinic mental feel the patient is septic. Patient did receive 30 cc/kg of fluids in the emergency room. Patient does have chronic kidney disease and history of metabolic acidosis though currently not acidotic on his BMP. We will monitor the patient clinically. Urinalysis negative for infection Blood cultures pending Hold off on antibiotics unless clear source of infection, outside of influenza, is identified. (3) Abnormal CAT scan: PLAN: They were evaluating because of the ecchymosis patient has on his abdomen and noted the findings of incomplete opacification of the pulmonary arteries. This was not a CTA protocol. Patient's Wells score is 0 I do not feel any additional imaging would be helpful as his pretest probability is extremely low for pulmonary embolism. Additionally, patient at risk for further renal compromise given his chronic kidney disease. Discussed with the patient as well as family member at bedside that I am not planning any do any additional imaging for the reported abnormality on the CT of the abdomen pelvis. (4) Finger injury: QUALIFIERS: Encounter type: initial encounter Laterality: right Qualified Code(s): S69.91XA - Unspecified injury of right wrist, hand and finger(s), initial encounter PLAN: Appears erosive but patient stated that he developed this today after he fell. He told emergency room physician that happened couple weeks ago. But it seems like that was traumatic. We will attempt to place a splint in the dread rgency room. No clear sign of septic arthritis at this time but will monitor as it is red. (5) Anemia: QUALIFIERS: Anemia type: unspecified type Qualified Code(s): D64.9 - Anemia, unspecified PLAN: Hemoglobin has been trending down. No need for transfusion at this time. Hold transfusion for hemoglobin less than or equal to 7. Check iron, TIBC, ferritin and B12. Will not order folate as patient did receive IV contrast. PLAN: Plan Chronic conditions * Esophagitis: Continue with PPI * History of SVT: Continue with metoprolol and diltiazem * Hypertension: Blood pressures currently soft but is MAP is greater than 70. Put hold parameters on his home medications. * Hyperlipidemia: Continue statin * Chronic kidney disease stage IIIb: Monitor. Follow-up nephrology as outpatient VTE prophylaxis: SCDs CODE STATUS: Addressed with the patient. Patient was to be full code. Charges/Coding Visit Charges Inpatient E&M: 17309 Init Hosp L3
--- NOTE | 2022-06-16 16:13 | NURSING ---
MED SURG OBS URMILA INFLUENZA, WEAKNESS, ELEVATED CREATINE
[2022-06-16 16:24] LABS: Reflex Lactate? Y
--- NOTE | 2022-06-16 16:42 | NURSING ---
NEW ROOM 310
[2022-06-16] MEDS: 0.9% Normal Saline 1,000 ML 150 ML IV (17:56)
[2022-06-16 18:48] LABS: Lactic Acid 1.2 mmol/L (0.4-1.9)
[2022-06-16] MEDS: oxyCODONE 5 MG Tablet PO (21:16)
[2022-06-16] MEDS: Oseltamivir Phosphate 30 MG Capsule PO (21:18)
[2022-06-16] MEDS: Sucralfate 1 GM Tablet PO (21:18)
[2022-06-16] MEDS: Pantoprazole Sodium 40 MG Tablet PO (21:18)
[2022-06-16] MEDS: Pravastatin 20 MG Tablet PO (21:18)
[2022-06-16] MEDS: Sodium Bicarbonate 650 MG Tablet PO (21:18)
--- NOTE | 2022-06-16 23:00 | EX.PCM.CON.G ---
HPI Consult Data Date of Consult: 06/16/22 HPI Narrative Reason for Consultation: Anemia HPI Narrative: AVRIL POLO, is a 82 M who presents with worsening shortness of breath. This has been going on a few days.? He denied fever but he seems a little alarmed here and his first temperature was slightly above baseline at 99.7.? He is coughing but denies bringing up sputum.? He did vomit once but that was after coughing.? He did not see blood or black material.? He denies blood or black in his stool.? He also has had frequent falls.? He thinks he dislocated or broke his right index fingers and both wrists hurt since his fall.? He also has some bruising at the lower abdomen mostly on the right. Outpatient blood work that shows his hemoglobin is 6.7.? After rechecking it is down to 5.2. He did have a recent cauterization of vessels in the esophagus stomach and duodenum with his recent admission.? They report a slightly higher temperature of 100.4.? Blood pressure has been a little bit low.? His activity has been less.? His intake has been less.? They are concerned because he seems to be getting weaker not better the last few days.? Patient states he did fall a few days ago.? He only hurt his wrist.? . I saw him on a previous visit for melanotic stools and anemia. He underwent an upper endoscopy and was discovered to have severe erosive disease of the esophagus stomach and small bowel. Biopsies were negative for malignancy. Biopsy also negative for intestinal metaplasia or dysplasia. [facility] Medical History BPH (benign prostatic hyperplasia) Chronic bronchitis CKD (chronic kidney disease), stage III Former tobacco use HLD (hyperlipidemia) HTN (hypertension) Hx of urethral stricture SVT (supraventricular tachycardia) Home Medications Prinzide 10 mg PO DAILY 11/12/12 [History Last Taken 11/30/12 06:30 10 MG] albuterol sulfate 90 mcg/actuation aerosol inhaler (ProAir HFA) 1 - 2 puff inhalation Q4H PRN PRN Asthma 11/12/12 [History Last Taken 11/30/12 06:30 1 - 2 PUFF] aspirin 81 mg chewable tablet 81 mg PO DAILY@0800 [facility] 11/12/12 [History Last Taken 11/30/12 06:30 81 MG] pravastatin 20 mg tablet 20 mg PO QHS high cholesterol 11/12/12 [History Last Taken 11/30/12 06:30 20 MG] cholecalciferol (vitamin D3) 50 mcg (2,000 unit) tablet (Vitamin D3) 50 mcg PO DAILY general health 05/31/22 [History Last Taken Unknown] ergocalciferol (vitamin D2) 1,000 unit capsule 1,000 unit PO DAILY health 05/31/22 [History Last Taken Unknown] diltiazem HCl 120 mg capsule,extended release 24 hr 120 mg PO DAILY #0 caps 06/08/22 [Rx Last Taken Unknown] metoprolol tartrate 25 mg tablet 25 mg PO BID #0 tabs 06/08/22 [Rx Last Taken Unknown] pantoprazole 40 mg tablet,delayed release (Protonix) 40 mg PO BID #1 TAB 06/08/22 [Rx Last Taken Unknown] sodium bicarbonate 650 mg tablet 650 mg PO TID #0 tabs 06/08/22 [Rx Last Taken Unknown] sucralfate 1 gram tablet 1 g PO 1HR_ACHS #0 tabs 06/08/22 [Rx Last Taken Unknown] Allergy/AdvReac Type Severity Reaction Status Date / Time No Known Allergies Allergy Verified 06/16/22 11:42 Family History Sister Cancer Mother Heart disease Diabetes Hypertension Father Heart disease Diabetes Hypertension Other COPD (chronic obstructive pulmonary disease) Surgical History H/O cystoscopy S/P colonoscopic polypectomy S/P partial colectomy Social History household members: none Smoking Status: Former smoker quit date: 07/17/09 pack-years: 60 alcohol intake: current alcohol intake frequency: 0-2 drinks per day details: Per prior records max 1 drink daily. substance use type: does not use ROS ROS Narrative As in HPI Physical Exam Const alert, oriented x3 and no apparent distress Constitutional Narrative: frail HEENT normocephalic, head/scalp atraumatic and moist oral mucous membranes Eyes PERRL and EOMs intact bilaterally Neck no lymphadenopathy and supple Lymph Lymphatic: no lymphadenopathy noted and no lymphedema noted Resp Resp Narrative: mildly diminished breath sounds bibasally, no wheezes, few crackles. on 3L of oxygen. Cardio regular rate, regular rhythm, S1 normal heart sound, S2 normal heart sound and no murmurs GI normal to inspection, nondistended, normoactive bowel sounds, soft to palpation, non-tender and non-distended Extremity normal capillary refill and no clubbing, cyanosis or edema Skin General Skin Exam: no breakdown Neuro CN's II-XII intact bilaterally, no focal motor deficits, no sensory deficits noted and deep tendon reflexes 2+ bilaterally Motor Exam: strength 5/5 throughout Psych thought process normal, cooperative and affect normal Appearance: appropriate Lab / Micro Data Result Diagrams: 06/17/22 06:15 06/17/22 06:15 Labs: Laboratory Results - last 24 hr 06/16/22 12:15: Crossmatch See Detail 06/16/22 18:15: Lactic Acid 1.2 06/17/22 06:15: WBC 5.9, RBC 1.94 L, Hgb 5.9 L*, Hct 19.5 L, MCV 100.5 H, MCH 30.4, MCHC 30.3 L, RDW Std Deviation 50.8 H, RDW Coeff of Fidelia 14.2, Plt Count 243, MPV 10.8, Immature Gran % (Auto) 1.000 H, Neut % (Auto) 77.3 H, Lymph % (Auto) 7.8 L, [place] % (Auto) 7.1, Eos % (Auto) 6.1 H, Baso % (Auto) 0.7, Absolute Neuts (auto) 4.6, Absolute Lymphs (auto) 0.46 L, Nucleated RBC % 0, Differential Comment SCANNED, Diff Path Review June06/17/22 06:15: Sodium 140, Potassium 3.2 L, Chloride 110 H, Carbon Dioxide 22.0, Anion Gap 8, BUN 17, Creatinine 1.53 H, Estim Creat Clear Calc 36.01, Est GFR (MDRD) Af Amer 56 L, Est GFR (MDRD) Non-Af 47 L, BUN/Creatinine Ratio 11.1, Glucose 94, Calcium 7.6 L, Iron 13 L, TIBC 249 L, Iron Saturation 5.2 L, Ferritin 283, TSH 1.62 06/17/22 06:15: Vitamin B12 153 L Micro: Microbiology 06/17/22 06:00 Sputum, Expectorated/Coughed Gram Stain - Final 06/16/22 12:19 Nasal Secretion SARS-CoV-2 & FLU Antigen (Rapid) - Final Influenzae B Assessment & Plan Assessment/Plan (1) CAP (community acquired pneumonia): (2) SVT (supraventricular tachycardia): (3) Fall: (4) Rhabdomyolysis: (5) YUE (acute kidney injury): (6) Hypoxia: (7) Leukocytosis: (8) Anemia: QUALIFIERS: Anemia type: unspecified type Qualified Code(s): D64.9 - Anemia, unspecified (9) Acute GI bleeding: (10) Moderate malnutrition: (11) Esophagitis: (12) Peptic ulcer disease: (13) Acute blood loss anemia: PLAN: Plan Acute rhabdomyolysis -Resolved Acute GI bleed secondary to severe esophagitis and peptic ulcer disease -Hemoglobin has appears to stabilize -Continue Protonix drip -Add Carafate -Full liquid diet and advance per GI recommendations -Continue to hold subcu heparin -EGD performed on 06/07/2022 and demonstrated severe erosive esophagitis that was biopsied and treated with heater probe, nonbleeding gastric ulcers with no stigmata of bleeding which were biopsied, and multiple oozing duodenal ulcers with pigmented material these were injected and he did with residential mortgage manager probe. -Keep n.p.o. for repeat upper endoscopy Acute blood loss anemia on chronic anemia -Acute issues due to the above -Likely secondary to recurrent GI bleed Charges/Coding Visit Charges Inpatient E&M: 11281 Init Hosp L3
[2022-06-17] VITALS (21 sets, daily range): BP systolic 79–133; BP diastolic 56–82; PULSE 61–102; RESP 18–20; TEMP 36.3–37.4; O2SAT 92–100; BMI 22.4
[2022-06-17] MEDS: Sucralfate 1 GM Tablet PO ×4 (05:40→22:25)
[2022-06-17] MEDS: Sodium Bicarbonate 650 MG Tablet PO ×3 (05:40→22:25)
[2022-06-17 07:00] LABS: Absolute Lymphocyte Count 0.46 X10^3/uL (0.83-4.51); Absolute Neutrophil Count 4.6 X10^3/uL (2.0-7.7); Basophil# 0.04 X10^3/uL; Basophil% 0.7 % (0-1); Eosinophil# 0.36 X10^3/uL; Eosinophils% 6.1 % (0-5); Hematocrit 19.5 % (40-54); Lymphocyte # 0.46 X10^3/ul (0.83-4.51); Lymphocyte % 7.8 % (19-41); Mean Corp Hgb Conc 30.3 g/dL (32-36); Mean Corpuscular Hgb 30.4 pg (27.0-32.0); Mean Corpuscular Volume 100.5 fL (80-94); Mean Platelet Vol. 10.8 fl (6.2-12.0); Monocyte# 0.42 X10^3/uL; Monocyte% 7.1 % (0-10); NRBC Flagged by Analyzer 0 % (0-5); Neutrophil # 4.57 X10^3/uL (2.7-7.7); Neutrophil % 77.3 % (47-70); POSITIVE COUNT YES; POSITIVE DIFFERENTIAL YES; POSITIVE MORPHOLOGY YES; Platelet Count 243 K/mm3 (150-450); RBC Distribution Width CV 14.2 % (11.6-14.6); RBC Distribution Width SD 50.8 fl (35.1-43.9); Red Blood Count 1.94 M/mm3 (4.6-6.2); White Blood Count 5.9 K/mm3 (4.4-11.0)
[2022-06-17 07:07] LABS: Differential Indicated SCAN CRITERIA MET
[2022-06-17 07:09] LABS: Hemoglobin 5.9 g/dL (13.0-16.5)
[2022-06-17 07:45] LABS: Anion Gap 8 (5-15); BUN 17 mg/dL (7-18); BUN/Creat Ratio 11.1 RATIO (10-20); Calcium,Total 7.6 mg/dL (8.5-10.1); Chloride 110 mmol/L (98-107); Creatinine, Serum 1.53 mg/dL (0.70-1.30); EST Glomerular Filtration Rate 47 mL/min (>60); Est Glom Filt Rate - Afr Amer 56 mL/min (>60); Estimated Creatinine Clearance 36.01 ml/min; Ferritin 283 ng/mL (26-388); Glucose 94 mg/dL (74-106); Iron 13 ug/dL (65-175); Iron Binding Capacity,Total 249 ug/dL (250-450); PERCENT IRON SATURATION 5.2 % (15.0-55.0); Potassium 3.2 mmol/L (3.5-5.1); Sodium Level 140 mmol/L (136-145); Thyroid Stim Hormone (TSH) 1.62 uIU/mL (0.358-3.74)
[2022-06-17 08:06] LABS: Vitamin B12 153 pg/mL (211-911)
[2022-06-17 08:50] LABS: Differential Comment SCANNED
[2022-06-17] MEDS: Acetaminophen 325 MG Tablet 650 MG PO (09:18)
[2022-06-17] MEDS: Aspirin 81 MG TAB.CHEW PO (09:19)
[2022-06-17] MEDS: Oseltamivir Phosphate 30 MG Capsule PO ×2 (09:20→22:25)
[2022-06-17] MEDS: Menthol/Lanolin/Calamine/Znox 113 GM Tube 1 APPLIC TOPICAL ×2 (09:20→22:26)
[2022-06-17] MEDS: 0.9% Saline Lock 10 ML Syringe IV ×2 (09:21→11:11)
--- NOTE | 2022-06-17 11:41 | NURSING ---
x3 unsucceful iv site attempts for 2ndary line. charge nurse aware.
--- NOTE | 2022-06-17 14:13 | PN_ITS ---
Subjective Subjective Patient seen and examined. He had no active complaints and denied any pain. He was admitted with a complaint of general weakness and mechanical fall which resulted in injury to his right index finger. CT of the brain was unremarkable and he had ecchymosis of his abdomen. Was found to have influenza. He denies a ny coughing, chest pain, palpitations, dizziness, shortness of breath, nausea or vomiting. Review of systems otherwise negative. Hemoglobin has dropped today to 5.9. Objective Data Objective Data Vital Signs: Vital Signs Temp Pulse Resp BP Pulse Ox O2 Del Method O2 Flow Rate 98.1 F 73 20 H 120/76 100 Nasal Cannula 3 06/17/22 12:50 06/17/22 12:50 06/17/22 12:50 06/17/22 12:50 06/17/22 12:50 06/17/22 12:50 06/17/22 12:50 FiO2 94 06/17/22 09:13 Oxygen Flow Rate (L/min) 3 Oxygen Delivery Method Nasal Cannula Weight: 151 lb 14.376 oz Body Mass Index (BMI) 22.4 Intake & Output: Intake and Output for Last 24 Hours 06/15/22 06/16/22 06/17/22 23:59 23:59 23:59 Intake Total 2400 / 2400 1413.25 / 1413.25 Balance 2400 / 2400 1413.25 / 1413.25 Lab / Micro Data Result Diagrams: 06/17/22 06:15 06/17/22 06:15 Labs: Laboratory Results - last 24 hr 06/16/22 12:15: Crossmatch See Detail 06/16/22 14:37: Urine Color Yellow, Urine Clarity Sl. Cloudy, Urine pH 5.0, Ur Specific [place] 1.015, Urine Protein 30 H, Urine Glucose (UA) Normal, Urine Ketones Negative, Urine Occult Blood 10 H, Urine Nitrite Negative, Urine Bilirubin Negative, Urine Urobilinogen Normal, Ur Leukocyte Esterase 100 H, Urine RBC 0 SEEN, Urine WBC 5-10 SEEN, Ur Squamous Epith Cells 0 SEEN, Calcium Oxalate Crystal 1+, Amorphous Sediment 1+, Urine Bacteria 0 SEEN, Fine Granular Casts 0-5 SEEN, Urine Mucus 0 SEEN, Urine Yeast 2+ 06/16/22 18:15: Lactic Acid 1.2 06/17/22 06:15: WBC 5.9, RBC 1.94 L, Hgb 5.9 L*, Hct 19.5 L, MCV 100.5 H, MCH 30.4, MCHC 30.3 L, RDW Std Deviation 50.8 H, RDW Coeff of Fidelia 14.2, Plt Count 243, MPV 10.8, Immature Gran % (Auto) 1.000 H, Neut % (Auto) 77.3 H, Lymph % (Auto) 7.8 L, [place] % (Auto) 7.1, Eos % (Auto) 6.1 H, Baso % (Auto) 0.7, Absolute Neuts (auto) 4.6, Absolute Lymphs (auto) 0.46 L, Nucleated RBC % 0, Differential Comment SCANNED, Diff Path Review June06/17/22 06:15: Sodium 140, Potassium 3.2 L, Chloride 110 H, Carbon Dioxide 22.0, Anion Gap 8, BUN 17, Creatinine 1.53 H, Estim Creat Clear Calc 36.01, Est GFR (MDRD) Af Amer 56 L, Est GFR (MDRD) Non-Af 47 L, BUN/Creatinine Ratio 11.1, Glucose 94, Calcium 7.6 L, Iron 13 L, TIBC 249 L, Iron Saturation 5.2 L, Ferritin 283, TSH 1.62 06/17/22 06:15: Vitamin B12 153 L Micro: Microbiology 06/16/22 12:19 Nasal Secretion SARS-CoV-2 & FLU Antigen (Rapid) - Final Influenzae B Physical Exam Const alert, oriented x3 and no apparent distress Constitutional Narrative: frail HEENT normocephalic, head/scalp atraumatic and moist oral mucous membranes Eyes PERRL and EOMs intact bilaterally Neck no lymphadenopathy and supple Lymph Lymphatic: no lymphadenopathy noted and no lymphedema noted Resp Resp Narrative: mildly diminished breath sounds bibasally, no wheezes, few crackles. on 3L of oxygen. Cardio regular rate, regular rhythm, S1 normal heart sound, S2 normal heart sound and no murmurs GI normal to inspection, nondistended, normoactive bowel sounds, soft to palpation, non-tender and non-distended Extremity normal capillary refill and no clubbing, cyanosis or edema Skin General Skin Exam: no breakdown Neuro CN's II-XII intact bilaterally, no focal motor deficits, no sensory deficits noted and deep tendon reflexes 2+ bilaterally Motor Exam: strength 5/5 throughout Psych thought process normal, cooperative and affect normal Appearance: appropriate Assessment & Plan Assessment/Plan (1) Influenza B: (2) Generalized weakness: PLAN: Plan #Influenza B infection * On Tamiflu. Breathing treatments bronchodilators. Titrate oxygen as needed to maintain saturation above 90%. * Patient was not vaccinated against influenza this season. * #Acute on chronic anemia: * Hemoglobin dropped to 5.9 today. Will transfuse to admit to 5 red blood cells. * During his recent admission he also had acute on chronic anemia and had EGD which showed severe esophagitis. Gastroenterology consulted. * On IV pantoprazole drip. * #Lactic acidosis: Hydrated with IV fluids. No clear evidence of infection apart from the influenza. Will monitor #Abnormal CT scan. * He had CT of his abdomen done due to ecchymosis on his abdomen. There was no acute intra-abdominal pathology but there was questionable incomplete opacification of the pulmonary arteries. Recommendation was for a CTA of the chest. However this was not done as pretest probability for PE was thought to be low. He also had impaired kidney disease. Also patient is anemic with hemoglobin down to 5.9. Admit hospitalist discussed with family about not doing any further imaging and they agreed. * #Right finger injury due to mechanical fall * Imaging done showed no evidence of septic arthritis. Finger was right so we will continue to monitor. Finger wrapped in bandage. Pain meds as needed. * #History of SVT: On metoprolol and Cardizem. #Hypertension: On metoprolol and Cardizem. #Hyperlipidemia: On statin #CKD stage IIIb: Creatinine is 1.53 which is lower than his baseline of around 1.7. Will monitor. DVT prophylaxis: SCDs CODE STATUS: Full code Total time spent on evaluation and management of patient, reviewing chart and sp ecialist notes, discussing plan with patient and his , discussion with nursing and ancillary staff as well as documentation: 52 mins Charges/Coding Visit Charges Inpatient E&M: 65823 [facility] Hosp L3
[2022-06-17] MEDS: Furosemide 20 MG/2 ML VIAL IV (14:21)
--- NOTE | 2022-06-17 14:39 | CASEMGMT ---
Discharge Planning Referral sent to [facility] per patient request. Angie Arango
--- NOTE | 2022-06-17 15:15 | CHAPLAIN ---
Type of Pastoral Visit _x__ Initial Visit ___ Follow-up Visit ___ On-call Visit ___ General Patient Visit ___ Spiritual Assessment ___ Family Conference ___ Bereavement ___ Rapid Response ___ Code Blue ___ Other (describe below) Pastoral Care Referral From ___ Patient _x__ Family ___ Nurse ___ Physician ___ Certified Tower Climber ___ Legal Billing Coordinator ___ Other (describe below) Sacrament/Intervention ___ Active listening ___ Anointing ___ Amish ___ Bereavement ___ Communion ___ Mary exploration ___ ___ Life review ___ Prayer ___ Reconciliation ___ Sacrament of Sick _x__ Supportive presence ___ Wedding ___ Other (describe below) Pastoral Comments patient is sleeping but two family members are in the room; family request that pt remain undisturbed; family offered support but they decline that they any needs at this time
--- NOTE | 2022-06-17 15:23 | NURSING ---
continues with poor cough hygiene, despite multiple reminders
--- NOTE | 2022-06-17 15:41 | CASEMGMT ---
Social Work Pt has a living will and HCPOA naming his nephew Deondre Bland primary and niece Yara Kwong secondary. Both documents are on file at [facility]. ERIC Plascencia
--- NOTE | 2022-06-17 15:43 | CASEMGMT ---
Social Work Pt is from admitted from [facility]. KEYSHAWN attempted to meet with pt to discuss discharge but pt is sleeping soundly. KEYSHAWN met with pt kathleen Livingston who confirms pt will return to [facility]. Angie d/c development assistant, updated and to send referral to [facility]. Pt will need precert to return. Plan: [facility], pending acceptance and precert ERIC Plascencia
--- NOTE | 2022-06-17 16:41 | NURSING ---
flushing blood tubing
[2022-06-17] MEDS: Lactated Ringers 1,000 ML 15 ML IV (17:35)
--- NOTE | 2022-06-17 17:36 | SUR.PREOP ---
TELEPHONE CONSENT OBTAINED FROM [facility] BY LISA GODWIN, RN AND PREM MEYER RN. PATIENT IS ORIENTED TO SELF, AND SEEMS TO UNDERSTAND THAT HE IS HAVING PROCEDURE.
--- NOTE | 2022-06-17 19:22 | OP.EGD_ITS ---
Patient Name: Chiki Pham Procedure Date: 06/17/2022 6:37 PM Date of : 1940 Age: 82 Procedure: Upper GI endoscopy Indications: Iron deficiency anemia, Melena Providers: Min Sesay DO Medicines: Monitored Anesthesia Care Patient Profile: This is an 82 year old male. Refer to note in patient chart for documentation of history and physical. Patient has symptoms of acute vomiting. Complications: No immediate complications. Procedure: Pre-Anesthesia Assessment: - Prior to the procedure, a History and Physical was performed, and patient medications and allergies were reviewed. The risks and benefits of the procedure and the sedation options and risks were discussed with the patient. All questions were answered and informed consent was obtained. Patient identification and proposed procedure were verified by the physician in the pre-procedure area. Mental Status Examination: alert and oriented. Airway Examination: normal oropharyngeal airway and neck mobility. Respiratory Examination: clear to auscultation. CV Examination: normal. Prophylactic Antibiotics: The patient does not require prophylactic antibiotics. Prior Anticoagulants: The patient has taken no previous anticoagulant or antiplatelet agents. ASA Grade Assessment: II - A patient with mild systemic disease. After reviewing the risks and benefits, the patient was deemed in satisfactory condition to undergo the procedure. The anesthesia plan was to use monitored anesthesia care (MAC). Immediately prior to administration of medications, the patient was re-assessed for adequacy to receive sedatives. The heart rate, respiratory rate, oxygen saturations, blood pressure, adequacy of pulmonary ventilation, and response to care were monitored throughout the procedure. The physical status of the patient was re-assessed after the procedure. After obtaining informed consent, the endoscope was passed under direct vision. Throughout the procedure, the patient's blood pressure, pulse, and oxygen saturations were monitored continuously. The gastroscope was introduced through the mouth, and advanced to the second part of duodenum. The upper GI endoscopy was accomplished without difficulty. The patient tolerated the procedure well. Scope In: 7:04:07 PM Scope Out: 7:09:07 PM Total Procedure Duration Time 0 hours 5 minutes 0 seconds Findings: LA Grade D (one or more mucosal breaks involving at least 75% of esophageal circumference) esophagitis with bleeding was found 34 to 40 cm from the incisors. Biopsies were taken with a cold forceps for histology. Verification of patient identification for the specimen was done. Area was successfully injected with 5 mL of a 1:10,000 solution of epinephrine for drug delivery. Coagulation for hemostasis using heater probe was successful. Estimated blood loss was minimal. Patchy severe inflammation was found in the gastric body. Biopsies were taken with a cold forceps for histology. One oozing cratered duodenal ulcer with a visible vessel was found in the first portion of the duodenum. The lesion was 10 mm in largest dimension. Area was successfully injected with 5 mL of a 1:10,000 solution of epinephrine for drug delivery. Coagulation for hemostasis using heater probe was successful. Estimated blood loss was minimal. Impression: - LA Grade D erosive esophagitis. Biopsied. Injected. Treated with a heater probe. - Gastritis. Biopsied. - One oozing duodenal ulcer with a visible vessel. Injected. Treated with a heater probe. Recommendation: - [facility]. - NPO. - Continue present medications. Procedure Code(s): --- Professional --- 46544, 59, Esophagogastroduodenoscopy, flexible, transoral; with control of bleeding, any method 26652, 59,51, Esophagogastroduodenoscopy, flexible, transoral; with directed submucosal injection(s), any substance 50723, Esophagogastroduodenoscopy, flexible, transoral; with biopsy, single or multiple CPT copyright 2017 [employer]. All rights reserved. The codes documented in this report are preliminary and upon remote medical coder review may be revised to meet current compliance requirements. Min Sesay DO 06/17/2022 7:22:17 PM This report has been signed electronically. Number of Addenda: 0 Note Initiated On: 06/17/2022 6:37 PM
--- NOTE | 2022-06-17 19:23 | OP.CCLET_ITS ---
06/17/2022 Rodney Shah MD Re : Upper GI endoscopy procedure for Chiki Pham Dear Dr. Shah This procedure was performed on Friday, June 17, 2022. My impressions and recommendations are as follows: Impressions : - LA Grade D erosive esophagitis. Biopsied. Injected. Treated with a heater probe. - Gastritis. Biopsied. - One oozing duodenal ulcer with a visible vessel. Injected. Treated with a heater probe. Recommendations : - [facility]. - NPO. - Continue present medications. My findings are described in the full procedure note, which is enclosed. If I can be of further assistance, please feel free to contact me at . Sincerely, Min Sesay, 06/17/2022 7:22:17 PM This report has been signed electronically.
[2022-06-17 20:05] LABS: Hemoglobin 9.1 g/dL (13.0-16.5)
--- NOTE | 2022-06-17 20:41 | NURSING ---
CATRACHITA MORENO WAITING ON PHONE CALL W/UPDATE FROM DR JENSEN. DR JENSEN NOTIFIED VIA TEXT
[2022-06-17] MEDS: Metoprolol Tartrate 25 MG Tablet PO (22:25)
[2022-06-17] MEDS: Pravastatin 20 MG Tablet PO (22:25)
[2022-06-18] VITALS (9 sets, daily range): BP systolic 91–123; BP diastolic 57–82; PULSE 71–81; RESP 18–22; TEMP 36.6–36.9; O2SAT 89–99
[2022-06-18] MEDS: Sucralfate 1 GM Tablet PO ×3 (05:36→22:09)
[2022-06-18] MEDS: Sodium Bicarbonate 650 MG Tablet PO ×3 (05:36→22:09)
[2022-06-18 06:31] LABS: Absolute Lymphocyte Count 0.49 X10^3/uL (0.83-4.51); Absolute Neutrophil Count 3.6 X10^3/uL (2.0-7.7); Basophil# 0.05 X10^3/uL; Eosinophil# 0.52 X10^3/uL; Eosinophils% 9.9 % (0-5); Hematocrit 26.4 % (40-54); Hemoglobin 8.4 g/dL (13.0-16.5); Lymphocyte # 0.49 X10^3/ul (0.83-4.51); Lymphocyte % 9.3 % (19-41); Mean Corp Hgb Conc 31.8 g/dL (32-36); Mean Corpuscular Hgb 29.6 pg (27.0-32.0); Mean Platelet Vol. 10.6 fl (6.2-12.0); Monocyte# 0.53 X10^3/uL; Monocyte% 10.1 % (0-10); NRBC Flagged by Analyzer 0 % (0-5); Neutrophil % 68.6 % (47-70); POSITIVE DIFFERENTIAL YES; POSITIVE MORPHOLOGY YES; Platelet Count 256 K/mm3 (150-450); RBC Distribution Width CV 15.9 % (11.6-14.6); RBC Distribution Width SD 53.9 fl (35.1-43.9); Red Blood Count 2.84 M/mm3 (4.6-6.2); White Blood Count 5.3 K/mm3 (4.4-11.0)
[2022-06-18 06:45] LABS: Differential Indicated SCAN CRITERIA MET
[2022-06-18 07:04] LABS: Anion Gap 8 (5-15); BUN 15 mg/dL (7-18); BUN/Creat Ratio 10.5 RATIO (10-20); Chloride 108 mmol/L (98-107); Creatinine, Serum 1.43 mg/dL (0.70-1.30); EST Glomerular Filtration Rate 50 mL/min (>60); Est Glom Filt Rate - Afr Amer 61 mL/min (>60); Estimated Creatinine Clearance 38.53 ml/min; Glucose 94 mg/dL (74-106); Potassium 2.9 mmol/L (3.5-5.1); Sodium Level 140 mmol/L (136-145)
[2022-06-18 07:07] LABS: Differential Comment SCANNED
[2022-06-18 08:56] LABS: Magnesium 1.6 mg/dL (1.6-2.6)
[2022-06-18] MEDS: 0.9% Saline Lock 10 ML Syringe IV (08:59)
[2022-06-18] MEDS: Potassium Chloride 10mEq/100mL 10 MEQ/100 ML IV.SOLN. 100 MEQ IV BOLUS ×4 (08:59→12:04)
[2022-06-18] MEDS: Metoprolol Tartrate 25 MG Tablet PO (09:00)
[2022-06-18] MEDS: Menthol/Lanolin/Calamine/Znox 113 GM Tube 1 APPLIC TOPICAL ×2 (09:00→22:11)
[2022-06-18] MEDS: dilTIAZem CD 120 MG Capsule PO (09:00)
[2022-06-18] MEDS: Oseltamivir Phosphate 30 MG Capsule PO ×2 (09:00→22:10)
--- NOTE | 2022-06-18 09:50 | PN_ITS ---
Subjective Subjective Patient seen and examined. He said he couldnt sleep overnight. He denied any fever, chills, cough, chest pain, palpitations, dizziness, nausea, vomiting or diarrhea. Review of systems is otherwise negative. He had EGD yesterday which showed bleeding peptic ulcer. Objective Data Objective Data Vital Signs: Vital Signs Temp Pulse Resp BP Pulse Ox O2 Del Method O2 Flow Rate 98.5 F 74 20 H 120/82 H 96 Nasal Cannula 3 06/18/22 02:33 06/18/22 09:00 06/18/22 02:33 06/18/22 02:33 06/18/22 07:52 06/18/22 07:52 06/18/22 07:52 FiO2 94 06/17/22 09:13 Oxygen Flow Rate (L/min) 3 Oxygen Delivery Method Nasal Cannula Weight: 151 lb 14.376 oz Body Mass Index (BMI) 22.4 Intake & Output: Intake and Output for Last 24 Hours 06/16/22 06/17/22 06/18/22 23:59 23:59 23:59 Intake Total 2400 / 2400 1866.33 / 1986.33 454 / 454 Output Total 600 / 800 600 / 600 Balance 2400 / 2400 1266.33 / 1186.33 -146 / -146 Lab / Micro Data Result Diagrams: 06/18/22 05:35 06/18/22 05:35 Labs: Laboratory Results - last 24 hr 06/16/22 12:15: Crossmatch See Detail 06/17/22 20:00: Hgb 9.1 L 06/18/22 05:35: WBC 5.3, RBC 2.84 L, Hgb 8.4 L, Hct 26.4 L, MCV 93.0 D, MCH 29.6, MCHC 31.8 L, RDW Std Deviation 53.9 H, RDW Coeff of Fidelia 15.9 H, Plt Count 256, MPV 10.6, Immature Gran % (Auto) 1.100 H, Neut % (Auto) 68.6, Lymph % (Auto) 9.3 L, [place] % (Auto) 10.1 H, Eos % (Auto) 9.9 H, Baso % (Auto) 1.0, Absolute Neuts (auto) 3.6, Absolute Lymphs (auto) 0.49 L, Nucleated RBC % 0, Differential Comment SCANNED 06/18/22 05:35: Sodium 140, Potassium 2.9 L, Chloride 108 H, Carbon Dioxide 24.0, Anion Gap 8, BUN 15, Creatinine 1.43 H, Estim Creat Clear Calc 38.53, Est GFR (MDRD) Af Amer 61, Est GFR (MDRD) Non-Af 50 L, BUN/Creatinine Ratio 10.5, G lucose 94, Calcium 8.0 L 06/18/22 05:35: Magnesium 1.6 Micro: Microbiology 06/16/22 14:37 Urine, Clean Catch Urine Culture - Preliminary Yeast 06/17/22 06:00 Sputum, Expectorated/Coughed Gram Stain - Final 06/16/22 12:19 Nasal Secretion SARS-CoV-2 & FLU Antigen (Rapid) - Final Influenzae B Physical Exam Const alert, oriented x3 and no apparent distress Constitutional Narrative: frail General Appearance: cooperative HEENT normocephalic, head/scalp atraumatic, moist oral mucous membranes and oropharynx normal Eyes PERRL and EOMs intact bilaterally Eyes Narrative: No icterus Neck no lymphadenopathy and supple Neck Narrative: No thyromegaly Lymph Lymphatic: no lymphadenopathy noted and no lymphedema noted Resp Resp Narrative: mildly diminished breath sounds bibasally, no wheezes, few crackles. on 3L of oxygen. Cardio regular rate, regular rhythm, S1 normal heart sound, S2 normal heart sound and no murmurs GI normal to inspection, nondistended, normoactive bowel sounds, soft to palpation, non-tender and non-distended Extremity normal capillary refill and no clubbing, cyanosis or edema Extremity Narrative: Right index finger is deviated radially with some erythema at the DIP. Minimally tender to palpation. Skin General Skin Exam: no breakdown Neuro oriented x3, CN's II-XII intact bilaterally, moves all extremities, no focal motor deficits, no sensory deficits noted and deep tendon reflexes 2+ bilaterally Sensorium / Orientation: awake and alert Speech: speech normal Motor Exam: strength 5/5 throughout Psych thought process normal, cooperative and affect normal Appearance: appropriate Assessment & Plan Assessment/Plan (1) Influenza B: (2) Generalized weakness: PLAN: Plan #Influenza B infection * On Tamiflu. Breathing treatments bronchodilators. * Titrate oxygen as needed to maintain saturation above 90%. * Patient was not vaccinated against influenza this season. * #Acute on chronic anemia due to bleeding peptic ulcer disease * Hemoglobin dropped to 5.9 and is s/p transfusion of 2 units of PRBCs. * Hb today is 8.4 * had EGD yesterday which showed grade D esophagitis, and bleeding peptic ulcer * GI on board. * switch to PO pantoprazole 40mg bid * * #Lactic acidosis: * Hydrated with IV fluids. * No clear evidence of infection apart from the influenza. resolved. #Abnormal CT scan. * He had CT of his abdomen done due to ecchymosis on his abdomen. There was no acute intra-abdominal pathology but there was questionable incomplete opacification of the pulmonary arteries. Recommendation was for a CTA of the chest. However this was not done as pretest probability for PE was thought to be low. He also had impaired kidney disease. * Admit hospitalist discussed with family about not doing any further imaging and they agreed. * #Right finger injury due to mechanical fall * Imaging done showed no evidence of septic arthritis. Finger was right so we will continue to monitor. Finger wrapped in bandage. Pain meds as needed. * #History of SVT: On metoprolol and Cardizem. #Hypertension: On metoprolol and Cardizem. #Hyperlipidemia: On statin #CKD stage IIIb: Creatinine is 1.53 which is lower than his baseline of around 1.7. Will monitor. DVT prophylaxis: SCDs CODE STATUS: Full code Total time spent on evaluation and management of patient, reviewing chart and specialist notes, discussing plan with patient and his , discussion with nursing and ancillary staff as well as documentation:45 mins Disposition: anticipate dc home over the next 24 to 48 hours Charges/Coding Visit Charges Inpatient E&M: 51372 Subs Hosp L2
[2022-06-18] MEDS: Pravastatin 20 MG Tablet PO (22:33)
--- NOTE | 2022-06-18 22:47 | PN_ITS ---
Subjective Subjective Patient underwent egd yesterday and was discovered to have a large active bleeding duodenal ulcer. He has been NPO and would like eat. Objective Data Objective Data Vital Signs: Vital Signs Temp Pulse Resp BP Pulse Ox O2 Del Method O2 Flow Rate 98.4 F 71 22 H 91/59 L 89 Nasal Cannula 2 06/18/22 21:51 06/18/22 22:10 06/18/22 22:32 06/18/22 22:10 06/18/22 22:32 06/18/22 22:33 06/18/22 22:33 FiO2 94 06/17/22 09:13 Oxygen Flow Rate (L/min) 2 Oxygen Delivery Method Nasal Cannula Weight: 151 lb 14.376 oz Body Mass Index (BMI) 22.4 Intake & Output: Intake and Output for Last 24 Hours 06/16/22 06/17/22 06/18/22 23:59 23:59 23:59 Intake Total 2400 / 2400 1866.33 / 1986.33 1037.67 / 1037.67 Output Total 600 / 800 800 / 800 Balance 2400 / 2400 1266.33 / 1186.33 237.67 / 237.67 Lab / Micro Data Result Diagrams: 06/18/22 05:35 06/18/22 05:35 Labs: Laboratory Results - last 24 hr 06/18/22 05:35: WBC 5.3, RBC 2.84 L, Hgb 8.4 L, Hct 26.4 L, MCV 93.0 D, MCH 29.6, MCHC 31.8 L, RDW Std Deviation 53.9 H, RDW Coeff of Fidelia 15.9 H, Plt Count 256, MPV 10.6, Immature Gran % (Auto) 1.100 H, Neut % (Auto) 68.6, Lymph % (Auto) 9.3 L, [place] % (Auto) 10.1 H, Eos % (Auto) 9.9 H, Baso % (Auto) 1.0, Absolute Neuts (auto) 3.6, Absolute Lymphs (auto) 0.49 L, Nucleated RBC % 0, Differential Comment SCANNED 06/18/22 05:35: Sodium 140, Potassium 2.9 L, Chloride 108 H, Carbon Dioxide 24.0, Anion Gap 8, BUN 15, Creatinine 1.43 H, Estim Creat Clear Calc 38.53, Est GFR (MDRD) Af Amer 61, Est GFR (MDRD) Non-Af 50 L, BUN/Creatinine Ratio 10.5, Glucose 94, Calcium 8.0 L 06/18/22 05:35: Magnesium 1.6 Micro: Microbiology 06/16/22 12:10 Blood Culture (Wb) - Right Forearm Blood Culture - Preliminary No growth in 48 hours. 06/16/22 12:10 Blood Culture (Wb) - Anticubital Left Blood Culture - Preliminary No growth in 48 hours. 06/16/22 14:37 Urine, Clean Catch Urine Culture - Final Yeast, not Gem albicans 06/17/22 06:00 Sputum, Expectorated/Coughed Gram Stain - Final 06/16/22 12:19 Nasal Secretion SARS-CoV-2 & FLU Antigen (Rapid) - Final Influenzae B Physical Exam Const alert, oriented x3 and no apparent distress Constitutional Narrative: frail General Appearance: cooperative HEENT normocephalic, head/scalp atraumatic, moist oral mucous membranes and oropharynx normal Eyes PERRL and EOMs intact bilaterally Eyes Narrative: No icterus Neck no lymphadenopathy and supple Neck Narrative: No thyromegaly Lymph Lymphatic: no lymphadenopathy noted and no lymphedema noted Resp Resp Narrative: mildly diminished breath sounds bibasally, no wheezes, few crackles. on 3L of oxygen. Cardio regular rate, regular rhythm, S1 normal heart sound, S2 normal heart sound and no murmurs GI normal to inspection, nondistended, normoactive bowel sounds, soft to palpation, non-tender and non-distended Extremity normal capillary refill and no clubbing, cyanosis or edema Extremity Narrative: Right index finger is deviated radially with some erythema at the DIP. Minimally tender to palpation. Skin General Skin Exam: no breakdown Neuro oriented x3, CN's II-XII intact bilaterally, moves all extremities, no focal motor deficits, no sensory deficits noted and deep tendon reflexes 2+ bilaterally Sensorium / Orientation: awake and alert Speech: speech normal Motor Exam: strength 5/5 throughout Psych thought process normal, cooperative and affect normal Appearance: appropriate Assessment & Plan Assessment/Plan (1) CAP (community acquired pneumonia): (2) SVT (supraventricular tachycardia): (3) Fall: (4) Rhabdomyolysis: (5) YUE (acute kidney injury): (6) Hypoxia: (7) Leukocytosis: (8) Anemia: QUALIFIERS: Anemia type: unspecified type Qualified Code(s): D64.9 - Anemia, unspecified (9) Acute GI bleeding: (10) Moderate malnutrition: (11) Esophagitis: (12) Peptic ulcer disease: (13) Acute blood loss anemia: PLAN: Plan SVT -He went into SVT after the endoscopy . It was treated by anesthesia. No signs of recurrent SVT today. He remains off of anticoagulation Acute GI bleed secondary to severe esophagitis and peptic ulcer disease -Hemoglobin has appears to stabilize -Continue Protonix drip -Add Carafate -Full liquid diet and advance per tolerated -Continue to hold subcu heparin -EGD performed on 06/17/2022 and demonstrated severe erosive esophagitis that was biopsied and treated with heater probe, nonbleeding gastric ulcers with no stigmata of bleeding which were biopsied, and multiple oozing duodenal ulcers w ith pigmented material these were injected and he did with geriatric physician probe. -Gastrin level was normal Acute blood loss anemia on chronic anemia -Acute issues due to the above -It appears that his hemoglobin is down slightly toy 9.1--> 8.4 -EGD performed with above results -Repeat CBC in a.m. Charges/Coding Visit Charges Inpatient E&M: 75325 Subs Hosp L3
[2022-06-19] VITALS (9 sets, daily range): BP systolic 87–113; BP diastolic 56–75; PULSE 68–104; RESP 18–20; TEMP 36.6–37; O2SAT 95–100
[2022-06-19] MEDS: Sodium Bicarbonate 650 MG Tablet PO (05:06)
[2022-06-19] MEDS: Sucralfate 1 GM Tablet PO ×2 (06:22→10:50)
[2022-06-19 09:01] LABS: Absolute Lymphocyte Count 0.64 X10^3/uL (0.83-4.51); Absolute Neutrophil Count 4.5 X10^3/uL (2.0-7.7); Basophil# 0.06 X10^3/uL; Eosinophil# 0.23 X10^3/uL; Eosinophils% 3.7 % (0-5); Hematocrit 31.6 % (40-54); Hemoglobin 10.4 g/dL (13.0-16.5); Lymphocyte # 0.64 X10^3/ul (0.83-4.51); Lymphocyte % 10.3 % (19-41); Mean Corp Hgb Conc 32.9 g/dL (32-36); Mean Corpuscular Hgb 30.7 pg (27.0-32.0); Mean Corpuscular Volume 93.2 fL (80-94); Mean Platelet Vol. 11.3 fl (6.2-12.0); Monocyte% 8.1 % (0-10); NRBC Flagged by Analyzer 0 % (0-5); Neutrophil # 4.47 X10^3/uL (2.7-7.7); Neutrophil % 72.2 % (47-70); POSITIVE MORPHOLOGY YES; Platelet Count 296 K/mm3 (150-450); RBC Distribution Width CV 15.4 % (11.6-14.6); RBC Distribution Width SD 51.8 fl (35.1-43.9); Red Blood Count 3.39 M/mm3 (4.6-6.2); White Blood Count 6.2 K/mm3 (4.4-11.0)
[2022-06-19 09:02] LABS: Differential Indicated SCAN CRITERIA MET
[2022-06-19 09:13] LABS: Anion Gap 6 (5-15); BUN 18 mg/dL (7-18); BUN/Creat Ratio 11.1 RATIO (10-20); Calcium,Total 8.5 mg/dL (8.5-10.1); Chloride 107 mmol/L (98-107); Creatinine, Serum 1.62 mg/dL (0.70-1.30); EST Glomerular Filtration Rate 44 mL/min (>60); Est Glom Filt Rate - Afr Amer 53 mL/min (>60); Estimated Creatinine Clearance 34.01 ml/min; Glucose 141 mg/dL (74-106); Potassium 3.6 mmol/L (3.5-5.1); Sodium Level 139 mmol/L (136-145)
--- NOTE | 2022-06-19 09:45 | PN_ITS ---
Subjective Subjective Patient seen and examined. He had no active complaints. He had an uneventful night. Review of systems is otherwise negative. He has remained hemodynamically stable. Objective Data Objective Data Vital Signs: Vital Signs Temp Pulse Resp BP Pulse Ox O2 Del Method O2 Flow Rate 97.8 F 68 20 H 107/73 95 Nasal Cannula 2 06/19/22 05:01 06/19/22 05:01 06/19/22 05:01 06/19/22 05:01 06/19/22 07:07 06/19/22 07:07 06/19/22 07:07 FiO2 94 06/17/22 09:13 Oxygen Flow Rate (L/min) 2 Oxygen Delivery Method Nasal Cannula Weight: 151 lb 14.376 oz Body Mass Index (BMI) 22.4 Intake & Output: Intake and Output for Last 24 Hours 06/17/22 06/18/22 06/19/22 23:59 23:59 23:59 Intake Total 1866.33 / 1986.33 1337.67 / 1337.67 100 / 100 Output Total 600 / 800 1050 / 1050 Balance 1266.33 / 1186.33 287.67 / 287.67 100 / 100 Lab / Micro Data Result Diagrams: 06/19/22 08:45 06/19/22 08:45 Labs: Laboratory Results - last 24 hr 06/19/22 08:45: WBC 6.2, RBC 3.39 L, Hgb 10.4 L, Hct 31.6 L, MCV 93.2, MCH 30.7, MCHC 32.9, RDW Std Deviation 51.8 H, RDW Coeff of Fidelia 15.4 H, Plt Count 296, MPV 11.3, Immature Gran % (Auto) 4.700 H, Neut % (Auto) 72.2 H, Lymph % (Auto) 10.3 L, Worth % (Auto) 8.1, Eos % (Auto) 3.7, Baso % (Auto) 1.0, Absolute Neuts (auto) 4.5, Absolute Lymphs (auto) 0.64 L, Nucleated RBC % 0 06/19/22 08:45: Sodium 139, Potassium 3.6, Chloride 107, Carbon Dioxide 26.0, Anion Gap 6, BUN 18, Creatinine 1.62 H, Estim Creat Clear Calc 34.01, Est GFR (MDRD) Af Amer 53 L, Est GFR (MDRD) Non-Af 44 L, BUN/Creatinine Ratio 11.1, Glucose 141 H, Calcium 8.5 Micro: Microbiology 06/17/22 06:00 Sputum, Expectorated/Coughed Gram Stain - Final 06/17/22 06:00 Sputum, Expectorated/Coughed Respiratory Culture - Final 06/16/22 12:10 Blood Culture (Wb) - Right Forearm Blood Culture - Prel iminary No growth in 48 hours. 06/16/22 12:10 Blood Culture (Wb) - Anticubital Left Blood Culture - Preliminary No growth in 48 hours. 06/16/22 14:37 Urine, Clean Catch Urine Culture - Final Yeast, not Gem albicans 06/16/22 12:19 Nasal Secretion SARS-CoV-2 & FLU Antigen (Rapid) - Final Influenzae B Physical Exam Const alert, oriented x3 and no apparent distress Constitutional Narrative: frail General Appearance: cooperative HEENT normocephalic, head/scalp atraumatic, moist oral mucous membranes and oropharynx normal Eyes PERRL and EOMs intact bilaterally Neck no lymphadenopathy and supple Lymph Lymphatic: no lymphadenopathy noted and no lymphedema noted Resp normal respiratory effort, no retractions, no use of accessory muscles and clear to auscultation bilaterally Resp Narrative: mildly diminished breath sounds bibasally, no wheezes, few crackles. on 2L of oxygen. Cardio regular rate, regular rhythm, S1 normal heart sound, S2 normal heart sound and no murmurs GI normal to inspection, nondistended, normoactive bowel sounds, soft to palpation, non-tender and non-distended GI Narrative: Extremity normal capillary refill and no clubbing, cyanosis or edema Extremity Narrative: Right index finger nontender. Immobilised by small splint. Skin General Skin Exam: no breakdown Neuro oriented x3, CN's II-XII intact bilaterally, moves all extremities, no focal motor deficits, no sensory deficits noted and deep tendon reflexes 2+ bilaterally Sensorium / Orientation: awake and alert Speech: speech normal Motor Exam: strength 5/5 throughout Psych thought process normal, cooperative and affect normal Appearance: appropriate Assessment & Plan Assessment/Plan (1) Influenza B: (2) Generalized weakness: PLAN: Plan #Influenza B infection * On Tamiflu. Breathing treatments bronchodilators. * Titrate oxygen as needed to maintain saturation above 90%. * Patient was not vaccinated against influenza this season. * #Acute on chronic anemia due to bleeding peptic ulcer disease * Hemoglobin dropped to 5.9 and is s/p transfusion of 2 units of PRBCs. * Hb today is 10.4 * had EGD which showed grade D esophagitis, and bleeding peptic ulcer * GI on board. * on PO pantoprazole 40mg bid * * #Lactic acidosis: * Hydrated with IV fluids. * No clear evidence of infection apart from the influenza. resolved. #Abnormal CT scan. * He had CT of his abdomen done due to ecchymosis on his abdomen. There was no acute intra-abdominal pathology but there was questionable incomplete o pacification of the pulmonary arteries. Recommendation was for a CTA of the chest. However this was not done as pretest probability for PE was thought to be low. He also had impaired kidney disease. * Admit hospitalist discussed with family about not doing any further imaging and they agreed. * #Right finger injury due to mechanical fall * Imaging done showed no evidence of septic arthritis. Finger was right so we will continue to monitor. Finger wrapped in bandage. Pain meds as needed. * #History of SVT: On metoprolol and Cardizem. #Hypertension: On metoprolol and Cardizem. #Hyperlipidemia: On statin #CKD stage IIIb: Creatinine is 1.62 which is lower than his baseline of around 1.7. Will monitor. DVT prophylaxis: SCDs CODE STATUS: Full code Total time spent on evaluation and management of patient, reviewing chart and specialist notes, discussing plan with patient and his , discussion with nursing and ancillary staff as well as documentation:45 mins Disposition: awaiting placement Charges/Coding Visit Charges Inpatient E&M: 74828 Subs Hosp L2
[2022-06-19] MEDS: Oseltamivir Phosphate 30 MG Capsule PO (10:50)
[2022-06-19] MEDS: Menthol/Lanolin/Calamine/Znox 113 GM Tube 1 APPLIC TOPICAL ×2 (10:50→22:27)
[2022-06-19] MEDS: 0.9% Saline Lock 10 ML Syringe IV ×3 (22:22→22:37)
[2022-06-19] MEDS: Ondansetron 4 MG/2 ML Vial IV (22:37)
[2022-06-20] VITALS (10 sets, daily range): BP systolic 83–119; BP diastolic 61–82; PULSE 65–77; RESP 16–23; TEMP 36.4–36.8; O2SAT 86–96
[2022-06-20 05:53] LABS: Hematocrit 25.3 % (40-54); Mean Corp Hgb Conc 31.6 g/dL (32-36); Mean Corpuscular Hgb 29.3 pg (27.0-32.0); Mean Corpuscular Volume 92.7 fL (80-94); Mean Platelet Vol. 10.8 fl (6.2-12.0); POSITIVE COUNT YES; POSITIVE MORPHOLOGY YES; Platelet Count 349 K/mm3 (150-450); RBC Distribution Width CV 15.1 % (11.6-14.6); RBC Distribution Width SD 50.5 fl (35.1-43.9); Red Blood Count 2.73 M/mm3 (4.6-6.2)
[2022-06-20 06:28] LABS: Anion Gap 6 (5-15); BUN 17 mg/dL (7-18); BUN/Creat Ratio 11.4 RATIO (10-20); Calcium,Total 8.1 mg/dL (8.5-10.1); Chloride 109 mmol/L (98-107); Creatinine, Serum 1.49 mg/dL (0.70-1.30); EST Glomerular Filtration Rate 48 mL/min (>60); Est Glom Filt Rate - Afr Amer 58 mL/min (>60); Estimated Creatinine Clearance 36.98 ml/min; Glucose 111 mg/dL (74-106); Potassium 3.4 mmol/L (3.5-5.1); Sodium Level 141 mmol/L (136-145)
[2022-06-20 07:01] LABS: Differential Indicated MANUAL DIFF
[2022-06-20 08:28] LABS: Eosinophil 8 % (0-5); Lymphocyte 8 % (19-41); Metamyelocyte 1 % (0-1); Monocyte 8 % (0-10); Myelocyte 1 % (0-0); Neutrophil-Band 7 % (0-5); Neutrophil-Segmented 65 % (47-70); Promyelocyte 2 % (0-0); Red Cell Morphology NORM C+C NORMAL (NORM C&C); Total Cells Counted 100 (MANUAL DIFF)
[2022-06-20 08:29] LABS: Platelet Estimate ADEQUATE (ADEQ)
[2022-06-20] MEDS: Menthol/Lanolin/Calamine/Znox 113 GM Tube 1 APPLIC TOPICAL ×2 (10:53→22:52)
[2022-06-20] MEDS: Potassium Chloride Oral Tablet 20 MEQ 40 MEQ PO (10:58)
[2022-06-20] MEDS: Oseltamivir Phosphate 30 MG Capsule PO ×2 (10:58)
--- NOTE | 2022-06-20 11:02 | CASEMGMT ---
Discharge Planning Updates and tentative dc date sent to [facility] via [employer]. Angie Arango
--- NOTE | 2022-06-20 14:02 | CASEMGMT ---
Addendum entered by Nallely Ibrahim 06/20/22 16:12: SW updated pt of acceptance at [facility]. SW added sanjuanasheet to pt chart. Original Note: [facility] able to accept pt back. [facility] informed precert will be needed and it will be started today. PLAN: Return to [facility] ERIC Madden
--- NOTE | 2022-06-20 14:46 | PN.HOSP_ITS ---
Reason for Visit Reason for Visit: Diagnoses Acute posthemorrhagic anemia (06/17/22) Anemia, unspecified (06/17/22) Elevated white blood cell count, unspecified (06/17/22) Moderate protein-calorie malnutrition (06/17/22) Acidosis, unspecified (06/17/22) Supraventricular tachycardia (06/17/22) Influenza due to other identified influenza virus with other respiratory manifestations (06/17/22) Pneumonia, unspecified organism (06/17/22) Esophagitis, unspecified without bleeding (06/17/22) Peptic ulcer, site unspecified, unspecified as acute or chronic, without hemorrhage or perforation (06/17/22) Gastrointestinal hemorrhage, unspecified (06/17/22) Rhabdomyolysis (06/17/22) Acute kidney failure, unspecified (06/17/22) Hypoxemia (06/17/22) Weakness (06/17/22) Abnormal findings on diagnostic imaging of other specified body structures (06/17/22) Unspecified injury of right wrist, hand and finger(s), initial encounter (0 06/17/22) Unspecified fall, initial encounter (06/17/22) Subjective Subjective Overall feeling better than he did, breathing roughly the same and still feeling somewhat diffusely weak. Looking forward when he gets to eat Objective Data Objective Data Vital Signs: Vital Signs Temp Pulse Resp BP Pulse Ox O2 Del Method O2 Flow Rate 98.3 F 71 22 H 83/61 L 96 Nasal Cannula 2 06/20/22 13:26 06/20/22 13:26 06/20/22 13:26 06/20/22 13:26 06/20/22 13:26 06/20/22 13:26 06/20/22 13:26 FiO2 94 06/17/22 09:13 Oxygen Flow Rate (L/min) 2 Oxygen Delivery Method Nasal Cannula Weight: 68.9 kg Body Mass Index (BMI) 22.4 Intake & Output: Intake and Output for Last 24 Hours 06/18/22 06/19/22 06/20/22 23:59 23:59 23:59 Intake Total 1337.67 / 1337.67 634.83 / 634.83 311.16 / 311.16 Output Total 1050 / 1050 Balance 287.67 / 287.67 634.83 / 634.83 311.16 / 311.16 Lab / Micro Data Result Diagrams: 06/20/22 05:40 06/20/22 05:40 Labs: Laboratory Results - last 24 hr 06/20/22 05:40: WBC 7.0, RBC 2.73 L, Hgb 8.0 L, Hct 25.3 L, MCV 92.7, MCH 29.3, MCHC 31.6 L, RDW Std Deviation 50.5 H, RDW Coeff of Fidelia 15.1 H, Plt Count 349, MPV 10.8, Neut % (Auto) Not Reportable, Absolute Neuts (auto) 5.0, Absolute Lymphs (auto) 0.60 L, Total Counted 100, Neutrophils % (Manual) 65, Band Neutrophils % 7 H, Lymphocytes % (Manual) 8 L, Monocytes % (Manual) 8, Eosinophils % (Manual) 8 H, Metamyelocytes % 1, Myelocytes % 1 H, Promyelocytes % 2 H, Diff Path Review June, Platelet Estimate ADEQUATE, RBC Morphology NO RM C+C 06/20/22 05:40: Sodium 141, Potassium 3.4 L, Chloride 109 H, Carbon Dioxide 26.0, Anion Gap 6, BUN 17, Creatinine 1.49 H, Estim Creat Clear Calc 36.98, Est GFR (MDRD) Af Amer 58 L, Est GFR (MDRD) Non-Af 48 L, BUN/Creatinine Ratio 11.4, Glucose 111 H, Calcium 8.1 L Micro: Microbiology 06/17/22 06:00 Sputum, Expectorated/Coughed Gram Stain - Final 06/17/22 06:00 Sputum, Expectorated/Coughed Respiratory Culture - Final 06/16/22 12:10 Blood Culture (Wb) - Right Forearm Blood Culture - Preliminary No growth in 48 hours. 06/16/22 12:10 Blood Culture (Wb) - Anticubital Left Blood Culture - Preliminary No growth in 48 hours. 06/16/22 14:37 Urine, Clean Catch Urine Culture - Final Yeast, not Gem albicans 06/16/22 12:19 Nasal Secretion SARS-CoV-2 & FLU Antigen (Rapid) - Final Influenzae B Physical Exam Narrative General: Alert, oriented, no apparent distress HEENT: Atraumatic, normocephalic Eyes: Anicteric, normal conjunctiva, extraocular movements grossly intact Neck: Supple Respiratory: Somewhat diminished at the bases, no overt wheezes, normal respiratory effort Cardiovascular: Regular rate and rhythm GI: Soft, nontender, nondistended Extremities: No edema Musculoskeletal: Moving all extremities Neuro: No overt focal neurological deficits Skin: No rashes appreciated Psych: Cooperative Assessment & Plan Assessment/Plan (1) Influenza B: (2) Generalized weakness: PLAN: Plan #Acute on chronic anemia due to bleeding peptic ulcer disease * Hemoglobin dropped to 5.9 and is s/p transfusion of 2 units of PRBCs. * Hb today is 10.4 * had EGD which showed grade D esophagitis, and bleeding peptic ulcer * GI on board. * on PO pantoprazole 40mg bid -06/20: Hemoglobin 8 today, was 10.4 yesterday but the day prior was 8.4 which appears closer to baseline, suspect 10.4 may have been spurious. EGD performed on 06/17/2022 and demonstrated severe erosive esophagitis that was biopsied and treated with heater probe, nonbleeding gastric ulcers with no stigmata of bleeding which were biopsied, and multiple oozing duodenal ulcers with pigmented material these were injected and he did with coal handler probe. Gastrin levels were checked and were normal. Remains on PPI gtt and carafate, advance diet as tolerated. GI following. #Influenza B infection * On Tamiflu. Breathing treatments bronchodilators. * Titrate oxygen as needed to maintain saturation above 90%. * Patient was not vaccinated against influenza this season. -06/20: Stable, will need ambulated to assess for O2 needs prior to transfer #Lactic acidosis:- resolved * Hydrated with IV fluids. * No clear evidence of infection apart from the influenza. resolved. #Abnormal CT scan. * He had CT of his abdomen done due to ecchymosis on his abdomen. There was no acute intra-abdominal pathology but there was questionable incomplete opacification of the pulmonary arteries. Recommendation was for a CTA of the chest. However this was not done as pretest probability for PE was thought to be low. He also had impaired kidney disease. * Admit hospitalist discussed with family about not doing any further imaging and they agreed. #Right finger injury due to mechanical fall * Imaging done showed no evidence of septic arthritis. Finger was right so we will continue to monitor. Finger wrapped in bandage. Pain meds as needed. * #History of SVT: On metoprolol and Cardizem. #Hypertension -06/20: BP has been low, Cardizem decreased, give small bolus of fluids #Hyperlipidemia: On statin #CKD stage IIIb -Avoid nephrotoxic agents, appears to be at baseline DVT prophylaxis: SCDs CODE STATUS: Full code Total time spent on evaluation and management of patient, reviewing chart and specialist notes, discussing plan with patient and his , discussion with nursing and ancillary staff as well as documentation: 30 mins Disposition: awaiting placement Charges/Coding Visit Charges Inpatient E&M: 90637 Subs Hosp L2
--- NOTE | 2022-06-20 16:34 | PCM.PROGNOTE ---
Subjective Subjective Patient states that he would like to advance his diet. He has been tolerating liquid diet. It has not been advanced secondary to to recent upper GI bleed. Objective Data Objective Data Vital Signs: Vital Signs Temp Pulse Resp BP Pulse Ox O2 Del Method O2 Flow Rate 98.3 F 75 16 111/67 94 Nasal Cannula 2 06/20/22 13:26 06/20/22 16:12 06/20/22 16:12 06/20/22 16:12 06/20/22 16:12 06/20/22 16:12 06/20/22 13:30 FiO2 2 06/20/22 16:12 Oxygen Flow Rate (L/min) 2 Oxygen Delivery Method Nasal Cannula Weight: 151 lb 14.376 oz Body Mass Index (BMI) 22.4 Intake & Output: Intake and Output for Last 24 Hours 06/18/22 06/19/22 06/20/22 23:59 23:59 23:59 Intake Total 1337.67 / 1337.67 634.83 / 634.83 811.16 / 811.16 Output Total 1050 / 1050 Balance 287.67 / 287.67 634.83 / 634.83 811.16 / 811.16 Lab / Micro Data Result Diagrams: 06/20/22 05:40 06/20/22 05:40 Labs: Laboratory Results - last 24 hr 06/20/22 05:40: WBC 7.0, RBC 2.73 L, Hgb 8.0 L, Hct 25.3 L, MCV 92.7, MCH 29.3, MCHC 31.6 L, RDW Std Deviation 50.5 H, RDW Coeff of Fidelia 15.1 H, Plt Count 349, MPV 10.8, Neut % (Auto) Not Reportable, Absolute Neuts (auto) 5.0, Absolute Lymphs (auto) 0.60 L, Total Counted 100, Neutrophils % (Manual) 65, Band Neutrophils % 7 H, Lymphocytes % (Manual) 8 L, Monocytes % (Manual) 8, Eosinophils % (Manual) 8 H, Metamyelocytes % 1, Myelocytes % 1 H, Promyelocytes % 2 H, Diff Path Review May , Platelet Estimate ADEQUATE, RBC Morphology NORM C+C 06/20/22 05:40: Sodium 141, Potassium 3.4 L, Chloride 109 H, Carbon Dioxide 26.0, Anion Gap 6, BUN 17, Creatinine 1.49 H, Estim Creat Clear Calc 36.98, Est GFR (MDRD) Af Amer 58 L, Est GFR (MDRD) Non-Af 48 L, BUN/Creatinine Ratio 11.4, Glucose 111 H, Calcium 8.1 L Micro: Microbiology 06/17/22 06:00 Sputum, Expectorated/Coughed Gram Stain - Final 06/17/22 06:00 Sputum, Expectorated/Coughed Respiratory Culture - Final 06/16/22 12:10 Blood Culture (Wb) - Right Forearm Blood Culture - Preliminary No growth in 48 hours. 06/16/22 12:10 Blood Culture (Wb) - Anticubital Left Blood Culture - Preliminary No growth in 48 hours. 06/16/22 14:37 Urine, Clean Catch Urine Culture - Final Yeast, not Gem albicans 06/16/22 12:19 Nasal Secretion SARS-CoV-2 & FLU Antigen (Rapid) - Final Influenzae B Physical Exam Narrative General: Alert, oriented, no apparent distress HEENT: Atraumatic, normocephalic Eyes: Anicteric, normal conjunctiva, extraocular movements grossly intact Neck: Supple Respiratory: Somewhat diminished at the bases, no overt wheezes, normal respiratory effort Cardiovascular: Regular rate and rhythm GI: Soft, nontender, nondistended Extremities: No edema Musculoskeletal: Moving all extremities Neuro: No overt focal neurological deficits Skin: No rashes appreciated Psych: Cooperative Assessment & Plan Assessment/Plan (1) SVT (supraventricular tachycardia): (2) Fall: (3) YUE (acute kidney injury): (4) Leukocytosis: (5) Anemia: QUALIFIERS: Anemia type: unspecified type Qualified Code(s): D64.9 - Anemia, unspecified (6) Acute GI bleeding: (7) Moderate malnutrition: (8) Esophagitis: (9) Peptic ulcer disease: (10) Acute blood loss anemia: PLAN: Plan SVT -He went into SVT after the endoscopy . It was treated by anesthesia. No signs of recurrent SVT today. He remains off of anticoagulation Acute GI bleed secondary to severe esophagitis and peptic ulcer disease -Hemoglobin has appears to stabilize -Continue Protonix drip -Add Carafate -Full liquid diet and advance per tolerated -Continue to hold subcu heparin -EGD performed on 06/17/2022 and demonstrated severe erosive esophagitis that was biopsied and treated with heater probe, nonbleeding gastric ulcers with no stigmata of bleeding which were biopsied, and multiple oozing duodenal ulcers with pigmented material these were injected and he did with associate sales manager probe. -Gastrin level was normal Acute blood loss anemia on chronic anemia -Acute issues due to the above -It appears that his hemoglobin is down slightly toy 9.1--> 8.4-->10-->8 -EGD performed with above results -Repeat CBC in a.m. He is okay to have his diet advanced as tolerated. Charges/Coding Visit Charges Inpatient E&M: 47360 Subs Hosp L3
[2022-06-20] MEDS: Sucralfate 1 GM Tablet PO (18:29)
[2022-06-21] VITALS (13 sets, daily range): BP systolic 105–118; BP diastolic 64–76; PULSE 68–81; RESP 18–30; TEMP 36.6–37.9; O2SAT 90–97
[2022-06-21] MEDS: Albuterol 2.5 MG/3 ML VIAL.NEB. INHALATION (05:10)
[2022-06-21 06:39] LABS: Hematocrit 25.9 % (40-54); Hemoglobin 8.1 g/dL (13.0-16.5); Mean Corp Hgb Conc 31.3 g/dL (32-36); Mean Corpuscular Hgb 29.9 pg (27.0-32.0); Mean Corpuscular Volume 95.6 fL (80-94); Mean Platelet Vol. 11.2 fl (6.2-12.0); POSITIVE COUNT YES; POSITIVE MORPHOLOGY YES; Platelet Count 431 K/mm3 (150-450); RBC Distribution Width CV 14.8 % (11.6-14.6); RBC Distribution Width SD 50.9 fl (35.1-43.9); Red Blood Count 2.71 M/mm3 (4.6-6.2); White Blood Count 7.8 K/mm3 (4.4-11.0)
[2022-06-21 06:46] LABS: Differential Indicated MANUAL DIFF
[2022-06-21 07:00] LABS: Anion Gap 5 (5-15); BUN 14 mg/dL (7-18); BUN/Creat Ratio 9.9 RATIO (10-20); Chloride 109 mmol/L (98-107); Creatinine, Serum 1.42 mg/dL (0.70-1.30); EST Glomerular Filtration Rate 51 mL/min (>60); Est Glom Filt Rate - Afr Amer 61 mL/min (>60); Glucose 91 mg/dL (74-106); Potassium 3.7 mmol/L (3.5-5.1); Sodium Level 140 mmol/L (136-145)
[2022-06-21 07:08] LABS: Eosinophil 4 % (0-5); Lymphocyte 15 % (19-41); Metamyelocyte 1 % (0-1); Monocyte 8 % (0-10); Myelocyte 1 % (0-0); Neutrophil-Band 10 % (0-5); Neutrophil-Segmented 61 % (47-70); Total Cells Counted 100 (MANUAL DIFF)
[2022-06-21 07:09] LABS: Platelet Estimate ADEQUATE (ADEQ); Red Cell Morphology NORM C+C NORMAL (NORM C&C)
[2022-06-21 07:10] LABS: Absolute Lymphocyte Count 1.17 X10^3/uL (0.83-4.51); Absolute Neutrophil Count 5.5 X10^3/uL (2.0-7.7); Lymphocyte # 1.17 X10^3/ul (0.83-4.51); Neutrophil # 5.52 X10^3/uL (2.7-7.7)
[2022-06-21 09:37] LABS: Pathologist Review Reviewed
[2022-06-21] MEDS: Metoprolol Tartrate 25 MG Tablet PO ×2 (09:41→23:03)
[2022-06-21] MEDS: Pantoprazole Sodium 40 MG Tablet PO ×2 (09:41→23:05)
[2022-06-21 09:45] LABS: Pathologist Review Reviewed
[2022-06-21] MEDS: Sucralfate 1 GM Tablet PO ×3 (11:33→23:03)
[2022-06-21] MEDS: Oseltamivir Phosphate 30 MG Capsule PO (11:35)
[2022-06-21] MEDS: Menthol/Lanolin/Calamine/Znox 113 GM Tube 1 APPLIC TOPICAL ×2 (11:36→23:02)
[2022-06-21] MEDS: dilTIAZem 60 MG CAP.SR.12H PO (11:36)
--- NOTE | 2022-06-21 12:10 | CHAPLAIN ---
Type of Pastoral Visit _x__ Initial Visit ___ Follow-up Visit ___ On-call Visit ___ General Patient Visit ___ Spiritual Assessment ___ Family Conference ___ Bereavement ___ Rapid Response ___ Code Blue ___ Other (describe below) Pastoral Care Referral From _x__ Patient ___ Family ___ Nurse ___ Physician ___ Front Office Spec ___ [employer] Scoreboard Operator ___ Other (describe below) Sacrament/Intervention ___ Active listening ___ Anointing ___ Worship ___ Bereavement ___ Communion ___ Mary exploration ___ ___ Life review ___ Prayer ___ Reconciliation ___ Sacrament of Sick _x__ Supportive presence ___ Wedding ___ Other (describe below) Pastoral Comments patient is awake as RN is giving his meds; offer of presence and support; pt states through humor how he is managing; pt denies any needs and declines prayers or other care
--- NOTE | 2022-06-21 13:28 | CASEMGMT ---
Discharge Planning Update rec'd from [facility], pre-cert is still pending. Angie Arango
--- NOTE | 2022-06-21 14:08 | PN.HOSP_ITS ---
Reason for Visit Reason for Visit: Diagnoses Acute posthemorrhagic anemia (06/17/22) Anemia, unspecified (06/17/22) Elevated white blood cell count, unspecified (06/17/22) Moderate protein-calorie malnutrition (06/17/22) Acidosis, unspecified (06/17/22) Supraventricular tachycardia (06/17/22) Influenza due to other identified influenza virus with other respiratory manifestations (06/17/22) Pneumonia, unspecified organism (06/17/22) Esophagitis, unspecified without bleeding (06/17/22) Peptic ulcer, site unspecified, unspecified as acute or chronic, without hemorrhage or perforation (06/17/22) Gastrointestinal hemorrhage, unspecified (06/17/22) Rhabdomyolysis (06/17/22) Acute kidney failure, unspecified (06/17/22) Hypoxemia (06/17/22) Weakness (06/17/22) Abnormal findings on diagnostic imaging of other specified body structures (06/17/22) Unspecified injury of right wrist, hand and finger(s), initial encounter (0 06/17/22) Unspecified fall, initial encounter (06/17/22) Subjective Subjective Reports feeling about the same, looking forward to eating more food Objective Data Objective Data Vital Signs: Vital Signs Temp Pulse Resp BP Pulse Ox O2 Del Method O2 Flow Rate 98.9 F 69 24 H 113/67 97 Nasal Cannula 5 06/21/22 11:38 06/21/22 11:38 06/21/22 11:38 06/21/22 11:38 06/21/22 11:38 06/21/22 11:38 06/21/22 11:38 FiO2 2 06/20/22 16:12 Oxygen Flow Rate (L/min) 5 Oxygen Delivery Method Nasal Cannula Weight: 68.9 kg Body Mass Index (BMI) 22.4 Intake & Output: Intake and Output for Last 24 Hours 06/19/22 06/20/22 06/21/22 23:59 23:59 23:59 Intake Total 634.83 / 634.83 1106.33 / 1106.33 181.84 / 181.84 Output Total 625 / 625 Balance 634.83 / 634.83 1106.33 / 1106.33 -443.16 / -443.16 Lab / Micro Data Result Diagrams: 06/21/22 05:48 06/21/22 05:48 Labs: Laboratory Results - last 24 hr 06/17/22 06:15: Diff Path Review Reviewed 06/20/22 05:40: Diff Path Review Reviewed 06/21/22 05:48: WBC 7.8, RBC 2.71 L, Hgb 8.1 L, Hct 25.9 L, MCV 95.6 H, MCH 29.9, MCHC 31.3 L, RDW Std Deviation 50.9 H, RDW Coeff of Fidelia 14.8 H, Plt Count 431, MPV 11.2, Neut % (Auto) Not Reportable, Absolute Neuts (auto) 5.5, Absolute Lymphs (auto) 1.17, Total Counted 100, Neutrophils % (Manual) 61, Band Neutrophils % 10 H, Lymphocytes % (Manual) 15 L, Monocytes % (Manual) 8, Eosinophils % (Manual) 4, Metamyelocytes % 1, Myelocytes % 1 H, Diff Path Review May , Platelet Estimate ADEQUATE, RBC Morphology NORM C+C 06/21/22 05:48: Sodium 140, Potassium 3.7, Chloride 109 H, Carbon Dioxide 26.0, Anion Gap 5, BUN 14, Creatinine 1.42 H, Estim Creat Clear Calc 38.80, Est GFR (MDRD) Af Amer 61, Est GFR (MDRD) Non-Af 51 L, BUN/Creatinine Ratio 9.9 L, Glucose 91, Calcium 8.0 L Micro: Microbiology 06/16/22 12:10 Blood Culture (Wb) - Right Forearm Blood Culture - Final No growth in 5 days. 06/16/22 12:10 Blood Culture (Wb) - Anticubital Left Blood Culture - Final No growth in 5 days. 06/17/22 06:00 Sputum, Expectorated/Coughed Gram Stain - Final 06/17/22 06:00 Sputum, Expectorated/Coughed Respiratory Culture - Final 06/16/22 14:37 Urine, Clean Catch Urine Culture - Final Yeast, not Gem albicans 06/16/22 12:19 Nasal Secretion SARS-CoV-2 & FLU Antigen (Rapid) - Final Influenzae B Physical Exam Narrative General: Alert, oriented, no apparent distress HEENT: Atraumatic, normocephalic Eyes: Anicteric, normal conjunctiva, extraocular movements grossly intact Neck: Supple Respiratory: Somewhat diminished at the bases, no overt wheezes, normal respiratory effort Cardiovascular: Regular rate and rhythm GI: Soft, nontender, nondistended Extremities: No edema Musculoskeletal: Moving all extremities Neuro: No overt focal neurological deficits Skin: No rashes appreciated Psych: Cooperative Assessment & Plan Assessment/Plan (1) Influenza B: (2) Generalized weakness: PLAN: Plan #Acute on chronic anemia due to bleeding peptic ulcer disease * Hemoglobin dropped to 5.9 and is s/p transfusion of 2 units of PRBCs. * Hb today is 10.4 * had EGD which showed grade D esophagitis, and bleeding peptic ulcer * GI on board. * on PO pantoprazole 40mg bid -06/20: Hemoglobin 8 today, was 10.4 yesterday but the day prior was 8.4 which appears closer to baseline, suspect 10.4 may have been spurious. EGD performed on 06/17/2022 and demonstrated severe erosive esophagitis that was biopsied and treated with heater probe, nonbleeding gastric ulcers with no stigmata of bleeding which were biopsied, and multiple oozing duodenal ulcers with pigmented material these were injected and he did with event promotions coordinator probe. Gastrin levels were checked and were normal. Remains on PPI gtt and carafate, advance diet as tolera silverio. GI following. -06/21: Add onto AM labs if possible PPI twice daily and Carafate, tolerating advance diet. Appears that he was on aspirin previously but do not see any secondary indication, likely primary prevention so continue to hold at this time. Hemoglobin stable, presently awaiting pre-CERT for transfer to SNF #Influenza B infection * On Tamiflu. Breathing treatments bronchodilators. * Titrate oxygen as needed to maintain saturation above 90%. * Patient was not vaccinated against influenza this season. -06/20: Stable, will need ambulated to assess for O2 needs prior to transfer #Lactic acidosis:- resolved * Hydrated with IV fluids. * No clear evidence of infection apart from the influenza. resolved. #Abnormal CT scan. * He had CT of his abdomen done due to ecchymosis on his abdomen. There was no acute intra-abdominal pathology but there was questionable incomplete opacification of the pulmonary arteries. Recommendation was for a CTA of the chest. However this was not done as pretest probability for PE was thought to be low. He also had impaired kidney disease. * Admit hospitalist discussed with family about not doing any further imaging and they agreed. #Right finger injury due to mechanical fall * Imaging done showed no evidence of septic arthritis. Finger wrapped in bandage Pain meds as needed. #History of SVT: On metoprolol and Cardizem. #Hypertension -06/20: BP has been low, Cardizem decreased, give small bolus of fluids #Hyperlipidemia: On statin #CKD stage IIIb -Avoid nephrotoxic agents, appears to be at baseline DVT prophylaxis: SCDs CODE STATUS: Full code Total time spent on evaluation and management of patient, reviewing chart and specialist notes, discussing plan with patient and his , discussion with nursing and ancillary staff as well as documentation: 30 mins Disposition: awaiting placement Charges/Coding Visit Charges Inpatient E&M: 28380 Subs Hosp L2
--- NOTE | 2022-06-21 14:20 | PCM.PROGNOTE ---
Subjective Subjective Patient is tolerating a diet without any abdominal pain, nausea, vomiting or diarrhea. He is being maintained on 4 to 5 L nasal cannula. Objective Data Objective Data Vital Signs: Vital Signs Temp Pulse Resp BP Pulse Ox O2 Del Method O2 Flow Rate 98.9 F 69 24 H 113/67 97 Nasal Cannula 5 06/21/22 11:38 06/21/22 11:38 06/21/22 11:38 06/21/22 11:38 06/21/22 11:38 06/21/22 11:38 06/21/22 11:38 FiO2 2 06/20/22 16:12 Oxygen Flow Rate (L/min) 5 Oxygen Delivery Method Nasal Cannula Weight: 151 lb 14.376 oz Body Mass Index (BMI) 22.4 Intake & Output: Intake and Output for Last 24 Hours 06/19/22 06/20/22 06/21/22 23:59 23:59 23:59 Intake Total 634.83 / 634.83 1106.33 / 1106.33 181.84 / 181.84 Output Total 625 / 625 Balance 634.83 / 634.83 1106.33 / 1106.33 -443.16 / -443.16 Lab / Micro Data Result Diagrams: 06/21/22 05:48 06/21/22 05:48 Labs: Laboratory Results - last 24 hr 06/17/22 06:15: Diff Path Review Reviewed 06/20/22 05:40: Diff Path Review Reviewed 06/21/22 05:48: WBC 7.8, RBC 2.71 L, Hgb 8.1 L, Hct 25.9 L, MCV 95.6 H, MCH 29.9, MCHC 31.3 L, RDW Std Deviation 50.9 H, RDW Coeff of Fidelia 14.8 H, Plt Count 431, MPV 11.2, Neut % (Auto) Not Reportable, Absolute Neuts (auto) 5.5, Absolute Lymphs (auto) 1.17, Total Counted 100, Neutrophils % (Manual) 61, Band Neutrophils % 10 H, Lymphocytes % (Manual) 15 L, Monocytes % (Manual) 8, Eosinophils % (Manual) 4, Metamyelocytes % 1, Myelocytes % 1 H, Diff Path Review May , Platelet Estimate ADEQUATE, RBC Morphology NORM C+C 06/21/22 05:48: Sodium 140, Potassium 3.7, Chloride 109 H, Carbon Dioxide 26.0, Anion Gap 5, BUN 14, Creatinine 1.42 H, Estim Creat Clear Calc 38.80, Est GFR (MDRD) Af Amer 61, Est GFR (MDRD) Non-Af 51 L, BUN/Creatinine Ratio 9.9 L, Glucose 91, Calcium 8.0 L Micro: Microbiology 06/16/22 12:10 Blood Culture (Wb) - Right Forearm Blood Culture - Final No growth in 5 days. 06/16/22 12:10 Blood Culture (Wb) - Anticubital Left Blood Culture - Final No growth in 5 days. 06/17/22 06:00 Sputum, Expectorated/Coughed Gram Stain - Final 06/17/22 06:00 Sputum, Expectorated/Coughed Respiratory Culture - Final 06/16/22 14:37 Urine, Clean Catch Urine Culture - Final Yeast, not Gem albicans 06/16/22 12:19 Nasal Secretion SARS-CoV-2 & FLU Antigen (Rapid) - Final Influenzae B Physical Exam Narrative General: Alert, oriented, no apparent distress HEENT: Atraumatic, normocephalic Eyes: Anicteric, normal conjunctiva, extraocular movements grossly intact Neck: Supple Respiratory: Somewhat diminished at the bases, no overt wheezes, normal respiratory effort Cardiovascular: Regular rate and rhythm GI: Soft, nontender, nondistended Extremities: No edema Musculoskeletal: Moving all extremities Neuro: No overt focal neurological deficits Skin: No rashes appreciated Psych: Cooperative Assessment & Plan Assessment/Plan (1) SVT (supraventricular tachycardia): (2) Fall: (3) YUE (acute kidney injury): (4) Leukocytosis: (5) Anemia: QUALIFIERS: Anemia type: unspecified type Qualified Code(s): D64.9 - Anemia, unspecified (6) Acute GI bleeding: (7) Moderate malnutrition: (8) Esophagitis: (9) Peptic ulcer disease: (10) Acute blood loss anemia: PLAN: Plan SVT -He went into SVT after the endoscopy . It was treated by anesthesia. No signs of recurrent SVT today. He remains off of anticoagulation Acute GI bleed secondary to severe esophagitis and peptic ulcer disease -Hemoglobin has appears to stabilize -Continue Protonix drip -Add Carafate -Full liquid diet and advance per tolerated -Continue to hold subcu heparin -EGD performed on 06/17/2022 and demonstrated severe erosive esophagitis that was biopsied and treated with heater probe, nonbleeding gastric ulcers with no stigmata of bleeding which were biopsied, and multiple oozing duodenal ulcers with pigmented material these were injected and he did with donor relations coordinator probe. -Gastrin level was normal Acute blood loss anemia on chronic anemia -Acute issues due to the above -It appears that his hemoglobin is down slightly toy 9.1--> 8.4-->10-->8.0-->8.1 -EGD performed with above results -Repeat CBC in a.m. Agree with holding aspirin as he is too high risk for recurrent GI bleeding and upper GI tract secondary to to acute GI bleeds within 2 weeks from peptic ulcer disease. He is okay to have his diet advanced as tolerated. Charges/Coding Visit Charges Inpatient E&M: 52582 Subs Hosp L3
[2022-06-21] MEDS: Sodium Bicarbonate 650 MG Tablet PO ×2 (15:59→23:05)
[2022-06-21] MEDS: Pravastatin 20 MG Tablet PO (23:04)
[2022-06-22] VITALS (12 sets, daily range): BP systolic 84–124; BP diastolic 59–79; PULSE 68–88; RESP 18; TEMP 36.6–37.3; O2SAT 96–99
[2022-06-22] MEDS: Sodium Bicarbonate 650 MG Tablet PO ×3 (05:47→22:46)
[2022-06-22] MEDS: Sucralfate 1 GM Tablet PO ×4 (05:47→22:52)
[2022-06-22 06:24] LABS: Hematocrit 25.7 % (40-54); Hemoglobin 8.2 g/dL (13.0-16.5); Mean Corp Hgb Conc 31.9 g/dL (32-36); Mean Corpuscular Hgb 29.9 pg (27.0-32.0); Mean Corpuscular Volume 93.8 fL (80-94); Mean Platelet Vol. 10.6 fl (6.2-12.0); POSITIVE COUNT YES; POSITIVE MORPHOLOGY YES; Platelet Count 501 K/mm3 (150-450); RBC Distribution Width CV 14.7 % (11.6-14.6); RBC Distribution Width SD 50.7 fl (35.1-43.9); Red Blood Count 2.74 M/mm3 (4.6-6.2); White Blood Count 10.3 K/mm3 (4.4-11.0)
[2022-06-22 06:33] LABS: Differential Indicated MANUAL DIFF
[2022-06-22 06:58] LABS: Anion Gap 4 (5-15); BUN 13 mg/dL (7-18); Calcium,Total 8.2 mg/dL (8.5-10.1); Chloride 107 mmol/L (98-107); Creatinine, Serum 1.45 mg/dL (0.70-1.30); EST Glomerular Filtration Rate 50 mL/min (>60); Est Glom Filt Rate - Afr Amer 60 mL/min (>60); Glucose 104 mg/dL (74-106); Potassium 3.6 mmol/L (3.5-5.1); Sodium Level 138 mmol/L (136-145)
[2022-06-22 07:05] LABS: Eosinophil 5 % (0-5); Lymphocyte 12 % (19-41); Metamyelocyte 2 % (0-1); Monocyte 4 % (0-10); Myelocyte 6 % (0-0); Neutrophil-Band 10 % (0-5); Neutrophil-Segmented 61 % (47-70); Total Cells Counted 100 (MANUAL DIFF)
[2022-06-22 07:06] LABS: Platelet Estimate SLT INC (ADEQ)
[2022-06-22 07:07] LABS: Hypochromasia 1+; Red Cell Morphology N CYTIC NORMAL (NORM C&C)
[2022-06-22 07:08] LABS: Absolute Lymphocyte Count 1.23 X10^3/uL (0.83-4.51); Absolute Neutrophil Count 7.3 X10^3/uL (2.0-7.7); Lymphocyte # 1.23 X10^3/ul (0.83-4.51); Neutrophil # 7.28 X10^3/uL (2.7-7.7)
[2022-06-22] MEDS: Menthol/Lanolin/Calamine/Znox 113 GM Tube 1 APPLIC TOPICAL ×2 (09:43→22:47)
[2022-06-22] MEDS: Pantoprazole Sodium 40 MG Tablet PO ×2 (09:44→22:52)
--- NOTE | 2022-06-22 12:05 | CASEMGMT ---
Discharge Planning Requested therapy updates sent to [facility] via [facility]. Angie Arango
--- NOTE | 2022-06-22 15:00 | PN.HOSP_ITS ---
Reason for Visit Reason for Visit: Diagnoses Acute posthemorrhagic anemia (06/17/22) Anemia, unspecified (06/17/22) Elevated white blood cell count, unspecified (06/17/22) Moderate protein-calorie malnutrition (06/17/22) Acidosis, unspecified (06/17/22) Supraventricular tachycardia (06/17/22) Influenza due to other identified influenza virus with other respiratory manifestations (06/17/22) Pneumonia, unspecified organism (06/17/22) Esophagitis, unspecified without bleeding (06/17/22) Peptic ulcer, site unspecified, unspecified as acute or chronic, without hemorrhage or perforation (06/17/22) Gastrointestinal hemorrhage, unspecified (06/17/22) Rhabdomyolysis (06/17/22) Acute kidney failure, unspecified (06/17/22) Hypoxemia (06/17/22) Weakness (06/17/22) Abnormal findings on diagnostic imaging of other specified body structures (06/17/22) Unspecified injury of right wrist, hand and finger(s), initial encounter (0 06/17/22) Unspecified fall, initial encounter (06/17/22) Subjective Subjective Feeling roughly the same today, no new complaints Objective Data Objective Data Vital Signs: Vital Signs Temp Pulse Resp BP Pulse Ox O2 Del Method O2 Flow Rate 97.9 F 88 18 111/71 98 Nasal Cannula 3 06/22/22 11:24 06/22/22 11:24 06/22/22 11:24 06/22/22 11:24 06/22/22 14:41 06/22/22 14:41 06/22/22 14:41 FiO2 2 06/20/22 16:12 Oxygen Flow Rate (L/min) 3 Oxygen Delivery Method Nasal Cannula Weight: 68.9 kg Body Mass Index (BMI) 22.4 Intake & Output: Intake and Output for Last 24 Hours 06/20/22 06/21/22 06/22/22 23:59 23:59 23:59 Intake Total 1106.33 / 1106.33 541.84 / 541.84 300 / 300 Output Total 625 / 625 Balance 1106.33 / 1106.33 -83.16 / -83.16 300 / 300 Lab / Micro Data Result Diagrams: 06/22/22 05:50 06/22/22 05:50 Labs: Laboratory Results - last 24 hr 06/22/22 05:50: WBC 10.3, RBC 2.74 L, Hgb 8.2 L, Hct 25.7 L, MCV 93.8, MCH 29.9, MCHC 31.9 L, RDW Std Deviation 50.7 H, RDW Coeff of Fidelia 14.7 H, Plt Count 501 H, MPV 10.6, Neut % (Auto) Not Reportable, Absolute Neuts (auto) 7.3, Absolute Lymphs (auto) 1.23, Total Counted 100, Neutrophils % (Manual) 61, Band Neutrophils % 10 H, Lymphocytes % (Manual) 12 L, Monocytes % (Manual) 4, Eosinophils % (Manual) 5, Metamyelocytes % 2 H, Myelocytes % 6 H, Diff Path Review May jalen, Platelet Estimate SLT INC, RBC Morphology N CYTIC, Hypochromasia 1+ 06/22/22 05:50: Sodium 138, Potassium 3.6, Chloride 107, Carbon Dioxide 27.0, Anion Gap 4 L, BUN 13, Creatinine 1.45 H, Estim Creat Clear Calc 38.00, Est GFR (MDRD) Af Amer 60, Est GFR (MDRD) Non-Af 50 L, BUN/Creatinine Ratio 9.0 L, Glucose 104, Calcium 8.2 L Micro: Microbiology 06/16/22 12:10 Blood Culture (Wb) - Right Forearm Blood Culture - Final No growth in 5 days. 06/16/22 12:10 Blood Culture (Wb) - Anticubital Left Blood Culture - Final No growth in 5 days. 06/17/22 06:00 Sputum, Expectorated/Coughed Gram Stain - Final 06/17/22 06:00 Sputum, Expectorated/Coughed Respiratory Culture - Final 06/16/22 14:37 Urine, Clean Catch Urine Culture - Final Yeast, not Gem albicans 06/16/22 12:19 Nasal Secretion SARS-CoV-2 & FLU Antigen (Rapid) - Final Influenzae B Physical Exam Narrative General: Alert, oriented, no apparent distress HEENT: Atraumatic, normocephalic Eyes: Anicteric, normal conjunctiva, extraocular movements grossly intact Neck: Supple Respiratory: Somewhat diminished at the bases, no overt wheezes, normal respiratory effort Cardiovascular: Regular rate and rhythm GI: Soft, nontender, nondistended Extremities: No edema, right finger still in splint Musculoskeletal: Moving all extremities Neuro: No overt focal neurological deficits Skin: No rashes appreciated Psych: Cooperative Assessment & Plan Assessment/Plan (1) Influenza B: (2) Generalized weakness: PLAN: Plan #Acute on chronic anemia due to bleeding peptic ulcer disease * Hemoglobin dropped to 5.9 and is s/p transfusion of 2 units of PRBCs. * Hb today is 10.4 * had EGD which showed grade D esophagitis, and bleeding peptic ulcer * GI on board. * on PO pantoprazole 40mg bid -06/20: Hemoglobin 8 today, was 10.4 yesterday but the day prior was 8.4 which appears closer to baseline, suspect 10.4 may have been spurious. EGD performed on 06/17/2022 and demonstrated severe erosive esophagitis that was biopsied and treated with heater probe, nonbleeding gastric ulcers with no stigmata of bleeding which were biopsied, and multiple oozing duodenal ulcers with pigmented material these were injected and he did with lacquer mixer probe. Gastrin levels were checked and were normal. Remains on PPI gtt and carafate, advance diet as tolerated. GI following. -06/21: Add onto AM labs if possible PPI twice daily and Carafate, tolerating advance diet. Appears that he was on aspirin previously but do not see any secondary indication, likely primary prevention so continue to hold at this time. Hemoglobin stable, presently awaiting pre-CERT for transfer to SNF -06/22: Awaiting SNF, monitoring hemoglobin #Influenza B infection * On Tamiflu. Breathing treatments bronchodilators. * Titrate oxygen as needed to maintain saturation above 90%. * Patient was not vaccinated against influenza this season. -06/20: Stable, will need ambulated to assess for O2 needs prior to transfer #Lactic acidosis:- resolved * Hydrated with IV fluids. * No clear evidence of infection apart from the influenza. resolved. #Abnormal CT scan. * He had CT of his abdomen done due to ecchymosis on his abdomen. There was no acute intra-abdominal pathology but there was questionable incomplete opacification of the pulmonary arteries. Recommendation was for a CTA of the chest. However this was not done as pretest probability for PE was thought to be low. He also had impaired kidney disease. * Admit hospitalist discussed with family about not doing any further imaging and they agreed. #Right finger injury due to mechanical fall * Imaging done showed no evidence of septic arthritis. Finger in splint currently. Pain meds as needed. #History of SVT: On metoprolol and Cardizem. #Hypertension -06/20: BP has been low, Cardizem decreased, give small bolus of fluids #Hyperlipidemia: On statin #CKD stage IIIb -Avoid nephrotoxic agents, appears to be at baseline DVT prophylaxis: SCDs CODE STATUS: Full code Total time spent on evaluation and management of patient, reviewing chart and specialist notes, discussing plan with patient and his , discussion with nursing and ancillary staff as well as documentation: 30 mins Disposition: awaiting placement Charges/Coding Visit Charges Inpatient E&M: 53624 Subs Hosp L2
--- NOTE | 2022-06-22 17:01 | PN_ITS ---
Subjective Subjective Patient is feeling about the same. No new complaints. Objective Data Objective Data Vital Signs: Vital Signs Temp Pulse Resp BP Pulse Ox O2 Del Method O2 Flow Rate 98.2 F 74 18 117/64 99 Nasal Cannula 3 06/22/22 16:55 06/22/22 16:55 06/22/22 16:55 06/22/22 16:55 06/22/22 16:55 06/22/22 16:55 06/22/22 16:55 FiO2 2 06/20/22 16:12 Oxygen Flow Rate (L/min) 3 Oxygen Delivery Method Nasal Cannula Weight: 151 lb 14.376 oz Body Mass Index (BMI) 22.4 Intake & Output: Intake and Output for Last 24 Hours 06/20/22 06/21/22 06/22/22 23:59 23:59 23:59 Intake Total 1106.33 / 1106.33 541.84 / 541.84 300 / 300 Output Total 625 / 625 Balance 1106.33 / 1106.33 -83.16 / -83.16 300 / 300 Lab / Micro Data Result Diagrams: 06/22/22 05:50 06/22/22 05:50 Labs: Laboratory Results - last 24 hr 06/22/22 05:50: WBC 10.3, RBC 2.74 L, Hgb 8.2 L, Hct 25.7 L, MCV 93.8, MCH 29.9, MCHC 31.9 L, RDW Std Deviation 50.7 H, RDW Coeff of Fidelia 14.7 H, Plt Count 501 H, MPV 10.6, Neut % (Auto) Not Reportable, Absolute Neuts (auto) 7.3, Absolute Lymphs (auto) 1.23, Total Counted 100, Neutrophils % (Manual) 61, Band Neutro phils % 10 H, Lymphocytes % (Manual) 12 L, Monocytes % (Manual) 4, Eosinophils % (Manual) 5, Metamyelocytes % 2 H, Myelocytes % 6 H, Diff Path Review Paz rao Platelet Estimate SLT INC, RBC Morphology N CYTIC, Hypochromasia 1+ 06/22/22 05:50: Sodium 138, Potassium 3.6, Chloride 107, Carbon Dioxide 27.0, Anion Gap 4 L, BUN 13, Creatinine 1.45 H, Estim Creat Clear Calc 38.00, Est GFR (MDRD) Af Amer 60, Est GFR (MDRD) Non-Af 50 L, BUN/Creatinine Ratio 9.0 L, Glucose 104, Calcium 8.2 L Micro: Microbiology 06/16/22 12:10 Blood Culture (Wb) - Right Forearm Blood Culture - Final No growth in 5 days. 06/16/22 12:10 Blood Culture (Wb) - Anticubital Left Blood Culture - Final No growth in 5 days. 06/17/22 06:00 Sputum, Expectorated/Coughed Gram Stain - Final 06/17/22 06:00 Sputum, Expectorated/Coughed Respiratory Culture - Final 06/16/22 14:37 Urine, Clean Catch Urine Culture - Final Yeast, not Gem albicans 06/16/22 12:19 Nasal Secretion SARS-CoV-2 & FLU Antigen (Rapid) - Final Influenzae B Physical Exam Narrative General: Alert, oriented, no apparent distress HEENT: Atraumatic, normocephalic Eyes: Anicteric, normal conjunctiva, extraocular movements grossly intact Neck: Supple Respiratory: Somewhat diminished at the bases, no overt wheezes, normal respiratory effort Cardiovascular: Regular rate and rhythm GI: Soft, nontender, nondistended Extremities: No edema, right finger still in splint Musculoskeletal: Moving all extremities Neuro: No overt focal neurological deficits Skin: No rashes appreciated Psych: Cooperative Assessment & Plan Assessment/Plan (1) SVT (supraventricular tachycardia): (2) Fall: (3) YUE (acute kidney injury): (4) Leukocytosis: (5) Anemia: QUALIFIERS: Anemia type: unspecified type Qualified Code(s): D64.9 - Anemia, unspecified (6) Acute GI bleeding: (7) Moderate malnutrition: (8) Esophagitis: (9) Peptic ulcer disease: (10) Acute blood loss anemia: PLAN: Plan SVT -He went into SVT after the endoscopy . It was treated by anesthesia. No signs of recurrent SVT today. He remains off of anticoagulation Acute GI bleed secondary to severe esophagitis and peptic ulcer disease -Hemoglobin has appears to stabilize -Continue Protonix drip -Add Carafate -Full liquid diet and advance per tolerated -Continue to hold subcu heparin -EGD performed on 06/17/2022 and demonstrated severe erosive esophagitis that was biopsied and treated with heater probe, nonbleeding gastric ulcers with no stigmata of bleeding which were biopsied, and multiple oozing duodenal ulcers with pigmented material these were injected and he did with associate professor of anthropology probe. -Gastrin level was normal Acute blood loss anemia on chronic anemia -Acute issues due to the above - Hemoglobin continues to be stable. Likely acute GI blood loss in setting of anemia chronic disease 9.1--> 8.4-->10-->8.0-->8.1 -EGD performed with above results -Repeat CBC in a.m. Agree with holding aspirin as he is too high risk for recurrent GI bleeding and upper GI tract secondary to to acute GI bleeds within 2 weeks from peptic ulcer disease. He is okay to have his diet advanced as tolerated. Charges/Coding Visit Charges Inpatient E&M: 64953 Subs Hosp L3
[2022-06-22] MEDS: Metoprolol Tartrate 25 MG Tablet PO (22:46)
[2022-06-22] MEDS: Pravastatin 20 MG Tablet PO (22:52)
[2022-06-23 05:15] VITALS: BP 168/72; PULSE 68; RESP 20; TEMP 37.1; O2SAT 95
[2022-06-23 06:06] LABS: Hematocrit 26.2 % (40-54); Hemoglobin 8.2 g/dL (13.0-16.5); Mean Corp Hgb Conc 31.3 g/dL (32-36); Mean Corpuscular Hgb 29.8 pg (27.0-32.0); Mean Corpuscular Volume 95.3 fL (80-94); Mean Platelet Vol. 10.6 fl (6.2-12.0); POSITIVE COUNT YES; POSITIVE MORPHOLOGY YES; Platelet Count 587 K/mm3 (150-450); RBC Distribution Width CV 14.6 % (11.6-14.6); RBC Distribution Width SD 50.9 fl (35.1-43.9); Red Blood Count 2.75 M/mm3 (4.6-6.2); White Blood Count 12.1 K/mm3 (4.4-11.0)
[2022-06-23] MEDS: Sodium Bicarbonate 650 MG Tablet PO ×2 (06:15→13:52)
[2022-06-23] MEDS: Sucralfate 1 GM Tablet PO ×3 (06:15→16:16)
[2022-06-23 06:19] LABS: Differential Indicated MANUAL DIFF
[2022-06-23 06:37] LABS: Anion Gap 5 (5-15); BUN 12 mg/dL (7-18); BUN/Creat Ratio 8.5 RATIO (10-20); Calcium,Total 8.2 mg/dL (8.5-10.1); Chloride 108 mmol/L (98-107); Creatinine, Serum 1.42 mg/dL (0.70-1.30); EST Glomerular Filtration Rate 51 mL/min (>60); Est Glom Filt Rate - Afr Amer 61 mL/min (>60); Glucose 98 mg/dL (74-106); Potassium 3.7 mmol/L (3.5-5.1); Sodium Level 140 mmol/L (136-145)
[2022-06-23 06:57] VITALS: BP 121/80; PULSE 77; O2SAT 97
[2022-06-23 07:15] LABS: Lymphocyte 6 % (19-41); Metamyelocyte 1 % (0-1); Monocyte 6 % (0-10); Neutrophil-Band 10 % (0-5); Neutrophil-Segmented 77 % (47-70); Platelet Estimate SLT INC (ADEQ); Red Cell Morphology NORM C+C NORMAL (NORM C&C); Total Cells Counted 100 (MANUAL DIFF)
[2022-06-23 07:16] LABS: Absolute Lymphocyte Count 0.73 X10^3/uL (0.83-4.51); Absolute Neutrophil Count 10.5 X10^3/uL (2.0-7.7); Lymphocyte # 0.73 X10^3/ul (0.83-4.51); Neutrophil # 10.52 X10^3/uL (2.7-7.7)
[2022-06-23 07:44] VITALS: O2SAT 98
--- NOTE | 2022-06-23 08:00 | PN_ITS ---
Subjective Subjective Feeling roughly the same today, no new complaints Objective Data Objective Data Vital Signs: Vital Signs Temp Pulse Resp BP Pulse Ox O2 Del Method O2 Flow Rate 97.8 F 78 18 113/80 94 Nasal Cannula 2 06/23/22 14:00 06/23/22 14:00 06/23/22 14:00 06/23/22 14:00 06/23/22 14:00 06/23/22 14:03 06/23/22 14:03 FiO2 2 06/20/22 16:12 Oxygen Flow Rate (L/min) 2 Oxygen Delivery Method Nasal Cannula Weight: 151 lb 14.376 oz Body Mass Index (BMI) 22.4 Intake & Output: Intake and Output for Last 24 Hours 06/21/22 06/22/22 06/23/22 23:59 23:59 23:59 Intake Total 541.84 / 541.84 400 / 400 120 / 120 Output Total 625 / 625 Balance -83.16 / -83.16 400 / 400 120 / 120 Lab / Micro Data Result Diagrams: 06/23/22 05:25 06/23/22 05:25 Labs: Laboratory Results - last 24 hr 06/21/22 05:48: Diff Path Review Reviewed 06/23/22 05:25: WBC 12.1 H, RBC 2.75 L, Hgb 8.2 L, Hct 26.2 L, MCV 95.3 H, MCH 29.8, MCHC 31.3 L, RDW Std Deviation 50.9 H, RDW Coeff of Fidelia 14.6, Plt Count 587 H, MPV 10.6, Neut % (Auto) Not Reportable, Absolute Neuts (auto) 10.5 H, Absolute Lymphs (auto) 0.73 L, Total Counted 100, Neutrophils % (Manual) 77 H, Band Neutrophils % 10 H, Lymphocytes % (Manual) 6 L, Monocytes % (Manual) 6, Metamyelocytes % 1, Diff Path Review May jalen, Platelet Estimate SLT INC, RBC Morphology NORM C+C 06/23/22 05:25: Sodium 140, Potassium 3.7, Chloride 108 H, Carbon Dioxide 27.0, Anion Gap 5, BUN 12, Creatinine 1.42 H, Estim Creat Clear Calc 38.80, Est GFR (MDRD) Af Amer 61, Est GFR (MDRD) Non-Af 51 L, BUN/Creatinine Ratio 8.5 L, Glucose 98, Calcium 8.2 L Micro: Microbiology 06/23/22 09:15 Nasal Secretion SARS-CoV-2 Antigen (Rapid) - Final 06/16/22 12:10 Blood Culture (Wb) - Right Forearm Blood Culture - Final No growth in 5 days. 06/16/22 12:10 Blood Culture (Wb) - Anticubital Left Blood Culture - Final No growth in 5 days. 06/17/22 06:00 Sputum, Expectorated/Coughed Gram Stain - Final 06/17/22 06:00 Sputum, Expectorated/Coughed Respiratory Culture - Final 06/16/22 14:37 Urine, Clean Catch Urine Culture - Final Yeast, not Gem albicans 06/16/22 12:19 Nasal Secretion SARS-CoV-2 & FLU Antigen (Rapid) - Final Influenzae B Physical Exam Narrative General: Alert, oriented, no apparent distress HEENT: Atraumatic, normocephalic Eyes: Anicteric, normal conjunctiva, extraocular movements grossly intact Neck: Supple Respiratory: Some scattered wheezes, no increased work of breathing Cardiovascular: Regular rate and rhythm GI: Soft, nontender, nondistended Extremities: No edema, right finger still in splint, left pointer finger with light-colored blister without pain or active drainage Musculoskeletal: Moving all extremities Neuro: No overt focal neurological deficits Skin: No rashes appreciated Psych: Cooperative Assessment & Plan Assessment/Plan (1) SVT (supraventricular tachycardia): (2) Fall: (3) YUE (acute kidney injury): (4) Leukocytosis: (5) Anemia: QUALIFIERS: Anemia type: unspecified type Qualified Code(s): D64.9 - Anemia, unspecified (6) Acute GI bleeding: (7) Moderate malnutrition: (8) Esophagitis: (9) Peptic ulcer disease: (10) Acute blood loss anemia: PLAN: Plan SVT -He went into SVT after the endoscopy . It was treated by anesthesia. No signs of recurrent SVT today. He remains off of anticoagulation Acute GI bleed secondary to severe esophagitis and peptic ulcer disease -Hemoglobin has appears to stabilize -Continue Protonix drip -Add Carafate -Full liquid diet and advance per tolerated -Continue to hold subcu heparin -EGD performed on 06/17/2022 and demonstrated severe erosive esophagitis that was biopsied and treated with heater probe, nonbleeding gastric ulcers with no stigmata of bleeding which were biopsied, and multiple oozing duodenal ulcers with pigmented material these were injected and he did with management advisor probe. -Gastrin level was normal Acute blood loss anemia on chronic anemia -Acute issues due to the above - Hemoglobin continues to be stable. Likely acute GI blood loss in setting of anemia chronic disease 9.1--> 8.4-->10-->8.0-->8.1 Agree with holding aspirin as he is too high risk for recurrent GI bleeding and upper GI tract secondary to to acute GI bleeds within 2 weeks from peptic ulcer disease. He is okay to be discharged. Charges/Coding Visit Charges Inpatient E&M: 78206 Subs Hosp L3
[2022-06-23] MEDS: Menthol/Lanolin/Calamine/Znox 113 GM Tube 1 APPLIC TOPICAL (08:35)
[2022-06-23] MEDS: Pantoprazole Sodium 40 MG Tablet PO (08:36)
[2022-06-23] MEDS: Carvedilol 6.25 MG Tablet PO (08:36)
--- NOTE | 2022-06-23 08:38 | CASEMGMT ---
Discharge Planning Pre-cert has been obtained. SW notified. Angie Arango
[2022-06-23 09:00] VITALS: BP 123/74; PULSE 73; RESP 18; TEMP 36.8; O2SAT 99
--- NOTE | 2022-06-23 09:31 | CASEMGMT ---
Discharge Planning Requested updates sent to [facility] via [employer]'By. Angie Arango
[2022-06-23 09:51] LABS: Pathologist Review Reviewed
[2022-06-23 13:42] VITALS: O2SAT 95
[2022-06-23 14:00] VITALS: BP 113/80; PULSE 78; RESP 18; TEMP 36.6; O2SAT 94
--- NOTE | 2022-06-23 14:00 | TREXTCAR_ITS ---
Diet Diet Order/Speech Therapy: 06/20/22 22:44 Diet: Cardiac - Heart Healthy Is pt able to select menu?: No Diet Comments: chocolate ice cream w/ dinner Routine Orders/Code Status Suppository Type: Dulcolax 10mg Suppository Frequency: Daily PRN Routine Lab Work: CBC (5-7 days) Code Status: Full Code Therapies Physical Therapy: Eval and Treat Occupational Therapy: Eval and Treat Speech Therapy: Eval and Treat Problem/Diagnosis (1) SVT (supraventricular tachycardia): Status: Acute Code(s): I47.1 - Supraventricular tachycardia (2) Fall: Status: Acute Code(s): W19.XXXA - Unspecified fall, initial encounter (3) YUE (acute kidney injury): Status: Acute Code(s): N17.9 - Acute kidney failure, unspecified (4) Leukocytosis: Status: Acute Code(s): D72.829 - Elevated white blood cell count, unspecified (5) Anemia: Status: Acute Code(s): D64.9 - Anemia, unspecified (6) Acute GI bleeding: Status: Acute Code(s): K92.2 - Gastrointestinal hemorrhage, unspecified (7) Moderate malnutrition: Status: Acute Code(s): E44.0 - Moderate protein-calorie malnutrition (8) Esophagitis: Status: Acute Code(s): K20.90 - Esophagitis, unspecified without bleeding (9) Peptic ulcer disease: Status: Acute Code(s): K27.9 - Peptic ulcer, site unspecified, unspecified as acute or chronic, without hemorrhage or perforation (10) Acute blood loss anemia: Status: Resolved Code(s): D62 - Acute posthemorrhagic anemia Plan 82-year-old male with a history of CKD stage III, BPH, hypertension presented 06/16/2022 with increasing malaise over 2 days. He had fallen and sustained an injury to his right index finger and he was sent to the emergency room. In the ED his lactic was 3.3, creatinine 1.92 and as an outpatient noted of hemoglobin of 6.7 but in ER it was 7.7. Hand x-ray with soft tissue swelling, CT head unremarkable. He was found to be positive for influenza B and admitted and started on Tamiflu. During his admission his hemoglobin dropped to 5.9 and he had transfusion of 2 units of packed red blood cells. Had EGD which showed grade D esophagitis and a bleeding peptic ulcer and he was placed on PPI twice daily. Hemoglobin remained stable after endoscopy, PPI, Carafate and holding aspirin. Right finger has remained splinted, left finger does have a blister that appears very light and he endorses is unchanged. On day of discharge patient reports feeling better and breathing is improved from previous, no other complaints voiced at time of discharge. Discharge instructions as followed: -You will need to follow-up with Dr. Sesay with GI in his office upon discharge. Please call his office to schedule your hospital follow-up appointment (ph. [phone]) -You will be discharged on Protonix 40 mg twice daily as well as Carafate, will be important you take these as prescribed -Your aspirin has been discontinued due to your bleeding -Order demand ABG to check hemoglobin in 5 to 7 days to verify stability -Due to your blood pressure being somewhat low your medications were adjusted and you will no longer be taking Prinzide or diltiazem. Your metoprolol will be discontinued as well and you have been switched to carvedilol which will help blood pressure and heart rate. -Please call your primary care provider's office upon discharge to schedule a hospital follow up within 1 week. -For any concerning signs or symptoms please call 911 or proceed to the nearest emergency department #Acute on chronic anemia due to bleeding peptic ulcer disease * Hemoglobin dropped to 5.9 and is s/p transfusion of 2 units of PRBCs. * Hb today is 10.4 * had EGD which showed grade D esophagitis, and bleeding peptic ulcer * GI on board. * on PO pantoprazole 40mg bid -06/20: Hemoglobin 8 today, was 10.4 yesterday but the day prior was 8.4 which appears closer to baseline, suspect 10.4 may have been spurious. EGD performed on 06/17/2022 and demonstrated severe erosive esophagitis that was biopsied and treated with heater probe, nonbleeding gastric ulcers with no stigmata of bleeding which were biopsied, and multiple oozing duodenal ulcers with pigmented material these were injected and he did with salvationist probe. Gastrin levels were checked and were normal. Remains on PPI gtt and carafate, advance diet as tolerated. GI following. -06/21: Add onto AM labs if possible PPI twice daily and Carafate, tolerating advance diet. Appears that he was on aspirin previously but do not see any secondary indication, likely primary prevention so continue to hold at this time. Hemoglobin stable, presently awaiting pre-CERT for transfer to SNF -06/22: Awaiting SNF, monitoring hemoglobin #Influenza B infection * On Tamiflu. Breathing treatments bronchodilators. * Titrate oxygen as needed to maintain saturation above 90%. * Patient was not vaccinated against influenza this season. -06/20: Stable, will need ambulated to assess for O2 needs prior to transfer #Lactic acidosis:- resolved * Hydrated with IV fluids. * No clear evidence of infection apart from the influenza. resolved. #Abnormal CT scan. * He had CT of his abdomen done due to ecchymosis on his abdomen. There was no acute intra-abdominal pathology but there was questionable incomplete opacification of the pulmonary arteries. Recommendation was for a CTA of the chest. However this was not done as pretest probability for PE was thought to be low. He also had impaired kidney disease. * Admit hospitalist discussed with family about not doing any further imaging and they agreed. #Right finger injury due to mechanical fall * Imaging done showed no evidence of septic arthritis. Finger in splint curren tly. Pain meds as needed. #History of SVT: On metoprolol and Cardizem. #Hypertension -06/20: BP has been low, Cardizem decreased, give small bolus of fluids #Hyperlipidemia: On statin #CKD stage IIIb -Avoid nephrotoxic agents, appears to be at baseline DVT prophylaxis: SCDs CODE STATUS: Full code Total time spent on evaluation and management of patient, reviewing chart and specialist notes, discussing plan with patient and his , discussion with nursing and ancillary staff as well as documentation: 30 mins Disposition: awaiting placement Allergies/Procedures Done in Hospital Allergies No Known Allergies Allergy (Verified 06/16/22 11:42) Type of Care/Length of Stay Estimated LOS: Convalescent Care Less Than 30 days Type of Care Needed: Skilled Rehab Potential: Fair Prognosis: Fair Additional Orders/Day of Discharge Day of Discharge: 06/23/22 Dietary and Speech Recommendations Dietitian Recommendations/Changes: Rec advance diet to Cardiac w/ fluid restriction as indicated Will provide 4 oz dexter ice cream w/ dinner per pt request. Discharge Plan Admission Admit Date/Time: 06/17/22 09:58 Primary Reason for Your Visit: Fatigue Attending Provider: Balbina Logan Primary Care Provider: Rodney Shah Consulting Providers: Alberto Zuleta ; Tonja Vu Instructions Patient Instructions: ED Upper GI Bleeding (Stable) Additional Instructions / Restrictions: DISCHARGE INSTRUCTIONS PLEASE READ *Please take this with you to your next doctors appointment* -You will need to follow-up with Dr. Sesay with GI in his office upon discharge. Please call his office to schedule your hospital follow-up appointment (ph. [phone]) -You will be discharged on Protonix 40 mg twice daily as well as Carafate, will be important you take these as prescribed -Your aspirin has been discontinued due to your bleeding -Order demand ABG to check hemoglobin in 5 to 7 days to verify stability -Due to your blood pressure being somewhat low your medications were adjusted and you will no longer be taking Prinzide or diltiazem. Your metoprolol will be discontinued as well and you have been switched to carvedilol which will help blood pressure and heart rate. -Please call your primary care provider's office upon discharge to schedule a hospital follow up within 1 week. -For any concerning signs or symptoms please call 911 or proceed to the nearest emergency department Discharge Orders/Prescriptions Prescriptions: New carvedilol 6.25 mg Tablet 6.25 mg PO BID 30 Days Qty: 0 0RF Continued pravastatin 20 MG tablet 20 mg PO QHS albuterol sulfate [ProAir HFA] 1 PUFF inhaler 1 - 2 puff inhalation Q4H PRN PRN (Reason: Asthma) ergocalciferol (vitamin D2) 1,000 unit Capsule 1,000 unit PO DAILY cholecalciferol (vitamin D3) [Vitamin D3] 50 mcg (2,000 unit) Tablet 50 mcg PO DAILY sodium bicarbonate 650 mg Tablet 650 mg PO TID Qty: 0 0RF sucralfate 1 gram Tablet 1 g PO 1HR_ACHS Qty: 0 0RF pantoprazole [Protonix] 40 mg tablet,delayed release (DR/EC) 40 mg PO BID Qty: 1 0RF Discontinued aspirin 81 MG tablet,chewable 81 mg PO DAILY@0800 Prinzide 10 mg PO DAILY Label Comments: PRINZIDE 10/12.5 diltiazem HCl 120 mg Capsule,Extended Release 24hr 120 mg PO DAILY Qty: 0 0RF metoprolol tartrate 25 mg Tablet 25 mg PO BID Qty: 0 0RF Referrals / Follow Up: Rodney Shah MD [Primary Care Provider] - Within 1 Week Min Sesay DO [Med Staff - Active Staff] - See Referral Note (You will need to follow-up with Dr. Sesay with GI in his office upon discharge. Please call his office to schedule your hospital follow-up appointment (ph. [phone])) Disposition Disposition (needs filled in before D/C Order can be placed): [facility] (1) Anemia Qualifiers: Anemia type: unspecified type Qualified Code(s): D64.9 - Anemia, unspecified
--- NOTE | 2022-06-23 14:03 | DS.PCM_ITS ---
Providers Date of Admission: 06/17/22 Date of Discharge: 06/23/22 Primary Care Physician: Dr. Rodney Shah MD Consultations 06/17/22 07:29 Consult: Gastroenterology Routine Consulting Provider: [facility] Reason for Consult: acute on chronic anemia EMERGENT Consult: No MD Notified: Yes Date Notified: 06/17/22 Time Notified: 07:30 Method of Notification: Text Reason For Visit: FALL, INFLUENZA Diagnosis Discharge Diagnosis (1) SVT (supraventricular tachycardia): Status: Acute Code(s): I47.1 - Supraventricular tachycardia (2) Fall: Status: Acute Code(s): W19.XXXA - Unspecified fall, initial encounter (3) YUE (acute kidney injury): Status: Acute Code(s): N17.9 - Acute kidney failure, unspecified (4) Leukocytosis: Status: Acute Code(s): D72.829 - Elevated white blood cell count, unspecified (5) Anemia: Status: Acute Code(s): D64.9 - Anemia, unspecified Qualifiers: Anemia type: unspecified type Qualified Code(s): D64.9 - Anemia, unspecified (6) Acute GI bleeding: Status: Acute Code(s): K92.2 - Gastrointestinal hemorrhage, unspecified (7) Moderate malnutrition: Status: Acute Code(s): E44.0 - Moderate protein-calorie malnutrition (8) Esophagitis: Status: Acute Code(s): K20.90 - Esophagitis, unspecified without bleeding (9) Peptic ulcer disease: Status: Acute Code(s): K27.9 - Peptic ulcer, site unspecified, unspecified as acute or chronic, without hemorrhage or perforation (10) Acute blood loss anemia: Status: Resolved Code(s): D62 - Acute posthemorrhagic anemia Plan #Acute on chronic anemia due to bleeding peptic ulcer disease #Influenza B infection #Lactic acidosis:- resolved #Abnormal CT scan. * He had CT of his abdomen done due to ecchymosis on his abdomen. There was no acute intra-abdominal pathology but there was questionable incomplete opacification of the pulmonary arteries. Recommendation was for a CTA of the chest. However this was not done as pretest probability for PE was thought to be low. He also had impaired kidney disease. * Admit hospitalist discussed with family about not doing any further imaging and they agreed. #Right finger injury due to mechanical fall #History of SVT #Hypertension #Hyperlipidemia: On statin #CKD stage IIIb Medications at Discharge Home Medications albuterol sulfate 90 mcg/actuation aerosol inhaler (ProAir HFA) 1 - 2 puff inhalation Q4H PRN PRN Asthma 11/12/12 pravastatin 20 mg tablet 20 mg PO QHS high cholesterol 11/12/12 cholecalciferol (vitamin D3) 50 mcg (2,000 unit) tablet (Vitamin D3) 50 mcg PO DAILY general health 05/31/22 ergocalciferol (vitamin D2) 1,000 unit capsule 1,000 unit PO DAILY health 05/14 10/05 pantoprazole 40 mg tablet,delayed release (Protonix) 40 mg PO BID #1 TAB 06/08/22 sodium bicarbonate 650 mg tablet 650 mg PO TID #0 tabs 06/08/22 sucralfate 1 gram tablet 1 g PO 1HR_ACHS #0 tabs 06/08/22 carvedilol 6.25 mg tablet 6.25 mg PO BID 30 days #0 tabs 06/23/22 Hospital Course Summary of Care Provided Minutes Spent on Discharge: 35 Hospital Course: 82-year-old male with a history of CKD stage III, BPH, hypertension presented 06/16/2022 with increasing malaise over 2 days. He had fallen and sustained an injury to his right index finger and he was sent to the emergency room. In the ED his lactic was 3.3, creatinine 1.92 and as an outpatient noted of hemoglobin of 6.7 but in ER it was 7.7. Hand x-ray with soft tissue swelling, CT head unremarkable. He was found to be positive for influenza B and admitted and started on Tamiflu. During his admission his hemoglobin dropped to 5.9 and he had transfusion of 2 units of packed red blood cells. Had EGD which showed grade D esophagitis and a bleeding peptic ulcer and he was placed on PPI twice daily. Hemoglobin remained stable after endoscopy, PPI, Carafate and holding aspirin. Right finger has remained splinted, left finger does have a blister that appears very light and he endorses is unchanged. On day of discharge patient reports feeling better and breathing is improved from previous, no other complaints voiced at time of discharge. Discharge instructions as followed: -You will need to follow-up with Dr. Sesay with GI in his office upon discharge. Please call his office to schedule your hospital follow-up appointment (ph. [phone]) -You will be discharged on Protonix 40 mg twice daily as well as Carafate, will be important you take these as prescribed -Your aspirin has been discontinued due to your bleeding -Order demand ABG to check hemoglobin in 5 to 7 days to verify stability -Due to your blood pressure being somewhat low your medications were adjusted and you will no longer be taking Prinzide or diltiazem. Your metoprolol will be discontinued as well and you have been switched to carvedilol which will help blood pressure and heart rate. -Please call your primary care provider's office upon discharge to schedule a hospital follow up within 1 week. -For any concerning signs or symptoms please call 911 or proceed to the nearest emergency department Physical Exam Narrative General: Alert, oriented, no apparent distress HEENT: Atraumatic, normocephalic Eyes: Anicteric, normal conjunctiva, extraocular movements grossly intact Neck: Supple Respiratory: Some scattered wheezes, no increased work of breathing Cardiovascular: Regular rate and rhythm GI: Soft, nontender, nondistended Extremities: No edema, right finger still in splint, left pointer finger with light-colored blister without pain or active drainage Musculoskeletal: Moving all extremities Neuro: No overt focal neurological deficits Skin: No rashes appreciated Psych: Cooperative Weight / BMI Weight Weight: 68.9 kg Body Mass Index (BMI) 22.4 ABG / Lab / Microbiology Data Result Diagrams: 06/23/22 05:25 06/23/22 05:25 Laboratory: Laboratory Results - last 24 hr 06/21/22 05:48: Diff Path Review Reviewed 06/23/22 05:25: WBC 12.1 H, RBC 2.75 L, Hgb 8.2 L, Hct 26.2 L, MCV 95.3 H, MCH 29.8, MCHC 31.3 L, RDW Std Deviation 50.9 H, RDW Coeff of Fidelia 14.6, Plt Count 587 H, MPV 10.6, Neut % (Auto) Not Reportable, Absolute Neuts (auto) 10.5 H, Absolute Lymphs (auto) 0.73 L, Total Counted 100, Neutrophils % (Manual) 77 H, Band Neutrophils % 10 H, Lymphocytes % (Manual) 6 L, Monocytes % (Manual) 6, Metamyelocytes % 1, Diff Path Review May foll, Platelet Estimate SLT INC, RBC Morphology NORM C+C 06/23/22 05:25: Sodium 140, Potassium 3.7, Chloride 108 H, Carbon Dioxide 27.0, Anion Gap 5, BUN 12, Creatinine 1.42 H, Estim Creat Clear Calc 38.80, Est GFR (MDRD) Af Amer 61, Est GFR (MDRD) Non-Af 51 L, BUN/Creatinine Ratio 8.5 L, Glucose 98, Calcium 8.2 L Microbiology: Microbiology 06/23/22 09:15 Nasal Secretion SARS-CoV-2 Antigen (Rapid) - Final 06/16/22 12:10 Blood Culture (Wb) - Right Forearm Blood Culture - Final No growth in 5 days. 06/16/22 12:10 Blood Culture (Wb) - Anticubital Left Blood Culture - Final No growth in 5 days. 06/17/22 06:00 Sputum, Expectorated/Coughed Gram Stain - Final 06/17/22 06:00 Sputum, Expectorated/Coughed Respiratory Culture - Final 06/16/22 14:37 Urine, Clean Catch Urine Culture - Final Yeast, not Gem albicans 06/16/22 12:19 Nasal Secretion SARS-CoV-2 & FLU Antigen (Rapid) - Final Influenzae B D/C Instructions Discharge Diet: - (DASH diet) Meaningful Use Info Meaningful Use Diagnoses (Choose all that apply): None applicable Discharge Plan Admission Admit Date/Time: 06/17/22 09:58 Primary Reason for Your Visit: Fatigue Attending Provider: Balbina Logan Primary Care Provider: Rodney Shah Consulting Providers: Alberto Zuleta ; Tonja Vu Instructions Patient Instructions: ED Upper GI Bleeding (Stable) Additional Instructions / Restrictions: DISCHARGE INSTRUCTIONS PLEASE READ *Please take this with you to your next doctors appointment* -You will need to follow-up with Dr. Sesay with GI in his office upon discharge. Please call his office to schedule your hospital follow-up appointment (ph. [phone]) -You will be discharged on Protonix 40 mg twice daily as well as Carafate, will be important you take these as prescribed -Your aspirin has been discontinued due to your bleeding -Order demand ABG to check hemoglobin in 5 to 7 days to verify stability -Due to your blood pressure being somewhat low your medications were adjusted and you will no longer be taking Prinzide or diltiazem. Your metoprolol will be discontinued as well and you have been switched to carvedilol which will help blood pressure and heart rate. -Please call your primary care provider's office upon discharge to schedule a hospital follow up within 1 week. -For any concerning signs or symptoms please call 911 or proceed to the nearest emergency department Discharge Orders/Prescriptions Prescriptions: New carvedilol 6.25 mg Tablet 6.25 mg PO BID 30 Days Qty: 0 0RF Continued pravastatin 20 MG tablet 20 mg PO QHS albuterol sulfate [ProAir HFA] 1 PUFF inhaler 1 - 2 puff inhalation Q4H PRN PRN (Reason: Asthma) ergocalciferol (vitamin D2) 1,000 unit Capsule 1,000 unit PO DAILY cholecalciferol (vitamin D3) [Vitamin D3] 50 mcg (2,000 unit) Tablet 50 mcg PO DAILY sodium bicarbonate 650 mg Tablet 650 mg PO TID Qty: 0 0RF sucralfate 1 gram Tablet 1 g PO 1HR_ACHS Qty: 0 0RF pantoprazole [Protonix] 40 mg tablet,delayed release (DR/EC) 40 mg PO BID Qty: 1 0RF Discontinued aspirin 81 MG tablet,chewable 81 mg PO DAILY@0800 Prinzide 10 mg PO DAILY Label Comments: PRINZIDE 10/12.5 diltiazem HCl 120 mg Capsule,Extended Release 24hr 120 mg PO DAILY Qty: 0 0RF metoprolol tartrate 25 mg Tablet 25 mg PO BID Qty: 0 0RF Referrals / Follow Up: Rodney Shah MD [Primary Care Provider] - Within 1 Week Min Sesay DO [Med Staff - Active Staff] - See Referral Note (You will need to follow-up with Dr. Sesay with GI in his office upon discharge. Please call his office to schedule your hospital follow-up appointment (ph. [phone])) Disposition Disposition (needs filled in before D/C Order can be placed): [facility] Charges/Coding Visit Charges Inpatient E&M: 46113 Disch Hosp >30min
--- NOTE | 2022-06-23 14:37 | CASEMGMT ---
Discharge Planning Discharge orders sent to [facility] via [employer]
--- NOTE | 2022-06-23 15:23 | CASEMGMT ---
Social Work Precert has been obtained. Physician updated and plans to discharge pt today. Discharge orders and covid results sent to [facility] via [employer] [employer]. SW arranged transportation with [facility] for 5:00 greens picker via wheelchair Van. SW met with pt and updated and he is agreeable with d/c plan. Call placed to pt kathleen Livingston and updated on d/c time. Nursing and [facility] notified of d/c time. Plan: [facility] Rob, skilled level of care [facility]
--- NOTE | 2022-06-23 16:21 | NURSING ---
tried 3 times to call report to [facility] at [phone]. Last time I left a message on to call back here for report.
--- NOTE | 2022-06-23 17:15 | NURSING ---
Report called to [facility] to [facility]. Pt was scheduled to be picked up at 17:00.
[2022-06-27 08:58] LABS: Pathologist Review Reviewed
[2022-06-27 09:01] LABS: Pathologist Review Reviewed
== END 2022-06-23 18:05 | disposition skilled nursing facility (03) | DRG 368 ==
LOC: ED 16:07 → MS3 16:42
PROVIDERS: Internal Medicine Gastroenterology; Student in an Organized Health Care Education/Training Program; Emergency Provider Emergency Medicine; PCP Family Medicine; Visit Provider Internal Medicine
PROC: 0DJ08ZZ Inspection of Upper Intestinal Tract, Via Natural or Artificial Opening Endoscopic (ICD-10-PCS; CPT 43235; principal; 2022-06-17 18:30)
DX: K20.81 Other esophagitis with bleeding (principal); K27.4 Chronic or unspecified peptic ulcer, site unspecified, with hemorrhage; I47.1 Supraventricular tachycardia; D62 Acute posthemorrhagic anemia; E87.20 Acidosis, unspecified; N17.9 Acute kidney failure, unspecified; D63.8 Anemia in other chronic diseases classified elsewhere; N18.32 Chronic kidney disease, stage 3b; J42 Unspecified chronic bronchitis; J10.1 Influenza due to other identified influenza virus with other respiratory manifestations; E78.5 Hyperlipidemia, unspecified; I12.9 Hypertensive chronic kidney disease with stage 1 through stage 4 chronic kidney disease, or unspecified chronic kidney disease; K29.70 Gastritis, unspecified, without bleeding; D50.9 Iron deficiency anemia, unspecified; K20.90 Esophagitis, unspecified without bleeding; W19.XXXA Unspecified fall, initial encounter; S69.81XA Other specified injuries of right wrist, hand and finger(s), initial encounter; R53.1 Weakness; R73.9 Hyperglycemia, unspecified; Z87.891 Personal history of nicotine dependence; R53.81 Other malaise; Z79.82 Long term (current) use of aspirin
CPT/HCPCS: 36415; 36569; 70450; 71045; 73110; 73130; 74177; 80048; 80053; 81001; 82607; 82728; 83540; 83550; 83605; 83735; 84443; 85018; 85025; 86850; 86900; 86901; 86920; 87040; 87070; 87086; 87088; 87205; 87426; 87428; 92526; 92610; 93005; 94640; 97110; 97162; 97166; 97530; 97535; 99285; J7030; J7040; J7120; P9016; Q9967; A4216; J1940; J2405